=== PATIENT | female | born 1960 | race Caucasian/White ===

== ENCOUNTER → 2021-06-08 08:05 | Outpatient (BNVA) | payer MEDICARE, SELFPAY | PROVIDERS: PCP Physician Assistant; Visit Provider Physician Assistant | DX: E66.01 Morbid (severe) obesity due to excess calories (principal); E11.21 Type 2 diabetes mellitus with diabetic nephropathy; E11.65 Type 2 diabetes mellitus with hyperglycemia; E03.9 Hypothyroidism, unspecified; G47.33 Obstructive sleep apnea (adult) (pediatric); I50.9 Heart failure, unspecified; E78.5 Hyperlipidemia, unspecified; I10 Essential (primary) hypertension | CPT/HCPCS: 99202 ==

== ENCOUNTER → 2021-06-30 14:59 | Outpatient (BNVA) | payer MEDICARE, SELFPAY | PROVIDERS: PCP Physician Assistant; Visit Provider Physician Assistant ==

== ENCOUNTER → 2021-07-01 08:21 | Outpatient (BNVA) | payer MEDICARE, SELFPAY | PROVIDERS: PCP Physician Assistant; Visit Provider Physician Assistant | CPT/HCPCS: Q3014 ==

== ENCOUNTER → 2021-07-20 08:05 | Outpatient (BNVA) | payer MEDICARE, SELFPAY | PROVIDERS: PCP Physician Assistant; Visit Provider Physician Assistant | DX: E66.01 Morbid (severe) obesity due to excess calories (principal); Z68.43 Body mass index [BMI] 50.0-59.9, adult | CPT/HCPCS: Q3014 ==

== ENCOUNTER → 2021-07-22 13:46 | Outpatient (BNVA) | payer MEDICARE, SELFPAY | PROVIDERS: PCP Physician Assistant; Visit Provider Dietitian, Registered | DX: E66.01 Morbid (severe) obesity due to excess calories (principal); E11.65 Type 2 diabetes mellitus with hyperglycemia | CPT/HCPCS: 97802 ==

== ENCOUNTER → 2021-08-12 08:05 | Outpatient (BNVA) | payer MEDICARE, SELFPAY | PROVIDERS: PCP Physician Assistant; Visit Provider Physician Assistant | DX: E66.01 Morbid (severe) obesity due to excess calories (principal); Z68.43 Body mass index [BMI] 50.0-59.9, adult | CPT/HCPCS: Q3014 ==

== ENCOUNTER → 2021-09-17 08:06 | Outpatient (BNVA) | payer MEDICARE, SELFPAY | PROVIDERS: PCP Physician Assistant; Visit Provider Dietitian, Registered | DX: E66.01 Morbid (severe) obesity due to excess calories (principal); Z68.43 Body mass index [BMI] 50.0-59.9, adult | CPT/HCPCS: 97803 ==

== ENCOUNTER → 2021-10-06 08:06 | Outpatient (BNVA) | payer MEDICARE, SELFPAY | PROVIDERS: PCP Physician Assistant; Visit Provider Physician Assistant | CPT/HCPCS: Q3014 ==

== ENCOUNTER → 2021-11-02 08:14 | Outpatient (BNVA) | payer MEDICARE, SELFPAY | PROVIDERS: PCP Physician Assistant; Visit Provider Physician Assistant | DX: E66.01 Morbid (severe) obesity due to excess calories (principal) | CPT/HCPCS: Q3014 ==

== ENCOUNTER → 2021-12-08 08:09 | Outpatient (BNVA) | payer MEDICARE, SELFPAY | PROVIDERS: PCP Physician Assistant; Visit Provider Physician Assistant | DX: E66.01 Morbid (severe) obesity due to excess calories (principal); I11.0 Hypertensive heart disease with heart failure; I50.9 Heart failure, unspecified; E11.65 Type 2 diabetes mellitus with hyperglycemia; G47.33 Obstructive sleep apnea (adult) (pediatric); E03.9 Hypothyroidism, unspecified; M19.90 Unspecified osteoarthritis, unspecified site; Z68.43 Body mass index [BMI] 50.0-59.9, adult | CPT/HCPCS: Q3014 ==

== ENCOUNTER → 2022-01-06 08:09 | Outpatient (BNVA) | payer MEDICARE, SELFPAY | PROVIDERS: PCP Physician Assistant; Visit Provider Physician Assistant | DX: E66.01 Morbid (severe) obesity due to excess calories (principal) | CPT/HCPCS: Q3014 ==

== ENCOUNTER 2022-03-09 06:52 | Outpatient (REF) | payer MEDICARE, SELFPAY ==
--- NOTE | ~2022-03-09 | US_ITS ---
EXAMINATION: US COMPLETE ABDOMEN WITH LIVER ELASTOGRAPHY CLINICAL INFORMATION: Obesity COMPARISON: None. TECHNIQUE: Real-time imaging of the abdominal viscera. Noninvasive ultrasound liver fibrosis assessment is performed using Pippa ElastPQ point quantification shear wave elastography (2D-SWE) with a C5-2 MHz transducer. Multiple elastography samples are obtained. FINDINGS: PANCREAS: Normal. ABDOMINAL AORTA: The proximal, middle, and distal aortic segments are normal in caliber. INFERIOR VENA CAVA: Visualized portions are normal. LIVER: The liver is slightly enlarged. The liver demonstrates normal contour and echogenicity. No focal lesion or intrahepatic biliary duct dilatation. The right lobe measures 19 cm in length. The left lobe measures 15 cm in length. Portal flow is normal/hepatopedal Shear wave liver elastography median stiffness is 1.7 m/s (reference: normal median stiffness is 1.3 m/s or less). IQR/median stiffness to assess sampling precision is 0.11 (reference: good quality data set is IQR/median stiffness of 0.15 or less). GALLBLADDER: Normal. The gallbladder is physiologically distended without evidence of stones, sludge, polyps, wall thickening or pericholecystic fluid. COMMON BILE DUCT: Normal in caliber measuring 0.8 cm in diameter. RIGHT KIDNEY: Normal. No hydronephrosis. No renal calculi or focal parenchymal lesions. The kidney measures 13 cm in maximum dimension. LEFT KIDNEY: Normal. No hydronephrosis. No renal calculi or focal parenchymal lesions. The kidney measures 12.5 cm in maximum dimension. SPLEEN: Normal. The spleen measures 10.2 cm in maximum dimension. FREE FLUID: None. US/US abdomen comp w elastography IMPRESSION: 1. Impression: Slightly enlarged liver. 2. Liver elastography: Adequate liver sampling. Slightly elevated liver stiffness. REFERENCE: Society of Radiologists in Ultrasound Liver Stiffness Thresholds (2020): LIVER STIFFNESS THRESHOLDS: *Liver Stiffness equal or less than 1.3 m/s: High probability of being normal. *Liver Stiffness less than 1.7 m/s: In the absence of other known clinical signs, rules out compensated advanced chronic liver disease. *Liver Stiffness 1.7-2.1 m/s: Liver Stiffness over 2.1 m/s: Rules in compensated advanced chronic liver disease. *Liver Stiffness over 2.4 m/s: Suggestive of clinically significant portal hypertension. QUALITY OF DATA SET: *IQR/Median value equal or less than 0.15 implies a quality data set. *IQR/Median value over 0.15 implies a poor quality data set. SIGNIFICANT CHANGE FROM PRIOR EXAM: Significant change if liver stiffness measurement is 10% or greater from prior exam. OTHER CONSIDERATIONS: The stage of liver fibrosis may be overestimated in the setting of acute hepatitis, liver inflammation, elevated liver function tests, hepatic vascular congestion, obstructive cholestasis, non-fasting state, and infiltrative diseases such as amyloidosis and lymphoma. In some patients with NAFLD, the liver stiffness thresholds for compensated advanced chronic liver disease may be lower. In causes other than viral hepatitis and NAFLD, liver stiffness thresholds are not well established.
--- NOTE | ~2022-03-09 | XR_ITS ---
EXAMINATION: XR CHEST CLINICAL INFORMATION: Bariatric service evaluation. COMPARISON: Upper GI series and ultrasound abdomen 03/09/2022. No prior chest radiographs. TECHNIQUE: 2 views of the chest were obtained. FINDINGS: There is nonspecific tubing overlying the right hemithorax, possibly outside of patient. Clinically correlate. There is no pneumothorax, airspace consolidation, or effusion. The costophrenic sulci are clear. The vascularity is normal. Hilar contours normal. The cardiopericardial silhouette is borderline enlarged. There is nonspecific smooth soft tissue density in the mid and lower substernal space on lateral view. This may represent mediastinal lipomatosis. There are no prior chest radiographs for comparison. There are degenerative changes lower thoracic spine with disc narrowing and vertebral spurring. No visible acute bony abnormality. PSA to call report. XR/XR chest 2V IMPRESSION: -Borderline cardiomegaly. Vascularity normal. No infiltrate or effusion. -Nonspecific smooth soft tissue density substernal space on lateral view. No prior chest radiograph. Finding may be related to mediastinal lipomatosis and could be further characterized with noncontrast CT chest. -Nonspecific tubing overlying right chest. Clinically correlate.
--- NOTE | ~2022-03-09 | FL_ITS ---
EXAMINATION: XR GI SERIES CLINICAL INFORMATION: Obesity COMPARISON: None TECHNIQUE: Upper GI was performed using thin and thick barium and effervescent granules. FINDINGS: Esophageal motility is normal. No hernia is seen. There is very mild gastroesophageal reflux. There is diffuse fold thickening of the stomach. There is marked edema of the pylorus. Follow-up endoscopy should be considered. There is no evidence of obstruction with contrast passing into normal-appearing duodenum. FLUOROSCOPY TIME: 1.1 minutes DOSE AREA PRODUCT: 17 cedillo per centimeter squared. 17 saved fluoroscopic images. FL/FL upper GI series IMPRESSION: Marked fold thickening of the stomach. Edema of the pyloric channel. Possible hyperacidity and gastritis and pyloric channel ulcer should be considered. Follow-up endoscopy should be considered. Very mild gastroesophageal reflux.
--- NOTE | 2022-03-09 07:02 | ECG_ITS ---
Test Reason : E11. TYPE II DIABETES Blood Pressure : / mmHG Vent. Rate : 074 BPM Atrial Rate : 074 BPM P-R Int : 216 ms QRS Dur : 076 ms QT Int : 360 ms P-R-T Axes : 038 091 018 degrees QTc Int : 399 ms Sinus rhythm with 1st degree A-V block Rightward axis Low voltage QRS Septal infarct , age undetermined Abnormal ECG No previous ECGs available Referred By: Jen Vasques Electronically Signed By:David Kc
== END 2022-03-09 06:53 | disposition home or self-care (01) ==
LOC: HO.US 06:52
PROVIDERS: PCP Family Medicine; Visit Provider Physician Assistant
DX: I11.0 Hypertensive heart disease with heart failure (principal); I50.9 Heart failure, unspecified; E11.21 Type 2 diabetes mellitus with diabetic nephropathy; E66.01 Morbid (severe) obesity due to excess calories; E03.9 Hypothyroidism, unspecified; E11.65 Type 2 diabetes mellitus with hyperglycemia; E78.5 Hyperlipidemia, unspecified; G47.33 Obstructive sleep apnea (adult) (pediatric)
CPT/HCPCS: 71046; 74240; 76705; 76981; 93005

== ENCOUNTER → 2022-03-11 15:21 | Outpatient (BNVA) | payer MEDICARE, SELFPAY | PROVIDERS: PCP Family Medicine; Visit Provider Physician Assistant | DX: E66.01 Morbid (severe) obesity due to excess calories (principal); Z68.43 Body mass index [BMI] 50.0-59.9, adult; I44.0 Atrioventricular block, first degree; R94.31 Abnormal electrocardiogram [ECG] [EKG]; I11.0 Hypertensive heart disease with heart failure; I50.9 Heart failure, unspecified; G47.33 Obstructive sleep apnea (adult) (pediatric); E11.65 Type 2 diabetes mellitus with hyperglycemia; E03.9 Hypothyroidism, unspecified; Z11.0 Encounter for screening for intestinal infectious diseases | CPT/HCPCS: 99211; 99212 ==

== ENCOUNTER 2022-03-11 17:51 | Outpatient (REF) | payer MEDICARE, SELFPAY ==
[2022-03-12 15:28] LABS: H Pylori Breath Test Negative (Negative)
== END 2022-03-11 17:52 | disposition home or self-care (01) ==
LOC: HO.LNP 17:51
PROVIDERS: Visit Provider Physician Assistant
DX: I11.0 Hypertensive heart disease with heart failure (principal); I50.9 Heart failure, unspecified; E78.5 Hyperlipidemia, unspecified; G47.33 Obstructive sleep apnea (adult) (pediatric); E11.65 Type 2 diabetes mellitus with hyperglycemia; E03.9 Hypothyroidism, unspecified; E11.21 Type 2 diabetes mellitus with diabetic nephropathy; Z11.0 Encounter for screening for intestinal infectious diseases
CPT/HCPCS: 83013

== ENCOUNTER → 2022-03-19 08:09 | Outpatient (BNVA) | payer MEDICARE, SELFPAY | PROVIDERS: PCP Family Medicine; Visit Provider Surgery | DX: E66.01 Morbid (severe) obesity due to excess calories (principal); Z68.43 Body mass index [BMI] 50.0-59.9, adult; I11.0 Hypertensive heart disease with heart failure; I50.9 Heart failure, unspecified; G47.33 Obstructive sleep apnea (adult) (pediatric); E11.65 Type 2 diabetes mellitus with hyperglycemia; E03.9 Hypothyroidism, unspecified; E78.5 Hyperlipidemia, unspecified; E11.21 Type 2 diabetes mellitus with diabetic nephropathy; F31.81 Bipolar II disorder; M19.90 Unspecified osteoarthritis, unspecified site; F06.30 Mood disorder due to known physiological condition, unspecified; K21.9 Gastro-esophageal reflux disease without esophagitis; G93.2 Benign intracranial hypertension; J45.909 Unspecified asthma, uncomplicated | CPT/HCPCS: Q3014 ==

== ENCOUNTER 2022-03-24 08:39 | Outpatient (REF) | payer MEDICARE, SELFPAY ==
--- NOTE | ~2022-03-24 | CT_ITS ---
EXAMINATION: CT CHEST, ABDOMEN, PELVIS WITH CONTRAST CLINICAL INFORMATION: Mediastinal mass. COMPARISON: Chest x-ray 03/09/2022. TECHNIQUE: 5 mm thin axial and reformatted 5 mm thin axial and coronal images of chest, abdomen and pelvis were obtained following IV 85 mL Omnipaque 350. DLP: 1347 mGy-cm. FINDINGS: CHEST: Lungs: The lungs are well-expanded and clear of acute pneumonic process. There is a 4 mm ground-glass nodule subpleural left lower lobe, axial image 391/7. A 2.8 x 1.9 cm nodule is seen on top of the right diaphragm, axial image 362/7 and sagittal image 88/6. It measures 46 Hounsfield units. No additional pulmonary nodules, mass or consolidation seen. Mediastinum: The thyroid lobes are symmetrical and normal. The central trachea and the bronchi are widely patent. Heart size and the great vessels are normal caliber. There is a small pericardial effusion extending throughout the heart and superior pericardial sac. No soft tissue mass or abnormal lymphadenopathy seen. There are trace coronary artery calcifications present. Pleura: There is no pleural thickening, effusion or calcification. Axilla: There are small shotty lymph nodes in the axilla. The chest wall is unremarkable. Osseous Structures: There is mild ventral spondylosis mid and lower dorsal spine. No aggressive lytic or sclerotic process seen. ABDOMEN AND PELVIS: Liver, Ducts and Gallbladder: The liver is homogeneous in density, normal size and contour. No focal lesion or intrahepatic ductal dilatation seen. The gallbladder has been surgically removed. Spleen: Unremarkable. Adrenal Glands: Unremarkable. Pancreas: Unremarkable. Kidneys and Ureters: Both kidneys are normal size, shape and position. There is a 4 mm nonobstructive radiopaque calculi lower pole right kidney. There is no caliectasis. No additional radiopaque calculi seen. There is no hydronephrosis. Lymphovascular Structures: The abdominal aorta is normal caliber. No abnormal size retroperitoneal or mesenteric lymph nodes seen. Abdominal Wall: Unremarkable. GI Tract: There is scattered stool, diverticula and gas seen throughout the colon without distention. The small-bowel loops are normal caliber. Appendix is not visualized with certainty; however, there is no inflammatory process in the right abdomen. No free air or free fluid seen. There is a jugular catheter seen in the right upper quadrant extending to the right anterior chest wall. Similarly, there is a right anterior lateral chest wall thin catheter seen. Whether this represents a broken SALES [employer] shunt is questioned. Correlate with clinical exam. Pelvis: There is no free air or free fluid. No abnormal pelvic or inguinal lymph nodes seen. There is a surgical staple in the pelvis of unknown etiology on axial image 74/3. There is a soft tissue mass seen on the last image of the pelvis on axial image 88/3. Question scar versus lymph node. Osseous Structures: There is no aggressive lytic or sclerotic process seen. There is vacuum disc phenomena and loss of disc height with spondylosis L5-S1 disc level. CT/CT chest w con IMPRESSION: Right lower lobe mass on the top of the diaphragm measuring 2.8 cm. Mild pericardial effusion extending to the anterior pericardial recess adjacent to the aorta and the pulmonary artery origins Colonic diverticulosis without diverticulitis. Suspect broken [employer] shunt. Correlate with clinical exam. This is visualized along the right anterolateral chest and abdominal wall. Soft tissue mass below the right inguinal region visualized on last image. Question scar versus lymph node. Cholecystectomy. Nonobstructive radiopaque calculi lower pole right kidney.
--- NOTE | ~2022-03-24 | CT_ITS ---
EXAMINATION: CT CHEST, ABDOMEN, PELVIS WITH CONTRAST CLINICAL INFORMATION: Mediastinal mass. COMPARISON: Chest x-ray 03/09/2022. TECHNIQUE: 5 mm thin axial and reformatted 5 mm thin axial and coronal images of chest, abdomen and pelvis were obtained following IV 85 mL Omnipaque 350. DLP: 1347 mGy-cm. FINDINGS: CHEST: Lungs: The lungs are well-expanded and clear of acute pneumonic process. There is a 4 mm ground-glass nodule subpleural left lower lobe, axial image 391/7. A 2.8 x 1.9 cm nodule is seen on top of the right diaphragm, axial image 362/7 and sagittal image 88/6. It measures 46 Hounsfield units. No additional pulmonary nodules, mass or consolidation seen. Mediastinum: The thyroid lobes are symmetrical and normal. The central trachea and the bronchi are widely patent. Heart size and the great vessels are normal caliber. There is a small pericardial effusion extending throughout the heart and superior pericardial sac. No soft tissue mass or abnormal lymphadenopathy seen. There are trace coronary artery calcifications present. Pleura: There is no pleural thickening, effusion or calcification. Axilla: There are small shotty lymph nodes in the axilla. The chest wall is unremarkable. Osseous Structures: There is mild ventral spondylosis mid and lower dorsal spine. No aggressive lytic or sclerotic process seen. ABDOMEN AND PELVIS: Liver, Ducts and Gallbladder: The liver is homogeneous in density, normal size and contour. No focal lesion or intrahepatic ductal dilatation seen. The gallbladder has been surgically removed. Spleen: Unremarkable. Adrenal Glands: Unremarkable. Pancreas: Unremarkable. Kidneys and Ureters: Both kidneys are normal size, shape and position. There is a 4 mm nonobstructive radiopaque calculi lower pole right kidney. There is no caliectasis. No additional radiopaque calculi seen. There is no hydronephrosis. Lymphovascular Structures: The abdominal aorta is normal caliber. No abnormal size retroperitoneal or mesenteric lymph nodes seen. Abdominal Wall: Unremarkable. GI Tract: There is scattered stool, diverticula and gas seen throughout the colon without distention. The small-bowel loops are normal caliber. Appendix is not visualized with certainty; however, there is no inflammatory process in the right abdomen. No free air or free fluid seen. There is a jugular catheter seen in the right upper quadrant extending to the right anterior chest wall. Similarly, there is a right anterior lateral chest wall thin catheter seen. Whether this represents a broken CONTINUOUS IMPROVEMENT MANAGER shunt is questioned. Correlate with clinical exam. Pelvis: There is no free air or free fluid. No abnormal pelvic or inguinal lymph nodes seen. There is a surgical staple in the pelvis of unknown etiology on axial image 74/3. There is a soft tissue mass seen on the last image of the pelvis on axial image 88/3. Question scar versus lymph node. Osseous Structures: There is no aggressive lytic or sclerotic process seen. There is vacuum disc phenomena and loss of disc height with spondylosis L5-S1 disc level. CT/CT abdomen pelvis w con IMPRESSION: Right lower lobe mass on the top of the diaphragm measuring 2.8 cm. Mild pericardial effusion extending to the anterior pericardial recess adjacent to the aorta and the pulmonary artery origins Colonic diverticulosis without diverticulitis. Suspect broken CONTINUOUS IMPROVEMENT MANAGER shunt. Correlate with clinical exam. This is visualized along the right anterolateral chest and abdominal wall. Soft tissue mass below the right inguinal region visualized on last image. Question scar versus lymph node. Cholecystectomy. Nonobstructive radiopaque calculi lower pole right kidney.
[2022-03-24 10:18] LABS: Blood Urea Nitrogen 38 mg/dL (9-16); Estimated Glomerular Filt Rate 43
[2022-03-24] MEDS: iohexoL 350 MG/ML 100 ML INFUS..BTL 85 ML IV (11:07)
== END 2022-03-24 08:40 | disposition home or self-care (01) ==
LOC: HO.CT 08:39
PROVIDERS: Radiology Diagnostic Radiology; PCP Family Medicine; Visit Provider Physician Assistant
DX: J98.59 Other diseases of mediastinum, not elsewhere classified (principal)
CPT/HCPCS: 36415; 71260; 74177; 82565; 84520; Q9967

== ENCOUNTER → 2022-04-08 09:05 | Outpatient (BNVA) | payer MEDICARE, SELFPAY | PROVIDERS: PCP Family Medicine; Visit Provider Physician Assistant | DX: E66.01 Morbid (severe) obesity due to excess calories (principal); I11.0 Hypertensive heart disease with heart failure; I50.9 Heart failure, unspecified; E11.65 Type 2 diabetes mellitus with hyperglycemia; R91.8 Other nonspecific abnormal finding of lung field | CPT/HCPCS: Q3014 ==

== ENCOUNTER → 2022-04-09 10:22 | Outpatient (BNVA) | payer MEDICARE, SELFPAY | PROVIDERS: PCP Physician Assistant; Visit Provider Surgery | DX: R91.8 Other nonspecific abnormal finding of lung field (principal) | CPT/HCPCS: 99202 ==

== ENCOUNTER 2022-04-15 08:50 | Outpatient (REF) | payer MEDICARE, SELFPAY ==
--- NOTE | 2022-04-15 11:54 | PFT_ITS ---
INDICATION: Preop. SPIROMETRY: FEV1 to FVC 74% with an FEV1 of 1.63 L, which is 66% predicted, an FVC of 2.19 L, which is 68% predicted. No significant response to bronchodilators noted. Maximum voluntary ventilation 51% predicted. LUNG VOLUMES: Total lung capacity 80% predicted with an expiratory reserve volume of 28% predicted. DIFFUSION CAPACITY: DLCO of 56% predicted, it corrects to 76% when correcting for the alveolar volume. COMPARISONS: None. INTERPRETATION: No obstructive nor restrictive ventilatory defects identified. No significant response to bronchodilators noted. The patient does have a moderate decrease in maximum voluntary ventilation secondary to likely deconditioning. The lung volumes are low normal with a decrease in the expiratory reserve volume secondary to an elevated BMI. There is a moderate diffusion impairment, although it does correct partially when correcting for the alveolar volume. Clinical correlation warranted. Jadiel Caruso MD MR/MODL / [id number]
== END 2022-04-15 08:51 | disposition home or self-care (01) ==
LOC: HO.RESP 08:50
PROVIDERS: PCP Family Medicine; Visit Provider Surgery
DX: R91.8 Other nonspecific abnormal finding of lung field (principal)
CPT/HCPCS: 94060; 94727; 94729

== ENCOUNTER 2022-04-27 11:26 | Outpatient (REF) | payer MEDICARE, SELFPAY ==
--- NOTE | ~2022-04-27 | PE_ITS ---
EXAMINATION: Fluorine-18 FDG PET/CT Scan CLINICAL INDICATION: Initial treatment management. Pulmonary nodule. PROCEDURE: 60 minutes following the intravenous administration of 18.3 mCi of fluorine 18 FDG, images from the base of the skull to the mid thighs were obtained using a combined PET/CT scanner with CT scan based attenuation correction. No oral contrast was administered. No intravenous contrast was administered. Transverse, coronal, sagittal, and volume reconstruction projections were obtained. The patient's blood glucose as determined by a finger stick, was 189 mg/dl immediately prior to injection. Total CT exam dose-length product 1431.34 mGy-cm * These CT images were obtained using dose optimization techniques as appropriate, variously including the following: Automated exposure control * Adjustment of mA and/or kV according to patient size (this includes techniques or standardized protocols for targeted exams where dose is matched to indication/reason for exam; i.e. extremities or head) * Use of iterative reconstruction technique COMPARISON: No previous PET/CT scan is available for comparison. The diagnostic CT scan of the chest, abdomen, and pelvis, dated 03/24/2022, is available for comparison. FINDINGS: (Slice numbers described in this report are numbered superiorly to inferiorly with slice #1 in the head) NECK AND VISUALIZED HEAD: No foci of abnormally increased FDG activity are noted. There is a focus of decreased FDG activity associated with encephalomalacia in the parasagittal posterior right occipital region. The distribution of FDG activity is otherwise physiological. There is an osseous defect likely due to prior craniotomy in the posterior base of the right occipital bone. There is no cervical lymphadenopathy. THORAX: There is an FDG avid right lower lobe pulmonary nodule that abuts the diaphragm, showing SUVmax 8.9, slice 93/267. On the CT images this measures 2.6 x 1.8 cm in largest transverse dimensions and approximately 2.9 cm cephalocaudad. It is not significantly changed in appearance from the 03/24/2022 CT scan. A 0.4 cm subpleural nodule in the left lower lobe visualized on the 03/24/2022 CT scan is not visible on these nondiagnostic CT images. This nodule would be too small to be resolved on the FDG PET images. No additional pulmonary nodules are visualized. There is an additional focus of mildly increased FDG activity in the proximal peribronchial region of the right middle lobe with no definite CT correlate on either these nondiagnostic CT images or the diagnostic 03/24/[address] scan. This shows SUVmax 6.3, slice 86/267. No additional foci of abnormal FDG activity are present in the chest. There is a subcutaneous catheter segment that runs from the posterior aspect of the mid right breast along the right axilla to the posterolateral right chest wall, previously noted on the 03/24/2022 CT scan and the chest radiograph dated 03/09/2022. No pleural fluid or pneumothorax is present. A small pericardial effusion is noted with no associated abnormal FDG activity and similar in appearance to 03/24/2022. ABDOMEN AND PELVIS: There are no foci of abnormal FDG activity in the abdomen or pelvis. There is mild FDG activity throughout the gastrointestinal tract without a suspicious focal component. There is diverticulosis without evidence of diverticulitis. The hollow viscera are otherwise unremarkable. The liver and spleen are unremarkable. The gallbladder has been resected and metallic surgical clips are present in the gallbladder bed. There is a 0.4 cm nonobstructing right lower pole calcified renal calculus. The kidneys are otherwise unremarkable. The adrenal glands and pancreas are unremarkable. The pelvic organs are unremarkable. There is no retroperitoneal, mesenteric, pelvic or inguinal lymphadenopathy. There is an intraperitoneal right-sided catheter segment extends to and penetrates the anterior abdominal abdominal wall in the midline and then extends several centimeters to the right. There is a large hypodense soft tissue mass in the right groin, with mean density -11 Hounsfield units. This measures this measures 13.2 x 7.8 cm in largest transverse dimensions and approximately 9.2 cm cephalocaudad. This shows mild diffuse FDG activity, SUVmax 3.3, slice 230/267. MUSCULOSKELETAL: No foci of abnormal FDG activity are present in the osseous structures. There are mild degenerative changes in the spine but no suspicious sclerotic or lytic lesions are present. Right occipital post craniotomy changes as previously noted. VASCULAR: Scattered vascular calcifications including coronary. PET/PET CT fusion skull to thigh IMPRESSION: 1. The previously visualized right lung base pulmonary nodule is FDG avid and most likely malignant. 2. There is a single proximal right middle lobe peribronchial FDG avid focus without corresponding CT correlate that likely represents a metastatic peribronchial lymph node. 3. There is a large soft tissue low density mass in the right inguinal region with mild FDG activity as described above. This is probably a large lymphocele, but the finding is nonspecific. Further characterization of this with MRI is recommended. 4. No additional abnormalities suspicious for other metastatic or malignant lesions are noted. 5. A small pericardial effusion is present with no associated abnormal FDG activity. 6. Nephrolithiasis. 7. Vascular calcifications including coronary. 8. Two separate segments of a retained catheter present, possibly representing retained portions of ventriculoperitoneal shunt. However no shunt fragments are visualized in the head and neck in these findings are nonspecific. The fragments extend from the right side of the perineum to the anterior abdominal wall in the midline and then several centimeters to the right, and the other segment extends in the subcutaneous tissues from the midline anterior chest wall laterally through the axilla to the posterolateral right chest wall. Clinical correlation is recommended.
== END 2022-04-27 11:27 | disposition home or self-care (01) ==
LOC: HO.PET 11:26
PROVIDERS: Visit Provider Surgery
DX: Z13.89 Encounter for screening for other disorder (principal)

== ENCOUNTER → 2022-05-05 12:31 | Outpatient (BNVA) | payer MEDICARE, SELFPAY | PROVIDERS: PCP Family Medicine; Visit Provider Physician Assistant | DX: E66.01 Morbid (severe) obesity due to excess calories (principal); Z68.43 Body mass index [BMI] 50.0-59.9, adult; R91.8 Other nonspecific abnormal finding of lung field | CPT/HCPCS: Q3014 ==

== ENCOUNTER → 2022-06-24 09:56 | Outpatient (BNVA) | payer MEDICARE, SELFPAY | PROVIDERS: PCP Family Medicine; Visit Provider Physician Assistant | DX: E66.01 Morbid (severe) obesity due to excess calories (principal); R91.8 Other nonspecific abnormal finding of lung field | CPT/HCPCS: Q3014 ==

== ENCOUNTER → 2022-08-16 10:23 | Outpatient (BNVA) | payer MEDICARE, SELFPAY | PROVIDERS: PCP Family Medicine; Visit Provider Physician Assistant | DX: E66.01 Morbid (severe) obesity due to excess calories (principal); R91.8 Other nonspecific abnormal finding of lung field; Z68.43 Body mass index [BMI] 50.0-59.9, adult | CPT/HCPCS: Q3014 ==

== ENCOUNTER → 2022-10-04 08:30 | Outpatient (BNVA) | payer MEDICARE, SELFPAY | PROVIDERS: PCP Family Medicine; Visit Provider Physician Assistant | DX: E66.01 Morbid (severe) obesity due to excess calories (principal); R91.8 Other nonspecific abnormal finding of lung field; Z68.43 Body mass index [BMI] 50.0-59.9, adult | CPT/HCPCS: Q3014 ==

== ENCOUNTER → 2022-12-15 08:30 | Outpatient (BNVA) | payer MEDICARE, SELFPAY | PROVIDERS: PCP Family Medicine; Visit Provider Physician Assistant | DX: E66.01 Morbid (severe) obesity due to excess calories (principal); C34.90 Malignant neoplasm of unspecified part of unspecified bronchus or lung | CPT/HCPCS: Q3014 ==

== ENCOUNTER → 2023-01-27 13:00 | Outpatient (BNVA) | payer MEDICARE, SELFPAY | PROVIDERS: Visit Provider Physician Assistant | DX: E66.01 Morbid (severe) obesity due to excess calories (principal); Z68.42 Body mass index [BMI] 45.0-49.9, adult; C34.90 Malignant neoplasm of unspecified part of unspecified bronchus or lung | CPT/HCPCS: Q3014 ==

== ENCOUNTER 2023-05-05 08:53 | Outpatient (AMB) | payer MEDICARE, SELFPAY ==
[2023-05-05 08:48] VITALS: BMI 46.7
--- NOTE | 2023-05-05 08:48 | MHC.OFFVISWM ---
Intake VS Expanded 05/05/23 08:48 Height 5 ft 1.5 in Weight 251 lb BMI 46.7 Intake Visit Reasons: VIDEO F/U [facility] Allergies cat dander Allergy (Severe, Verified 04/09/22 10:24) Anaphylaxis Seasonal Allergies Allergy (Severe, Verified 04/09/22 10:24) Anaphylaxis dulaglutide [From Trulicity] Adverse Reaction (Verified 04/09/22 10:24) vomiting HPI HPI Comments History of Present Illness Details [facility] follow up, patient has lost 60.4 lbs or 20.3% in our pgorgram and has realized that her very severe medical problmes preclude her form continuing in our [facility] or [facility] program. She was told she has about 1 year left to live before she succumbs to her chronic medical problems. [facility] Surgical History History of back surgery Hx of appendectomy Hx of cholecystectomy Hx of tonsillectomy Family History Mother No problems noted. Father No problems noted. Brother No problems noted. Sister No problems noted. Social History Alcohol intake: current Alcohol intake frequency: holidays/special occasions only Patient Tobacco Use Status: Current everyday Tobacco user Tobacco use type: Cigarette Cigarette Packs Per Day: 1 Assessment & Plan Assessment & Plan (1) Morbid obesity: Code(s): E66.01 - Morbid (severe) obesity due to excess calories Plan: Pt had very successful weight loss in our program but unfortunately was also diagnosed with metastatic lung cancer and can no longer participate in a weight loss program. Patient is still morbidly obese and is not considered stable at this time. I spent 15 minutes in total speaking with the patient via video conference counseling , reviewing records and charting in patients chart. . (2) Metastatic lung cancer (metastasis from lung to other site): Code(s): C34.90 - Malignant neoplasm of unspecified part of unspecified bronchus or lung (3) CHF (congestive heart failure): Code(s): I50.9 - Heart failure, unspecified Telehealth Telehealth Location of provider rendering services: practice address Location of patient: address on file Patient Identification confirmed using: Name, : Yes Telehealth method: video Patient verbally consented to treatment: Yes Patient verbally consented to billing insurance company: Yes Patient informed of any privacy concerns related to visit: Yes Coding Level of Care Code Tele Est Pt Level 3 (27953) Diagnoses Morbid obesity E66.01 Metastatic lung cancer (metastasis from lung to other site) C34.90 CHF (congestive heart failure) I50.9
--- OUTSIDE RECORDS SUMMARY | 2023-05-05 08:55 | XMS_ITS | Continuity of Care Document ---
Author Name Unknown Organization [facility] Address [address] [place] [address]- Care Team Providers Care Conference Planning Manager Name Role Phone Rell DE LA TORRE, Karolyn Primary Care Physician [phone] Encounter [facility] Date(s): 03/23/23 - 04/22/[address] [address]- Allergies, Adverse Reactions, Alerts Substance Reaction Severity Status ibuprofen Active Trulicity Active Immunizations Given and Recorded Vaccine Date Status Refusal Reason influenza virus vaccine, inactivated 07/10/22 Give n influenza virus vaccine, inactivated 11/17/16 Give n SARS-CoV-2 (COVID-19) mRNA-1273 vaccine 01/28/22 R ecorded SARS-CoV-2 (COVID-19) mRNA-1273 vaccine 07/20/21 R ecorded SARS-CoV-2 (COVID-19) mRNA-1273 vaccine 12/19/20 R ecorded SARS-CoV-2 (COVID-19) mRNA-1273 vaccine 11/22/20 R ecorded pneumococcal 23-valent vaccine 02/24/17 Given Medications acetaminophen/butalbital/caffeine 325 mg-50 mg-40 mg oral tablet 1 tablet, By Mouth, Every 6 hours, PRN as needed, Maintenance, 07/09/22 19:13:00 EDT, Tablet Start Date: 07/09/22 Status: Ordered albuterol 90 mcg/inh inhalation powder 1 puffs, Inhalation, Every 4 hours, PRN as needed, # 1 each, 0 Refills, Maintenance, 11/19/16 13:15:52, Powder Start Date: 11/19/16 Status: Ordered alectinib 150 mg oral capsule 2 capsule = 300 mg, By Mouth, 2 times a day, with food, # 120 capsule, 11 Refills, Maintenance, 04/14/23 10:50:00 EDT, Capsule, Partial fill upon patient request if the prescription is for a scheduleII opioid drug. Start Date: 04/14/23 Status: Ordered Breo Ellipta 100 mcg-25 mcg/inh inhalation powder 1 puffs, Inhalation, Daily, # 30 each, 0 Refills, Maintenance, 05/12/19 11:36:55 EDT, Powder Start Date: 05/12/19 Status: Ordered Carafate 1 gm oral tablet 1 Gm, By Mouth, 3 times a day before meals and bedtime, # 30 tablet, Refills 0, Tot. Refills 0, Maintenance, 03/21/23 12:57:00 EDT, Route to Pharmacy Electronically, [facility]/pharmacy #[id number], Partial fill upon patient request if the prescription is for a sc... Start Date: 03/21/23 Status: Ordered Crestor 40 mg oral tablet 1 tablet = 40 mg, By Mouth, Daily, # 30 tablet, 0 Refills, Maintenance, 11/16/16 16:25:00, Tablet Start Date: 11/16/16 Status: Ordered desvenlafaxine 25 mg oral tablet, extended release 1 tablet = 25 mg, By Mouth, Daily, do not crush or chew, Maintenance, 07/09/22 19:14:00 EDT, ER Tablet Start Date: 07/09/22 Status: Ordered diazepam 10 mg oral tablet 20 mg, 2, tablet, By Mouth, Daily at bedtime Start Date: 07/09/22 Status: Ordered DilTIAZem (Eqv-Cardizem CD) 120 mg/24 hours oral capsule, extended release 1 capsule = 120 mg, By Mouth, 2 times a day, 0 Refills, Maintenance, 08/14/21 20:12:00 EST, Partialfill upon patient request if the prescription is for a schedule II opioid drug. Start Date: 08/14/21 Status: Ordered enoxaparin 120 mg/0.8 mL injectable solution 0.8 mL = 120 mg, Subcutaneous Injection, Every 12 hours, for 30 days, # 48 mL, 1 Refills, Acute 06/05/23 14:47:00 EDT, 04/06/23 14:47:00 EDT, Injection, [facility], Partial fill upon patient request if the prescription is for a schedule... Start Date: 04/06/23 Stop Date: 06/05/23 Status: Ordered fenofibrate 145 mg oral tablet 1 tablet = 145 mg, By Mouth, Daily, # 90 tablet, 0 Refills, Maintenance, 08/14/21 17:28:00 EST, Tablet, Partial fill upon patient request if the prescription is for a schedule II opioid drug. Start Date: 08/14/21 Status: Ordered Flonase 50 mcg/inh nasal spray 1 sprays, Daily, Pt uses prn, 0 Refills, Maintenance, 04/11/17 11:45:51 Start Date: 04/11/17 Status: Ordered Humalog 100 u/ml subcutaneous injection See Instructions, Subcutaneous Infusion through insulin pump, max 250 units/d, 90 days, E 11.65, # 230 mL, 4 Refills, Maintenance, 06/25/22 13:55:00 EDT, [facility]/pharmacy #[id number], 157, cm, 05/25/22 13:17:00 EDT, Height, 138.3, kg, 08/15/21 6:07:00 EST, Dry... Start Date: 06/25/22 Status: Ordered iVAPS iVAPS, See Instructions, # 1 each, Refills 0, Tot. Refills 0, Maintenance, with TVa at 8.6 L/minutewith EPAP of 9 and min PS of 6 and max PS of 19 with target patient rate at 20., 02/07/23 11:19:00 EDT, Supply Start Date: 02/07/23 Status: Ordered lamotrigine 100 mg oral tablet 100 mg, 1, tablet, By Mouth, 2 times a day, # 60 tablet, Refills 5, Maintenance, 07/09/22 8:01:00 EDT, Partial fill upon patient request if the prescription is for a schedule II opioid drug. Start Date: 07/09/22 Status: Ordered Lasix 40 mg oral tablet 60 mg, By Mouth, Daily, # 45 tablet, Refills 0, Tot. Refills 0, Maintenance, 04/06/23 14:46:00 EDT,Route to Pharmacy Electronically, [facility], Partial fill upon patient request if the prescription is for a schedule II opioid drug., 15... Start Date: 04/06/23 Stop Date: 05/06/23 Status: Ordered levothyroxine 0.1 mg oral tablet = 100 mcg, By Mouth, Daily, 0 Refills, Maintenance, 05/12/19 11:34:46 EDT, Tablet Start Date: 05/12/19 Status: Ordered omnipod dash pods omnipod dash pods, See Instructions, # 15 each, Refills 11, Tot. Refills 11, Maintenance, e11.9, use as directed with short acting insulin, change out every 2 days. 30 day supply, 06/25/22 14:44:00 EDT, Supply, 157, cm, 05/25/22 13:17:00 EDT, Height,... Start Date: 06/25/22 Status: Ordered ondansetron 8 mg oral tablet 1 tablet = 8 mg, By Mouth, Every 8 hours, PRN as needed for nausea/vomiting, 0 Refills, Maintenance, 03/15/23 13:43:00 EDT, Tablet, Partial fill upon patient request if the prescription is for a schedule II opioid drug. Start Date: 03/15/23 Status: Ordered pantoprazole 40 mg oral delayed release tablet = 40 mg, By Mouth, 2 times a day, # 30 tablet, 0 Refills, Maintenance, 03/21/23 12:59:00 EDT, EC Tablet, 159, cm, 03/21/23 3:14:00 EDT, Height, 123, kg, 03/16/23 1:01:00 EDT, Dry Weight Start Date: 03/21/23 Status: Ordered potassium chloride 20 mEq oral tablet, extended release 1 tablet = 20 mEq, By Mouth, 2 times a day, # 6 tablet, 0 Refills, Maintenance, 09/16/19 8:51:00 EST, ER Tablet, [facility], 158, cm, 09/16/19 7:39:00 EST, Height, 122.5, kg, 09/13/19 18:49:00 EST, Dry Weight Start Date: 09/16/19 Stop Date: 09/19/19 Status: Ordered predniSONE 10 mg oral tablet See Instructions, please take with food. starting 04/06 take 4 tablets by mouth dailiy for 14 days, on 04/20 decrease to 3 tablets by mouth daily for 1 week, on 04/27 decrease to 2 tablets by mouth dailyfor 1 week, on 05/04 decrease to 1 tablet by mouth da... Start Date: 04/06/23 Status: Ordered traZODone 50 mg oral tablet 50 mg, 1, tablet, By Mouth, Daily at bedtime, # 15 tablet, Refills 0, Maintenance, 03/15/23 13:42:00 EDT, Partial fill upon patient request if the prescription is for a schedule II opioid drug. Start Date: 03/15/23 Status: Ordered Vitamin D3 1000 intl units oral tablet 1 tablet = 25 mcg, By Mouth, Daily, # 30 tablet, 0 Refills, Maintenance, 08/14/21 17:30:00 EST, Tablet, Partial fill upon patient request if the prescription is for a schedule II opioid drug. Start Date: 08/14/21 Status: Ordered Xyzal 5 mg oral tablet 1 tablet = 5 mg, By Mouth, Daily in PM, # 15 tablet, 0 Refills, Maintenance, 08/14/21 17:30:00 EST,Tablet Start Date: 08/14/21 Status: Ordered Problem List Condition Confirmation Course Effective Dates Status H ealth Status Informant Central sleep apnea Confirmed Active Depression Confirmed Active Diabetic nephropathy Confirmed Active GERD - Gastro-esophageal reflux disease Confirmed Active Hyperlipidemia Confirmed Active Hypertension Confirmed Active Hypothyroidism Confirmed Active Hypoventilation Confirmed Active Sleep-related hypoxia Confirmed Active Obesity, Unspecified Confirmed Active Obstructive sleep apnea Confirmed Active Severe obesity Confirmed Active Type 2 diabetes mellitus Confirmed Active Social History Social History Type Response Smoking Status Former smoker, quit more than 30 days ago; Other: smoked briefly from March-Apr 2022, had been years of nonsmoking prior; entered on: 07/28/22 Sex Patient Care team information Care Team Personnel Name: Naomi Vasquez RN Position: [facility] RN Member Role: Primary Care Nurse Name: Karolyn Zacarias MD Position: [facility] Physician - Primary Care Member Role: PCP Address: Address: [address] [place] [address] [address] [place], [place] [address] Name: Katina Tsang RN Position: [facility] RN Member Role: Primary Care Nurse Name: Tricia Titus RN Position: [facility] RN Supv Member Role: Primary Care Nurse Name: Claudette Govea Position: [facility] Outreach Member Role: Lifetime Consulting Physician Name: Dena Cano RN Position: [facility] RN Member Role: Primary Care Nurse Name: Bailey Inman RN Position: [facility] RN Member Role: Primary Care Nurse Name: Emma Jaramilol RN Position: [facility] AMB Nurse Member Role: Primary Care Nurse Name: Olga Wu RN Position: [facility] RN Supv Member Role: Primary Care Nurse Name: Naomi Rahman RN Position: [facility] RN Member Role: Primary Care Nurse Name: Maria De Jesus Moreau RN Position: [facility] RN Member Role: Primary Care Nurse Name: Suzanna Langley RN Position: [facility] OB RN Member Role: Primary Care Nurse Name: Rosio Soriano RN Position: [facility] RN Member Role: Primary Care Nurse Name: Arabella Smart RN Position: [facility] SN RN Member Role: Primary Care Nurse Name: Vesta Carmona LPN Position: [facility] RN Member Role: Primary Care Nurse Name: Alec Kong DO Position: [facility] Renal MD Member Role: Lifetime Consulting Physician Address: Address: [address] [place], [place] [address] [place], [place] [address] Name: Dedra Reese RN Position: [facility] RN Member Role: Primary Care Nurse Name: Makayla Valencia Position: [facility] RN Member Role: Primary Care Nurse Name: Dedra Byrd RN Position: [facility] RN Member Role: Primary Care Nurse Name: Nayely Sykes Position: [facility] RN Member Role: Primary Care Nurse Name: Ernie Bee RN Position: [facility] RN Member Role: Primary Care Nurse Name: Stephanie Way RN Position: [facility] RN Member Role: Primary Care Nurse Name: Ralph Coates RN Position: [facility] SN RN Member Role: Primary Care Nurse Name: Valeri Abebe RN Position: [facility] RN Member Role: Primary Care Nurse Name: Veronica Garcia RN Position: [facility] RN Member Role: Primary Care Nurse Name: Jeannine Chicas RN Position: [facility] Hospital Lens Molding Equipment Operator Member Role: Primary Care Nurse Name: Israel Etienne Position: [facility] Outreach Member Role: Lifetime Consulting Physician Name: Juju Rahman RN Position: [facility] SN RN Member Role: Primary Care Nurse Name: Tiffanie Watson RN Position: [facility] ED RN W/OE and Tasks Member Role: Primary Care Nurse Name: Tahira Hammond MA Position: [facility] A[place] Member Role: Primary Care Nurse Name: Lana Montiel RN Position: [facility] RN Member Role: Primary Care Nurse Name: Jayla Murguia RN Position: [facility] RN Member Role: Primary Care Nurse Name: Gurpreet Irby RN Position: [facility] RN Member Role: Primary Care Nurse Name: Rajani Delcid RN Position: [facility] Hospital Lens Molding Equipment Operator Member Role: Primary Care Nurse Care Team Related Persons Name: MAKAYLA GOTTLIEB Address: home [address] [place] [address] Name: KAROLYN MCGOWAN Address: home [address] [place] [address] Name: BHARGAV MUHAMMAD Address: home [address] [place] [address] Name: BHARGAV MUHAMMAD Address: [address] [place] [address]
--- OUTSIDE RECORDS SUMMARY | 2023-05-05 08:55 | XMS_ITS | Continuity of Care Document ---
Author Name Unknown Organization [facility] Address [address] [place] [address]- Care Team Providers Care Baker Bread Name Role Phone Rell DE LA TORRE, Karolyn Primary Care Physician [phone] Encounter [facility] Date(s): 02/11/23 - 03/13/23 [facility][1] Care [address] [place] [address]- Allergies, Adverse Reactions, Alerts Substance Reaction Severity [...] 13:15:52, Powder Start Date: 11/19/16 Status: Ordered aspirin 81 mg oral tablet 1 tablet = 81 mg, By Mouth, Daily, # 30 tablet, 0 Refills, Maintenance, 11/16/16 16:30:22, Tablet Start Date: 11/16/16 Status: Ordered Breo Ellipta 100 mcg-25 mcg/inh inhalation powder 1 puffs, Inhalation, Daily, # 30 each, 0 Refills, Maintenance, 05/12/19 11:36:55 EDT, Powder Start Date: 05/12/19 Status: Ordered Crestor 40 mg oral tablet [...] at bedtime Start Date: 07/09/22 Status: Ordered diazepam 5 mg oral tablet 5 mg, 1, tablet, By Mouth, Every 8 hours Start Date: 07/09/22 Status: Ordered DilTIAZem (Eqv-Cardizem CD) 120 mg/24 hours oral capsule, extended release 1 capsule = 120 mg, By Mouth, 2 times a day, 0 Refills, Maintenance, 08/14/21 20:12:00 EST, Partialfill upon patient request if the prescription is for a schedule II opioid drug. Start Date: 08/14/21 Status: Ordered fenofibrate 145 mg oral tablet [...] mL, 4 Refills, Maintenance, 06/25/22 13:55:00 EDT, [facility]/pharmacy #[id number], 157, cm, 05/25/22 13:17:00 EDT, Height, [...] Lasix 40 mg oral tablet 60 mg, 1.5, tablet, By Mouth, Every other day, # 90 tablet, Refills 0, Maintenance, 08/14/21 17:27:00 EST, Partial fill upon patient request if the prescription is for a schedule II opioid drug. Start Date: 08/14/21 Status: Ordered Lasix 40 mg oral tablet 40 mg, 1, tablet, By Mouth, Every other day, # 90 tablet, Refills 0, Maintenance, 08/14/21 17:27:00EST, Partial fill upon patient request if the prescription is for a schedule II opioid drug. Start Date: 08/14/21 Status: Ordered levothyroxine 0.1 mg oral tablet = 100 mcg, By Mouth, Daily, 0 Refills, Maintenance, 05/12/19 11:34:46 EDT, Tablet Start Date: 05/12/19 Status: Ordered Lyrica 75 mg oral capsule 1 capsule = 75 mg, By Mouth, 2 times a day, # 60 capsule, 0 Refills, Maintenance, 09/06/22 15:02:00EST, Capsule, [facility]/pharmacy #[id number], Partial fill upon patient request if the prescription is for a schedule II opioid drug., 157.5, cm, 09/01/22 9:19:00... Start Date: 09/06/22 Stop Date: 10/06/22 Status: Ordered [place]-3 Fish Oil 1000 mg oral capsule 1 capsule = 1,000 mg, By Mouth, Daily, 0 Refills, Maintenance, 08/14/21 17:31:00 EST, Partial fill upon patient request if the prescription is for a schedule II opioid drug. Start Date: 08/14/21 Status: Ordered omeprazole 20 mg oral delayed release tablet 1 tablet = 20 mg, By Mouth, Daily, # 30 tablet, 0 Refills, Maintenance, 08/14/21 17:29:00 EST, CR Tablet, Partial fill upon patient request if the prescription is for a schedule II opioid drug. Start Date: 08/14/21 Status: Ordered omnipod dash pods omnipod dash pods, See Instructions, # 15 each, Refills 11, Tot. Refills 11, Maintenance, e11.9, use as directed with short acting insulin, change out every 2 days. 30 day supply, 06/25/22 14:44:00 EDT, Supply, 157, cm, 05/25/22 13:17:00 EDT, Height,... Start Date: 06/25/22 Status: Ordered oxyCODONE 5 mg oral capsule 1 capsule = 5 mg, By Mouth, Every 6 hours, PRN as needed for pain, 0 Refills, Maintenance, :13:00 EST, Capsule, Partial fill upon patient request if the prescription is for a schedule II opioid drug. Start Date: 09/01/22 Status: Ordered potassium chloride 20 mEq oral tablet, extended release 1 tablet = 20 mEq, By Mouth, 2 times a day, # 6 tablet, 0 Refills, Maintenance, 09/16/19 8:51:00 EST, ER Tablet, [facility], 158, cm, 09/16/19 7:39:00 EST, Height, 122.5, kg, 09/13/19 18:49:00 EST, Dry Weight Start Date: 09/16/19 Stop Date: 09/19/19 Status: Ordered Vitamin D3 1000 intl units [...] Team Personnel Name: Naomi Vasquez RN Position: [facility] RN Member Role: Primary Care Nurse Name: Karolyn Zacarias MD Position: [facility] Physician - Primary Care Member Role: PCP Address: Address: [address] [place] [address] [place] [address]- Name: Tricia Titus RN Position: [facility] RN Supv Member Role: Primary Care Nurse Name: Claudette Govea Position: [facility] Outreach Member Role: Lifetime Consulting Physician Name: Emma Jaramillo RN Position: [facility] AMB Nurse Member Role: Primary Care Nurse Name: Maria De Jesus Moreau RN Position: [facility] RN Member Role: Primary Care Nurse Name: Suzanna Langley RN Position: [facility] OB RN Member Role: Primary Care Nurse Name: Arabella Smart RN Position: [facility] SN RN Member Role: Primary Care Nurse Name: Alec Kong DO Position: [facility] Renal MD Member Role: Lifetime Consulting Physician Address: Address: [address] [place] [address] [address] [facility] [place] [address]- Name: Dedra Reese RN Position: [facility] RN Member Role: Primary Care Nurse Name: Dedra Byrd RN Position: [facility] RN Member Role: Primary Care Nurse Name: Ernie Bee RN Position: [facility] RN Member Role: Primary Care Nurse Name: Ralph Coates RN Position: [facility] SN RN Member Role: Primary Care Nurse Name: Veronica Garcia RN Position: [facility] RN Member Role: Primary Care Nurse Name: Jeannine Chicas RN Position: [facility] Motorcycle Assembler Member Role: Primary Care Nurse Name: Israel Etienne Position: [facility] Outreach Member Role: Lifetime Consulting Physician Name: Juju Rahman RN Position: [facility] SN RN Member Role: Primary Care Nurse Name: Tiffanie Watson RN Position: [facility] ED RN W/OE and Tasks Member Role: Primary Care Nurse Name: Tahira Hammond Position: [facility] Onco RN Member Role: Primary Care Nurse Name: Lana Montiel RN Position: [facility] RN Member Role: Primary Care Nurse Name: Gurpreet Irby RN Position: [facility] RN Member Role: Primary Care Nurse Name: Rajani Delcid RN Position: [facility] Motorcycle Assembler Member Role: Primary Care Nurse Care Team Related Persons Name: ANNIE GOTTLIEB Address: [address] [place] [address] Name: KAROLYN MCGOWAN Address: [address] [place] [address] Name: BHARGAV MUHAMAMD Address: [address] [place] [address] Name: BHARGAV MUHAMMAD Address: [address] [place] [address]
--- OUTSIDE RECORDS SUMMARY | 2023-05-05 08:55 | XMS_ITS | Continuity of Care Document ---
Author Name Unknown Organization [facility] Address [address] [place] [address]- Care Team Providers Care Cable Technician Name Role Phone Karolyn Zacarias MD Primary Care Physician Encounter [facility] [place] Date(s): 02/24/23 - 03/26/23 [facility] [address] [place] [id number] Allergies, Adverse Reactions, Alerts Substance Reaction Severity [...] 03/21/23 12:57:00 EDT, Route to Pharmacy Electronically, [facility]/pharmacy #[id number], Partial fill upon patient request if the [...] mL, 4 Refills, Maintenance, 06/25/22 13:55:00 EDT, [facility]/pharmacy #[id number], 157, cm, 05/25/22 13:17:00 EDT, Height, [...] Refills, Maintenance, 09/16/19 8:51:00 EST, ER Tablet, [facility] 3, 158, cm, 09/16/19 7:39:00 EST, Height, 122.5, kg, 09/13/19 18:49:00 EST, Dry Weight Start Date: 09/16/19 Stop Date: 09/19/19 Status: Ordered traZODone 50 mg oral tablet [...] Team Personnel Name: Naomi Vasquez RN Position: [facility] RN Member Role: Primary Care Nurse Name: Rocio Sandoval Position: [facility] RN Member Role: Primary Care Nurse Name: Karolyn Zacarias MD Position: [facility] Physician - Primary Care Member Role: PCP Address: Address: [address] [place] [address] Dr [address] Name: Katina Tsang RN Position: [facility] RN Member Role: Primary Care Nurse Name: Tricia Titus RN Position: [facility] RN Radha Member Role: Primary Care Nurse Name: Claudette Govea Position: [facility] Outreach Member Role: Lifetime Consulting Physician Name: Dena Cano RN Position: [facility] RN Member Role: Primary Care Nurse Name: Emma Jaramillo RN Position: [facility] AMB Nurse Member Role: Primary Care Nurse Name: Naomi Rahman RN Position: [facility] RN Member Role: Primary Care Nurse Name: Maria De Jesus Moreau RN Position: [facility] RN Member Role: Primary Care Nurse Name: Suzanna Langley RN Position: [facility] OB RN Member Role: Primary Care Nurse Name: Rosio Soriano RN Position: [facility] RN Member Role: Primary Care Nurse Name: Arabella Smart RN Position: [facility] SN RN Member Role: Primary Care Nurse Name: Alec Kong DO Position: [facility] Renal MD Member Role: Lifetime Consulting Physician Address: Address: [address] [facility] [place], [place] [address] Name: Dedra Reese RN Position: [facility] RN Member Role: Primary Care Nurse Name: Dedra Byrd RN Position: [facility] RN Member Role: Primary Care Nurse Name: Ernie Bee RN Position: [facility] RN Member Role: Primary Care Nurse Name: Ralph Coates RN Position: [facility] SN RN Member Role: Primary Care Nurse Name: Veronica Garcia RN Position: [facility] RN Member Role: Primary Care Nurse Name: Jeannine Chicas RN Position: [facility] Public Welfare Director Member Role: Primary Care Nurse Name: Israel Etienne Position: [facility] Outreach Member Role: Lifetime Consulting Physician Name: Juju Rahman RN Position: [facility] SN RN Member Role: Primary Care Nurse Name: Tiffanie Watson RN Position: [facility] ED RN W/OE and Tasks Member Role: Primary Care Nurse Name: Tahira Hammond Position: [facility] Onco RN Member Role: Primary Care Nurse Name: Lana Montiel RN Position: [facility] RN Member Role: Primary Care Nurse Name: Jayla Murguia RN Position: [facility] RN Member Role: Primary Care Nurse Name: Gurpreet Irby RN Position: [facility] RN Member Role: Primary Care Nurse Name: Rajani Delcid RN Position: [facility] Public Welfare Director Member Role: Primary Care Nurse Care Team Related Persons Name: ANNIE GOTTLIEB Address: [address] [place] [address] Name: KAROLYN MCGOWAN Address: [address] [place] [address] Name: BHARGAV MUHAMMAD Address: [address] [place] [address] Name: BHARGAV MUHAMMAD Address: [address] [place] [address]
--- OUTSIDE RECORDS SUMMARY | 2023-05-05 08:55 | XMS_ITS | Continuity of Care Document ---
Author Name Unknown Organization [facility] [place] [address] [place] [address]- Care Team Providers Care Braker Passenger Train Name Role Phone Rell DE LA TORRE, Karolyn Primary Care Physician Encounter [facility] Date(s): 03/03/23 - 04/02/23 [facility] [address] [place] [id number]- Allergies, Adverse Reactions, Alerts Substance Reaction Severity [...] 03/21/23 12:57:00 EDT, Route to Pharmacy Electronically, [facility]/pharmacy #[id number], Partial fill upon patient request if the [...] mL, 4 Refills, Maintenance, 06/25/22 13:55:00 EDT, [facility]/pharmacy #[id number], 157, cm, 05/25/22 13:17:00 EDT, [...] Refills, Maintenance, 09/16/19 8:51:00 EST, ER Tablet, [facility], 158, cm, 09/16/19 7:39:00 EST, [...] Team Personnel Name: Naomi Vasquez RN Position: [facility] RN Member Role: Primary Care Nurse Name: Rocio Sandoval Position: [facility] RN Member Role: Primary Care Nurse Name: Karolyn Zacarias MD Position: [facility] Physician - Primary Care Member Role: PCP Address: Address: [address] [place], [place] [address] Name: Katina Tsang RN Position: [facility] RN Member Role: Primary Care Nurse Name: Tricia Titus RN Position: [facility] RN Supv Member Role: Primary Care Nurse Name: Claudette Govea Position: [facility] Outreach Member Role: Lifetime Consulting Physician Name: Dena Cano RN Position: [facility] RN Member Role: Primary Care Nurse Name: Emma Jaramillo RN Position: [facility] AMB Nurse Member Role: Primary Care Nurse Name: Olga Wu RN Position: [facility] RN Supv Member Role: Primary Care Nurse Name: Naomi Rahman RN Position: [facility] RN Member Role: Primary Care Nurse Name: Maria De Jesus Moreau RN Position: [facility] RN Member Role: Primary Care Nurse Name: Suzanna Langley RN Position: [facility] OB RN Member Role: Primary Care Nurse Name: Rosio Soriano RN Position: [facility] RN Member Role: Primary Care Nurse Name: Arabella Smart RN Position: [facility] SN RN Member Role: Primary Care Nurse Name: Alec Kong DO Position: [facility] Renal MD Member Role: Lifetime Consulting Physician Address: Address: [address] [place] [address] [address] [facility] [place], [place] [address] Name: Dedra Reese RN Position: [facility] RN Member Role: Primary Care Nurse Name: Makayla Valencia Position: [facility] RN Member Role: Primary Care Nurse Name: Dedra Byrd RN Position: [facility] RN Member Role: Primary Care Nurse Name: Ernie Bee RN Position: [facility] RN Member Role: Primary Care Nurse Name: Stephanie Way RN Position: [facility] RN Member Role: Primary Care Nurse Name: Ralph Coates RN Position: [facility] SN RN Member Role: Primary Care Nurse Name: Veronica Garcia RN Position: [facility] RN Member Role: Primary Care Nurse Name: Jeannine Chicas RN Position: [facility] Cloth Boil Off Machine Operator Member Role: Primary Care Nurse Name: Israel Etienne Position: [facility] Outreach Member Role: Lifetime Consulting Physician Name: Juju Rahman RN Position: [facility] SN RN Member Role: Primary Care Nurse Name: Tiffanie Watson RN Position: [facility] ED RN W/OE and Tasks Member Role: Primary Care Nurse Name: Tahira Hammond MA Position: [facility] AUGUSTINA MA Member Role: Primary Care Nurse Name: Lana Montiel RN Position: [facility] RN Member Role: Primary Care Nurse Name: Jayla Murguia RN Position: [facility] RN Member Role: Primary Care Nurse Name: Gurpreet Irby RN Position: [facility] RN Member Role: Primary Care Nurse Name: Rajani Delcid RN Position: [facility] Cloth Boil Off Machine Operator Member Role: Primary Care Nurse Care Team Related Persons Name: MAKAYLA GOTTLIEB Address: [address] [place] [address] Name: KAROLYN MCGOWAN Address: [address] [place] [address] Name: BHARGAV MUHAMMAD Address: home [address] [place] [address] Name: BHARGAV MUHAMMAD Address: home [address] [place] [address]
--- OUTSIDE RECORDS SUMMARY | 2023-05-05 08:56 | XMS_ITS | Continuity of Care Document ---
Author Name Unknown Organization [facility] Address [address] [place] [address]- Care Team Providers Care Blogs Manager Name Role Phone Rell DE LA TORRE, Karolyn Primary Care Physician [phone] Encounter [facility] Date(s): 03/03/23 - 04/02/23 [facility] [address] [place] [id number]- Allergies, Adverse Reactions, Alerts Substance Reaction Severity [...] 03/21/23 12:57:00 EDT, Route to Pharmacy Electronically, [facility]/pharmacy #[id number], Partial fill upon patient request if the [...] mL, 4 Refills, Maintenance, 06/25/22 13:55:00 EDT, [facility]/pharmacy #[id number], 157, cm, 05/25/22 13:17:00 EDT, [...] Refills, Maintenance, 09/16/19 8:51:00 EST, ER Tablet, [facility], 158, cm, 09/16/19 7:39:00 [...] RN Position: [facility] RN Member Role: Primary Care Nurse Name: Rocio Sandoval Position: [facility] RN Member Role: Primary Care Nurse Name: Karolyn Zacarias MD Position: [facility] Physician - Primary Care Member Role: PCP Address: Address: [address] [place] [place], [place] [address] Name: Katina Tsang RN Position: [facility] RN Member Role: Primary Care Nurse Name: Tricia Titus RN Position: [facility] RN Supv Member Role: Primary Care Nurse Name: Claudette Govea Position: [facility] Outreach Member Role: Lifetime Consulting Physician Name: Dena Cano RN Position: [facility] RN Member Role: Primary Care Nurse Name: Emma Jaramillo RN Position: [facility] AMB Nurse Member Role: Primary Care Nurse Name: Olga Wu RN Position: [facility] RN Supv Member Role: Primary Care Nurse Name: Naomi Rahman RN Position: [facility] RN Member Role: Primary Care Nurse Name: Maria De Jesus Moreau RN Position: [facility] RN Member Role: Primary Care Nurse Name: Suzanna Langley RN Position: [facility] OB RN Member Role: Primary Care Nurse Name: Rosio Soriano RN Position: [facility] RN Member Role: Primary Care Nurse Name: Arabella Smart RN Position: [facility] SN RN Member Role: Primary Care Nurse Name: Alec Kong DO Position: [facility] Renal MD Member Role: Lifetime Consulting Physician Address: Address: [address] [place] [address] [address] [facility] [place], [place] [address] Name: Dedra Reese RN Position: [facility] RN Member Role: Primary Care Nurse Name: Makayla Valencia Position: [facility] RN Member Role: Primary Care Nurse Name: Dedra Byrd RN Position: [facility] RN Member Role: Primary Care Nurse Name: Ernie Bee RN Position: [facility] RN Member Role: Primary Care Nurse Name: Stephanie Way RN Position: [facility] RN Member Role: Primary Care Nurse Name: Ralph Coates RN Position: [facility] SN RN Member Role: Primary Care Nurse Name: Veronica Garcia RN Position: [facility] RN Member Role: Primary Care Nurse Name: Jeannine Chicas RN Position: [facility] Hose Mender Member Role: Primary Care Nurse Name: Israel Etienne Position: [facility] Outreach Member Role: Lifetime Consulting Physician Name: Juju Rahman RN Position: [facility] SN RN Member Role: Primary Care Nurse Name: Tiffanie Watson RN Position: [facility] ED RN W/OE and Tasks Member Role: Primary Care Nurse Name: Tahira Hammond MA Position: [facility] AUGUSTINA MA Member Role: Primary Care Nurse Name: Lana Montiel RN Position: [facility] RN Member Role: Primary Care Nurse Name: Jayla Murguia RN Position: [facility] RN Member Role: Primary Care Nurse Name: Gurpreet Irby RN Position: [facility] RN Member Role: Primary Care Nurse Name: Rajani Delcid RN Position: [facility] Hose Mender Member Role: Primary Care Nurse Care Team Related Persons Name: MAKAYLA GOTTLIEB Address: [address] [place] [address] Name: KAROLYN MCGOWAN Address: [address] [place] [address] Name: BHARGAV MUHAMMAD Address: [address] [place] [address] Name: BHARGAV MUHAMMAD Address: [address] [place] [address]
--- OUTSIDE RECORDS SUMMARY | 2023-05-05 08:56 | XMS_ITS | Continuity of Care Document ---
Author Name Unknown Organization [facility] ter Address [address] [place] [id number] Care Team Providers Care Device Test Engineer Name Role Phone Rell DE LA TORRE, Karolyn Primary Care Physician Encounter [facility] [place] Date(s): 04/26/23 - 05/01/[address] [id number] Discharge Disposition: A-D/C Home Attending Physician: Salvador Darden MD Admitting Physician: Gayle Garcia MD Referring Physician: Not on Staff, Referring MD Allergies, Adverse Reactions, Alerts Substance Reaction Severity [...] opioid drug. Start Date: 04/14/23 Status: Ordered aspirin 81 mg oral capsule 1 capsule = 81 mg, By Mouth, Every 24 hours, # 30 capsule, 2 Refills, Maintenance, 05/01/23 13:01:00 EDT, [facility]/pharmacy #[id number], Partial fill upon patient request if the prescription is for a schedule II opioid drug., 160, cm, 05/01/23 8:16:00 EDT, Heigh... Start Date: 05/01/23 Status: Ordered Breo Ellipta 100 mcg-25 mcg/inh inhalation powder 1 puffs, Inhalation, Daily, # 30 each, 0 Refills, Maintenance, 05/12/19 11:36:55 EDT, Powder Start Date: 05/12/19 Status: Ordered Carafate 1 gm oral tablet 1 Gm, By Mouth, 3 times a day before meals and bedtime, # 30 tablet, Refills 0, Tot. Refills 0, Maintenance, 03/21/23 12:57:00 EDT, Route to Pharmacy Electronically, [facility]/pharmacy #[id number], Partial fill upon patient request if [...] at bedtime Start Date: 07/09/22 Status: Ordered fenofibrate 145 mg oral tablet [...] Refills, Maintenance, 06/25/22 13:55:00 EDT, [facility]/pharmacy #[id number], 157, cm, 05/25/22 13:17:00 EDT, [...] Maintenance, 04/06/23 14:46:00 EDT,Route to Pharmacy Electronically, [facility], Partial fill upon patient request [...] Refills, Maintenance, 09/16/19 8:51:00 EST, ER Tablet, [facility], 158, cm, 09/16/19 7:39:00 EST, Height, [...] Effective Dates Status H ealth Status Informant Adenocarcinoma of lung Confirmed Active Pseudotumor cerebri Confirmed Active Central sleep apnea Confirmed Active Chronic congestive heart failure Confirmed Active Chronic respiratory failure with hypoxia and hypercapnia Confirmed Active Depression Confirmed Active Diabetic nephropathy Confirmed Active GERD - Gastro-esophageal reflux disease Confirmed Active Hyperlipidemia Confirmed Active Hypertension Confirmed Active Hypothyroidism Confirmed Active Hypoventilation Confirmed Active Sleep-related hypoxia Confirmed Active Iron deficiency anemia Confirmed Active Obstructive sleep apnea Confirmed Active Radiation pneumonitis Confirmed Active Severe obesity Confirmed Active Type 2 diabetes mellitus Confirmed Active GAVE (gastric antral vascular ectasia) Confirmed Active Results Radiology Reports * Exam Date Time Procedure Performing Provider Status 04/26/23 7:[address] Head/Brain W/O Contrast Rosalia Lewis; Auth (Verified) Notes: (CT Head/Brain W/O Contrast) Reason For Exam: Dizziness, 3 falls;Other: RESULT: CT Head/Brain W/O Contrast Examination: Noncontrast head CT performed on 04/26/2023. History: Increased dizziness and falls. History of lung cancer.. Technique and findings: Contiguous 5 mm axial images were obtained from the skull base to the vertex without intravenous contrast. A dose modulated weight-based protocol was used. Comparison is made to a prior MR dated 04/02/2023. The visualized sinuses are free from disease. The ventricular system and subarachnoid spaces are within normal limits. An area of encephalomalacia within the right cerebellar hemisphere is unchanged from the prior study. The previously seen subacute left cerebellar infarction is not discretely identified. Encephalomalacia adjacent to the rightlateral ventricle is unchanged. There is no intracranial hemorrhage, mass effect, or midline shift.No intra or extra-axial fluid collections are identified. 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 There are changes of a right suboccipital craniotomy. IMPRESSION: Stable chronic changes. There is no acute intracranial abnormality. WSN: [id number] Ordering Physician: Rodrigo Oliva Dictated By: Yomaira Gross MD Dictated Date/Time: 04/26/23 7:37 am Reviewed By: Yomaira Gross MD Signed By: Yomaira Gross MD Signed Date/Time: 04/26/23 7:37 am Transcribed By: VIOLET Transcribed Date/Time: 04/26/23 7:35 am * Exam Date Time Procedure Performing Provider Status 04/26/23 7:08 AM Chest Portable Shaniqua Harding; Viri [facility] (Verified) Notes: (Chest Portable) Reason For Exam: Shortness of Breath RESULT: Chest Portable Examination: Portable chest performed on 04/26/2023. History: Shortness of breath. Dizziness. Findings: A frontal view of the chest is compared to a prior study dated 04/04/2023. There is stable enlargement of the cardiac silhouette. A right paratracheal mass is redemonstrated,consistent with the known adenopathy. Low lung volumes are present. There are bilateral lower lobe airspace opacities, right greater than left, new from the prior study. The osseous structures are intact. IMPRESSION: Bilateral lower lobe opacities which may represent atelectasis or developing infiltrates. Clinical correlation is suggested. WSN: [id number] Ordering Physician: Rodrigo Oliva Dictated By: Yomaira Gross MD Dictated Date/Time: 04/26/23 7:15 am Reviewed By: Yomaira Gross MD Signed By: Yomaira Gross MD Signed Date/Time: 04/26/23 7:15 am Transcribed By: VIOLET Transcribed Date/Time: 04/26/23 7:13 am Vital Signs Most recent to oldest [Reference Range]: 1 2 3 Height 160 cm (05/01/23 8:16 AM) 160 cm (05/01/23 6:32 AM) 160 cm (04/30/23 8:41 PM) Weight 114.9 kg (05/01/23 6:43 AM) 114.9 kg (04/30/23 1:01 PM) 116.6 kg (04/30/23 4:00 AM) Oxygen Saturation [94-100 %] 96 % (05/01/23 8:16 AM) 94 % (05/01/23 6:32 AM) 97 % (05/01/23 1:45 AM) Pulse Rate [55-90 bpm] 83 bpm (05/01/23 8:16 AM) 88 bpm (05/01/23 6:32 AM) 83 bpm (04/30/23 8:41 PM) Body Mass Index [18.5-24.99 kg/m2] 45.16 kg/m2 *>HHI* (04/26/23 2:30 PM) Blood Pressure [90-138/55-84 mm Hg] 114/71mm Hg (05/01/23 8:16 AM) 123/64mm Hg (05/01/23 6:32 AM) 120/65mm Hg (04/30/23 8:41 PM) Respiratory Rate [16-30 br/min] 18 br/min (05/01/23 8:16 AM) 20 br/min (05/01/23 6:32 AM) 20 br/min (04/30/23 8:41 PM) Temperature [96.8-100.4 DegF] 98.4 DegF (05/01/23 8:16 AM) 98.2 DegF (05/01/23 6:32 AM) 97.8 DegF (04/30/23 8:41 PM) Liters per Minute 3 L/min (05/01/23 8:16 AM) 3.5 L/min (05/01/23 6:32 AM) 3 L/min (04/30/23 8:41 PM) Mode of Delivery (Oxygen) Nasal cannula (05/01/23 8:16 AM) Nasal cannula (05/01/23 6:32 AM) Nasal cannula (04/30/23 8:41 PM) Blood pressure sites Arm, left (05/01/23 8:16 AM) Arm, left (05/01/23 6:32 AM) Arm, left (04/30/23 8:41 PM) Temperature Route Temporal (05/01/23 8:16 AM) Oral (05/01/23 6:32 AM) Temporal (04/30/23 8:41 PM) Dry Weight 119 kg (04/26/23 2:30 PM) Weight Obtained Via Bed scale (04/30/23 1:01 PM) Bed scale (04/30/23 4:00 AM) Bed scale (04/29/23 4:35 AM) Dry Weight Obtained Via Bed scale (04/26/23 2:30 PM) Social History Social History Type Response Smoking Status Former smoker, quit more than 30 days ago; Other: smoked briefly from March-Apr 2022, had been years of nonsmoking prior; entered on: 07/28/22 Sex History and physical note * Silva DE LA TORRE, Luis Bautista: PERFORM Event Display: History and Physical Hospital Authored Date: [id number] Patient: ??MAHSA MUHAMMAD ? Age:??62 Years?Sex:??Female?:??1960?? Chief Complaint/Reason for Consultation Patient has been having expreencing increase dizzy. Patient has had 3 falls today. No headstrike noLOC. Patient lives with family. Patient unable to ambulate. Patient has had 5/10 intermit stabbing for 2 weeks. History of Present Illness 62-year-old female with??history of??hypertension, hyperlipidemia, insulin- dependent diabetes mellitus with insulin pump,??morbid obesity,??VANDANA/OHS??with chronic hypoxic/hypercapnic respiratory failure, on??2 L oxygen at baseline and nocturnal iVAPS,??right lower lobe adenocarcinoma of the lung??with metastases to mediastinal lymph nodes and adrenal gland??(August 2022)??awaiting palliative??treatment with alectinib,??radiation pneumonitis currently on??prednisone taper,??CHFpEF, cerebellar CVA on prophylactic??enoxaparin,??hypothyroidism, pseudotumor cerebri, GERD, depression, anxiety,??chronic anemia with iron deficiency,??and previous??GAVE status post extensive thermal therapy (52 ablations) in February 2023,??now presenting back to the emergency room??early this morning??with dizziness, falls, and hypotension.?? The patient reports increasing??fatigue and dizziness over the last 3 days.?? She last fell this morning while attempting to transfer from her electric wheelchair to the toilet, and reports 3 other falls in the last 3 days.?? She has not lost consciousness.?? She denies chest pain or worsening shortness of breath. ??No fever at home. ??No new cough.?? No abdominal pain,hematemesis,??diarrhea, or urinary symptoms. ??She denies any??bloody stools or melena.?? Of note, the patient had hemoglobin of 6.3 on 04/13/2023, and was transfused 1 unit packed red blood cells on 04/14/2023 as outpatient.?? Hemoglobin has been chronically around 7.0 over the past 6 weeks. ?? In the emergency room,??the patient has been afebrile.?? She has had soft blood pressure, with lowest blood pressure documented at??78/41. ??She has been mildly tachycardic in the 90s.?? She is saturating 99 to 100% on 3 L nasal cannula oxygen.?? Hemoglobin is found to be 2.8 without obvious active hemorrhage.?? There was no blood on rectal exam per the ER clinician.?? She has received 1 unit of packed red blood cells prior to my evaluation,??and currently appears comfortable.?? Latest bloodpressure 116/77. Review of Systems Other than those positives as noted in the HPI above, the remaining comprehensive 14-point review of systems is negative. Objective ? Vital Signs?? Temperature: 98.1 DegF (04/26/23 09:37:00) Temperature Route: Oral (04/26/23 09:37:00) Pulse Rate:??98 bpm??High (04/26/23 11:28:00) Respiratory Rate: 21 br/min (04/26/23 11:28:00) Systolic Blood Pressure: 95 mm Hg (04/26/23 11:28:00) Diastolic Blood Pressure: 56 mm Hg (04/26/23 11:28:00) Pulse Pressure: 39 mm Hg (04/26/23 11::00) Oxygen Saturation: 100 % (04/26/23 11::00) Liters per Minute: 3 L/min (04/26/23 11::) Mode of Delivery (Oxygen): Nasal cannula (04/26/23 11::00) Early Warning Score: 3 (04/26/23 14:05:59) ? Pain Scores 1 - 10 Pain Scale Score: 6 (05:02) ? Physical Exam General Appearance: Alert, appears chronically ill, answers questions appropriately HEENT: Normocephalic, atraumatic, PERRL, EOMI, no scleral icterus, no facial droop,??dry mucous membranes, no oropharynx lesions?? Neck: Supple, no JVD Cardiac: RRR, S1 & S2 present, II/ systolic murmur LSB Chest: Diminished at the bases, but otherwise clear to auscultation bilaterally, no wheezing / ronchi / rales, no tenderness to percussion Abdomen: Soft, nontender, obese, no rebound or guarding, no masses Extremities: No clubbing or cyanosis,??chronic??1+??edema. ??2+ distal pulses.?No calf tenderness or cords Skin: Warm, dry, no new rash Neuro: ??A & O x 3, no new focal motor or sensory deficits Psych: ??Stable mood, appropriate affect Assessment/Plan Assessment:??62-year-old female with history of hypertension, hyperlipidemia, insulin-dependent diabetes mellitus with insulin pump, morbid obesity, VANDANA/OHS with chronic hypoxic/hypercapnic respiratory failure, on 2 L oxygen at baseline and nocturnal iVAPS, right lower lobe adenocarcinoma of the lung with metastases to mediastinal lymph nodes and adrenal gland (August 2022) awaiting palliative treatment with alectinib, radiation pneumonitis currently on prednisone taper, CHFpEF, cerebellar CVA on prophylactic enoxaparin, hypothyroidism, pseudotumor cerebri, GERD, depression, anxiety, chronic anemia with iron deficiency, and previous GAVE status post extensive thermal therapy (52 ablations) in February 2023, now presenting back to the emergency room early this morning with dizziness, falls, and hypotension.??Hemoglobin has been chronically around 7.0 over the past 6 weeks, but today is found to be 2.8 without obvious active hemorrhage.??Admission is requested for blood transfusions and further work-up. ?? Symptomatic anemia (D64.9) Acute on chronic anemia (D64.9):??Patient is noted to have a precipitous drop of almost 4 points inhemoglobin in the past 12 days, despite transfusion on 04/14/2023. Laboratories confirm iron deficiency, and blood loss anemia is suspected, especially given her history of GAVE and recent initiation of enoxaparin after findings of cerebellar CVA on MRI during last hospital admission.??Abdominal exam is benign.??Rectal exam per ER clinician did not show gross blood.??She does not currently have evidence for hemolysis.??B12, TSH, and folate levels have been normal. -Admit to??[facility],??close monitoring??of hemodynamics -Hold enoxaparin -Transfuse second unit pRBC now;??follow-up CBC this evening??to decide on additional transfusions,goal??hemoglobin greater than 7 -Follow-up haptoglobin, fibrinogen, reticulocyte count,??and??peripheral smear, but currently no evidence for hemolysis or consumptive process -Clear liquid diet only for now -Consult gastroenterology for possible repeat endoscopy ?? Chronic respiratory failure with hypoxia and hypercapnia (J96.11) Radiation pneumonitis (J70.0):??Current pulse oximetry stable at 99 to 100% on 3 L nasal cannula oxygen. The patient remains on a prednisone taper, and is due to start 20 mg daily??tomorrow for another week. Continue Breo Ellipta as prescribed. Monitor volume status. Albuterol MDI as needed for bronchospasm, currently??she does not have wheezing on exam. ?? Hypertension (I10) Hyperlipidemia (E78.5) Chronic congestive heart failure (I50.9):??Currently blood pressure stable after 1 unit packed red blood cells,??but has been soft with probable hypovolemia in the setting of severe anemia. We will hold off on??diltiazem and??daily furosemide for now??until blood pressure is stable,??which??I anticipate??will improve after??transfusions. Blood transfusions have been??infused slowly??per TACO protocol,??and given history we will??give her furosemide 40 mg IV x1 between??units. Continue rosuvastatin??and fenofibrate??as prescribed. ?? Type 2 diabetes mellitus (E11.9):??The patient has insulin pump??and will be allowed to??use bolus insulin??based on POC's. Monitor POC's. ?? Hypothyroidism (E03.9):??Continue levothyroxine as prescribed. ?? GERD - Gastro-esophageal reflux disease (K21.9):??Continue PPI twice daily, especially in the setting of??possible recurrent GI bleed. Continue sucralfate as prescribed. ?? Depression (F32.A):??The patient's mood is stable.??She does not appear anxious. Continue lamotrigine as prescribed. Desvenlafaxine is nonformulary here??and can be brought in from home. Continue cautious use of??diazepam at bedtime, which the patient has been chronically prescribed. ?? VTE Prophylaxis:??SCDs for now, hold anticoagulants??with blood loss anemia. ?VTE Prophylaxis Assessment:??VTE Prophylaxis Ordered ?? Code Status:??FULL. ?Order Code Status:??Code Status Ordered ?? Discharge Planning:??Disposition pending;??anticipate 2 to 3 days hospitalization. ?? I spent a total of??95 minutes today reviewing the chart / medical records, evaluating the patient,evaluating and interpreting laboratory and imaging data, formulating and discussing the treatment plan, and documenting the encounter. ? Histories Allergies Allergies ?(Active and Proposed Allergies Only) Trulicity? (Severity: Unknown severity, Onset: Unknown) ibuprofen? (Severity: Unknown severity, Onset: Unknown) ? Past Medical History/Problem List Active Problems??(19) Adenocarcinoma of lung Central sleep apnea Chronic congestive heart failure Chronic respiratory failure with hypoxia and hypercapnia Depression Diabetic nephropathy GAVE (gastric antral vascular ectasia) GERD - Gastro-esophageal reflux disease Hyperlipidemia Hypertension Hypothyroidism Hypoventilation Iron deficiency anemia Obstructive sleep apnea Pseudotumor cerebri Radiation pneumonitis Severe obesity Sleep-related hypoxia Type 2 diabetes mellitus ? Past Surgical History Cholecystectomy Appendectomy Pseudotumor cerebri surgery Tonsillectomy ? Social History Alcohol Details:??Use: Current. ??Frequency: 1-2 times per month. Employment/School Details:??Status: Retired. Home/Environment Details:??Living situation: Home/Independent. ??Lives with: Spouse. Nutrition/Health Details:??Diet: Diabetic. Substance Abuse Details:??Use: Never. Tobacco Details:??Use: Former smoker, quit more than 30 days ago. ??Other: smoked briefly from March-Apr 2022, had been years of nonsmoking prior. ? Family History Mother: Diabetes mellitus; Heart attack; Hypertension Father: Diabetes mellitus; Heart attack; Hypertension ? Medications Home Medications Acetaminophen/Butalbital/Caffeine (acetaminophen/butalbital/caffeine 325 mg-50 mg-40 mg oral tablet)?1?tab(s)?By Mouth?Every 6 hours?as needed?as needed Albuterol (albuterol 90 mcg/inh inhalation powder)?1?puff(s)?Inhalation?Every 4 hours?as needed?as needed alectinib (alectinib 150 mg oral capsule)?2?capsule?300?Milligram?By Mouth?2 times a day?with food Cholecalciferol (Vitamin D3 1000 intl units oral tablet)?1?tab(s)?25?Microgram?By Mouth?Daily Desvenlafaxine (desvenlafaxine 25 mg oral tablet, extended release)?1?tab(s)?25?Milligram?By Mouth?Daily?do not crush or chew Diazepam (diazepam 10 mg oral tablet)?20?Milligram?2?tablet?By Mouth?Daily at bedtime Diltiazem (DilTIAZem (Eqv-Cardizem CD) 120 mg/24 hours oral capsule, extended release)?1?capsule?120?Milligram?By Mouth?2 times a day Durable Medical Equipment (omnipod dash pods)?See Instructions?e11.9, use as directed with short acting insulin, change out every 2 days. 30 day supply Durable Medical Equipment (iVAPS)?See Instructions?with TVa at 8.6 L/minute with EPAP of 9 and min PS of 6 and max PS of 19 with target patient rate at 20. Enoxaparin (enoxaparin 120 mg/0.8 mL injectable solution)?0.8?Milliliter?120?Milligram?Subcutaneous Injection?Every 12 hours?for 30?Days Fenofibrate (fenofibrate 145 mg oral tablet)?1?tab(s)?145?Milligram?By Mouth?Daily Fluticasone Nasal (Flonase 50 mcg/inh nasal spray)?1?spray(s)?Daily?Pt uses prn fluticasone-vilanterol (Breo Ellipta 100 mcg-25 mcg/inh inhalation powder)?1?puff(s)?Inhalation?Daily Furosemide (Lasix 40 mg oral tablet)?60?Milligram?By Mouth?Daily?for 30?Days Insulin Lispro (Humalog 100 u/ml subcutaneous injection)?See Instructions?Subcutaneous Infusion through insulin pump, max 250 units/d, 90 days, E 11.65 Lamotrigine (lamotrigine 100 mg oral tablet)?100?Milligram?1?tablet?By Mouth?2 times a day levocetirizine (Xyzal 5 mg oral tablet)?1?tab(s)?5?Milligram?By Mouth?Daily in PM Levothyroxine (levothyroxine 0.1 mg oral tablet)?100?Microgram?By Mouth?Daily Ondansetron (ondansetron 8 mg oral tablet)?1?tab(s)?8?Milligram?By Mouth?Every 8 hours?as needed?as needed for nausea/vomiting Pantoprazole (pantoprazole 40 mg oral delayed release tablet)?40?Milligram?By Mouth?2 times a day Potassium Chloride (potassium chloride 20 mEq oral tablet, extended release)?1?tab(s)?20?Milliequivalent?By Mouth?2 times a day?for 3?Days PredniSONE (predniSONE 10 mg oral tablet)?See Instructions?please take with food. starting 04/06 take 4 tablets by mouth dailiy for 14 days, on 04/20 decrease to 3 tablets by mouth daily for 1 week, on 04/27 decrease to 2 tablets by mouth daily for 1 week, on 05/04 decrease to 1 tablet by mouth daiy for 1 week, then... Rosuvastatin (Crestor 40 mg oral tablet)?1?tab(s)?40?Milligram?By Mouth?Daily Sucralfate (Carafate 1 gm oral tablet)?1?gram?By Mouth?3 times a day before meals and bedtime Trazodone (traZODone 50 mg oral tablet)?50?Milligram?1?tablet?By Mouth?Daily at bedtime ? Results Recent Labs BLOOD BANK Blood Type O Positive ()?? 04/26/2023 06:08 Antibody Screen Negative ()?? 04/26/2023 06:08 RBC Unit ID [id number] ()?? 04/26/2023 12:45 RBC Available XM ()?? 04/26/2023 12:45 ?? BLOOD COUNT & DIFF WBC 13.6 k/mm3 (High)?? 04/26/2023 06:11 RBC 1.17 m/mm3 (Low)?? 04/26/2023 06:11 Hgb 2.8 Gm/dL (Critical)?? 04/26/2023 06:11 Hct 11.0 % (Critical)?? 04/26/2023 06:11 MCV 94.0 femtoliters ()?? 04/26/2023 06:11 MCH 23.9 pg (Low)?? 04/26/2023 06:11 MCHC 25.5 g/dL (Low)?? 04/26/2023 06:11 Platelet Count 384 k/mm3 ()?? 04/26/2023 06:11 RDW-SD 78.2 femtoliters (High)?? 04/26/2023 06:11 MPV 9.9 femtoliters ()?? 04/26/2023 06:11 Nucleated RBC (Automated) 1.4 #/100 WBC'S ()?? 04/26/2023 06:11 Abs. NRBC 0.2 k/mm3 ()?? 04/26/2023 06:11 Abs. Neut 11.4 k/mm3 (High)?? 04/26/2023 06:11 Abs. Lymph 1.0 k/mm3 ()?? 04/26/2023 06:11 Abs. Lawrence 1.0 k/mm3 (High)?? 04/26/2023 06:11 Abs. Eo 0.0 k/mm3 ()?? 04/26/2023 06:11 Abs. Baso 0.0 k/mm3 ()?? 04/26/2023 06:11 Neut % 83.5 % (High)?? 04/26/2023 06:11 Lymph % 7.6 % (Low)?? 04/26/2023 06:11 Lawrence % 7.3 % ()?? 04/26/2023 06:11 Eos % 0.3 % ()?? 04/26/2023 06:11 Baso % 0.1 % ()?? 04/26/2023 06:11 Imm Gran 1.2 % ()?? 04/26/2023 06:11 Abs. Imm Gran 0.2 k/mm3 ()?? 04/26/2023 06:11 ?? CARDIAC Nt-Probnp 1849 pg/mL (High)?? 04/26/2023 06:25 High Sensitivity Troponin (HSTnT) 13 ng/L ()?? 04/26/2023 09:21 ?? CHEM GENERAL Sodium 139 mmol/L ()?? 04/26/2023 06:25 Potassium 3.8 mmol/L ()?? 04/26/2023 06:25 Chloride 96 mmol/L (Low)?? 04/26/2023 06:25 Bicarbonate Level 30 mmol/L (High)?? 04/26/2023 06:25 Anion Gap 13 ()?? 04/26/2023 06:25 Glucose Level 116 mg/dL (High)?? 04/26/2023 06:25 BUN 24 mg/dL (High)?? 04/26/2023 06:25 Creatinine-Blood 1.0 mg/dL ()?? 04/26/2023 06:25 Estimated GFR Creatinine 69 ML/MIN/1.73 M2 ()?? 04/26/2023 06:25 Calcium 7.9 mg/dL (Low)?? 04/26/2023 06:25 Calcium, Ionized pH Corrected 1.10 mmol/L (Low)?? 04/26/2023 06:25 Phosphorus 3.2 mg/dL ()?? 04/26/2023 06:25 Magnesium 2.2 mg/dL ()?? 04/26/2023 06:25 Protein, Total 5.3 Gm/dL (Low)?? 04/26/2023 06:25 Albumin 3.5 Gm/dL ()?? 04/26/2023 06:25 AG Ratio 1.9 ()?? 04/26/2023 06:25 Alkaline Phosphatase 66 units/L ()?? 04/26/2023 06:25 AST (SGOT) 18 units/L ()?? 04/26/2023 06:25 ALT (SGPT) 10 units/L ()?? 04/26/2023 06:25 Bilirubin, Total 0.3 mg/dL ()?? 04/26/2023 06:25 Vitamin B12 Level 826 pg/mL ()?? 04/26/2023 06:25 Folic Acid Level 13.3 ng/mL ()?? 04/26/2023 06:25 Uric Acid 7.8 mg/dL (High)?? 04/26/2023 06:25 Iron Level 16 mcg/dL (Low)?? 04/26/2023 06:25 Iron Binding Capacity, Unsaturated 420 mcg/dL (High)?? 04/26/2023 06:25 Iron Binding Capacity, Estimated Total 436 mcg/dL ()?? 04/26/2023 06:25 % Iron Saturation 4 % (Low)?? 04/26/2023 06:25 Ferritin Level 28 ng/mL ()?? 04/26/2023 06:25 ?? COAG INR 1.1 ()?? 04/26/2023 06:11 Protime (PT) 11.7 seconds (High)?? 04/26/2023 06:11 APTT 25.1 seconds ()?? 04/26/2023 06:11 ?? ENDOCRINE/TUMOR MARKER TSH 2.79 uIU/mL ()?? 04/26/2023 06:25 ?? HEME OTHER Hold Blue Top SPECIMEN DISCARDED AFTER 4 HOURS. ()?? 04/26/2023 06:25 ?? MISC. CHEMISTRY Hold Green Top SPECIMEN DISCARDED AFTER 1 WEEK ()?? 04/26/2023 06:25 ?? VIROLOGY COVID-19 by RT-PCR NEGATIVE ()?? 04/26/2023 06:30 ? Imaging(s) ?CT Head/Brain W/O Contrast ?? 04/26/2023 07:29??by Yomaira Gross MD ?IMPRESSION: Stable chronic changes. There is no acute intracranial abnormality. ?Chest Portable ?? 04/26/2023 07:08??by Yomaira Gross MD ?IMPRESSION: Bilateral lower lobe opacities which may represent atelectasis or developing infiltrates. Clinical correlation is suggested. ? EKG study * Event Display: EKG Authored Date: Cardiology * Event Display: Cardiac Rhythm Strips Authored Date: Hospital Progress note * Clair Hurst RN: PERFORM, SIGN, VERIFY Event Display: Progress Note Hospital Authored Date: Patient: MAHSA MUHAMMAD Age: 62 years Sex: Female : 1960 Associated Diagnoses: None Author: Clair Hurst RN Findings Problem Related to Alteration in Fluid Electrolyte : Alteration in Fluid Electrolyte Func/new 05/01/2023 4:00 EDT Alteration Fluid Electrolytes Related to Anemia . Alteration in Respiratory Function (new) : Alteration in Respiratory Function/new 05/01/2023 4:00 EDT Alteration in Resp Status Related to COVID - 19, Other: pui . Nursing Data Vital Signs : VITAL SIGNS SECTION 04/30/2023 20:41 EDT Temperature 97.8 DegF Temperature Route Temporal Pulse Rate 83 bpm Respiratory Rate 20 br/min Systolic Blood Pressure 120 mm Hg Diastolic Blood Pressure 65 mm Hg Blood pressure sites Arm, left Mean Arterial Pressure 83 mm Hg Pulse Pressure 55 mm Hg Oxygen Saturation 96 % Liters per Minute 3 L/min Mode of Delivery (Oxygen) Nasal cannula . Evaluation pt alert and oriented and denied any complaints. ls diminished throughout and tolerating ivap well.pt monitoring rsr hr in the 80's. pt remains on enhanced respiratory precautions as pt is a pui. plan for possible discharge in the am. last h+h was 8.6 and 28.2 with labs tiffanie the am. see biophysicaland tele strips in cis for complete assessment.. * Lázaro Haley RN: PERFORM, SIGN, VERIFY Event Display: Progress Note Hospital Authored Date: Patient: MAHSA MUHAMMAD Age: 62 years Sex: Female : 1960 Associated Diagnoses: None Author: Lázaro Haley RN Findings Evaluation pt received in tx from [facility] earlier in the day pt on ERP under PUI pt is a/ox 3 vss lungs dim through out tele sr/st abd snt pp some trace edema bilaterally, pt given own insulin sheet paperwork to monitor carbs and insulin boluses that she is giving her self with meals pt denies any painsob n/v ivap at bedside for tonight, partner at bedside during transfer and resting comfortably seecis for assessment . * Salvador Darden MD: PERFORM, MODIFY Event Display: Progress Note Hospital Authored Date: Patient: ??MAHSA MUHAMMAD ? Age:??62 Years?Sex:??Female?:??1960?? Subjective No any acute events overnight. ??This a.m.??patient had a bowel movement, however no any??black tarry stool or??fresh blood.?? Patient was requesting her allergy medication to be reinstated.?? She feels??better than yesterday after getting blood transfusion.?? Her breathing is fine.?? Patient's partner was at the bedside.?? Patient mentioned to me that she walked to the bathroom without any issues.?? No fever, chills, lightheadedness, nausea, vomiting Review of Systems Negative??except above Objective Vital Signs?? Temperature: 98 DegF (04/30/23 13:01:00) Temperature Route: Temporal (04/30/23 13:01:00) Pulse Rate:??99 bpm??High (04/30/23 13:01:00) Heart Rate Monitored:??99 bpm??High (04/30/23 12:02:00) Respiratory Rate: 18 br/min (04/30/23 13:01:00) Vented: No (04/30/23 12:02:00) Systolic Blood Pressure: 136 mm Hg (04/30/23 13:01:00) Diastolic Blood Pressure: 80 mm Hg (04/30/23 13:01:00) Blood pressure sites: Arm, left (04/30/23 13:01:00) Mean Arterial Pressure: 99 mm Hg (04/30/23 13:01:00) Pulse Pressure: 56 mm Hg (04/30/23 13:01:00) Oxygen Saturation: 96 % (04/30/23 13:01:00) Liters per Minute: 2.5 L/min (04/30/23 13:01:00) Mode of Delivery (Oxygen): Nasal cannula (04/30/23 13:01:00) Early Warning Score: 0 (04/30/23 16:57:49) ? Intake/Output? 04/26 11:31 04/30 07:00 04/29 07:00 04/28 07:00 04/27 07:00 ?? 04/30 17:45 04/30 17:45 04/30 06:59 04/29 06:59 04/28 06:59 Intake ? 4106.2 ?540 ?557 ?710 ? 1858 Output ? 7400 ?800 ? 1600 ?650 ? 3050 Net Total ?-3293.8 ? -260 ?-1043 ? 60 ?-1192 ? Urine Count ?8 ?1 ?3 ?3 ?1 ? Physical Exam General: alert oriented, morbidly obese HEENT: Pallor present Respi: NVBS, no added sounds on 3LPM, baseline Cardio: S1 S2 normal, no added sounds Abdomen: Soft , non tender, BS present Extremities: No peripheral edema Neuro: ALert, oriented, No slurring, facial droop. Moving all extremities spontaneously _ Inpatient Medications Medications (26) Active SCHEDULED: (13) Breo Ellipta 100 mcg / 25 mcg Inhaler (Breo Ellipta 100 mcg-25 mcg Inhaler) ??1 puffs, Inhalation, Daily Fenofibrate 130 mg Capsule (fenofibrate 130 mg oral capsule) ??130 mg, By Mouth, Daily Insulin Pump ??Per Pump, Subcutaneous Injection, Daily LamoTRIGINE 100 mg Tablet (lamotrigine 100 mg oral tablet) ??100 mg, By Mouth, 2 times a day Levothyroxine 100 mcg Tablet (levothyroxine 0.1 mg oral tablet) ??100 mcg, By Mouth, Daily Loratadine 10 mg Tablet (Claritin 10 mg oral tablet) ??10 mg, By Mouth, Daily NaCl 0.9% Flush 3ml (NaCL 0.9% Flush) ??3 mL, IV Push, Every 8 hours Pantoprazole 40 mg Inj (Protonix Inj) ??40 mg, IV Push Slowly, Every 12 hours PredniSONE 20 mg Tablet (predniSONE 20 mg oral tablet) ??20 mg, By Mouth, Daily Rosuvastatin 20 mg Tablet (Crestor 20 mg oral tablet) ??40 mg, By Mouth, Daily Sucralfate 1 Gm Tablet (Carafate 1 gm oral tablet) ??1 Gm, By Mouth, 3 times a day before meals andbedtime Trazodone 50 mg Tablet (traZODone 50 mg oral tablet) ??50 mg, By Mouth, Daily at bedtime Vitamin D 1000 IU Tablet (Vitamin D3 1000 intl units oral tablet) ??25 mcg, By Mouth, Daily CONTINUOUS: (0) PRN: (13) Acetaminophen 325 mg Tablet (Acetaminophen Tablet) ??650 mg, By Mouth, Every 4 hours Acetaminophen/Butalbital/Caffeine Tablet ??1 tablet, By Mouth, Every 4 hours Albuterol 90mcg/Inhalation Inhaler HFA (Ventolin 90 mcg Inhaler) ??180 mcg 2 puffs, Inhalation, Every 4 hours Diazepam 5 mg Tablet (diazepam 5 mg oral tablet) ??10 mg, By Mouth, Every 12 hours Fluticasone Propionate 50mcg/inh Nasal [place] (fluticasone 50 mcg/inh nasal spray) ??50 mcg 1 sprays, Nares, Both, 2 times a day Furosemide Inj (Furosemide ??Inj) ??20 mg 2 mL, IV Push Slowly, Every 6 hours Furosemide Inj (Lasix ??Inj) ??20 mg 2 mL, IV Push Slowly, 2 times a day Insulin Lispro 100 units/mL Inj (3mL) (Humalog Inj) ??300 units 3 mL, Subcutaneous Injection, Daily Melatonin 3 mg Tablet (Melatonin Tablet) ??3 mg, By Mouth, Daily at bedtime NaCl 0.9% Flush 3ml (NaCL 0.9% Flush) ??3 mL, IV Push, Every 8 hours Ondansetron 4 mg ODT (ondansetron 4 mg oral tablet, disintegrating) ??4 mg, By Mouth, Every 6 hours Polyethylene Glycol 17 Gm Powder (MiraLax Powder) ??17 Gm 1 pack/packet, By Mouth, Daily Senna 8.6 mg / Docusate 50 mg tablet (Docusate/Senna Tablet) ??1 tablet, By Mouth, 2 times a day ? Results Recent Labs BLOOD BANK RBC Unit ID [id number] ()?? 04/29/2023 14:52 RBC Available PT ()?? 04/29/2023 14:52 ?? BLOOD COUNT & DIFF WBC 7.6 k/mm3 ()?? 04/30/2023 05:52 RBC 3.03 m/mm3 (Low)?? 04/30/2023 05:52 Hgb 8.6 Gm/dL (Low)?? 04/30/2023 05:52 Hct 28.2 % (Low)?? 04/30/2023 05:52 MCV 93.1 femtoliters ()?? 04/30/2023 05:52 MCH 28.4 pg ()?? 04/30/2023 05:52 MCHC 30.5 g/dL (Low)?? 04/30/2023 05:52 Platelet Count 274 k/mm3 ()?? 04/30/2023 05:52 RDW-SD 59.9 femtoliters (High)?? 04/30/2023 05:52 MPV 9.6 femtoliters ()?? 04/30/2023 05:52 Nucleated RBC (Automated) 0.0 #/100 WBC'S ()?? 04/30/2023 05:52 Abs. NRBC 0.0 k/mm3 ()?? 04/30/2023 05:52 ?? CHEM GENERAL Sodium 140 mmol/L ()?? 04/30/2023 02:12 Potassium 3.9 mmol/L ()?? 04/30/2023 02:12 Chloride 99 mmol/L ()?? 04/30/2023 02:12 Bicarbonate Level 27 mmol/L ()?? 04/30/2023 02:12 Anion Gap 14 ()?? 04/30/2023 02:12 Glucose Level 60 mg/dL (Low)?? 04/30/2023 02:12 Glucose, POC 147 mg/dL (High)?? 04/30/2023 16:47 BUN 11 mg/dL ()?? 04/30/2023 02:12 Creatinine-Blood 0.7 mg/dL ()?? 04/30/2023 02:12 Estimated GFR Creatinine 101 ML/MIN/1.73 M2 ()?? 04/30/2023 02:12 Calcium 8.3 mg/dL (Low)?? 04/30/2023 02:12 Magnesium 2.1 mg/dL ()?? 04/29/2023 00:48 ?? COAG D-Dimer 1.18 mg/L FEU (High)?? 04/30/2023 05:52 ?? URINE OTHER Est Creatinine Clearance 70.67 mL/min ()?? 04/29/2023 03:09 ? Assessment/Plan Diagnoses 1. ??Symptomatic anemia ??(D64.9) 2. ??Acute on chronic anemia ??(D64.9) 3. ??Chronic respiratory failure with hypoxia and hypercapnia ??(J96.11) 4. ??Radiation pneumonitis ??(J70.0) 5. ??Hypertension ??(I10) 6. ??Hyperlipidemia ??(E78.5) 7. ??Chronic congestive heart failure ??(I50.9) 8. ??Type 2 diabetes mellitus ??(E11.9) 9. ??Hypothyroidism ??(E03.9) 10. ??GERD - Gastro-esophageal reflux disease ??(K21.9) 11. ??Depression ??(F32.A) ?Assessment:??Ms. 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 Hemoglobin has been chronically around 7.0 over the past 6 weeks,presented with severe anemia with Hb of 2.8. After multiple blood transfusion her Hb has improved to 7. her home lovenox has been held. ?? Symptomatic anemia (D64.9) Acute on chronic anemia (D64.9): Iron deficiency anemia - Hgb 15 in 11/3022.Preented with Hb 2.8, chronically around 7 for last 6 weeks - History of GAVE - Low retic index, normal tbili, normal haptoglobin, no evidence of bleed, other cell lines normal,iron low, ferritin normal, tsat low. Indicating an iron deficiency anemia. - GI consulted, didnt recommend endoscopy given history of resp failure in the past during procedure Plan: -Received 1 more unit of blood??yesterday.?? Hemoglobin stable at 8.?? No further melena after yesterday -Protonix BID -Monitor hemoglobin tomorrow morning. ??If no evidence of bleeding and hemoglobin stable then we will plan to discharge -D-dimer same as previous level. ??We will check with??neurology regarding??continuation of Lovenoxversus switching to aspirin??at the time of discharge ? Chronic respiratory failure with hypoxia and hypercapnia (J96.11) Radiation pneumonitis (J70.0): - no hypoxemia, on home O2. Comfortable respiratory status Plan: - Continue prednisone taper,??20 mg daily tomorrow for another week. -??Continue Breo Ellipta -??Albuterol MDI as needed for bronchospasm, currently she does not have wheezing on exam. ? Hypertension (I10) Hyperlipidemia (E78.5) Chronic congestive heart failure (I50.9): -??BP borderline low but stable Plan: - Hold home diltiazem -??Blood transfusions have been infused slowly per [facility] protocol, and given history we will give her furosemide 40 mg IV x1 between units. -??Continue rosuvastatin and fenofibrate as prescribed. ? Type 2 diabetes mellitus (E11.9): - Was using insulin pump; 1.8 U/hr of Humalog, insulin pump got emptied -Will do sliding scale lispro for now; monitor glucose and adjust as needed -??Glucose POC qTIDACHS - Hypoglycemia protocols ? Hypothyroidism (E03.9): - TSH normal Plan: - Continue levothyroxine as prescribed. ? GERD - Gastro-esophageal reflux disease (K21.9):??Continue PPI twice daily, especially in the setting of possible recurrent GI bleed. ??Continue sucralfate as prescribed. ? Depression (F32.A): -??Continue lamotrigine as prescribed. -??Desvenlafaxine is nonformulary here; will verify meds before resuming -??Continue diazepam BID; monitor anxiety ?? COVID exposure -Resp precautions -Needs precautions for 7 days as per protocol ?? Allergy: Patient on??levo??cetirizine at home.?? Not available informally. ??We will do Claritin ? VTE ppx:??SCDs Diet:??Advance as toleated Code Status:??Full Code Dispo: Monitor for any evidence of GI bleed??today.?? Possible discharge tomorrow to home if??hemoglobin stable and no evidence of active bleeding ? Consult note * Alexis AVENDANO, Brenda Padilla: MODIFY, MODIFY, PERFORM, MODIFY Event Display: Consultation Note Authored Date: [id number] Patient: ??MAHSA MUHAMMAD ? Age:??62 Years?Sex:??Female?:??1960?? Chief Complaint/Reason for Consultation Dizziness, falls History of Present Illness Ms. Bedoya is a 62-year-old female with PMH significant for HTN, HLD, Type 2 diabetes, asthma, VANDANA/OHS,??chronic hypoxic/hypercapnic respiratory failure on??oxygen??at baseline, right lower lobe adenocarcinoma??(diagnosed in August 2022) with metastasis to the mediastinal lymph nodes??s/p radiation, HFpEF, hypothyroidism, pseudotumor cerebri s/p shunting, GERD, anxiety/depression, and??recent??Left cerebellar infarct??thought to be secondary to hypercoagulable state (March 2023; previously on chronic ASA, discharged on prophylactic enoxaparin)??who presented 04/26 with dizziness, and falls.Found to be hypotensive to 70s and??significantly anemic with Hgb 2.8/Hct 11.0. CT Head nonacute. Ne urology was consulted for recommendations regarding AC in the setting of acute on chronic anemia. ?? Review of Systems Constitutional: Denies fever/chills. HEENT: Denies current dizziness. Denies headache. Denies recent loss or change in vision. Cardiovascular: Denies chest pain and/or palpitations. Denies shortness of breath.?? Respiratory: Denies SOB/dyspnea. ?? GI: Denies N/V/D. Denies abdominal discomfort. : Denies dysuria, or nocturia. Denies any other urinary symptoms. Neuro: Denies current dizziness. Denies headache. Denies recent loss or change in vision. Denies paresthesia. Denies weakness. Musculoskeletal: Denies musculoskeletal pain. ?? Objective Vital Signs?? Temperature: 97.6 DegF (04/29/23 08:00:00) Temperature Route: Oral (04/29/23 08:00:00) Pulse Rate:??122 bpm??High (04/29/23 08:00:00) Heart Rate Monitored:??110 bpm??High (04/29/23 10:00:00) Respiratory Rate: 22 br/min (04/29/23 10:00:00) Vented: No (04/29/23 10:00:00) Systolic Blood Pressure: 110 mm Hg (04/29/23 08:00:00) Diastolic Blood Pressure:??94 mm Hg??High (04/29/23 08:00:00) Blood pressure sites: Arm, right (04/29/23 10:00:00) Pulse Pressure: 16 mm Hg (04/29/23 08:00:00) Oxygen Saturation: 95 % (04/29/23 10:00:00) Liters per Minute: 5 L/min (04/28/23 20:00:00) Mode of Delivery (Oxygen): Room air (04/29/23 10:00:00) Early Warning Score: 8 (04/29/23 12:40:42) ? [place] Coma Scale [place] Coma Score: 15 (04/29/23 08:00:00) Motor Response-Adult: Obeys commands (04/29/23 08:00:00) Response Eye Opening: Spontaneously (04/29/23 08:00:00) Verbal Response-Adult: Oriented and converses (04/29/23 08:00:00) ? Physical Exam General:?62-year-old female, who appears stated age. Calm and cooperative. Responds appropriately to questioning. Speech clear Integ: Skin is warm, dry and intact. No diaphoresis.?? HEENT: Eyes symmetrical. Pupils 2mm, equally round, regular, and responsive to light. Extraocular eye movements intact. No nystagmus. Hearing grossly intact.?? Respiratory: Respirations even and unlabored. GI: Abd soft and nondistended. Extremities: warm and perfused. Neurological: Mental status: A&O x3. Answers questions appropriately and follows commands. Cranial Nerves: II: Pupils 2mm equally round, regular and reactive to light III, IV, : EOM intact, no gaze preference or deviation. No nystagmus. VFF V: Facial sensation intact to light touch in V1, V2, and V3 segments. VII: Mild left NFF VIII: Normal hearing to speech IX, X:??Normal palatal elevation, no uvular deviation.?? XI: Shoulder shrug??intact bilaterally XII: Midline tongue protrusion Motor: Musculoskeletal development appropriate for age and gender. Moves extremities independently?? Strength Wheel Inspector: L: 5/5 ? R: 5/5 Deltoids: L: 5/5 ? R:5/5 Biceps: ?? L: 5/5 ? R:5/5 Triceps: ?? L: 5/5 ? R:5/5 Knee extension: L: 5/5 ? R: 5/5 Sensory: Sensation intact to light touch in all limbs. No hemineglect, no extinction to double sided stimulation Coordination: Finger to nose without dysmetria Gait: Deferred. Assessment/Plan 62-year-old female with PMH significant for HTN, HLD, Type 2 diabetes s/p insulin pump, asthma, VANDANA/OHS,??chronic hypoxic/hypercapnic respiratory failure on??oxygen??at baseline, right lower lobe adenocarcinoma??(diagnosed in August 2022) with metastasis to the mediastinal lymph nodes??s/p radiation, HFpEF, hypothyroidism, pseudotumor cerebri s/p shunting, GERD, anxiety/depression, chronic anemia with Fe+ deficiency, and??recent??Left cerebellar infarct??thought to be secondary to hypercoagulable state (March 2023; previously on chronic ASA, discharged on prophylactic enoxaparin)??who presented 04/26 with dizziness, and falls. Found to be hypotensive to 70s and??significantly anemic with Hgb2.8/Hct 11.0. CT Head nonacute. Neurology was consulted for recommendations regarding AC in the setting of acute on chronic anemia. Note: D- dimer in Mar 2023: 1.09. ? DDx: Acute on Chronic Anemia ? Recommendations: - Please repeat D-Dimer - Further recommendations regarding ASA vs Enoxaparin following review of D-Dimer? - If D-dimer normal, could potentially stop Lovenox and return to ASA?? - Continue neuro checks, VS, and telemetry per unit protocol - Remainder of??care per primary team ? Thank you. Neurology will follow. Please call with any questions/concerns ? d/w Dr. Trina Kamara sent to Dr. Salvador Darden Histories Past Medical History/Problem List Active Problems??(19) Adenocarcinoma of lung Central sleep apnea Chronic congestive heart failure Chronic respiratory failure with hypoxia and hypercapnia Depression Diabetic nephropathy GAVE (gastric antral vascular ectasia) GERD - Gastro-esophageal reflux disease Hyperlipidemia Hypertension Hypothyroidism Hypoventilation Iron deficiency anemia Obstructive sleep apnea Pseudotumor cerebri Radiation pneumonitis Severe obesity Sleep-related hypoxia Type 2 diabetes mellitus ? Past Surgical History Cholecystectomy Appendectomy Tonsillectomy Pseudotumor cerebri surgery ? Social History Alcohol Details:??Use: Current. ??Frequency: 1-2 times per month. Employment/School Details:??Status: Retired. Home/Environment Details:??Living situation: Home/Independent. ??Lives with: Spouse. Nutrition/Health Details:??Diet: Diabetic. Substance Abuse Details:??Use: Never. Tobacco Details:??Use: Former smoker, quit more than 30 days ago. ??Other: smoked briefly from March-Apr 2022, had been years of nonsmoking prior. ? Stroke Treatment Details Service Categories #1: Physical Therapy, [facility] ?? Medications Home Medications Acetaminophen/Butalbital/Caffeine (acetaminophen/butalbital/caffeine 325 mg-50 mg-40 mg oral tablet)?1?tab(s)?By Mouth?Every 6 hours?as needed?as needed Albuterol (albuterol 90 mcg/inh inhalation powder)?1?puff(s)?Inhalation?Every 4 hours?as needed?as needed alectinib (alectinib 150 mg oral capsule)?2?capsule?300?Milligram?By Mouth?2 times a day?with food Cholecalciferol (Vitamin D3 1000 intl units oral tablet)?1?tab(s)?25?Microgram?By Mouth?Daily Desvenlafaxine (desvenlafaxine 25 mg oral tablet, extended release)?1?tab(s)?25?Milligram?By Mouth?Daily?do not crush or chew Diazepam (diazepam 10 mg oral tablet)?20?Milligram?2?tablet?By Mouth?Daily at bedtime Diltiazem (DilTIAZem (Eqv-Cardizem CD) 120 mg/24 hours oral capsule, extended release)?1?capsule?120?Milligram?By Mouth?2 times a day Durable Medical Equipment (omnipod dash pods)?See Instructions?e11.9, use as directed with short acting insulin, change out every 2 days. 30 day supply Durable Medical Equipment (iVAPS)?See Instructions?with TVa at 8.6 L/minute with EPAP of 9 and min PS of 6 and max PS of 19 with target patient rate at 20. Enoxaparin (enoxaparin 120 mg/0.8 mL injectable solution)?0.8?Milliliter?120?Milligram?Subcutaneous Injection?Every 12 hours?for 30?Days Fenofibrate (fenofibrate 145 mg oral tablet)?1?tab(s)?145?Milligram?By Mouth?Daily Fluticasone Nasal (Flonase 50 mcg/inh nasal spray)?1?spray(s)?Daily?Pt uses prn fluticasone-vilanterol (Breo Ellipta 100 mcg-25 mcg/inh inhalation powder)?1?puff(s)?Inhalation?Daily Furosemide (Lasix 40 mg oral tablet)?60?Milligram?By Mouth?Daily?for 30?Days Insulin Lispro (Humalog 100 u/ml subcutaneous injection)?See Instructions?Subcutaneous Infusion through insulin pump, max 250 units/d, 90 days, E 11.65 Lamotrigine (lamotrigine 100 mg oral tablet)?100?Milligram?1?tablet?By Mouth?2 times a day levocetirizine (Xyzal 5 mg oral tablet)?1?tab(s)?5?Milligram?By Mouth?Daily in PM Levothyroxine (levothyroxine 0.1 mg oral tablet)?100?Microgram?By Mouth?Daily Ondansetron (ondansetron 8 mg oral tablet)?1?tab(s)?8?Milligram?By Mouth?Every 8 hours?as needed?as needed for nausea/vomiting Pantoprazole (pantoprazole 40 mg oral delayed release tablet)?40?Milligram?By Mouth?2 times a day Potassium Chloride (potassium chloride 20 mEq oral tablet, extended release)?1?tab(s)?20?Milliequivalent?By Mouth?2 times a day?for 3?Days PredniSONE (predniSONE 10 mg oral tablet)?See Instructions?please take with food. starting 04/06 take 4 tablets by mouth dailiy for 14 days, on 04/20 decrease to 3 tablets by mouth daily for 1 week, on 04/27 decrease to 2 tablets by mouth daily for 1 week, on 05/04 decrease to 1 tablet by mouth daiy for 1 week, then... Rosuvastatin (Crestor 40 mg oral tablet)?1?tab(s)?40?Milligram?By Mouth?Daily Sucralfate (Carafate 1 gm oral tablet)?1?gram?By Mouth?3 times a day before meals and bedtime Trazodone (traZODone 50 mg oral tablet)?50?Milligram?1?tablet?By Mouth?Daily at bedtime ? Inpatient Medications Medications (26) Active SCHEDULED: (13) Breo Ellipta 100 mcg / 25 mcg Inhaler (Breo Ellipta 100 mcg-25 mcg Inhaler) ??1 puffs, Inhalation, Daily Fenofibrate 130 mg Capsule (fenofibrate 130 mg oral capsule) ??130 mg, By Mouth, Daily Insulin Lispro 100 units/mL Inj (3mL) (Insulin LISPRO Scale) ??3-15 units, Subcutaneous Injection, 3 times a day before meals Insulin Pump ??Per Pump, Subcutaneous Injection, Daily LamoTRIGINE 100 mg Tablet (lamotrigine 100 mg oral tablet) ??100 mg, By Mouth, 2 times a day Levothyroxine 100 mcg Tablet (levothyroxine 0.1 mg oral tablet) ??100 mcg, By Mouth, Daily NaCl 0.9% Flush 3ml (NaCL 0.9% Flush) ??3 mL, IV Push, Every 8 hours Pantoprazole 40 mg Inj (Protonix Inj) ??40 mg, IV Push Slowly, Every 12 hours PredniSONE 20 mg Tablet (predniSONE 20 mg oral tablet) ??20 mg, By Mouth, Daily Rosuvastatin 20 mg Tablet (Crestor 20 mg oral tablet) ??40 mg, By Mouth, Daily Sucralfate 1 Gm Tablet (Carafate 1 gm oral tablet) ??1 Gm, By Mouth, 3 times a day before meals andbedtime Trazodone 50 mg Tablet (traZODone 50 mg oral tablet) ??50 mg, By Mouth, Daily at bedtime Vitamin D 1000 IU Tablet (Vitamin D3 1000 intl units oral tablet) ??25 mcg, By Mouth, Daily CONTINUOUS: (0) PRN: (13) Acetaminophen 325 mg Tablet (Acetaminophen Tablet) ??650 mg, By Mouth, Every 4 hours Acetaminophen/Butalbital/Caffeine Tablet ??1 tablet, By Mouth, Every 4 hours Albuterol 90mcg/Inhalation Inhaler HFA (Ventolin 90 mcg Inhaler) ??180 mcg 2 puffs, Inhalation, Every 4 hours Diazepam 5 mg Tablet (diazepam 5 mg oral tablet) ??10 mg, By Mouth, Daily at bedtime Fluticasone Propionate 50mcg/inh Nasal [place] (fluticasone 50 mcg/inh nasal spray) ??50 mcg 1 sprays, Nares, Both, 2 times a day Furosemide Inj (Furosemide ??Inj) ??20 mg 2 mL, IV Push Slowly, Every 6 hours Furosemide Inj (Lasix ??Inj) ??20 mg 2 mL, IV Push Slowly, 2 times a day Insulin Lispro 100 units/mL Inj (3mL) (Humalog Inj) ??300 units 3 mL, Subcutaneous Injection, Daily Melatonin 3 mg Tablet (Melatonin Tablet) ??3 mg, By Mouth, Daily at bedtime NaCl 0.9% Flush 3ml (NaCL 0.9% Flush) ??3 mL, IV Push, Every 8 hours Ondansetron 4 mg ODT (ondansetron 4 mg oral tablet, disintegrating) ??4 mg, By Mouth, Every 6 hours Polyethylene Glycol 17 Gm Powder (MiraLax Powder) ??17 Gm 1 pack/packet, By Mouth, Daily Senna 8.6 mg / Docusate 50 mg tablet (Docusate/Senna Tablet) ??1 tablet, By Mouth, 2 times a day ? Results Recent Labs BLOOD COUNT & DIFF WBC 6.6 k/mm3 ()?? 04/29/2023 00:48 RBC 2.55 m/mm3 (Low)?? 04/29/2023 00:48 Hgb 7.1 Gm/dL (Low)?? 04/29/2023 00:48 Hct 23.4 % (Low)?? 04/29/2023 00:48 MCV 91.8 femtoliters ()?? 04/29/2023 00:48 MCH 27.8 pg ()?? 04/29/2023 00:48 MCHC 30.3 g/dL (Low)?? 04/29/2023 00:48 Platelet Count 264 k/mm3 ()?? 04/29/2023 00:48 RDW-SD 60.5 femtoliters (High)?? 04/29/2023 00:48 MPV 9.7 femtoliters ()?? 04/29/2023 00:48 Nucleated RBC (Automated) 0.5 #/100 WBC'S ()?? 04/29/2023 00:48 Abs. NRBC 0.0 k/mm3 ()?? 04/29/2023 00:48 ?? CHEM GENERAL Sodium 136 mmol/L ()?? 04/29/2023 00:48 Potassium 3.6 mmol/L ()?? 04/29/2023 00:48 Chloride 96 mmol/L (Low)?? 04/29/2023 00:48 Bicarbonate Level 26 mmol/L ()?? 04/29/2023 00:48 Anion Gap 14 ()?? 04/29/2023 00:48 Glucose Level 116 mg/dL (High)?? 04/29/2023 00:48 Glucose, POC 199 mg/dL (High)?? 04/29/2023 12:25 BUN 13 mg/dL ()?? 04/29/2023 00:48 Creatinine-Blood 0.7 mg/dL ()?? 04/29/2023 00:48 Estimated GFR Creatinine 100 ML/MIN/1.73 M2 ()?? 04/29/2023 00:48 Calcium 8.4 mg/dL (Low)?? 04/29/2023 00:48 Phosphorus 3.1 mg/dL ()?? 04/28/2023 03:11 Magnesium 2.1 mg/dL ()?? 04/29/2023 00:48 ?? URINE OTHER Est Creatinine Clearance 70.67 mL/min ()?? 04/29/2023 03:09 ?? VIROLOGY COVID-19 Antigen POC Result NEGATIVE (N)?? 04/28/2023 09:19 ? Abnormal Labs ?? BLOOD COUNT & DIFF ??Abs. NRBC ??0.0 k/mm3 () ??04/29/2023 00:48 ??Hct ??23.4 % (Low) ??04/29/2023 00:48 ??Hgb ??7.1 Gm/dL (Low) ??04/29/2023 00:48 ??MCHC ??30.3 g/dL (Low) ??04/29/2023 00:48 ??Nucleated RBC (Automated) ??0.5 #/100 WBC'S () ??04/29/2023 00:48 ??RBC ??2.55 m/mm3 (Low) ??04/29/2023 00:48 ??RDW-SD ??60.5 femtoliters (High) ??04/29/2023 00:48 ? CHEM GENERAL ??Calcium ??8.4 mg/dL (Low) ??04/29/2023 00:48 ??Chloride ??96 mmol/L (Low) ??04/29/2023 00:48 ??Estimated GFR Creatinine ??100 ML/MIN/1.73 M2 () ??04/29/2023 00:48 ??Glucose Level ??116 mg/dL (High) ??04/29/2023 00:48 ??Glucose, POC ??199 mg/dL (High) ??04/29/2023 12:25 ? Note: Critical results are displayed in red. ? * Trina DE LA TORRE, Giuliana: PERFORM Event Display: Consultation Note Authored Date: Patient discussed with RAMP MANAGER Brenda Espinoza. I reviewed her note and agree with her assessment and plan. In addition, I reviewed the patient's history, lab values, and imaging studies. We recommend to repeat the D-Dimer, since last one was marginally abnormal. If same or better as last time, we would notneed any anticoagulation going forward. The previous stroke in the left cerebellum might be a watershed stroke between the mesial and lateral PICA and less likely embolic. ?? Giuliana Mena MD, PhD * Graeme BOUCHER, Cornelius Hameed: PERFORM Event Display: Consultation Note Authored Date: D-Dimer 1.18, Neurology will sign off * Mark DE LA TORRE, Tae: SIGN, MODIFY Kiko Johnson MD: MODIFY, SIGN Kiko Johnson MD: SIGN, VERIFY Kiko Johnson MD: VERIFY, PERFORM Kiko Johnson MD: PERFORM Event Display: Consultation Note Authored Date: Patient: MAHSA MUHAMMAD Age: 62 years Sex: Female : 1960 Associated Diagnoses: None Author: Kiko Johnson MD Visit Information REASON FOR CONSULT Anemia, without overt bleeding REFERRING PHYSICIAN Silva DE LA TORRE, Luis Bautista History of Present Illness 62-year-old female with history of HTN, HLD, DM, VANDANA, Hypothyroid, RLL Adenocarcinoma of the lung w/ mets to lymphnodes + adrenal glands, radiation pneumonitis (on 2 L O2 and nocturnal iVAPS), right lower lobe adenocarcinoma of the lung with metastases to mediastinal lymph nodes and adrenal gland, CHFpEF, cerebellar CVA (recently started on enoxaparin), and 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 GI was consulted for significant anemia without overt bleeding, in the setting of new anticoagulation. In the ED, patient was hemodynamically stable [slightly hypotensive] although placed on 3 L nasal cannula WBC 13.6, Hgb 2.8, INR 1.1, NA 139, K3.8, BUN 24, creatinine 1.0, LDH 66, ALT 18, AST 10, T. bili 0.3. Patient denies any episodes of overt bleeding. No hematochezia, melena, coffee-ground emesis, hematemesis. Importantly the patient was admitted to the hospital recently. for anemia. During that time the patient undergone EGD and colonoscopy. Which demonstrated multiple AVMs consistent withGAVE APC was applied. Colonoscopy performed demonstrated diverticulosis with poor visualization dueto solid stool. No old or new blood. 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 Past Medical History Problem list All Problems Adenocarcinoma of lung / SNOMED CT 287268593 / Confirmed Central sleep apnea / SNOMED CT 67854940 / Confirmed Chronic congestive heart failure / SNOMED CT 462856255 / Confirmed Chronic respiratory failure with hypoxia and hypercapnia / SNOMED CT 88986888 / Confirmed Depression / SNOMED CT 470975682 / Confirmed Diabetic nephropathy / SNOMED CT 594000559 / Confirmed GAVE (gastric antral vascular ectasia) / SNOMED CT 0918718608 / Confirmed GERD - Gastro-esophageal reflux disease / SNOMED CT 8443143378 / Confirmed Hyperlipidemia / SNOMED CT 07678778 / Confirmed Hypertension / SNOMED CT 92335403 / Confirmed Hypothyroidism / SNOMED CT 31176425 / Confirmed Hypoventilation / SNOMED CT 70776029 / Confirmed Iron deficiency anemia / SNOMED CT 456296386 / Confirmed Obstructive sleep apnea / SNOMED CT 162508924 / Confirmed Pseudotumor cerebri / SNOMED CT 104270058 / Confirmed Radiation pneumonitis / SNOMED CT 202929478 / Confirmed Reported hx of spinal stenosis / Confirmed Severe obesity / SNOMED CT 4887613332 / Confirmed Sleep-related hypoxia / SNOMED CT 5030615766 / Confirmed Type 2 diabetes mellitus / SNOMED CT 824378779 / Confirmed Current medications (Selected) Inpatient Medications Ordered Acetaminophen Tablet: 650 mg, Tablet, By Mouth, Every 4 hours, PRN for Pain , Mild, Temperature Greater than 100.5, Routine, 04/26/23 12:01:00 EDT Acetaminophen/Butalbital/Caffeine Tablet: 1 tablet, Tablet, By Mouth, Every 4 hours, PRN for Headache, Routine, 04/26/23 13:04:00 EDT Breo Ellipta 100 mcg-25 mcg Inhaler: 1 puffs, Inhaler, Inhalation, Daily, Routine, 04/26/23 13:01:00 EDT Carafate 1 gm oral tablet: 1 Gm, Tablet, By Mouth, 3 times a day before meals and bedtime, Routine,04/26/23 16:00:00 EDT Crestor 20 mg oral tablet: 40 mg, Tablet, By Mouth, Daily, Routine, 04/27/23 9:00:00 EDT Docusate/Senna Tablet: 1 tablet, Tablet, By Mouth, 2 times a day, PRN for Constipation, Routine, 04/26/23 12:01:00 EDT Insulin LISPRO Sliding Scale: 2-10 units, Injection, Subcutaneous Injection, 3 times a day before meals, Routine, 04/26/23 16:00:00 EDT Melatonin Tablet: 3 mg, Tablet, By Mouth, Daily at bedtime, PRN for Insomnia, Routine, 04/26/23 12:01:00 EDT MiraLax Powder: 17 Gm, Powder, By Mouth, Daily for 14 days, Dissolve in 8 ounces of water., PRN forConstipation, Routine, 04/26/23 12:01:00 EDT, Stop date 05/10/23 12:00:00 EDT NaCL 0.9% Flush: 3 mL, Injection, IV Push, Every 8 hours, PRN for Line/Tube Patency, Routine, 04/26/23 12:01:00 EDT NaCL 0.9% Flush: 3 mL, Injection, IV Push, Every 8 hours, Routine, 04/26/23 13:00:00 EDT Ventolin 90 mcg Inhaler: 180 mcg, 2 puffs, Inhaler, Inhalation, Every 4 hours, PRN for Wheezing/Shortness of Breath, Routine, 04/26/23 13:04:00 EDT Vitamin D3 1000 intl units oral tablet: 25 mcg, Tablet, By Mouth, Daily, Routine, 04/27/23 9:00:00 EDT diazepam 10 mg oral tablet: 10 mg, Tablet, By Mouth, Daily at bedtime, PRN for Anxiety, Routine, 04/26/23 13:05:00 EDT fenofibrate 130 mg oral capsule: 130 mg, Capsule, By Mouth, Daily, Routine, 04/27/23 9:00:00 EDT fluticasone 50 mcg/inh nasal spray: 1 sprays, Nasal [place], Nares, Both, 2 times a day, PRN for Congestion, Routine, 04/26/23 13:06:00 EDT lamotrigine 100 mg oral tablet: 100 mg, Tablet, By Mouth, 2 times a day, Routine, 04/26/23 21:00:00EDT levothyroxine 0.1 mg oral tablet: 100 mcg, Tablet, By Mouth, Daily, Routine, 04/27/23 7:00:00 EDT ondansetron 4 mg oral tablet, disintegratin mg, Tablet, By Mouth, Every 6 hours, PRN for Nausea& Vomiting, Routine, 04/26/23 13:07:00 EDT pantoprazole 40 mg oral delayed release tablet: 40 mg, EC Tablet, By Mouth, 2 times a day, Indicated for: Continuation from Home, Routine, 04/26/23 21:00:00 EDT predniSONE 20 mg oral tablet: 20 mg, Tablet, By Mouth, Daily for 7 days, Routine, 04/27/23 9:00:00 EDT, Stop date 05/04/23 8:59:00 EDT traZODone 50 mg oral tablet: 50 mg, Tablet, By Mouth, Daily at bedtime, Routine, 04/26/23 21:00:00 EDT Prescriptions Prescribed Carafate 1 gm oral tablet: 1 Gm, By Mouth, 3 times a day before meals and bedtime, # 30 tablet, Refills 0, Tot. Refills 0, Maintenance, 03/21/23 12:57:00 EDT, Route to Pharmacy Electronically, [facility]/pharmacy #[id number], Partial fill upon patient request if the prescription is for a sc... Humalog 100 u/ml subcutaneous injection: See Instructions, Subcutaneous Infusion through insulin pump, max 250 units/d, 90 days, E 11.65, # 230 mL, 4 Refills, Maintenance, 06/25/22 13:55:00 EDT, [facility]/pharmacy #[id number], 157, cm, 05/25/22 13:17:00 EDT, Height, 138.3, kg, 08/15/21 6:07:00 EST, Dry... Lasix 40 mg oral tablet: 60 mg, By Mouth, Daily, # 45 tablet, Refills 0, Tot. Refills 0, Maintenance, 04/06/23 14:46:00 EDT, Route to Pharmacy Electronically, [facility], Partial fill upon patient request if the prescription is for a schedule II opioid drug., 15... alectinib 150 mg oral capsule: 2 capsule = 300 mg, By Mouth, 2 times a day, with food, # 120 capsule, 11 Refills, Maintenance, 04/14/23 10:50:00 EDT, Capsule, Partial fill upon patient request if theprescription is for a schedule II opioid drug. enoxaparin 120 mg/0.8 mL injectable solution: 0.8 mL = 120 mg, Subcutaneous Injection, Every 12 hours, for 30 days, # 48 mL, 1 Refills, Acute 06/05/23 14:47:00 EDT, 04/06/23 14:47:00 EDT, Injection, [facility], Partial fill upon patient request if the prescription is for a schedule... iVAPS: iVAPS, See Instructions, # 1 each, Refills 0, Tot. Refills 0, Maintenance, with TVa at 8.6 L/minute with EPAP of 9 and min PS of 6 and max PS of 19 with target patient rate at 20., 02/07/23 11:19:00 EDT, Supply omnipod dash pods: omnipod dash pods, See Instructions, # 15 each, Refills 11, Tot. Refills 11, Maintenance, e11.9, use as directed with short acting insulin, change out every 2 days. 30 day supply, 06/25/22 14:44:00 EDT, Supply, 157, cm, 05/25/22 13:17:00 EDT, Height,... pantoprazole 40 mg oral delayed release tablet: = 40 mg, By Mouth, 2 times a day, # 30 tablet, 0 Refills, Maintenance, 03/21/23 12:59:00 EDT, EC Tablet, 159, cm, 03/21/23 3:14:00 EDT, Height, 123, kg, 03/16/23 1:01:00 EDT, Dry Weight potassium chloride 20 mEq oral tablet, extended release: 1 tablet = 20 mEq, By Mouth, 2 times a day, # 6 tablet, 0 Refills, Maintenance, 09/16/19 8:51:00 EST, ER Tablet, [facility], 158, cm, 09/16/19 7:39:00 EST, Height, 122.5, kg, 09/13/19 18:49:00 EST, Dry Weight predniSONE 10 mg oral tablet: See Instructions, please take with food. starting 04/06 take 4 tabletsby mouth dailiy for 14 days, on 04/20 decrease to 3 tablets by mouth daily for 1 week, on 04/27 decrease to 2 tablets by mouth daily for 1 week, on 05/04 decrease to 1 tablet by mouth da... Documented Medications Documented Breo Ellipta 100 mcg-25 mcg/inh inhalation powder: 1 puffs, Inhalation, Daily, # 30 each, 0 Refills, Maintenance, 05/12/19 11:36:55 EDT, Powder Crestor 40 mg oral tablet: 1 tablet = 40 mg, By Mouth, Daily, # 30 tablet, 0 Refills, Maintenance, 11/16/16 16:25:00, Tablet DilTIAZem (Eqv-Cardizem CD) 120 mg/24 hours oral capsule, extended release: 1 capsule = 120 mg, By Mouth, 2 times a day, 0 Refills, Maintenance, 08/14/21 20:12:00 EST, Partial fill upon patient request if the prescription is for a schedule II opioid drug. Flonase 50 mcg/inh nasal spray: 1 sprays, Daily, Pt uses prn, 0 Refills, Maintenance, 04/11/17 11:45:51 Vitamin D3 1000 intl units oral tablet: 1 tablet = 25 mcg, By Mouth, Daily, # 30 tablet, 0 Refills,Maintenance, 08/14/21 17:30:00 EST, Tablet, Partial fill upon patient request if the prescription is for a schedule II opioid drug. Xyzal 5 mg oral tablet: 1 tablet = 5 mg, By Mouth, Daily in PM, # 15 tablet, 0 Refills, Maintenance, 08/14/21 17:30:00 EST, Tablet acetaminophen/butalbital/caffeine 325 mg-50 mg-40 mg oral tablet: 1 tablet, By Mouth, Every 6 hours, PRN as needed, Maintenance, 07/09/22 19:13:00 EDT, Tablet albuterol 90 mcg/inh inhalation powder: 1 puffs, Inhalation, Every 4 hours, PRN as needed, # 1 each, 0 Refills, Maintenance, 11/19/16 13:15:52, Powder desvenlafaxine 25 mg oral tablet, extended release: 1 tablet = 25 mg, By Mouth, Daily, do not crushor chew, Maintenance, 07/09/22 19:14:00 EDT, ER Tablet diazepam 10 mg oral tablet: 20 mg, 2, tablet, By Mouth, Daily at bedtime fenofibrate 145 mg oral tablet: 1 tablet = 145 mg, By Mouth, Daily, # 90 tablet, 0 Refills, Maintenance, 08/14/21 17:28:00 EST, Tablet, Partial fill upon patient request if the prescription is for a schedule II opioid drug. lamotrigine 100 mg oral tablet: 100 mg, 1, tablet, By Mouth, 2 times a day, # 60 tablet, Refills 5,Maintenance, 07/09/22 8:01:00 EDT, Partial fill upon patient request if the prescription is for a schedule II opioid drug. levothyroxine 0.1 mg oral tablet: = 100 mcg, By Mouth, Daily, 0 Refills, Maintenance, 05/12/19 11:34:46 EDT, Tablet ondansetron 8 mg oral tablet: 1 tablet = 8 mg, By Mouth, Every 8 hours, PRN as needed for nausea/vomiting, 0 Refills, Maintenance, 03/15/23 13:43:00 EDT, Tablet, Partial fill upon patient request if the prescription is for a schedule II opioid drug. traZODone 50 mg oral tablet: 50 mg, 1, tablet, By Mouth, Daily at bedtime, # 15 tablet, Refills 0, Maintenance, 03/15/23 13:42:00 EDT, Partial fill upon patient request if the prescription is for a schedule II opioid drug. Allergies Allergic Reactions (Selected) Severity Not Documented Ibuprofen- No reactions were documented. Trulicity- No reactions were documented. Surgical History Procedure/Surgical Profile Cholecystectomy (00203948). Appendectomy (974246320). Pseudotumor cerebri surgery (296737523). Tonsillectomy (727820313). Social History Social History Alcohol Details: Use: Current. Frequency: 1-2 times per month. Employment/School Details: Status: Retired. Home/Environment Details: Living situation: Home/Independent. Lives with: Spouse. Nutrition/Health Details: Diet: Diabetic. Substance Abuse Details: Use: Never. Tobacco Details: Use: Former smoker, quit more than 30 days ago. Other: smoked briefly from March-Apr 2022, had been years of nonsmoking prior. . Family History No family hx of GI diseases including IBD, CRC or other GI cancers. Review of Systems 14 point ROS negative except as above. Physical Examination Physical Exam Vital Signs: Vitals : VITAL SIGNS SECTION 04/26/2023 16:00 EDT Temperature 98.9 DegF Temperature Route Oral Pulse Rate 102 bpm H Respiratory Rate 26 br/min Systolic Blood Pressure 111 mm Hg Diastolic Blood Pressure 74 mm Hg Blood pressure sites Arm, right Pulse Pressure 37 mm Hg Liters per Minute 3 L/min Mode of Delivery (Oxygen) Nasal cannula , Weight : Weight lb/oz 04/13/2023 10:45 EDT Weight lb/oz 263 lb 4 oz , BMI : Body Mass Index 04/13/2023 10:45 EDT Body Mass Index 47.83 kg/m2 >HHI . General: No acute distress HEENT: Moist mucus membranes, EOMI, with nasal IPAP Respiratory: no increased work of breathing, no wheezes Cardiovascular: Normal rate, regular rhythm, Abdomen: soft, non-tender, non-distended Musculoskeletal: No LE edema Neurologic: Alert & Oriented Results Review Radiology Results : RADIOLOGY 04/03/2023 18:[address] Angio Neck RESULT: CT Angio Neck Laboratory Results : LABORATORY 04/26/2023 6:25 EDT Sodium 139 mmol/L Potassium 3.8 mmol/L Chloride 96 mmol/L L Bicarbonate Level 30 mmol/L H Anion Gap 13 Glucose Level 116 mg/dL H BUN 24 mg/dL H Creatinine-Blood 1.0 mg/dL Estimated GFR Creatinine 69 ML/MIN/1.73 M2 Calcium 7.9 mg/dL L Calcium, Ionized pH Corrected 1.10 mmol/L L Phosphorus 3.2 mg/dL Magnesium 2.2 mg/dL Protein, Total 5.3 Gm/dL L Albumin 3.5 Gm/dL AG Ratio 1.9 Alkaline Phosphatase 66 units/L AST (SGOT) 18 units/L ALT (SGPT) 10 units/L Bilirubin, Total 0.3 mg/dL Vitamin B12 Level 826 pg/mL 04/26/2023 6:11 EDT WBC 13.6 k/mm3 H RBC 1.17 m/mm3 L Hgb 2.8 Gm/dL C Hct 11.0 % C MCV 94.0 femtoliters MCH 23.9 pg L MCHC 25.5 g/dL L Platelet Count 384 k/mm3 RDW-SD 78.2 femtoliters H MPV 9.9 femtoliters Nucleated RBC (Automated) 1.4 #/100 WBC'S Abs. NRBC 0.2 k/mm3 Abs. Neut 11.4 k/mm3 H Abs. Lymph 1.0 k/mm3 Abs. [place] 1.0 k/mm3 H Abs. Eo 0.0 k/mm3 Abs. Baso 0.0 k/mm3 Neut % 83.5 % H Lymph % 7.6 % L [place] % 7.3 % Eos % 0.3 % Baso % 0.1 % Imm Gran 1.2 % Abs. 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 Gi was consulted for significant anemia without overt bleeding, in the setting of new anticoagulation. With the patients multimorbid medical condition, significant periprocedural risk (prior DIFFUSER OPERATOR with attempt at extubating post procedurally), without any overt bleeding, the risk-benefit profile of a purely diagnostic endoscopy is unfavorable. Therefore: PLAN: -We would recommend to minimize antithrombotic use to the extent acceptable for thrombotic risk -Pantoprazole 40mg IV BID -Maintain 2 large-bore IVs -Monitor H&H, transfuse for hemoglobin less than 7 -Monitor for any significant overt GI bleeding Plan discussed with primary team. Patient seen and discussed with??attending physician??Dr.Alexander Kiko White MD Gastroenterology Fellow - PGY 7 * Tae Flores MD: PERFORM Event Display: Consultation Note Authored Date: [id number] Attending Attestation: I have seen and evaluated this patient. I have discussed the case and the management with the fellow, and agree with the findings and plan as documented in the fellow???s note.The patient with history of adenocarcinoma of right lower lung lobe (with lymph node & adrenal metastasis), radiation pneumonitis (with chronic respiratory failure), central sleep apnea, obstructive sleep apnea/obesity hypoventilation syndrome, diastolic heart failure, diabetes type 2 (with nephropathy), hypertension, dyslipidemia, hypothyroidism, morbid obesity, pseudotumor cerebri, anxiety and depression who underwent upper GI endoscopy (with argon plasma coagulation of gastric antral vascular ectasia) and colonoscopy (notable only for diverticulosis in the context of poor prep) is readmitted with significant drop in hemoglobin (down to 2.8 g/dL) in the absence of any overt bleed. Though endoscopic evaluation could have been appropriate in an otherwise stable patient, this would have a highly unfavorable risk-benefit profile in this patient with extremely tenuous respiratory status (especially considering the post-procedure respiratory decompensation that she suffered after the prior endoscopy ??? Code Blue/DIFFUSER OPERATOR Note: March 17, 2023 15:56 EDT); therefore, supportive management would be the most appropriate step in this clinical situation. Note * Baldo Michael RN: PERFORM Event Display: Discharge/Transfer Note Hospital Authored Date: [id number] Nursing Discharge Note Entered On: 05/01/2023 15:14 EDT Performed On: 05/01/2023 14:00 EDT by Baldo Michael RN Nursing Discharge Note 2 Discharge Time : 05/01/2023 14:00 EDT Discharge Level of Care at Discharge : Home/[facility]oster Care Patient Left Unit Via : Wheelchair Patient Accompanied Off Unit with : Responsible adult DC Instructions Provided & Signed by Pt : Yes Patient Understands D/C Instructions : Yes Patient Instructions Discharge Signed : Yes Did Pt have Specialty Bed or Wound Vac : No Baldo Michael RN - 05/01/2023 15:12 EDT * Salvador Darden MD: PERFORM, MODIFY Event Display: Discharge/Transfer Note Hospital Authored Date: [id number] Patient: ??MAHSA MUHAMMAD ? Age:??62 Years?Sex:??Female?:??1960?? Patient Information Discharge Location: Primary Care Physician: Karolyn Zacarias MD Admit Date/Time: 04/26/23 11:31 Discharge Disposition Discharge Disposition: Home with Home Health Discharge Diagnosis Symptomatic anemia (D64.9) Acute on chronic anemia (D64.9) Chronic respiratory failure with hypoxia and hypercapnia (J96.11) Radiation pneumonitis (J70.0) Hypertension (I10) Hyperlipidemia (E78.5) Chronic congestive heart failure (I50.9) Type 2 diabetes mellitus (E11.9) Hypothyroidism (E03.9) GERD - Gastro-esophageal reflux disease (K21.9) Depression (F32.A) ?? _ Discharge Medications Acetaminophen/Butalbital/Caffeine (acetaminophen/butalbital/caffeine 325 mg-50 mg-40 mg oral tablet)?1?tab(s)?By Mouth?Every 6 hours?as needed?as needed Albuterol (albuterol 90 mcg/inh inhalation powder)?1?puff(s)?Inhalation?Every 4 hours?as needed?as needed alectinib (alectinib 150 mg oral capsule)?2?capsule?300?Milligram?By Mouth?2 times a day?with food Aspirin (aspirin 81 mg oral capsule)?1?capsule?81?Milligram?By Mouth?Every 24 hours Cholecalciferol (Vitamin D3 1000 intl units oral tablet)?1?tab(s)?25?Microgram?By Mouth?Daily Desvenlafaxine (desvenlafaxine 25 mg oral tablet, extended release)?1?tab(s)?25?Milligram?By Mouth?Daily?do not crush or chew Diazepam (diazepam 10 mg oral tablet)?20?Milligram?2?tablet?By Mouth?Daily at bedtime Diltiazem (DilTIAZem (Eqv-Cardizem CD) 120 mg/24 hours oral capsule, extended release)?1?capsule?120?Milligram?By Mouth?2 times a day Durable Medical Equipment (omnipod dash pods)?See Instructions?e11.9, use as directed with short acting insulin, change out every 2 days. 30 day supply Durable Medical Equipment (iVAPS)?See Instructions?with TVa at 8.6 L/minute with EPAP of 9 and min PS of 6 and max PS of 19 with target patient rate at 20. Fenofibrate (fenofibrate 145 mg oral tablet)?1?tab(s)?145?Milligram?By Mouth?Daily Fluticasone Nasal (Flonase 50 mcg/inh nasal spray)?1?spray(s)?Daily?Pt uses prn fluticasone-vilanterol (Breo Ellipta 100 mcg-25 mcg/inh inhalation powder)?1?puff(s)?Inhalation?Daily Furosemide (Lasix 40 mg oral tablet)?60?Milligram?By Mouth?Daily?for 30?Days Insulin Lispro (Humalog 100 u/ml subcutaneous injection)?See Instructions?Subcutaneous Infusion through insulin pump, max 250 units/d, 90 days, E 11.65 Lamotrigine (lamotrigine 100 mg oral tablet)?100?Milligram?1?tablet?By Mouth?2 times a day levocetirizine (Xyzal 5 mg oral tablet)?1?tab(s)?5?Milligram?By Mouth?Daily in PM Levothyroxine (levothyroxine 0.1 mg oral tablet)?100?Microgram?By Mouth?Daily Ondansetron (ondansetron 8 mg oral tablet)?1?tab(s)?8?Milligram?By Mouth?Every 8 hours?as needed?as needed for nausea/vomiting Pantoprazole (pantoprazole 40 mg oral delayed release tablet)?40?Milligram?By Mouth?2 times a day Potassium Chloride (potassium chloride 20 mEq oral tablet, extended release)?1?tab(s)?20?Milliequivalent?By Mouth?2 times a day?for 3?Days PredniSONE (predniSONE 10 mg oral tablet)?See Instructions?please take with food. starting 04/06 take 4 tablets by mouth dailiy for 14 days, on 04/20 decrease to 3 tablets by mouth daily for 1 week, on 04/27 decrease to 2 tablets by mouth daily for 1 week, on 05/04 decrease to 1 tablet by mouth daiy for 1 week, then... Rosuvastatin (Crestor 40 mg oral tablet)?1?tab(s)?40?Milligram?By Mouth?Daily Sucralfate (Carafate 1 gm oral tablet)?1?gram?By Mouth?3 times a day before meals and bedtime Trazodone (traZODone 50 mg oral tablet)?50?Milligram?1?tablet?By Mouth?Daily at bedtime ? Medications Started Aspirin 81 mg Medications Discontinued Lovenox Doses Changed None PCP Follow-Up/Heads-Up Follow-up with 1 week with??repeat CBC if concern for active bleeding Follow-up with gastroenterology ?? Future Appointments Tuesday 12:30 PM EDT ?? With: Belkys DE LA TORRE, [facility] Where: [facility] [address] [facility] [address] Floor, [address] [place] [id number]- Status: Pending Tuesday 2:20 PM EDT ?? With: Hussein DE LA TORRE, Juani Winston Where: [facility] [address] [place] [address]- Status: Pending Hospital Course ?? Ms. Mahsa Bedoya is a 62 yo??female with hypertension, hyperlipidemia, insulin-dependent diabetes mellitus with insulin pump, morbid obesity, VANDANA/OHS with chronic hypoxic/hypercapnic respiratory failure, on 2 L oxygen at baseline and nocturnal iVAPS, right lower lobe adenocarcinoma of the lung with metastases to mediastinal lymph nodes and adrenal gland (August 2022) awaiting palliative treatment with alectinib, radiation pneumonitis currently on prednisone taper, HFpEF, cerebellar CVA on prophylactic enoxaparin, hypothyroidism, pseudotumor cerebri, GERD, depression, anxiety, chronic anemia with iron deficiency, and previous GAVE status post extensive thermal therapy (52 ablations) in February 2023,??presented back to the emergency room with dizziness, falls, and hypotension. Hemoglobin has been chronically around 7.0 over the past 6 weeks,presented with severe anemia with Hb of 2.8. After multiple blood transfusion her Hb has improved to 8.6. her home lovenox has been held.?? [facility] roenterology was consulted, who recommended??no rescope??as he had a history of respiratory failureduring the procedure.?? Gastroenterology recommended conservative management with blood transfusionand monitoring of hemoglobin??and PPI. ?? Neurology was consulted to decide??whether to continue with anticoagulation or switch to aspirin, recommended getting??D-dimer, which came out??mildly elevated not much change from previous value.?? Neurology recommended to??switch to aspirin if??not increased??from prior.?? However??while discussing with the patient, patient??requested??not to continue her??Lovenox??and preferred to switch to aspirin, as??she is worried about??getting??severe anemia again??with the use of??Lovenox.?Patient was made aware that??Lovenox was??in her medication list because of her history of a stroke,??however??informed decision has been made??given her severe anemia and presentation not to??continue??with a nticoagulation and switch to aspirin. ?? Patient was also exposed to COVID.?? However??she tested negative for COVID and did not have any COVID-related symptoms.?? As per protocol, she has been advised to remain in isolation for 7 days.?? She completed 6 days in hospital, will need 1 more day of isolation at home. ?? Patient was examined on day of discharge. ??She was hemodynamically stable??and saturating well on room air??and back to her baseline. ??Patient has been discharged home with??home services, under the care of her??partner. Objective Assessment and Plan ?? Symptomatic anemia (D64.9) Acute on chronic anemia (D64.9): Iron deficiency anemia - Hgb 15 in 11/3022.Preented with Hb 2.8, chronically around 7 for last 6 weeks - History of GAVE - Low retic index, normal tbili, normal haptoglobin, no evidence of bleed, other cell lines normal,iron low, ferritin normal, tsat low. Indicating an iron deficiency anemia. - GI consulted, didnt recommend endoscopy given history of resp failure in the past during procedure -Received multiple blood transfusion in the hospital, hemoglobin??stable at 8.6 -Anticoagulation discontinued.?? Switched to aspirin??after consultation with??neurology and informed decision??with patient -Continue with PPI -PCP follow-up in 1 week,??with repeat hemoglobin if concern for??bleeding again ? Chronic respiratory failure with hypoxia and hypercapnia (J96.11) Radiation pneumonitis (J70.0): - no hypoxemia, on home O2. Comfortable respiratory status -Continue home meds ? Hypertension (I10) Hyperlipidemia (E78.5) Chronic congestive heart failure (I50.9): -Continue home meds -Diltizeamm discontinued as BP normal without it -PCP to monitor BP outpatient and restart if needed ? Type 2 diabetes mellitus (E11.9): -On insulin pump at home,??continue on discharge - Hypoglycemia protocols??followed by inpatient ? Hypothyroidism (E03.9): - TSH normal Plan: - Continue levothyroxine as prescribed. ? GERD - Gastro-esophageal reflux disease (K21.9):??Continue PPI twice daily, especially in the setting of possible recurrent GI bleed. ??Continue sucralfate as prescribed. ? Depression (F32.A): -??Continue lamotrigine as prescribed. -??Desvenlafaxine is nonformulary here; will verify meds before resuming -??Continue diazepam BID; monitor anxiety ?? COVID exposure -Resp precautions -Needs precautions for 7 days as per protocol; 1 more day??postdischarge ?? Vital Signs?? Temperature: 98.4 DegF (05/01/23 08:16:00) Temperature Route: Temporal (05/01/23 08:16:00) Pulse Rate: 83 bpm (05/01/23 08:16:00) Heart Rate Monitored: 86 bpm (05/01/23 01:45:00) Respiratory Rate: 18 br/min (05/01/23 08:16:00) Systolic Blood Pressure: 114 mm Hg (05/01/23 08:16:00) Diastolic Blood Pressure: 71 mm Hg (05/01/23 08:16:00) Blood pressure sites: Arm, left (05/01/23 08:16:00) Mean Arterial Pressure: 85 mm Hg (05/01/23 08:16:00) Pulse Pressure: 43 mm Hg (05/01/23 08:16:00) Oxygen Saturation: 96 % (05/01/23 08:16:00) Liters per Minute: 3 L/min (05/01/23 08:16:00) Mode of Delivery (Oxygen): Nasal cannula (05/01/23 08:16:00) Early Warning Score: 0 (05/01/23 08:28:57) ? . Physical Exam ?? Physical Exam General: alert oriented, morbidly obese HEENT: Pallor present Respi: NVBS, no added sounds on 3LPM, baseline Cardio: S1 S2 normal, no added sounds Abdomen: Soft , non tender, BS present Extremities: No peripheral edema Neuro: ALert, oriented, No slurring, facial droop. Moving all extremities spontaneously [facility] Pending Results Add On Lab Order ordered on 04/26/2023 CBC ordered on 04/28/2023 D Dimer ordered on 04/29/2023 Transfuse RBCs ordered on 04/26/2023 Transfuse RBCs ordered on 04/26/2023 Transfuse RBCs ordered on 04/26/2023 Transfuse RBCs ordered on 04/27/2023 Transfuse RBCs ordered on 04/27/2023 Transfuse RBCs ordered on 04/27/2023 Transfuse RBCs ordered on 04/29/2023 Follow-Up Appointments Added Follow Up ?Time Frame ?Comments [facility] [phone]?1 week: call to discuss follow up visit Patient Instructions You were seen in the hospital for severe symptomatic anemia. You received blood transfusion which improved your hemoglobin ?? -Stop taking blood thinner lovenox as we discussed. You can switch take aspirin -Follow up with your primary doctor in 1 week. -Follow up with gastroenterology as outpatient -Keep up your other appointments as usual -If you get any symptoms like blood in stool, black tarry stool or if you get worsening shortness of breath, dizziness then please call your primary doctor or come to ER -Take your other medications as usual -Please isolate yourself for 1 more day. Post Discharge Care Diet: Diabetic Diet Activity: Ambulate as tolerated Condition: Stable Prognosis: Fair Home Health Face to Face *Denotes mandatory bledsoe ?? *I certify that this patient is under my care and that I or an allowed non- physician working with me had a face to face encounter with the patient on this date:??05/01/2023 13:07 ?? *The encounter with the patient was in whole, or in part, for the following medical condition, which is the primary diagnosis(es) for home health care:??Symptomatic anemia (D64.9) Acute on chronic anemia (D64.9) Chronic respiratory failure with hypoxia and hypercapnia (J96.11) Radiation pneumonitis (J70.0) Hypertension (I10) Hyperlipidemia (E78.5) Chronic congestive heart failure (I50.9) Type 2 diabetes mellitus (E11.9) Hypothyroidism (E03.9) GERD - Gastro-esophageal reflux disease (K21.9) Depression (F32.A) ? *Select the indications for the discipline/s that are being arranged for this patient. Nursing (select all that apply): [_] None [x_] Medication management (reconciliation, teaching)?? [_x] Chronic disease management?? [_] Wound care and treatment?? [_] Home safety evaluation [_] Administer SQ/IM/IV medications?? [_] Cath care?? [_] Drain care?? [_] Trach or GT care?? Other _ Occupation Therapy (select all that apply): [_] None [_] ADL Management [_] Fall prevention training [_] Energy conservation [_] Cognitive training Other _ Physical Therapy (select all that apply): [_] None [_x] Functional mobility training [x_] Home exercise program to strengthen [_] Increase ROM?? [_] Falls prevention training [_] Home maintenance program for chronic disease Other _ Speech Therapy (select all that apply): [_] None [_] Swallow evaluation and training [_] Speech and language training [_] Cognitive training to process, organize, and/or recall information Other _ ? *Homebound due to (select all that apply): [x_] Inability to leave home without assistance/supervision [_] Inability to ambulate without assistance [_] Pain [_x] Decreased strength and endurance [_] Unsteady gait [_] Severe SOB and fatigue [_] Impaired transfers [_] Inability to negotiate stairs [_] Limited weight bearing [_] Mental status change? *Physician Signature: _SALVADOR??MD ADELSO ?? *By signing this, I certify that I have personally evaluated the patient and agree with the findings and recommendations as documented above. ? _35 minutes spent on discharge * Fernanda KING, Baldo: MODIFY, PERFORM Event Display: Patient Education/Instruction Authored Date: [id number] Inpatient Adult Discharge Instructions [address] [address] Name: MAHSA MUHAMMAD : 1960 Visit: 04/26/2023 11:31:00 Current Date: 05/01/2023 13:24 Account: [id number] Inpatient Adult Discharge Instructions We would like to thank you for allowing us to assist you with your healthcare needs. The following includes patient education materials and information regarding your injury/illness. Our entire staffstrives to provide an excellent experience for our patients and their families. PLEASE ENSURE YOU FOLLOW-UP PER THE INSTRUCTIONS BELOW! ?? YOUR OPINION IS IMPORTANT TO US! Please complete the survey you may receive by mail or email. Your feedback will be used to make improvements to the healthcare experiences of our patients and their families. Surveys are administered by [employer] ?? If further treatment with your primary care physician or another doctor is recommended, it is important for you to keep the appointment. Call your primary care physician or return to the Emergency Department immediately if your condition worsens, fails to improve, or new symptoms develop. If you need to find a doctor, you can call [facility] [employer] for a referral at [phone] or toll free at [phone]) or log in to [email or web address].. ?? You can view and manage your care through the patient portal or by using a health care yuliana of your choosing. [employer] is a website that allows you to securely view your medical information including your hospital discharge summary, office visit summaries, medications and follow-up visits. You can also request appointments, renew medications, and request access to your medical information using a health care yuliana of your choosing, or just ask a question. You can enroll at [email or web address] or register during your next office visit. You have been discharged from [facility], Patient Care Unit: M7. If you have any questions regarding these instructions after you leave, please call us and we will be happy to assist you. [facility] Your Care Team Attending Physician Adelso DE LA TORRE, Salvador Consulting Providers Mark DE LA TORRE, Trish Mena MD, Giuliana Discharging Providers Adelso DE LA TORRE, Salvador Reason for Admission Patient has been having expreencing increase dizzy. Patient has had 3 falls today. No headstrike noLOC. Patient lives with family. Patient unable to ambulate. Patient has had 5/10 intermit stabbing for 2 weeks. Your Diagnosis Symptomatic anemia Acute on chronic anemia Type 2 diabetes mellitus Depression Hypertension Hyperlipidemia Chronic respiratory failure with hypoxia and hypercapnia Hypothyroidism Chronic congestive heart failure GERD - Gastro-esophageal reflux disease Radiation pneumonitis Tests Performed Below is a partial list of the tests performed during your hospitalization. You may have had other tests and procedures not included in this list. Please discuss all test results with your provider. Basic Metabolic Panel Calcium Ionized Calcium Level CBC CBC w/ Differential Comprehensive Metabolic Panel COVID-19 (Novel Coronavirus), Rapid PCR COVID-19 Antigen POC D Dimer FERRITIN Fibrinogen FOLIC ACID GLUCOSE POC H + H Haptoglobin High??Sensitivity??Troponin T HOLD BLUE TUBE HOLD GEL TUBE HOLD GREEN TUBE INR Ionized Calcium IRON & TIBC Lytes Magnesium Level Mg Level Peripheral Blood Smear Review Phosphorus Level ProBNP PTT Reticulocyte Ct Troponin T, High Sensitivity TSH with T4 Reflex (Adults Only) Type and Screen Uric Acid VITAMIN B12 CT Head/Brain W/O Contrast XR Chest Portable Primary Care Provider Karolyn Zacarias MD Advance Directive Health Care Proxy on File Yes - Health Care Proxy Discharge Vitals Temperature: 98.4 DegF Height: 160 cm Pulse Rate: 83 bpm Weight: 114.9 kg Respiratory Rate: 18 br/min Body Mass Index:??45.16 kg/m2??Critical Systolic Blood Pressure: 114 mm Hg Body surface area: 2.27 Diastolic Blood Pressure: 71 mm Hg ?? Oxygen Saturation: 96 % ?? Studies Pending All tests and labs ordered during this hospital stay have been completed unless listed below. Please discuss all pending results with your provider listed above in these instructions. ?? Add On Lab Order (Lab Add On Order) CBC D Dimer Transfuse RBCs What to do next Instructions From Your Doctor You were seen in the hospital for severe symptomatic anemia. You received blood transfusion which improved your hemoglobin ?? -Stop taking blood thinner lovenox as we discussed. You can switch take aspirin -Stop taking diltizeam. -Follow up with your primary doctor in 1 week. -Follow up with gastroenterology as outpatient -Keep up your other appointments as usual -If you get any symptoms like blood in stool, black tarry stool or if you get worsening shortness of breath, dizziness then please call your primary doctor or come to ER -Take your other medications as usual -Please isolate yourself for 1 more day. Discharge Orders Diet:??Diabetic Diet Activity:??Ambulate as tolerated Condition:??Stable Prognosis:??Fair Scheduled Follow-Up Appointments Tuesday 12:30 PM EDT ?? With: Belkys DE LA TORRE, Suellen Where: [facility] Neurology [address] [place] [address] 3rd Floor, [address] [place] [id number]- Status: Pending Tuesday 2:20 PM EDT ?? With: Hussein DE LA TORRE, Juani Winston Where: [facility] Pulmonary [address] [place] [address]- Status: Pending You Need to Schedule the Following Appointments Follow Up with??[facility] [phone] When:??Within 1 week: call to discuss follow up visit Discharge Medications MAHSA MUHAMMAD :1960 Visit Date:04/26/2023 Medications: Please continue your medications until treatment is completed or stopped by your provider. Medications not listed below should be discontinued. Discuss any questions related to medications with your provider. What How Much When Instructions Next Dose New Aspirin (aspirin 81 mg oral capsule) 1 capsule Oral Every 24 hours Refills: 2 Pickup at [facility]/pharmacy #[id number] 05/02/23 at 9 AM Unchanged Acetaminophen/ Butalbital/ Caffeine (acetaminophen/ butalbital/ caffeine 325 mg-50 mg-40 mg oral tablet) 1 tab(s) Oral Every 6 hours as needed for as needed as needed Unchanged Albuterol (albuterol 90 mcg/ inh inhalation powder) 1 puff(s) Inhalation Every 4 hours as needed for as needed as needed Unchanged alectinib (alectinib 150 mg oral capsule) 2 capsule Oral Twice a day with food ?? 05/01/23 at 5 PM Unchanged Cholecalciferol (Vitamin D3 1000 intl units oral tablet) 1 tab(s) Oral Daily 05/02/23 at 9 AM Unchanged Desvenlafaxine (desvenlafaxine 25 mg oral tablet, extended release) 1 tab(s) Oral Daily do not crush or chew ?? 05/02/23 at 9 AM Unchanged Diazepam (diazepam 10 mg oral tablet) 2 tab(s) Oral Daily at Bedtime 05/01/23 at 9 PM Unchanged Durable Medical Equipment (iVAPS) See instructions with TVa at 8.6 L/ minute with EPAP of 9 and min PS of 6 and max PS of 19 with target patient rate at 20. ?? Unchanged Durable Medical Equipment (omnipod dash pods) See instructions e11.9, use as directed with short acting insulin, change out every 2 days. 30 day supply ?? Unchanged Fenofibrate (fenofibrate 145 mg oral tablet) 1 tab(s) Oral Daily 05/02/23 at 9 AM Unchanged Fluticasone Nasal (Flonase 50 mcg/ inh nasal spray) 1 spray(s) Daily Pt uses prn ?? as needed Unchanged fluticasone-vilanterol (Breo Ellipta 100 mcg-25 mcg/ inh inhalation powder) 1 puff(s) Inhalation Daily 05/02/23 at 9 AM Unchanged Furosemide (Lasix 40 mg oral tablet) 60 Milligram Oral Daily Duration: 30 Days 05/02/23 at 9 AM Unchanged Insulin Lispro (Humalog 100 u/ ml subcutaneous injection) See instructions Subcutaneous Infusion through insulin pump, max 250 units/ d, 90 days, E 11.65 ?? as prescribed Unchanged Lamotrigine (lamotrigine 100 mg oral tablet) 1 tab(s) Oral Twice a day 05/01/23 at 9 PM Unchanged levocetirizine (Xyzal 5 mg oral tablet) 1 tab(s) Oral Daily in PM 05/01/23 at 9 PM Unchanged Levothyroxine (levothyroxine 0.1 mg oral tablet) 100 Microgram Oral Daily 05/02/23 in AM Unchanged Ondansetron (ondansetron 8 mg oral tablet) 1 tab(s) Oral Every 8 hours as needed for as needed for nausea/vomiting as needed Unchanged Pantoprazole (pantoprazole 40 mg oral delayed release tablet) 40 Milligram Oral Twice a day 05/01/23 at 9 PM Unchanged Potassium Chloride (potassium chloride 20 mEq oral tablet, extended release) 1 tab(s) Oral Twice a day Duration: 3 Days 05/01/23 at 9 PM Unchanged PredniSONE (predniSONE 10 mg oral tablet) See instructions please take with food. starting take 4 tablets by mouth dailiy for 14 days, on decreaseto 3 tablets by mouth daily for 1 week, on 04/27 decrease to 2 tablets by mouth daily for 1 week, on05/04 decrease to 1 tablet by mouth daiy for 1 week, then on decrease to 1 tablet by mouth every other day for 1 week, then stop ?? taper as prescribed Unchanged Rosuvastatin (Crestor 40 mg oral tablet) 1 tab(s) Oral Daily 05/01/23 at 9 PM Unchanged Sucralfate (Carafate 1 gm oral tablet) 1 gram Oral 3 times a day before meals and bedtime 05/01/23 at 5 PM (before??meals and bedtime) Unchanged Trazodone (traZODone 50 mg oral tablet) 1 tab(s) Oral Daily at Bedtime 05/01/23 at 9 PM Pharmacy Information [facility]/pharmacy #[id number]: [address] [place] [phone] ?? What How Much When Comments Stop Taking Diltiazem (DilTIAZem (Eqv-Cardizem CD) 120 mg/ 24 hours oral capsule, extended release) 1 capsule Oral Twice a day Stop Taking Enoxaparin (enoxaparin 120 mg/ 0.8 mL injectable solution) 0.8 Milliliter Subcutaneous Injection Every 12 hours Duration: 30 Days Test Results Below is a partial list of the most recent Laboratory test results done prior to this discharge. You may have had other tests and procedures not included in this list. Please discuss all test resultswith your provider. Est Creatinine Clearance - 70.67 mL/min (04/29/2023) RBC Available - PT (04/29/2023) RBC Unit ID - [id number] (04/29/2023) Basic Metabolic Panel (04/30/2023) ???Sodium - 140 mmol/L???Potassium - 3.9 mmol/L???Chloride - 99 mmol/L???Bicarbonate Level - 27 mmol/L???Anion Gap - 14???Glucose Level - 60 mg/dL???BUN - 11 mg/dL???Creatinine-Blood - 0.7 mg/dL???Estimated GFR Creatinine - 101 ML/MIN/1.73 M2???Calcium - 8.3 mg/dL Calcium Ionized (04/26/2023) ???Calcium, Ionized pH Corrected - 1.10 mmol/L Calcium Level (04/27/2023) ???Calcium - 7.6 mg/dL CBC (05/01/2023) ???WBC - 7.0 k/mm3???RBC - 2.94 m/mm3???Hgb - 8.2 Gm/dL???Hct - 27.6 %???MCV - 93.9 femtoliters???MCH - 27.9 pg???MCHC - 29.7 g/dL???Platelet Count - 290 k/mm3???RDW-SD - 61.6 femtoliters???MPV - 9.6femtoliters???Nucleated RBC (Automated) - 0.0 #/100 WBC'S???Abs. NRBC - 0.0 k/mm3 CBC w/ Differential (04/27/2023) ???WBC - 8.5 k/mm3???RBC - 1.54 m/mm3???Hgb - 4.0 Gm/dL???Hct - 14.1 %???MCV - 91.6 femtoliters???MCH - 26.0 pg???MCHC - 28.4 g/dL???Platelet Count - 301 k/mm3???RDW-SD - 66.1 femtoliters???MPV - 9.5femtoliters???Nucleated RBC (Automated) - 0.9 #/100 WBC'S???Abs. NRBC - 0.1 k/mm3???Abs. Neut - 7.1 k/mm3???Abs. Lymph - 0.7 k/mm3???Abs. Lawrence - 0.6 k/mm3???Abs. Eo - 0.0 k/mm3???Abs. Baso - 0.0 k/mm3???Neut % - 83.4 %???Lymph % - 8.6 %???Lawrence % - 7.2 %???Eos % - 0.1 %???Baso % - 0.0 %???Imm Gran -0.7 %???Abs. Imm Gran - 0.1 k/mm3 Comprehensive Metabolic Panel (04/27/2023) ???Sodium - 139 mmol/L???Potassium - 3.6 mmol/L???Chloride - 96 mmol/L???Bicarbonate Level - 33 mmol/L???Anion Gap - 10???Glucose Level - 106 mg/dL???BUN - 23 mg/dL???Creatinine-Blood - 0.9 mg/dL???Estimated GFR Creatinine - 74 ML/MIN/1.73 M2???Calcium - 7.8 mg/dL???Protein, Total - 5.2 Gm/dL???Albu min - 3.4 Gm/dL???AG Ratio - 1.9???Alkaline Phosphatase - 69 units/L???AST (SGOT) - 13 units/L???ALT (SGPT) - 9 units/L???Bilirubin, Total - 0.7 mg/dL COVID-19 (Novel Coronavirus), Rapid PCR (04/26/2023) ???COVID-19 by RT-PCR - NEGATIVE COVID-19 Antigen POC (04/28/2023) ???COVID-19 Antigen POC Result - NEGATIVE D Dimer (04/30/2023) ???D-Dimer - 1.18 mg/L FEU FERRITIN (04/26/2023) ???Ferritin Level - 28 ng/mL Fibrinogen (04/27/2023) ???Fibrinogen - 303 mg/dL FOLIC ACID (04/26/2023) ???Folic Acid Level - 13.3 ng/mL GLUCOSE POC (05/01/2023) ???Glucose, POC - 90 mg/dL H + H (04/27/2023) ???Hgb - 6.1 Gm/dL???Hct - 19.4 % Haptoglobin (04/27/2023) ???Haptoglobin - 278 mg/dL High??Sensitivity??Troponin T (04/26/2023) ???High Sensitivity Troponin (HSTnT) - 14 ng/L HOLD BLUE TUBE (04/26/2023) ???Hold Blue Top - SPECIMEN DISCARDED AFTER 4 HOURS. HOLD GEL TUBE (05/01/2023) ???Hold Gel Top - SPECIMEN DISCARDED AFTER 1 WEEK HOLD GREEN TUBE (04/26/2023) ???Hold Green Top - SPECIMEN DISCARDED AFTER 1 WEEK INR (04/26/2023) ???INR - 1.1???Protime (PT) - 11.7 seconds Ionized Calcium (04/27/2023) ???Calcium, Ionized pH Corrected - 1.10 mmol/L IRON & TIBC (04/26/2023) ???Iron Level - 16 mcg/dL???Iron Binding Capacity, Unsaturated - 420 mcg/dL???Iron Binding Capacity, Estimated Total - 436 mcg/dL???% Iron Saturation - 4 % Lytes (04/27/2023) ???Sodium - 135 mmol/L???Potassium - 3.3 mmol/L???Chloride - 95 mmol/L???Bicarbonate Level - 34 mmol/L???Anion Gap - 6 Magnesium Level (04/29/2023) ???Magnesium - 2.1 mg/dL Mg Level (04/28/2023) ???Magnesium - 2.1 mg/dL Peripheral Blood Smear Review (04/27/2023) ???Peripheral Blood Smear Review Interp. - Reviewed by pathologist. Phosphorus Level (04/28/2023) ???Phosphorus - 3.1 mg/dL ProBNP (04/26/2023) ???Nt-Probnp - 1849 pg/mL PTT (04/26/2023) ???APTT - 25.[address] (04/27/2023) ???Retic Count - 13.0 %???Retic Count Corrected - 4.1 %???Retic Production Index - 1.6 % Troponin T, High Sensitivity (04/26/2023) ???High Sensitivity Troponin (HSTnT) - 13 ng/L TSH with T4 Reflex (Adults Only) (04/26/2023) ???TSH - 2.79 uIU/mL Type and Screen (04/26/2023) ???Blood Type - O Positive???Antibody Screen - Negative Uric Acid (04/26/2023) ???Uric Acid - 7.8 mg/dL VITAMIN B12 (04/26/2023) ???Vitamin B12 Level - 826 pg/mL Allergies (NKA means No Known Allergies) Trulicity ibuprofen Problems Active Problems??(21) Adenocarcinoma of lung?? Central sleep apnea?? Chronic congestive heart failure?? Chronic respiratory failure with hypoxia and hypercapnia?? Depression?? Diabetic nephropathy?? GAVE (gastric antral vascular ectasia)?? GERD - Gastro-esophageal reflux disease?? Hyperlipidemia?? Hypertension?? Hypothyroidism?? Hypoventilation?? Iron deficiency anemia?? Obstructive sleep apnea?? Presence of implanted infusion pump?? Pseudotumor cerebri?? Radiation pneumonitis?? Reported hx of spinal stenosis?? Severe obesity?? Sleep-related hypoxia?? Type 2 diabetes mellitus?? Education Materials Below is the list of Educational Leaflet Providered with your Discharge Instructions. Valuables and Belongings I fully understand and agree that [facility] accepts no responsibility for all my personal property including clothing, toilet articles, radios, jewelry, dentures, hearing aids, rings, money, or any other property that is in my possession or is brought to me after admission. I understand certain valuables may be placed in a hospital safe for a short period of time. I understand that the hospital is not liable for loss or damage due to accident, fire, or other natural occurrence while said property is in the safe. I accept full responsibility for any personal property that I keep with me, and will not hold the hospital responsible in case of loss or disappearance. I acknowledge that i have been encouraged to send valuables and belongings home. ?? Date for Pt to Sign Valuables/Belongings: 04/26/23 15:18:00 ?? Other Discharge Information ? Pulmonary Rehab Status?? Pulmonary Rehab Discharge Status?? CPAP/BiPAP Mask Type: Nasal CPAP/BiPAP Mask Size: Other: pts home nasal Respiratory Rate: 18 br/min ? Common Emergency Awareness Tips IS IT A STROKE? Act FAST and Check for these signs: FACE Does the face look uneven? ARM Does one arm drift down? SPEECH Does their speech sound strange? TIME Call at any sign of stroke ?? Heart Attack Signs Chest discomfort: Most heart attacks involve discomfort in the center of the chest and lasts more than a few minutes, or goes away and comes back. It can feel like uncomfortable pressure, squeezing, fullness or pain. Discomfort in upper body: Symptoms can include pain or discomfort in one or both arms, back, neck, jaw or stomach. Shortness of breath: With or without discomfort. Other signs: Breaking out in a cold sweat, nausea, or lightheaded. Remember, MINUTES DO MATTER. If you experience any of these heart attack warning signs, call to get immediate medical attention! ?? Smoking can increase your chances of developing chronic health problems and can cause harmful effects to other family members in your house. If you smoke, you are strongly encouraged to quit. Please call [facility] Link at [phone] or [phone]) or log in to [email or web address] for referrals to smoking cessation programs. ?? 214 Suicide & Crisis Lifeline is available 18/04 if you or someone you know needs to find a reason to keep living. By calling 414 you'll be connected to a skilled, trained counselor at a crisis center in your area. INPATIENT DISCHARGE INSTRUCTIONS SIGNATURE PAGE MAHSA MUHAMMAD Location:[facility] Registration Date and Time:04/26/2023 11:31 EDT Primary Care Physician: Karolyn Zacarias MD, Attending Physician: Salvador Darden MD, I MAHSA MUHAMMAD, have received the above patient education materials/instructions and have verbalized understanding. If ambulance or transport services are being used I further acknowledge beinggiven a choice of service. ?? If you need to contact me, please call me at this number: . Patient/Traffic Incident Management Manager Name: Patient/Traffic Incident Management Manager Signature: Relationship to Patient: Witness Name/Signature: Date: * Blado Michael RN: PERFORM Event Display: Patient Education Leaflets Authored Date: [id number] Heart Failure ?? [id number] Heart Failure What is heart failure? The heart is a muscle that pumps oxygen-rich blood to all parts of the body. When you have heart failure, the heart can???t pump as well as it should. Or the heart muscle can???t relax and fill the pumping chamber with blood. Blood and fluid may back up into the lungs. This causes heart failure. And it causes pulmonary edema. Some parts of the body also don???t get enough oxygen-rich blood. This means they can't work well. These problems lead to the symptoms of heart failure. ?? What causes heart failure? Heart failure may result from: ??? Heart valve disease ??? High blood pressure ??? Active infections of the heart valves or heart muscle, such as endocarditis ??? A past heart attack ??? Coronary artery disease ??? Disease of the heart muscle (cardiomyopathy) ??? Heart problems that are present at (congenital heart defects) ??? Heart rhythm problems (arrhythmias) ??? Long-term (chronic) lung disease and pulmonary embolism ??? A reaction to medicines, such as those used for chemotherapy ??? Anemia and too much blood loss ??? Thyroid disorders ??? Diabetes ??? Alcohol and drug abuse ??? Certain viral infections ?? What are the symptoms of heart failure? The most common symptoms of heart failure are: ??? Shortness of breath while resting, exercising, or lying flat ??? Weight gain from water retention ??? Visible swelling of the legs, ankles, and feet from fluid buildup. Sometimes the belly (abdomen) may swell. ??? Severe tiredness (fatigue) and weakness ??? Loss of appetite, nausea, and belly pain ??? Cough that doesn???t go away. It can cause blood-tinged or frothy sputum. The severity of the condition and symptoms depends on how much of the heart's pumping ability has been affected. The first step in managing heart failure symptoms is knowing your baselines or what???s normal for you. How much do you weigh? Are you gaining weight but eating the same amount? How muchcan you do before you feel short of breath? Do your socks and shoes fit comfortably? Knowing what???s normal for you will help you see when symptoms are getting worse. Once you know your baselines, watch for changes daily. The symptoms of heart failure may look like other health problems. Always see your healthcare provider for a diagnosis. ?? How is heart failure diagnosed? Your healthcare provider will ask about your health history. They will give you a physical exam. You may need tests, such as: ??? Chest X-ray. This test makes images of internal tissues, bones, and organs on film. This test shows the size and shape of your heart. Fluid in the lungs will also show up on X-ray. ??? Echocardiogram. This test is also called an echo. It uses sound waves to assess the motion of the heart???s chambers and valves. The sound waves make an image on the screen as an ultrasound transducer is passed over the heart. This shows how well the heart pumps and relaxes. It also shows the thickness of the heart lemons, and if the heart is enlarged. It can assess heart valve function and blood flow as well. It is one of the most useful tests because it shows a lot of information about the heart???s function. And it can help guide treatment choices. ??? Electrocardiogram. Thistest records the electrical activity of the heart. It shows abnormal rhythms. It can sometimes findheart muscle damage. ??? BNP testing. B-type natriuretic peptide (BNP) is a hormone released from the ventricles that occurs with heart failure. BNP levels are useful in the quick assessment of heartfailure. The higher the BNP levels, the worse the heart failure. BNP is measured from a blood sample. ??? Cardiac MRI. This test uses a magnetic field to make images of the heart and its nearby tissues. It can assess how the heart muscle and valves are working. ?? How is heart failure treated??? The cause of heart failure will guide the treatment plan. If heart failure is caused by a valve problem or coronary heart disease, then you may need a procedure. This may be a percutaneous coronary intervention. Or it may be surgery. If heart failure is caused by a problem, such as anemia or an infe ction, you may need medicine to treat this problem. Some causes of heart failure are reversible or short-term, such as an acute infection. For many causes of heart failure there is no cure. But many forms of treatment can help with symptoms. They are listed below. Lifestyle changes These healthy habits may help with heart failure: ??? Controlling blood pressure ??? Controlling blood sugar if you have diabetes ??? Quitting smoking ??? Maintaining a healthy weight. Losing weight, if needed ??? Regular exercise ??? Limiting salt and fat in your diet ??? Not drinking alcohol or using illicit drugs ??? Getting enough rest ??? Reducing stress ??? Other important lifestyle habits include getting vaccines, such as for the flu and pneumococcal pneumonia. If you have sleep problems, getting a sleep study can help find out what???s causing them. You may need to wear a C-PAP mask while you sleep. This will make sure you get enough oxygen. Too little oxygen can put stress on your heart. ?? Medicines Many types of medicines are available for heart failure. They include: ??? Angiotensin converting enzyme (CHRISTOPHER) inhibitors. These lower the pressure inside the blood vessels. This reduces the pressurethat the heart has to pump against. They can also help the heart have better pumping ability over time. ??? Angiotensin receptor blockers (ARB). Some people get a cough and need to stop taking CHRISTOPHER inhibitors. If that happens, an ARB may work for you. These help relax blood vessels and reduce stresson the heart. ??? Angiotensin receptor- neprilysin inhibitors (ARNIs). This medicine combines an ARBand a neprilysin inhibitor. This can help the heart as noted above. And it can promote salt and water loss. This medicine is preferred over CHRISTOPHER inhibitors and ARBs alone. ??? Diuretics. These reduce the amount of fluid in the body. They are among the most important medicines in helping control fluid buildup in the body. ??? Beta- blockers. These reduce the heart???s tendency to beat faster. They can also help the heart pump better over time. ??? Aldosterone blockers. These block the effects of the hormone aldosterone. This hormone causes sodium and water retention. ??? Vasodilators. These include hydralazine and nitroglycerin. These widen (dilate) the blood vessels. They reduce the workload on the heart. ??? Statins or PCSK9 inhibitors. These lower the amount of bad cholesterol in your blood. They are not used to treat heart failure. But you may take one if you have high cholesterol. Or you may take one if you have had a past heart attack and are at risk for heart failure. People who have inherited forms of high cholesterol (familial hypercholesterolemia) may get help from PCSK9 inhibitors. These medicines lower cholesterol. ??? Sodium-glucose cotransporter-2 (SGLT2) inhibitors. They block your kidneys from reabsorbing sugar from the blood. This helps your body get rid of extra salt and water and so lowers your blood pressure. Lowering your blood pressure eases the strain on your heart. ??? Digitalis. This medicine helps the heart beat stronger. It may help with controlling heart rate if there is an abnormal heart rhythm. ??? Antiarrhythmics. These help keep normal heart rhythm. ??? Sinus node I-f channel anna. This may be used to lower your heart rate. It may result in less stress on your heart. This medicine is reserved for people who still have high resting heart rates despite use of beta blockers. ?? Heart procedures These include opening blocked arteries in the heart. This brings back blood flow to the heart muscle. It helps the ventricles squeeze as they should. The procedure can be done in the cardiac catheterization lab. It uses balloons to push plaque and blood clots out of the artery. It also uses stents to keep the artery open. This can also be done by bypassing blockages during surgery (coronary artery bypass surgery). ?? Heart valve repair or replacement In some cases, medicines can???t help heart failure caused by heart valves that are narrowed (stenosed) or leak (regurgitant). The heart valve can be repaired or replaced. This can be done as an open-heart procedure. Or it can be done by going through a small tube (catheter) that is put into an artery or vein. ?? Pacemaker If your heart failure has also damaged your heart???s electrical wiring system, a pacemaker can be implanted. This is done to restore normal heart rate and regularity. A cardiac resynchronizing pacemaker is used when one of the natural heart wires is damaged. This is often the wire located in the left ventricle. These pacemakers use implanted left and right sided wires to restore normal timing ofthe heart contraction in order to improve heart function. ?? ICD (implantable cardioverter defibrillator) When the heart muscle is damaged, dangerous heart circuits can form in the heart muscle. This leadsto heart rhythms that can cause . An ICD is implanted in the body to sense and treat these cardiac arrest rhythms. It does this by overdrive pacing the heart rhythm. Or it sends an energy shock to the heart. ?? VAD (ventricular assist device) This device is put in the chest during a surgery. It connects to an outside motor. The motor helps pump blood from the heart to the rest of the body. VADs can allow people with advanced heart failureto improve their overall symptoms and to walk more. This can be used as a long-term treatment. Or it can be used while someone waits for a donor heart for a transplant. ?? Heart transplant In some cases, the diseased heart must be replaced with a healthy one from a donor. Talk with your healthcare providers about the risks, benefits, and possible side effects of all treatments. ? What are possible complications of heart failure? Complications of heart failure include: ??? Fluid buildup in the lungs (pulmonary edema) ??? Kidney and liver failure ??? Stroke ??? Abnormal heart rhythms ??? How daily issues affect your health Many things in your daily life impact your health. This can include transportation, money problems,housing, access to food, and childcare attendant. If you can???t get to medical appointments, you may not receive the care you need. When money is tight, it may be difficult to pay for medicines. And living far from a grocery store can make it hard to buy healthy food. If you have concerns in any of these or other areas, talk with your healthcare team. They may know of local resources to assist you. Or they may have a staff person who can help. ? Mejia points about heart failure ??? When you have heart failure, the heart can???t pump as well as it should. ??? Heart failure may result from health problems that affect the heart, such as high blood pressure, coronary artery disease, and heart attack. ??? Some common symptoms are shortness of breath, weight gain, and visible swelling of the legs and ankles. ??? A chest X-ray can help diagnose lung congestion. ??? Treatment varies based on the cause of heart failure. Most people are advised tomake certain lifestyle changes and to take certain medicines, often for life. Procedures, such as coronary intervention and surgery, may be needed. ?? Next steps Tips to help you get the most from a visit to your healthcare provider: ??? Know the reason for your visit and what you want to happen. ??? Before your visit, write down questions you want answered. ??? Bring someone with you to help you ask questions and remember what your provider tells you. ??? At the visit, write down the name of a new diagnosis, and any new medicines, treatments, or tests. Also write down any new instructions your provider gives you. ??? Know why a new medicine or treatment is prescribed, and how it will help you. Also know what the side effects are. ??? Ask if your condition can be treated in other ways. ??? Know why a test or procedure is recommended and what the results could mean. ??? Know what to expect if you do not take the medicine or have the test or procedure. ??? If you have a follow-up appointment, write down the date, time, and purpose for that visit. ??? Know how you can contact your healthcare provider if you have questions, especially after office hours or on weekends. ?? Last Reviewed Date: 2023 ?? [employer]. All rights reserved. This information is not intended as a substitute for professional medical care. Always follow your healthcare professional's instructions. ?? * Baldo Michael RN: PERFORM Event Display: Patient Education Leaflets Authored Date: [id number] Iron-Deficiency Anemia (Adult) ?? [id number] Iron-Deficiency Anemia (Adult) Red blood cells carry oxygen to the tissues of your body. Anemia is a condition in which you have too few red blood cells. You need iron to make red cells. Anemia makes you feel tired and run down. When anemia becomes severe, your skin becomes pale. You may feel short of breath or have chest pain after physical activity. Other symptoms include: ??? Headaches, especially with physical activity ??? Rapid heart rate ??? Pounding or whooshing in the ears ??? General weakness, drowsiness, or dizziness ??? Brittle nails or hair loss ??? Leg cramps with physical activity ??? Restless legs ??? Urge to eat ice or nonfood items such as paper Your anemia is caused by not having enough iron in your body. This may be because of: ??? Loss of blood caused by heavy menstrual periods or bleeding from the stomach or intestines. ???Major surgery or physical trauma ??? Not eating enough foods that contain iron ??? Not being able to absorb iron from the foods you eat ??? If your blood count is low enough,??your healthcare provider??may prescribe an iron supplement. It usually takes about 2 to 3 months of treatment with iron supplements to correct anemia. Severe casesof anemia need a blood transfusion to quickly ease symptoms and deliver more oxygen to the cells. Home care Follow these guidelines when caring for yourself at home: ??? Eat foods high in iron. This will boost the amount of iron stored in your body. It's a natural way to build up the number of blood cells.Good sources of iron include beef, liver, poultry, fish, spinach, and other dark green leafy vegetables, whole grains, beans, and nuts. ??? Don't overexert yourself. ??? Talk with your provider before traveling by air or traveling to high altitudes. ?? Follow-up care Follow up with your provider in 2 months or as directed by your provider .It's important to have another red blood cell count test to be sure your anemia is getting better. ?? Call 911 Call 911 if any of these occur: ??? Shortness of breath or chest pain ??? Dizziness or fainting ???Vomiting blood or passing red or black-colored stool? Last Reviewed Date: 2021 ?? [employer]. All rights reserved. This information is not intended as a substitute for professional medical care. Always follow your healthcare professional's instructions. ?? * Baldo Michael RN: PERFORM Event Display: Patient Education Leaflets Authored Date: [id number] Aspirin Oral Tablet 81 mg ?? 4327-3 Aspirin Oral Tablet 81 mg Uses This medicine is used for the following purposes: ??? fever ??? heart attack ??? heart disease ??? inflammatory disease ??? pain ??? prevent blood clots ??? prevent stroke ??? stroke ??? prevent heart attack ?? Instructions Sit or stand upright for 10 minutes after taking the medicine. Do not lie down. Swallow with a full glass (8 oz) of water unless your doctor gives you different instructions. You may take with food to prevent stomach upset. Keep the medicine at room temperature. Avoid heat and direct light. If you are using this medicine regularly, it is important to take each dose of medicine on time. Keep taking the medicine even if you feel well. If you forget to take a dose on time, take it as soon as you remember. If it is almost time for thenext dose, do not take the missed dose. Return to your normal schedule. Do not take 2 doses at one time. Drug interactions can change how medicines work or increase risk for side effects. Tell your healthcare providers about all medicines taken. Include prescription and caae-xva-ertqjvs medicines, vitamins, and herbal medicines. Speak with your doctor or pharmacist before starting or stopping any medicine. Tell your doctor if symptoms do not get better or if they get worse. Talk to your doctor before taking other medicines, including aspirins and ibuprofen containing products. Speak to your doctor about which medicines are safe to use while you are on this medicine. ?? Cautions IMPORTANT: Children and teenagers should not use medications containing aspirin for cold and flu symptoms or chickenpox. Tell your doctor and pharmacist if you ever had an allergic reaction to a medicine. There is an increased risk of bleeding while on this medicine, please tell your doctor or nurse if you notice any excessive bleeding or bruising. Do not use the medication any more than instructed. If you drink more than a few alcoholic beverages each day, ask your doctor whether you should be onthis medicine. Avoid smoking while on this medicine. Smoking may increase your risk for stomach bleeding. Contact your doctor if you notice a change in the amount or darkening of your urine. Tell the doctor or pharmacist if you are , planning to be , or . ?? Side Effects The following is a list of some common side effects from this medicine. Please speak with your doctor about what you should do if you experience these or other side effects. ??? stomach upset or abdominal pain If you have any of the following side effects, you may be getting too much medicine. Please contactyour doctor to let them know about these side effects. ??? ringing in the ears Call your doctor or get medical help right away if you notice any of these more serious side effects: ??? severe or persistent abdominal pain ??? bleeding that is severe or takes longer to stop ??? coughing up blood or vomit that looks like coffee grounds ??? fever ??? swelling in the neck or throat ??? shortness of breath ??? dark, tarry stool ??? urinating less often A few people may have an allergic reaction to this medicine. Symptoms can include difficulty breathing, skin rash, itching, swelling, or severe dizziness. If you notice any of these symptoms, seek medical help quickly. ?? Extra Please speak with your doctor, nurse, or pharmacist if you have any questions about this medicine. ?? [email or web address] IMPORTANT NOTE: This document tells you briefly how to take your medicine, but it does not tell youall there is to know about it. Your doctor or pharmacist may give you other documents about your medicine. Please talk to them if you have any questions. Always follow their advice. There is a more complete description of this medicine available in Guyanese. Scan this code on your smartphone or tablet or use the web address below. You can also ask your pharmacist for a printout. If you have any questions, please ask your pharmacist. The display and use of this drug information is subject to Terms of Use. Copyright(c) 2022 [employer]. ?? [employer]. All rights reserved. This information is not intended as a substitute for professional medical care. Always follow your healthcare professional's instructions. ?? Patient Care team information Care Team Personnel Name: Naomi Vasquez RN Position: [facility] RN Member Role: Primary Care Nurse Name: Karolyn Zacarias MD Position: [facility] Physician - Primary Care Member Role: PCP Address: Address: [address] [place] [address] Dr Zacarias [address] Name: Katina Tsang RN Position: [facility] RN Member Role: Primary Care Nurse Name: Tricia Titus RN Position: [facility] RN Supv Member Role: Primary Care Nurse Name: Claudette Govea Position: [facility] Outreach Member Role: [employer] Consulting Physician Name: Jeannine Dhaliwal RN Position: [facility] RN Member Role: Primary Care Nurse Name: Dena Cano RN Position: [facility] RN Member Role: Primary Care Nurse Name: Bailey Inman RN Position: [facility] RN Member Role: Primary Care Nurse Name: Emma Jaramillo RN Position: [facility] AMB Nurse Member Role: Primary Care Nurse Name: Olga Wu RN Position: [facility] RN Supv Member Role: Primary Care Nurse Name: Beverly Tomas RN Position: S RN Member Role: Primary Care Nurse Name: Domenica Galicia RN Position: [facility] RN Member Role: Primary Care Nurse Name: Naomi Rahman RN Position: S RN Member Role: Primary Care Nurse Name: Maria De Jesus Moreau RN Position: S RN Member Role: Primary Care Nurse Name: Suzanna Langley RN Position: [facility] OB RN Member Role: Primary Care Nurse Name: Rosio Soriano RN Position: [facility] RN Member Role: Primary Care Nurse Name: Arabella Smart RN Position: [facility] SN RN Member Role: Primary Care Nurse Name: Vesta Carmona LPN Position: [facility] RN Member Role: Primary Care Nurse Name: Alec Kong DO Position: [facility] Renal MD Member Role: Lifetime Consulting Physician Address: Address: [address] [place], [place] [address] [place], [place] [address] Name: Sara Gupta RN Position: [facility] Onco RN Member Role: Primary Care Nurse Name: Dedra Reese RN Position: [facility] RN Member Role: Primary Care Nurse Name: Makayla Valencia Position: [facility] RN Member Role: Primary Care Nurse Name: Dedra Byrd RN Position: [facility] RN Member Role: Primary Care Nurse Name: Nayely Sykes Position: [facility] RN Member Role: Primary Care Nurse Name: Ernie Bee RN Position: [facility] RN Member Role: Primary Care Nurse Name: Stephanie Way RN Position: [facility] RN Member Role: Primary Care Nurse Name: Ralph Coates RN Position: [facility] SN RN Member Role: Primary Care Nurse Name: Valeri Abebe RN Position: [facility] RN Member Role: Primary Care Nurse Name: Veronica Garcia RN Position: [facility] RN Member Role: Primary Care Nurse Name: Jeannine Chicas RN Position: [facility] Health Assistant Member Role: Primary Care Nurse Name: Israel Etienne Position: [facility] Outreach Member Role: Lifetime Consulting Physician Name: Juju Rahman RN Position: [facility] SN RN Member Role: Primary Care Nurse Name: Tiffanie Watson RN Position: [facility] ED RN W/OE and Tasks Member Role: Primary Care Nurse Name: sIa Cummings RN Position: [facility] RN Supv Member Role: Primary Care Nurse Name: Tahira Hammond MA Position: [facility] AUGUSTINA MA Member Role: Primary Care Nurse Name: Lana Montiel RN Position: [facility] RN Member Role: Primary Care Nurse Name: Jayla Murguia RN Position: [facility] RN Member Role: Primary Care Nurse Name: Gurpreet Irby RN Position: [facility] RN Member Role: Primary Care Nurse Name: Rajani Delcid RN Position: [facility] Assistant Member Role: Primary Care Nurse Name: Loretta Cary RN Position: [facility] ED RN W/OE and Tasks Member Role: Patient Care Provider Name: Sara Magallon DO Position: [facility] Resident Address: Address: [address] [place] [id number] Name: Anuja Diane DO Position: [facility] Resident Member Role: ED Resident Address: Address: [address] [place] [address]- Name: Irene Krishna LPN Position: [facility] ED RN W/OE and Tasks Member Role: Patient Care Provider Name: Rodrigo Oliva MD Position: [facility] Resident Member Role: ED Resident Address: Address: [address] [place] [id number] Name: Destinee Sainz Position: [facility] ED TA [facility] Member Role: Leather Goods Maker Name: Chester Valentine Position: [facility] ED OA Charge Member Role: ED Associate Care Team Related Persons Name: MAKAYLA GOTTLIEB Address: home [address] [place] [address] Name: KAROLYN MCGOWAN Address: home [address] [place] [address] Name: BHARGAV MUHAMMAD Address: home [address] [place], [place] Name: BHARGAV MUHAMMAD Address: home [address] [place], [place]
--- OUTSIDE RECORDS SUMMARY | 2023-05-05 08:56 | XMS_ITS | Continuity of Care Document ---
Author Name Unknown Organization [facility] Address [address] [place] [address]- Care Team Providers Care Contracting Engineer Name Role Phone Karolyn Zacarias MD Primary Care Physician Encounter [facility] Date(s): 12/11/22 - 04/10/[address] [address]- Attending Physician: Aye Huynh MD Admitting Physician: Aye Huynh MD Referring Physician: Karolyn Zacarias MD Allergies, Adverse Reactions, Alerts Substance Reaction [...] 13:15:52, Powder Start Date: 11/19/16 Status: Ordered Breo Ellipta 100 mcg-25 mcg/inh inhalation powder 1 puffs, Inhalation, Daily, # 30 each, 0 Refills, Maintenance, 05/12/19 11:36:55 EDT, Powder Start Date: 05/12/19 Status: Ordered Carafate 1 gm oral tablet 1 Gm, By Mouth, 3 times a day before meals and bedtime, # 30 tablet, Refills 0, Tot. Refills 0, Maintenance, 03/21/23 12:57:00 EDT, Route to Pharmacy Electronically, [facility]/pharmacy #[id number], Partial fill upon patient request if the [...] 06/05/23 14:47:00 EDT, 04/06/23 14:47:00 EDT, Injection, [facility], Partial fill upon patient [...] mL, 4 Refills, Maintenance, 06/25/22 13:55:00 EDT, [facility]/pharmacy #[id number], 157, cm, 05/25/22 13:17:00 EDT, Height, [...] Maintenance, 04/06/23 14:46:00 EDT,Route to Pharmacy Electronically, [facility], Partial fill upon patient request if [...] Refills, Maintenance, 09/16/19 8:51:00 EST, ER Tablet, [facility] 3, 158, cm, 09/16/19 7:39:00 EST, [...] Team Personnel Name: Naomi Vasquez RN Position: [facility] RN Member Role: Primary Care Nurse Name: Rocio Sandoval Position: [facility] RN Member Role: Primary Care Nurse Name: Karolyn Zacarias MD Position: [facility] Physician - Primary Care Member Role: PCP Address: Address: [address] [place], [place] [address] Name: Katina Tsang RN Position: [facility] RN Member Role: Primary Care Nurse Name: Tricia Titus RN Position: [facility] RN Supv Member Role: Primary Care Nurse Name: Claudette Govea Position: S Outreach Member Role: Lifetime Consulting Physician Name: Dena Cano RN Position: [facility] RN Member Role: Primary Care Nurse Name: Bailey Inman RN Position: [facility] RN Member Role: Primary Care Nurse Name: Emma Jaramillo RN Position: [facility] AMB Nurse Member Role: Primary Care Nurse Name: Olga Wu RN Position: [facility] RN Supv Member Role: Primary Care Nurse Name: Naomi Rahman RN Position: [facility] RN Member Role: Primary Care Nurse Name: Maria De Jesus Moreau RN Position: [facility] RN Member Role: Primary Care Nurse Name: Suzanna Langley RN Position: [facility] OB RN Member Role: Primary Care Nurse Name: Rosio Soriano RN Position: [facility] RN Member Role: Primary Care Nurse Name: Arabella Smart RN Position: [facility] SN RN Member Role: Primary Care Nurse Name: Vesta Carmona LPN Position: [facility] RN Member Role: Primary Care Nurse Name: Alec Kong DO Position: [facility] Renal MD Member Role: Lifetime Consulting Physician Address: Address: [address] [place], [place] [address] [place], [place] [address] Name: Dedra Reese RN Position: [facility] RN Member Role: Primary Care Nurse Name: Makayla Valencia Position: [facility] RN Member Role: Primary Care Nurse Name: Dedra Byrd RN Position: [facility] RN Member Role: Primary Care Nurse Name: Nayely Sykes Position: [facility] RN Member Role: Primary Care Nurse Name: Ernie Bee RN Position: [facility] RN Member Role: Primary Care Nurse Name: Stephanie Way RN Position: [facility] RN Member Role: Primary Care Nurse Name: Ralph Coates RN Position: [facility] SN RN Member Role: Primary Care Nurse Name: Valeri Abebe RN Position: [facility] RN Member Role: Primary Care Nurse Name: Veronica Garcia RN Position: [facility] RN Member Role: Primary Care Nurse Name: Jeannine Chicas RN Position: [facility] Hospital Global Cto Member Role: Primary Care Nurse Name: Israel Etienne Position: [facility] Outreach Member Role: Lifetime Consulting Physician Name: Juju Rahman RN Position: [facility] SN RN Member Role: Primary Care Nurse Name: Tiffanie Watson RN Position: [facility] ED RN W/OE and Tasks Member Role: Primary Care Nurse Name: Tahira Hammond [place] Position: [facility] AMB [place] Member Role: Primary Care Nurse Name: Lana Montiel RN Position: [facility] RN Member Role: Primary Care Nurse Name: Jayla Murguia RN Position: [facility] RN Member Role: Primary Care Nurse Name: Gurpreet Irby RN Position: [facility] RN Member Role: Primary Care Nurse Name: Rajani Delcid RN Position: [facility] Hospital Global Cto Member Role: Primary Care Nurse Care Team Related Persons Name: MAKAYLA GOTTLIEB Address: [address] [place] [address] Name: KAROLYN MCGOWAN Address: [address] [place] [address] Name: BAHRGAV MUHAMMAD Address: [address] [place] [address] Name: BHARGAV MUHAMMAD Address: [address] [place] [address]
--- OUTSIDE RECORDS SUMMARY | 2023-05-05 08:56 | XMS_ITS | Continuity of Care Document ---
Author Name Unknown Organization [facility] Address [address] [place] [address]- Care Team Providers Care Bricklayer Name Role Phone Karolyn Zacarias MD Primary Care Physician Encounter [facility] Date(s): 03/23/23 - 04/22/23 [facility] [address] [place] [address]- Attending Physician: Rosalie Palmer Admitting Physician: AdmRosalie sinclair Referring Physician: AdmtrRosalie Allergies, Adverse Reactions, Alerts Substance Reaction Severity [...] 03/21/23 12:57:00 EDT, Route to Pharmacy Electronically, [facility]/pharmacy #[id number], Partial fill upon patient request if the [...] 06/05/23 14:47:00 EDT, 04/06/23 14:47:00 EDT, Injection, [facility], Partial fill upon patient [...] mL, 4 Refills, Maintenance, 06/25/22 13:55:00 EDT, [facility]/pharmacy #[id number], 157, cm, 05/25/22 13:17:00 EDT, [...] Maintenance, 04/06/23 14:46:00 EDT,Route to Pharmacy Electronically, [facility], Partial fill upon patient [...] Maintenance, 09/16/19 8:51:00 EST, ER Tablet, [facility], 158, cm, 09/16/19 7:39:00 [...] Team Personnel Name: Naomi Vasquez RN Position: [facility] RN Member Role: Primary Care Nurse Name: Karolyn Zacarias MD Position: [facility] Physician - Primary Care Member Role: PCP Address: Address: [address] [place] [address]- Name: Katina Tsang RN Position: S RN Member Role: Primary Care Nurse Name: Tricia Titus RN Position: [facility] RN Supv Member Role: Primary Care Nurse Name: Claudette Govea Position: [facility] Outreach Member Role: Lifetime Consulting Physician Name: Dena Cano RN Position: [facility] RN Member Role: Primary Care Nurse Name: Bailey Inman RN Position: [facility] RN Member Role: Primary Care Nurse Name: Emma Jaramillo RN Position: [facility] AMB Nurse Member Role: Primary Care Nurse Name: Olga Wu RN Position: [facility] RN Supv Member Role: Primary Care Nurse Name: Naomi Rahman RN Position: [facility] RN Member Role: Primary Care Nurse Name: Maria De Jesus Moreau RN Position: [facility] RN Member Role: Primary Care Nurse Name: Suzanna Langley RN Position: [facility] OB RN Member Role: Primary Care Nurse Name: Rosio Soriano RN Position: [facility] RN Member Role: Primary Care Nurse Name: Arabella Smart RN Position: [facility] SN RN Member Role: Primary Care Nurse Name: Vesta Carmona LPN Position: [facility] RN Member Role: Primary Care Nurse Name: Alec Kong DO Position: [facility] Renal MD Member Role: Lifetime Consulting Physician Address: Address: [address] [place], [place] [address] [address] Name: Dedra Reese RN Position: [facility] RN Member Role: Primary Care Nurse Name: Makayla Valencia Position: [facility] RN Member Role: Primary Care Nurse Name: Dedra Byrd RN Position: [facility] RN Member Role: Primary Care Nurse Name: Nayely Sykes Position: [facility] RN Member Role: Primary Care Nurse Name: Ernie Bee RN Position: [facility] RN Member Role: Primary Care Nurse Name: Stephanie Way RN Position: [facility] RN Member Role: Primary Care Nurse Name: Ralph Coates RN Position: [facility] SN RN Member Role: Primary Care Nurse Name: Valeri Abebe RN Position: [facility] RN Member Role: Primary Care Nurse Name: Veronica Garcia RN Position: [facility] RN Member Role: Primary Care Nurse Name: Jeannine Chicas RN Position: [facility] Hospital Chief Nurse Executive Member Role: Primary Care Nurse Name: Israel Etienne Position: [facility] Outreach Member Role: Lifetime Consulting Physician Name: Juju Rahman RN Position: [facility] SN RN Member Role: Primary Care Nurse Name: Tiffanie Watson RN Position: [facility] ED RN W/OE and Tasks Member Role: Primary Care Nurse Name: Tahira Hammond [place] Position: [facility] AUGUSTINA [place] Member Role: Primary Care Nurse Name: Lana Montiel RN Position: [facility] RN Member Role: Primary Care Nurse Name: Jayla Murguia RN Position: [facility] RN Member Role: Primary Care Nurse Name: Gurpreet Irby RN Position: [facility] RN Member Role: Primary Care Nurse Name: Rajani Delcid RN Position: [facility] Chief Nurse Executive Member Role: Primary Care Nurse Care Team Related Persons Name: ANN GOTTLIEBNDA Address: [address] [place] [address] Name: KAROLYN MCGOWAN Address: [address] [place] [address] Name: BHARGAV MUHAMMAD Address: [address] [place] [address] Name: BHARGAV MUHAMMAD Address: [address] [place] [address]
--- OUTSIDE RECORDS SUMMARY | 2023-05-05 08:56 | XMS_ITS | Continuity of Care Document ---
Author Name Unknown Organization [facility] Address [address] [place] [address]- Care Team Providers Care Seat Pack Inspector Name Role Phone Rell DE LA TORRE, Karolyn Primary Care Physician Encounter [facility] Date(s): 02/11/23 - 03/13/23 [facility] [address] [place] [address]- Attending Physician: Rosalie Palmer Admitting Physician: AdmRosalie [...] mL, 4 Refills, Maintenance, 06/25/22 13:55:00 EDT, [facility]/pharmacy #[id number], 157, cm, 05/25/22 13:17:00 EDT, Height, [...] capsule, 0 Refills, Maintenance, 09/06/22 15:02:00EST, Capsule, [facility]/pharmacy #[id number], Partial fill upon patient request if the prescription is for a schedule II opioid drug., 157.5, cm, 09/01/22 9:19:00... Start Date: 09/06/22 Stop Date: 10/06/22 Status: Ordered [place]-3 Fish Oil 1000 mg oral capsule 1 [...] Refills, Maintenance, 09/16/19 8:51:00 EST, ER Tablet, [facility], 158, cm, 09/16/19 [...] Team Personnel Name: Naomi Vasquez RN Position: [facility] RN Member Role: Primary Care Nurse Name: Karolyn Zacarias MD Position: [facility] Physician - Primary Care Member Role: PCP Address: Address: [address] [place] [address] [place] [address]- Name: Tricia Titus RN Position: [facility] RN Supv Member Role: Primary Care Nurse Name: Claudette Govea Position: [facility] Outreach Member Role: Lifetime Consulting Physician Name: Emma Jaramillo RN Position: [facility] AMB Nurse Member Role: Primary Care Nurse Name: Maria De Jesus Moreau RN Position: [facility] RN Member Role: Primary Care Nurse Name: Suzanna Langley RN Position: [facility] OB RN Member Role: Primary Care Nurse Name: Arabella Smart RN Position: [facility] SN RN Member Role: Primary Care Nurse Name: Alec Kogn DO Position: [facility] Renal MD Member Role: Lifetime Consulting Physician Address: Address: [address] [place] [address] [address] [facility] [place] [address]- Name: Dedra Reese RN Position: [facility] RN Member Role: Primary Care Nurse Name: Dedra Byrd RN Position: [facility] RN Member Role: Primary Care Nurse Name: Ernie Bee RN Position: [facility] RN Member Role: Primary Care Nurse Name: Ralph Coates RN Position: [facility] SN RN Member Role: Primary Care Nurse Name: Veronica Garcia RN Position: [facility] RN Member Role: Primary Care Nurse Name: Jeannine Chicas RN Position: [facility] Business Relations Manager Member Role: Primary Care Nurse Name: Israel Etienne Position: [facility] Outreach Member Role: Lifetime Consulting Physician Name: Juju Rahman RN Position: [facility] SN RN Member Role: Primary Care Nurse Name: Tiffanie Watson RN Position: [facility] ED RN W/OE and Tasks Member Role: Primary Care Nurse Name: Tahira Hammond Position: [facility] Onco RN Member Role: Primary Care Nurse Name: Lana Montiel RN Position: [facility] RN Member Role: Primary Care Nurse Name: Gurpreet Irby RN Position: [facility] RN Member Role: Primary Care Nurse Name: Rajani Delcid RN Position: [facility] Business Relations Manager Member Role: Primary Care Nurse Care Team Related Persons Name: ANNIE GOTTLIEB Address: [address] [place] [address] Name: KAROLYN MCGOWAN Address: [address] [place] [address] Name: BHARGAV MUHAMMAD Address: [address] [place] [address] Name: BHARGAV MUHAMMAD Address: [address] [place] [address]
--- OUTSIDE RECORDS SUMMARY | 2023-05-05 08:56 | XMS_ITS | Continuity of Care Document ---
Author Name Unknown Organization [facility] Address [address] [place] [address]- Care Team Providers Care Scales Inspector Name Role Phone Rell DE LA TORRE, Karolyn Primary Care Physician [phone] Encounter [facility] Date(s): 03/22/23 - 04/21/[address] [address]- Allergies, Adverse Reactions, Alerts Substance Reaction Severity [...] 03/21/23 12:57:00 EDT, Route to Pharmacy Electronically, [facility]/pharmacy #[id number], Partial fill upon patient request if the [...] 06/05/23 14:47:00 EDT, 04/06/23 14:47:00 EDT, Injection, [facility], Partial fill upon patient request [...] mL, 4 Refills, Maintenance, 06/25/22 13:55:00 EDT, [facility]/pharmacy #[id number], 157, cm, 05/25/22 13:17:00 EDT, [...] Maintenance, 04/06/23 14:46:00 EDT,Route to Pharmacy Electronically, [facility], Partial fill upon patient request [...] Refills, Maintenance, 09/16/19 8:51:00 EST, ER Tablet, [facility] 3, 158, cm, 09/16/19 7:39:00 EST, [...] Team Personnel Name: Naomi Vasquez RN Position: S RN Member Role: Primary Care Nurse Name: Rocio Sandoval Position: S RN Member Role: Primary Care Nurse Name: Karolyn Zacarias MD Position: S Physician - Primary Care Member Role: PCP Address: Address: [address] [place] [address]- Name: Katina Tsang RN Position: S RN Member Role: Primary Care Nurse Name: Tricia Titus RN Position: [facility] RN Supv Member Role: Primary Care Nurse Name: Claudette Govea Position: [facility] Outreach Member Role: Lifetime Consulting Physician Name: Dena Cano RN Position: [facility] RN Member Role: Primary Care Nurse Name: Bailey Inman RN Position: [facility] RN Member Role: Primary Care Nurse Name: Emma Jaramillo RN Position: [facility] AMB Nurse Member Role: Primary Care Nurse Name: Olga Wu RN Position: [facility] RN Supv Member Role: Primary Care Nurse Name: Naomi Rahman RN Position: [facility] RN Member Role: Primary Care Nurse Name: Maria De Jesus Moreau RN Position: [facility] RN Member Role: Primary Care Nurse Name: Suzanna Langley RN Position: [facility] OB RN Member Role: Primary Care Nurse Name: Rosio Soriano RN Position: [facility] RN Member Role: Primary Care Nurse Name: Arabella Smart RN Position: [facility] SN RN Member Role: Primary Care Nurse Name: Vesta Carmona LPN Position: [facility] RN Member Role: Primary Care Nurse Name: Alec Kong DO Position: [facility] Renal MD Member Role: Lifetime Consulting Physician Address: Address: [address] [place], [place] [address] [address] Name: Dedra Reese RN Position: [facility] RN Member Role: Primary Care Nurse Name: Makayla Valencia Position: [facility] RN Member Role: Primary Care Nurse Name: Dedra Byrd RN Position: [facility] RN Member Role: Primary Care Nurse Name: Nayely Sykes Position: [facility] RN Member Role: Primary Care Nurse Name: Ernie Bee RN Position: [facility] RN Member Role: Primary Care Nurse Name: Stephanie Way RN Position: [facility] RN Member Role: Primary Care Nurse Name: Ralph Coates RN Position: [facility] SN RN Member Role: Primary Care Nurse Name: Valeri Abebe RN Position: [facility] RN Member Role: Primary Care Nurse Name: Veronica Garcia RN Position: [facility] RN Member Role: Primary Care Nurse Name: Jeannine Chicas RN Position: [facility] Hospital Monotype Caster Member Role: Primary Care Nurse Name: Israel Etienne Position: [facility] Outreach Member Role: Lifetime Consulting Physician Name: Juju Rahman RN Position: [facility] SN RN Member Role: Primary Care Nurse Name: Tiffanie Watson RN Position: [facility] ED RN W/OE and Tasks Member Role: Primary Care Nurse Name: Tahira Hammond MA Position: [facility] AUGUSTINA [place] Member Role: Primary Care Nurse Name: Lana Montiel RN Position: [facility] RN Member Role: Primary Care Nurse Name: Jayla Murguia RN Position: [facility] RN Member Role: Primary Care Nurse Name: Gurpreet Irby RN Position: [facility] RN Member Role: Primary Care Nurse Name: Rajani Delcid RN Position: [facility] Hospital Monotype Caster Member Role: Primary Care Nurse Care Team Related Persons Name: MAKAYLA GOTTLIEB Address: [address] [place] [address] Name: KAROLYN MCGOWAN Address: [address] [place] [address] Name: BHARGAV MUHAMMAD Address: [address] [place] [address] Name: BHARGAV MUHAMMAD Address: [address] [place] [address]
--- OUTSIDE RECORDS SUMMARY | 2023-05-05 08:56 | XMS_ITS | Continuity of Care Document ---
Author Name Unknown Organization [facility] ter Address [address] [place] [id number]- Care Team Providers Care Ultrasonic Hand Solderer Name Role Phone Karolyn Zacarias MD Primary Care Physician Encounter [facility] Date(s): 02/11/23 - 03/30/[address] [address]- Attending Physician: Kehinde Garcia MD Admitting Physician: Kehinde Garcia MD Referring Physician: Kehinde Garcia MD Allergies, Adverse Reactions, Alerts Substance Reaction [...] 03/21/23 12:57:00 EDT, Route to Pharmacy Electronically, [facility]pharmacy #[id number], Partial fill upon patient request if the [...] mL, 4 Refills, Maintenance, 06/25/22 13:55:00 EDT, [id number], 157, cm, 05/25/22 13:17:00 EDT, Height, [...] Refills, Maintenance, 09/16/19 8:51:00 EST, ER Tablet, [facility], 158, cm, 09/16/19 7:39:00 EST, Height, [...] Primary Care Nurse Name: Rocio Sandoval Position: [facility] RN Member Role: Primary Care Nurse Name: Karolyn Zacarias MD Position: [facility] Physician - Primary Care Member Role: PCP Address: Address: [address] [place] [address] Dr Zacarias [address] Name: Katina Tsang RN Position: [facility] [...] Care Nurse Name: Emma Jaramillo RN Position: [facility] AMB [...] Member Role: Lifetime Consulting Physician Address: Address: [facility] [address] [facility] [place] [address]- Name: Dedra Reese RN Position: [facility] [...] Care Nurse Name: Jeannine Chicas RN Position: [facility] Power Reactor Supervisor Member Role: Primary Care Nurse Name: Israel Etienne Position: [facility] Outreach Member Role: Lifetime Consulting Physician Name: Juju Rahman RN Position: [facility] SN RN Member Role: Primary Care Nurse Name: Tiffanie Watson RN Position: [facility] ED RN W/OE and Tasks Member Role: Primary Care Nurse Name: Tahira Hammond MA Position: [facility] AMB MA Member Role: Primary Care Nurse Name: Lana Montiel RN Position: [facility] RN Member Role: Primary Care Nurse Name: Jayla Murguia RN Position: [facility] RN Member Role: Primary Care Nurse Name: Gurpreet Irby RN Position: [facility] RN Member Role: Primary Care Nurse Name: Rajani Delcid RN Position: [facility] Power Reactor Supervisor Member Role: Primary Care Nurse Care Team Related Persons Name: ANNIE GOTTLIEB Address: home [address] [place] [address] Name: KAROLYN MCGOWAN Address: home [address] [place] [address] Name: BHARGAV MUHAMMAD Address: home [address] [place] [address] Name: BHARGAV MUHAMMAD Address: home [address] [place] [address]
--- OUTSIDE RECORDS SUMMARY | 2023-05-05 08:57 | XMS_ITS | Continuity of Care Document ---
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 Name Role Phone Rell DE LA TORRE, Karolyn Primary Care Physician Encounter [facility] Date(s[place] 03/15/23 - 03/21/[address] [address]- Encounter Diagnosis Pleural effusion, right(Final) - 03/15/23 Pericardial effusion(Final) - 03/15/23 Adenocarcinoma of lung(Final) - 03/15/23 Obstructive sleep apnea(Final) - 03/15/23 Hypertension(Final) - 03/15/23 Acute blood loss anemia(Final) - 03/15/23 Morbid obesity / BMI = 47(Final) - 03/15/23 Discharge Disposition: A-D/C Home Attending Physician: Baldo Mistry MD Admitting Physician: Denny Hedrick MD Referring Physician: Not on Staff, Referring [...] 03/21/23 12:57:00 EDT, Route to Pharmacy Electronically, [facility]/pharmacy #[id number], Partial fill upon patient request if the [...] opioid drug. Start Date: 08/14/21 Status: Ordered DilTIAZem (Eqv-Cardizem CD) 120 mg/24 hours oral capsule, extended release 120 mg, CD Capsule, By Mouth, Hold for: sbp<110, HR<55, 03/21/23 9:00:00 EDT Start Date: 03/21/23 Stop Date: 03/21/23 Status: Completed fenofibrate 145 mg oral tablet 1 tablet [...] mL, 4 Refills, Maintenance, 06/25/22 13:55:00 EDT, [facility]/pharmacy #[id number], 157, cm, 05/25/22 13:17:00 [...] capsule, 0 Refills, Maintenance, 09/06/22 15:02:00EST, Capsule, [facility]/pharmacy #[id number], Partial fill upon patient request if the prescription is for a schedule II opioid drug., 157.5, cm, 09/01/22 9:19:00... Start Date: 09/06/22 Stop Date: 10/06/22 Status: Ordered Phoenix-3 Fish Oil 1000 mg oral capsule 1 [...] opioid drug. Start Date: 03/15/23 Status: Ordered oxyCODONE 5 mg oral capsule 1 capsule = 5 mg, By Mouth, Every 6 hours, PRN as needed for pain, 0 Refills, Maintenance, :13:00 EST, Capsule, Partial fill upon patient request if the prescription is for a schedule II opioid drug. Start Date: 09/01/22 Status: Ordered pantoprazole 40 mg oral delayed [...] Refills, Maintenance, 09/16/19 8:51:00 EST, ER Tablet, [facility] 3, 158, cm, 09/16/19 7:39:00 EST, Height, 122.5, kg, 09/13/19 18:49:00 EST, Dry Weight Start Date: 09/16/19 Stop Date: 09/19/19 Status: Ordered traZODone 50 mg oral tablet 25 mg, 0.5, tablet, By Mouth, Daily at bedtime, # [...] Active Type 2 diabetes mellitus Confirmed Active Results Radiology Reports * Exam Date Time Procedure Performing Provider Status 03/18/23 4:00 PM IR End of Case Report Aut h (Verified) IR End of Case Report * Exam Date Time Procedure Performing Provider Status 03/18/23 4:[address] Guidance Needle Biopsy Auth (Verified) Notes: (CT Guidance Needle Biopsy) Reason For Exam: hx metastatic adenocarcinoma CT Guidance Needle Biopsy Patient: MAHSA MUHAMMAD Study Date: 03/18/2023 Performing: Elmer Monge MD Referring: : 1960 Age: 62 Gender: FEMALE PROCEDURE: CT Guided Biopsy of left adrenal gland INDICATION: Lung cancer ? adrenal metastasis. HEALTH INFORMATION PROVIDER(S): Shane Sanon MD supervised by Elmer Monge MD ANESTHESIA: Lidocaine was administered for local anesthesia. Fentanyl 25 mcg IV adminstered by Elmer Martinez rn, MD, Maria RN TECHNIQUE: Informed consent was obtained. A limited CT scan of the left flank was performed using automatic tube current modulation to optimize exposure parameters. A suitable access site was identified, marked, prepped, and draped in standard fashion. Using intermittent CT fluoroscopy guidance, a 17 Ga introducer needle was advanced to the periphery of the target lesion and 2 core biopsies of the adrenal gland performed. A post biopsy scan was performed. COMPLICATIONS: The patient tolerated the procedure well and in stable condition. There were no immediate complications. PLAN: Routine post procedure monitoring. IMPRESSION: CT guided biopsy of left adrenal mass. Signed By Elmer Monge MD On 03/18/2023 17:12:33 Elmer Monge MD SUPPLIES : [employer] [facility] 18 X 20 Dictated By: Elmer Monge MD Dictated Date/Time: 03/18/23 4:00 pm Reviewed By: Elmer Monge MD Signed By: Elmer Monge MD Signed Date/Time: 03/18/23 4:00 pm Transcribed By: LICO Transcribed Date/Time: 03/18/23 4:00 pm * Exam Date Time Procedure Performing Provider Status 03/18/23 11:06 AM US Doppler Ext Lower Venous Bilat Mojgan Lorenzo; Auth (Verified) Notes: (US Doppler Ext Lower Venous Bilat) Reason For Exam: Pain/Tenderness Extremities RESULT: US Doppler Ext Lower Venous Bilat US Doppler Ext Lower Venous Bilat INDICATION: Pain and tenderness in the bilateral lower extremities. Concern for thrombosis. COMPARISON: 08/30/2022. IMAGING TECHNIQUE: Streamlined portable ultrasound of the lower extremity deep venous system was performed using grayscale, color, and spectral Doppler ultrasound from the common femoral through the popliteal vein assessing for complete compressibility and good response to compression and augmentation. The calf veins are not assessed. FINDINGS: RIGHT LOWER EXTREMITY: Common femoral vein: Patent. No thrombosis. Femoral vein: Patent. No thrombosis. Popliteal vein: Patent. No thrombosis. LEFT LOWER EXTREMITY: Common femoral vein: Patent. No thrombosis. Femoral vein: Patent. No thrombosis. Popliteal vein: Patent. No thrombosis. OTHER FINDINGS: 2.4 x 1 x 1.9 cm right popliteal fossa cyst. IMPRESSION: No evidence of deep venous thrombosis from the groin through the popliteal vein. Calf veins not assessed with portable technique. Right 2.4 cm Bedolla's cyst. I have personally reviewed the images and I agree with this report. WSN: [id number] Ordering Physician: Mojgan Arguello Dictated By: Emory Gross MD Dictated Date/Time: 03/18/23 12:11 p Reviewed By: Alec Martinez MD Signed By: Alec Martinez MD Signed Date/Time: 03/18/23 12:16 pm Transcribed By: VIOLET Transcribed Date/Time: 03/18/23 11:34 am * Exam Date Time Procedure Performing Provider Status 03/17/23 3:56 PM Chest Portable Kenrick Torres; Auth (Ve rified) Notes: (Chest Portable) Reason For Exam: Shortness of Breath RESULT: Chest Portable Chest Portable CLINICAL INDICATION: Pleural effusion. COMPARISON: Chest x-ray, 03/15/2023. Chest CT, 03/10/2023. FINDINGS: Catheter projected over the right hemithorax again noted. Small right pleural effusion is unchanged from prior, with silhouetting of the diaphragm. There arelow lung volumes with mild left basilar atelectasis. The cardiac silhouette is stable in size. There is widening of the mediastinum related to adenopathy seen on CT. No pneumothorax or CHF. No acute osseous abnormality is noted. IMPRESSION: No significant change in small right pleural effusion and left basilar atelectasis. Stable widening of the mediastinum due to known underlying adenopathy. WSN: [id number] Ordering Physician: Mojgan Arguello Dictated By: Natasha Cortez MD Dictated Date/Time: 03/17/23 4:07 pm Reviewed By: Natasha Cortez MD Signed By: Natasha Cortez MD Signed Date/Time: 03/17/23 4:07 pm Transcribed By: VIOLET Transcribed Date/Time: 03/17/23 4:05 pm * Exam Date Time Procedure Performing Provider Status 03/15/23 7:10 PM Chest 2 Views Frontal and Lat Lana Mccord; Nirali (Verified) Notes: (Chest 2 Views Frontal and Lat) Reason For Exam: Shortness of Breath RESULT: Chest 2 Views Frontal and Lat Chest 2 Views Frontal and Lat Reason: Shortness of Breath; Clinical Question(s): Pneumonia; Special Instructions: COMPARISON: Multiple prior chest radiographs, most recently 03/15/2023. FINDINGS: LINES AND TUBES: Unchanged position of the the catheter projecting over the right pneumothorax. LUNGS AND PLEURA: Small right pleural effusion is unchanged. Associated atelectasis of the right lower lung. Mild left basilar atelectasis. No significant pulmonary vascular congestion. No pneumothorax. HEART, MEDIASTINUM AND NOAH: Moderate prominence of the cardiac silhouette, unchanged. Unchanged mediastinal and hilar contour. BONES AND SOFT TISSUES: No acute abnormality. Mild degenerative changes of the thoracic spine. IMPRESSION: No significant interval change from chest radiograph taken earlier same date. Similar small right pleural effusion with adjacent right basilar airspace atelectasis/consolidation. Mild left basilar atelectasis. WSN: [id number] Ordering Physician: Alec Dos Santos Dictated By: Alec Garcia MD Dictated Date/Time: 03/15/23 7:16 pm Reviewed By: Alec Garcia MD Signed By: Alec Garcia MD Signed Date/Time: 03/15/23 7:16 pm Transcribed By: VIOLET Transcribed Date/Time: 03/15/23 7:13 pm Vital Signs Most recent to oldest [Reference Range]: 1 2 3 Height 159 cm (03/21/23 2:54 AM) 159 cm (03/20/23 7:38 PM) 159 cm (03/20/23 2:17 PM) Weight 121.1 kg (03/21/23 6:02 AM) 120.2 kg (03/20/23 5:36 AM) 119.0 kg (03/19/23 6:28 AM) Oxygen Saturation [94-100 %] 90 % *L* (03/21/23 7:00 AM) 94 % (03/21/23 2:54 AM) 97 % (03/20/23 7:38 PM) Pulse Rate [55-90 bpm] 95 bpm *H* (03/21/23 8:39 AM) 95 bpm *H* (03/21/23 7:00 AM) 88 bpm (03/21/23 2:54 AM) Body Mass Index [18.5-24.99 kg/m2] 49.17 kg/m2 *>HHI* (03/17/23 10:44 AM) 48.65 kg/m2 *>HHI* (03/16/23 12:52 AM) 48.65 kg/m2 *>HHI* (03/16/23 12:39 AM) Blood Pressure [90-138/55-84 mm Hg] 125/70mm Hg (03/21/23 8:39 AM) 125/70mm Hg (03/21/23 7:00 AM) 116/54mm Hg (03/21/23 2:54 AM) Respiratory Rate [16-30 br/min] 22 br/min (03/21/23 7:00 AM) 20 br/min (03/21/23 2:54 AM) 20 br/min (03/20/23 7:38 PM) Temperature [96.8-100.4 DegF] 97.7 DegF (03/21/23 7:00 AM) 98.4 DegF (03/21/23 2:54 AM) 98.0 DegF (03/20/23 7:38 PM) Liters per Minute 2 L/min (03/21/23 7:00 AM) 2 L/min (03/20/23 7:38 PM) 2 L/min (03/20/23 2:17 PM) Mode of Delivery (Oxygen) Nasal cannula (03/21/23 7:00 AM) CPAP (03/21/23 2:54 AM) Nasal cannula (03/20/23 7:38 PM) Blood pressure sites Arm, left (03/21/23 2:54 AM) Arm, left (03/20/23 7:38 PM) Arm, left (03/20/23 2:17 PM) Temperature Route Oral (03/21/23 7:00 AM) Temporal (03/21/23 2:54 AM) Temporal (03/20/23 7:38 PM) Dry Weight 123 kg (03/16/23 12:52 AM) 123 kg (03/16/23 12:39 AM) Weight Obtained Via Bed scale (03/21/23 6:02 AM) Bed scale (03/20/23 5:36 AM) Bed scale (03/19/23 6:28 AM) Dry Weight Obtained Via Bed scale (03/16/23 12:52 AM) Bed scale (03/16/23 12:39 AM) Social History Social History Type Response Smoking Status Former smoker, quit more than 30 days ago; Other: smoked briefly from March-Apr 2022, had been years of nonsmoking prior; entered on: 07/28/22 Sex Consult note * Kelly Hinds: PERFORM Event Display: Consult Authored Date: [id number] Patient: ??MAHSA MUHAMMAD ? Age:??62 Years?Sex:??Female?:??1960?? Reason for Consultation Pleural Effusion History of Present Illness 62-year-old female with PMH of metastatic adenocarcinoma of the lung, type 2 diabetes mellitus, CHF, chronic hypercapnic and hypoxic respiratory failure on 2 L of nasal cannula at home, VANDANA/OHS uses iVAPS at night, spinal stenosis, pseudotumor cerebri directed to the ED from her oncology office dueto low hemoglobin of 5.7 and newly appearing right-sided moderate pleural and pericardial effusions. ?? The patient reports that she begun feeling more short of breath in the last week and increased her O2 at home to 3L. Due to worsening symptoms, her oncologist sent her to the ED for further imaging. Imaging showed new right-sided moderate pleural effusion and a moderate-sized pericardial effusion. The patient was found to be anemic to 5.7 and was transfused 2 units of blood overnight. Pulmonary diseases was consulted for further management of pleural effusion seen on CT scan. ? Review of Systems Constitutional:??No weight loss, fever, chills, weakness or fatigue. Allergy/Immune: Denies any??Eczema or hives Eyes:??No visual loss, blurred vision, double vision or yellow sclera ENT:??No hearing loss, sneezing, congestion, runny nose or sore throat. Respiratory:??+shortness of breath,??no cough or??sputum production. No hemoptysis Cardiovascular:??No chest pain, chest pressure or chest discomfort. No palpitations or pedal edema. Gastrointestinal:??No anorexia, nausea, vomiting or diarrhea. +intermittent tarry black stools Neurologic:??No headache, dizziness, syncope, unilateral weakness, ataxia, numbness or tingling in the extremities. No change in bowel or bladder control. Musculoskeletal:??No muscle pain, back pain, joint pain or stiffness. Hematologic/Lymphatics:??No bleeding or bruising. No painful lymph nodes. Skin:??No rash or itching. Endocrine:??No reports of sweating. No cold or heat intolerance. No polyuria or polydipsia. Psychiatric:??No depression or anxiety. Physical Exam Vitals & Measurements T:??98.0?F?? TMIN:??97.8?F?? TMAX:??98.6?F?? HR:??75??(Peripheral)?? RR:??20?? BP:??111/64?? SpO2:??94%?? WT:??123??kg?? Constitutional: Alert, in no distress. Speaks in full sentences, on 3L NC Mental Status: Oriented to person, place and time. Head: Normocephalic. Eyes: Pupils are equal, round and reactive to light. Extraocular muscles intact. Ear, Nose and Throat: Oropharynx clear, mucous membranes moist. Ears and nose without masses, lesions or deformities. Trachea midline. Neck: Supple, Full range of motion. Respiratory: Clear to auscultation. No wheezing, rales or rhonchi. Cardiovascular: S1 S2 regular. No murmurs, rubs or gallops. Gastrointestinal: Abdomen soft, non-tender, non-distended. Normal bowel sounds. No pulsatile mass. No hepatosplenomegaly. Neurologic: Cranial nerves II-XII grossly intact. No focal neurological deficits. Flexor plantar response. Moves all extremities spontaneously. Sensation intact bilaterally. Musculoskeletal: No cyanosis or clubbing. No gross deformities. Normal range of motion. Psychiatric: Normal mood and affect Assessment/Plan #Metastatic??adenocarcinoma of lung ??(C34.90) #Moderate right-sided pleural effusion - The patient is a 62 year old female with a personal medical history of metastatic??adenocarcinomaof the right lower lobe, [id number] (not a candidate for surgery or??chemotherapy??due to her significant medical history and completed radiation alone on 11/04/2022), now presenting with anemia (s/p 2 units of blood), dyspnea, and radiologic evidence of right-sided pleural effusion - Now back on her baseline O2 with her dyspnea improved after transfusion. - POCUS reveals pleural effusion on the right, though not enough for safe bedside??drainage. The??etiology of patient's??dyspnea is less likely from the pleural effusion, but more likely originated from acute anemia. - The patient is currently being evaluated for immunotherapy with immune checkpoint inhibitors.??There is an ongoing discussion of biopsying her adrenal mass as part of this evaluation which would have the best diagnostic yield.??IR guided thoracentesis could be considered if??no other site??for biopsy is deemed feasible. The patient??verbalizes agreement with the plan.?? - She will follow-up with outpatiently next week. ?? Pulmonary diseases will sign off??but will be available to??assist with??further questions if needed. ?? Case Discussed with MD Haider ?? Kelly Hinds MS-4 Problem List/Past Medical History Ongoing Central sleep apnea Depression Diabetic nephropathy GERD - Gastro-esophageal reflux disease Hyperlipidemia Hypertension Hypothyroidism Hypoventilation Obesity, Unspecified Obstructive sleep apnea Severe obesity Sleep-related hypoxia Type 2 diabetes mellitus Procedure/Surgical History ???Appendectomy???Cholecystectomy???Pseudotumor cerebri surgery???Tonsillectomy Medications Inpatient Acetaminophen Tablet, 650 mg, By Mouth, Every 4 hours, PRN albuterol CFC free 90 mcg/inh inhalation aerosol, 90 mcg= 1 puffs, Inhalation, Every 4 hours, PRN Breo Ellipta 200 mcg-25 mcg Inhaler, 1 puffs, Inhalation, Daily Crestor 20 mg oral tablet, 40 mg, By Mouth, Daily diazepam 10 mg oral tablet, 20 mg, By Mouth, Daily at bedtime DilTIAZem (Eqv-Cardizem CD) 120 mg/24 hours oral capsule, extended release, 120 mg, By Mouth, 2 times a day Docusate/Senna Tablet, 1 tablet, By Mouth, 2 times a day, PRN fenofibrate 130 mg oral capsule, 130 mg, By Mouth, Daily Flonase 50 mcg/inh nasal spray, 50 mcg= 1 sprays, Nares, Both, Daily Insulin LISPRO Sliding Scale, 2-10 units, Subcutaneous Injection, 3 times a day before meals lamotrigine 100 mg oral tablet, 100 mg, By Mouth, 2 times a day Lasix 40 mg oral tablet, 40 mg, By Mouth, Every other day Lasix 40 mg oral tablet, 60 mg, By Mouth, Every other day levothyroxine 0.1 mg oral tablet, 100 mcg, By Mouth, Daily Melatonin Tablet, 3 mg, By Mouth, Daily at bedtime, PRN NaCL 0.9% Flush, 3 mL, IV Push, Every 8 hours NaCL 0.9% Flush, 3 mL, IV Push, Every 8 hours, PRN oxyCODONE 5 mg oral tablet, 5 mg, By Mouth, Every 6 hours, PRN pantoprazole 20 mg oral delayed release tablet, 20 mg, By Mouth, Daily traZODone 50 mg oral tablet, 25 mg, By Mouth, Daily at bedtime Vitamin D3 1000 intl units oral tablet, 1000 International_Units, By Mouth, Daily Zofran Inj, 4 mg, IV Push, Every 6 hours, PRN Home acetaminophen/butalbital/caffeine 325 mg-50 mg-40 mg oral tablet, 1 tablet, By Mouth, Every 6 hours, PRN albuterol 90 mcg/inh inhalation powder, 1 puffs, Inhalation, Every 4 hours, PRN aspirin 81 mg oral tablet, 81 mg= 1 tablet, By Mouth, Daily Breo Ellipta 100 mcg-25 mcg/inh inhalation powder, 1 puffs, Inhalation, Daily Crestor 40 mg oral tablet, 40 mg= 1 tablet, By Mouth, Daily desvenlafaxine 25 mg oral tablet, extended release, 25 mg= 1 tablet, By Mouth, Daily diazepam 10 mg oral tablet, 20 mg= 2 tablet, By Mouth, Daily at bedtime DilTIAZem (Eqv-Cardizem CD) 120 mg/24 hours oral capsule, extended release, 120 mg= 1 capsule, By Mouth, 2 times a day fenofibrate 145 mg oral tablet, 145 mg= 1 tablet, By Mouth, Daily Flonase 50 mcg/inh nasal spray, 1 sprays, Daily Humalog 100 u/ml subcutaneous injection, See Instructions, 4 refills iVAPS, See Instructions lamotrigine 100 mg oral tablet, 100 mg= 1 tablet, By Mouth, 2 times a day Lasix 40 mg oral tablet, 60 mg= 1.5 tablet, By Mouth, Every other day Lasix 40 mg oral tablet, 40 mg= 1 tablet, By Mouth, Every other day levothyroxine 0.1 mg oral tablet, 100 mcg, By Mouth, Daily Lyrica 75 mg oral capsule, 75 mg= 1 capsule, By Mouth, 2 times a day Phoenix-3 Fish Oil 1000 mg oral capsule, 1000 mg= 1 capsule, By Mouth, Daily omeprazole 20 mg oral delayed release tablet, 20 mg= 1 tablet, By Mouth, Daily omnipod dash pods, See Instructions, 11 refills ondansetron 8 mg oral tablet, 8 mg= 1 tablet, By Mouth, Every 8 hours, PRN oxyCODONE 5 mg oral capsule, 5 mg= 1 capsule, By Mouth, Every 6 hours, PRN potassium chloride 20 mEq oral tablet, extended release, 20 mEq= 1 tablet, By Mouth, 2 times a day traZODone 50 mg oral tablet, 25 mg= 0.5 tablet, By Mouth, Daily at bedtime Vitamin D3 1000 intl units oral tablet, 25 mcg= 1 tablet, By Mouth, Daily Xyzal 5 mg oral tablet, 5 mg= 1 tablet, By Mouth, Daily in PM Allergies Trulicity ibuprofen Social History Alcohol Use: Current. Frequency: 1-2 times per month. Employment/School Status: Retired. Home/Environment Living situation: Home/Independent. Lives with: Spouse. Nutrition/Health Diet: Diabetic. Substance Abuse Use: Never. Tobacco Use: Former smoker, quit more than 30 days ago. Other: smoked briefly from March- Apr 2022, had been years of nonsmoking prior. Family History Diabetes mellitus: Mother and Father. Heart attack: Mother and Father. Hypertension: Mother and Father. Immunizations Vaccine Date Status influenza virus vaccine, inactivated 07/10/2022 Given SARS-CoV-2 (COVID-19) mRNA-1273 vaccine 01/28/2022 Recorded SARS-CoV-2 (COVID-19) mRNA-1273 vaccine 07/20/2021 Recorded SARS-CoV-2 (COVID-19) mRNA-1273 vaccine 12/19/2020 Recorded SARS-CoV-2 (COVID-19) mRNA-1273 vaccine 11/22/2020 Recorded pneumococcal 23-valent vaccine 02/24/2017 Given influenza virus vaccine, inactivated 11/17/2016 Given * Mars DE LA TORRE, Radha Victor: PERFORM Event Display: Consult Authored Date: [id number] I have personally seen and evaluated??MAHSA MUHAMMAD. I have discussed the case with the??fellowand??medical student??and agree with the findings and plan as documented below with the following clarifications and addenda: ?? 62 y/o F with PMH of lung adenocarcinoma receiving XRT, chronic hypoxemic respiratory failure, DMII, HFpEF, VANDANA/OHS on nocturnal iVAPS, initially sent to [facility] [place] further management of acute anemia and dyspnea. Pulmonary medicine was consulted for possible thoracentesis. ?? Of note, recent workup has noted interval progression of left-sided hilar lymphadenopathy, as well as a new adrenal mass concerning for progression of disease. The patient reports improvement in dyspnea after receiving pRBCs. ?? Bedside evaluation notes a small pleural effusion - not amenable to bedside drainage. ?? We discussed the role of thoracentesis at this point. There does not appear to be a therapeutic benefit as the effusion is small and the patient reports improvement in symptoms since receiving pRBC transfusions - she is unlikely to note any further clinical improvement with drainage of the small effusion. With regards to diagnostic benefit - the diagnostic yield in terms of cytology and ability for molecular testing would be lower than a sample obtained from a mass, such as the adrenal lesion recently noted (patient states she may undergo a biopsy for this). If no other biopsy site is accessible and further diagnostic testing would place change roof bolter of the patient's likely metastatic disease, then CT-guided thoracentesis with IR could be performed. This was discussed with the patient who verbalized understanding and is in agreement with the plan. ?? Pulmonary medicine will sign off - please do not hesitate to contact our team for further assistance. The patient is scheduled to see me in clinic next week. We can arrange an outpatient thoracentesis with IR if patient is discharged before the procedure can be performed. ?? Radha Crews MD Pulmonary and Critical Care Medicine [facility] Setter Outdistribution lineman [facility] Available on [facility]\ [id number] \ [phone] Admission evaluation note * Gerardo DE LA TORRE, Michelle Sampson: MODIFY, MODIFY, PERFORM Event Display: Admission Note Authored Date: Patient: ??MAHSA MUHAMMAD ? Age:??62 Years?Sex:??Female?:??1960?? Chief Complaint/Reason for Consultation Presented from oncology office due to anemia of 5.7 History of Present Illness 62-year-old female with PMH of metastatic adenocarcinoma of the lung, type 2 diabetes mellitus, CHF, chronic hypercapnic and hypoxic respiratory failure on 2 L of nasal cannula at home, VANDANA/OHS uses iVAPS at night, spinal stenosis, pseudotumor cerebri directed to the ED from her oncology office dueto low hemoglobin of 5.7 and newly appearing right-sided moderate pleural and pericardial effusions. ?? Patient's medical chart reviewed, seen and examined at bedside.?? Patient states that over the pastfew weeks she has been noticing progressively worsening shortness of breath with minimum exertion and worsening lethargy and fatigue.?? Patient states she was at baseline 2 L of nasal cannula at restand with exertion but week ago she bumped up her oxygen requirement to 3 L.?? Due to the worsening symptoms patient went to her oncologist who ordered further imaging to evaluate for possible metastasis.?? Imaging showed new right-sided moderate pleural effusion and a moderate-sized pericardial effusion and labs showed significant drop in her hemoglobin from 14.9?? seen 3 months ago to 5.7 yesterday and so was patient was directed to the ED for further evaluation.?? Patient also endorses havingintermittent black tarry stools with bright red blood admixed, last time seen a week ago.?? No further episodes happened after that.?? Previously received colonoscopy 10 years ago.?? She denies any dizziness, headache, recent falls, nausea, vomiting, chest pain, palpitations, abdominal pain, constipation, diarrhea, dysuria, hematuria, hematemesis. ?? Initially in the ED patient remains afebrile, HR 82, RR 20, BP 128/60, saturation 95% on 3 L of nasal cannula.?? No leukocytosis WBC of 5, Hgb 5.7, PLT 460, electrolytes normal, BUN/creatinine 14/1.1, blood glucose 129, INR 1.1, lactate of 1, LFTs normal, troponins 18?22, C-19 negative.?? CT chest with decreased size of the right lower lobe lung nodule however there is no mediastinal adenopathy and new left adrenal mass highly concerning for metastatic lung cancer.?? Moderate right-sided pleural effusion and moderate pericardial effusion.?? Patient was consented for blood transfusion and about to receive 2 units of PRBC overnight.?? Patient will be admitted to inpatient medical service for further management. Review of Systems As in HPI Objective Measurements?? Height: 156 cm (03/15/23) Weight: 119.5 kg (03/15/23) Body Mass Index:??49.1 kg/m2??Critical (03/15/23) ? Vital Signs?? Temperature: 97.9 DegF (03/15/23 23:31:00) Temperature Route: Oral (03/15/23 23:31:00) Pulse Rate: 81 bpm (03/15/23 23:31:00) Respiratory Rate: 16 br/min (03/15/23 23:31:00) Vented: No (03/15/23 18:20:00) Systolic Blood Pressure: 126 mm Hg (03/15/23 23:31:00) Diastolic Blood Pressure: 62 mm Hg (03/15/23 23:31:00) Blood pressure sites: Arm, right (03/15/23 23:31:00) Mean Arterial Pressure: 83 mm Hg (03/15/23 23:31:00) Pulse Pressure: 64 mm Hg (03/15/23 23:31:00) Oxygen Saturation: 96 % (03/15/23 23:31:00) Liters per Minute: 3 L/min (03/15/23 23:31:00) Mode of Delivery (Oxygen): Nasal cannula (03/15/23 23:31:00) Vital Signs Comment: pt refuse weight (03/15/23 11:15:00) Early Warning Score: 2 (03/15/23 23:32:40) ? Pain Scores?? No qualifying data available. ? Intake/Output? 03/15 18:20 03/16 07:00 03/15 07:00 03/14 07:00 03/13 07:00 ?? 03/16 00:02 03/16 00:02 03/16 06:59 03/15 06:59 03/14 06:59 Intake ?303 ?0 ?303 ?0 ?0 Output ?0 ?0 ?0 ?0 ?0 Net Total ?303 ?0 ?303 ?0 ?0 ? Precautions No Precautions documented.? Physical Exam ?? Gen-able to speak in full sentences, currently on 3 L of nasal cannula HEENT- Normocephalic, Atraumatic, mild pallor, no??icterus Neck-supple, no JVD Heart-S1S2(+),??regular, no murmurs head lungs-poor bilateral air entry, decreased at bases Abdomen-soft, nontender,nondistended,??bowel sounds present, no guarding, no rigidity. Extremities-swollen bilateral lower extremities, trace edema. Neurological- AAO??3. No??gross focal neurological deficits noted. Psychiatric-patient???s mood is stable. ? (03/10/2023 13:[address] Chest W/ Contrast) MPRESSION: ?? Decreased size of the right lower lobe lung nodule, however there is new mediastinal adenopathy barbara new left adrenal mass, highly concerning for sites of metastatic lung cancer. ?? Moderate right pleural effusion. ?? Moderate pericardial effusion. ? (03/10/2023 13:[address] Ext Lower W/ Contrast Right) IMPRESSION: ?? No interval change in appearance of the lobulated complex lipomatous mass within the right adductormusculature. ? (03/15/2023 19:10 EDT Chest 2 Views Frontal and Lat) IMPRESSION: ?? No significant interval change from chest radiograph taken earlier same date. Similar small right pleural effusion with adjacent right basilar airspace atelectasis/consolidation. Mild left basilar atelectasis. ? Assessment/Plan 62-year-old female with PMH of metastatic adenocarcinoma of the lung, type 2 diabetes mellitus, CHF, chronic hypercapnic and hypoxic respiratory failure on 2 L of nasal cannula at home, VANDANA/OHS uses iVAPS at night, spinal stenosis, pseudotumor cerebri directed to the ED from her oncology office dueto low hemoglobin of 5.7 and newly appearing right-sided moderate pleural and pericardial effusions. Initially in the ED patient remains afebrile, HR 82, RR 20, BP 128/60, saturation 95% on 3 L of nasal cannula.?? No leukocytosis WBC of 5, Hgb 5.7, PLT 460, electrolytes normal, BUN/creatinine 14/1.1, blood glucose 129, INR 1.1, lactate of 1, LFTs normal, troponins 18?22, C-19 negative.?? CT chest with decreased size of the right lower lobe lung nodule however there is no mediastinal adenopathy and new left adrenal mass highly concerning for metastatic lung cancer.?? Moderate right-sided pleural effusion and moderate pericardial effusion.?? Patient was consented for blood transfusion and about to receive 2 units of PRBC overnight.?? Patient will be admitted to inpatient medical service for further management. ?? Metastatic??adenocarcinoma of lung ??(C34.90) Moderate right-sided pleural effusion -given significant drop in hemoglobin??could be hemorrhagic Moderate pericardial effusion Symptomatic normocytic anemia (D64.9) ??? GI bleed Patient??hemodynamically stable??overnight.?? Short of breath slightly improved after unit of PRBC.?? No muffled heart sounds??or hypotension.?? No signs of cardiac tamponade??seen.?As per the oncologist??note patient??needs thoracocentesis and IR paracentesis??and??fluid studies??to evaluate for metastatic progression. vitals as per unit standards Telemetry monitoring Keep active type and screen, maintain hemoglobin more than 7 S/p plan to transfuse 2 units of PRBC overnight Follow-up with repeat H&H in the a.m. Pulmonary consult in the a.m. for??moderate right-sided pleural effusion Echo ordered please Cardiology consult order placed??to evaluate about??moderate pericardial effusion We will hold off on his home aspirin 81 mg daily Given patient??stating about??intermittent GI bleed will also consult gastroenterology for further evaluation, will continue with pantoprazole 20 mg daily for now ? COPD Moderately right-sided pleural effusion Obstructive sleep apnea/obesity hypoventilation syndrome Acute on chronic hypercapnic and hypoxic respiratory failure Supplemental oxygen as needed, currently on 3 L??at baseline on 2 L Breo Ellipta Fluticasone??nasal spray Albuterol as needed iVAPS at night ?? Coronary artery disease Congestive heart failure Moderate??pericardial effusion Hypertension Hyperlipidemia On telemetry monitoring Aspirin on hold for now due to??concern for GI bleed We will continue with rosuvastatin 40 mg daily, fenofibrate Continue with diltiazem 120 mg daily with holding parameters We will continue with Lasix??60 mg??and 40 mg alternating days Echocardiogram Cardiology consult order placed ?? Mood???lamotrigine 100 mg twice daily Insomnia???diazepam 20 mg??and trazodone??25 mg daily at bedtime for insomnia Hypothyroidism???levothyroxine??100 mcg daily Diabetes mellitus???lispro sliding scale, diabetic diet ? Code???patient states that she had a DNR order??signed before??but??if in case of an acute event where she can be reversed??she??wants to??be full code for now during this hospitalization. ??Full code??order placed Diet???diabetic diet DVT prophylaxis???pneumatic compression boots, VTE prophylaxis done ?? Patient seen and examined on??03/15/2023 ?? Histories Allergies Allergies ?(Active and Proposed Allergies Only) Trulicity? (Severity: Unknown severity, Onset: Unknown) ibuprofen? (Severity: Unknown severity, Onset: Unknown) ? Past Medical History/Problem List Active Problems??(13) Central sleep apnea Depression Diabetic nephropathy GERD - Gastro-esophageal reflux disease Hyperlipidemia Hypertension Hypothyroidism Hypoventilation Obesity, Unspecified Obstructive sleep apnea Severe obesity Sleep-related hypoxia Type 2 diabetes [...] mcg/inh inhalation powder)?1?puff(s)?Inhalation?Every 4 hours?as needed?as needed Aspirin (aspirin 81 mg oral tablet)?1?tab(s)?81?Milligram?By Mouth?Daily Cholecalciferol (Vitamin D3 1000 intl units oral [...] inhalation powder)?1?puff(s)?Inhalation?Daily Furosemide (Lasix 40 mg oral tablet)?60?Milligram?1.5?tablet?By Mouth?Every otherday Furosemide (Lasix 40 mg oral tablet)?40?Milligram?1?tablet?By Mouth?Every other day Insulin Lispro (Humalog 100 u/ml subcutaneous injection)?See Instructions?Subcutaneous Infusion through insulin pump, max 250 units/d, 90 days, E 11.65 Lamotrigine (lamotrigine 100 mg oral tablet)?100?Milligram?1?tablet?By Mouth?2 times a day levocetirizine (Xyzal 5 mg oral tablet)?1?tab(s)?5?Milligram?By Mouth?Daily in PM Levothyroxine (levothyroxine 0.1 mg oral tablet)?100?Microgram?By Mouth?Daily [place]-3 Polyunsaturated Fatty Acids ([place]-3 Fish Oil 1000 mg oral capsule)?1?capsule?1,000?Milligram?By Mouth?Daily Omeprazole (omeprazole 20 mg oral delayed release tablet)?1?tab(s)?20?Milligram?By Mouth?Daily Ondansetron (ondansetron 8 mg oral tablet)?1?tab(s)?8?Milligram?By Mouth?Every 8 hours?as needed?as needed for nausea/vomiting Oxycodone (oxyCODONE 5 mg oral capsule)?1?capsule?5?Milligram?By Mouth?Every 6 hours?as needed?as needed for pain Potassium Chloride (potassium chloride 20 mEq oral tablet, extended release)?1?tab(s)?20?Milliequivalent?By Mouth?2 times a day?for 3?Days Pregabalin (Lyrica 75 mg oral capsule)?1?capsule?75?Milligram?By Mouth?2 times a day?for 30?Days Rosuvastatin (Crestor 40 mg oral tablet)?1?tab(s)?40?Milligram?By Mouth?Daily Trazodone (traZODone 50 mg oral tablet)?25?Milligram?0.5?tablet?By Mouth?Daily atbedtime ? Inpatient Medications Medications (23) Active SCHEDULED: (16) Breo Ellipta 200 mcg / 25 mcg Inhaler (Breo Ellipta 200 mcg-25 mcg Inhaler) ??1 puffs, Inhalation, Daily Cholecalciferol (Vitamin D3 1000 intl units oral tablet) ??25 mcg 1 tablet, By Mouth, Daily Diazepam 10 mg Tablet (diazepam 10 mg oral tablet) ??20 mg, By Mouth, Daily at bedtime Diltiazem 120 mg/24 hour CD Capsule (DilTIAZem (Eqv-Cardizem CD) 120 mg/24 hours oral capsule, extended release) ??120 mg, By Mouth, 2 times a day Fenofibrate 130 mg Capsule (fenofibrate 130 mg oral capsule) ??130 mg, By Mouth, Daily Fluticasone Propionate 50mcg/inh Nasal [place] (Flonase 50 mcg/inh nasal spray) ??50 mcg 1 sprays, Nares, Both, Daily Furosemide 20 mg Tablet (Lasix 40 mg oral tablet) ??60 mg, By Mouth, Every other day Furosemide 40 mg Tablet (Lasix 40 mg oral tablet) ??40 mg, By Mouth, Every other day Insulin Lispro 100 units/mL Inj (3mL) (Insulin LISPRO Sliding Scale) ??2-10 units, Subcutaneous Injection, 3 times a day before meals LamoTRIGINE 100 mg Tablet (lamotrigine 100 mg oral tablet) ??100 mg, By Mouth, 2 times a day Levothyroxine 100 mcg Tablet (levothyroxine 0.1 mg oral tablet) ??100 mcg, By Mouth, Daily NaCl 0.9% Flush 3ml (NaCL 0.9% Flush) ??3 mL, IV Push, Every 8 hours Pantoprazole 20 mg EC Tablet (pantoprazole 20 mg oral delayed release tablet) ??20 mg, By Mouth, Daily Rosuvastatin 20 mg Tablet (Crestor 20 mg oral tablet) ??40 mg, By Mouth, Daily Trazodone 50 mg Tablet (traZODone 50 mg oral tablet) ??25 mg, By Mouth, Daily at bedtime CONTINUOUS: (0) PRN: (7) Acetaminophen 325 mg Tablet (Acetaminophen Tablet) ??650 mg, By Mouth, Every 4 hours Albuterol 90mcg/Inhalation Inhaler HFA (albuterol CFC free 90 mcg/inh inhalation aerosol) ??90 mcg 1 puffs, Inhalation, Every 4 hours Melatonin 3 mg Tablet (Melatonin Tablet) ??3 mg, By Mouth, Daily at bedtime NaCl 0.9% Flush 3ml (NaCL 0.9% Flush) ??3 mL, IV Push, Every 8 hours Ondansetron 2mg/mL Inj (2mL Vial) (Zofran Inj) ??4 mg, IV Push, Every 6 hours OxyCODONE 5 mg IR Tablet (oxyCODONE 5 mg oral tablet) ??5 mg, By Mouth, Every 6 hours Senna 8.6 mg / Docusate 50 mg tablet (Docusate/Senna Tablet) ??1 tablet, By Mouth, 2 times a day ? Results Recent Labs BLOOD BANK Blood Type O Positive ()?? 03/15/2023 15:49 Antibody Screen Negative ()?? 03/15/2023 15:49 RBC Unit ID [id number] ()?? 03/15/2023 18:32 RBC Available IS ()?? 03/15/2023 18:32 ?? BLOOD COUNT & DIFF WBC 5.0 k/mm3 ()?? 03/15/2023 12:12 RBC 2.40 m/mm3 (Low)?? 03/15/2023 12:12 Hgb 5.7 Gm/dL (Critical)?? 03/15/2023 12:12 Hct 20.7 % (Low)?? 03/15/2023 12:12 MCV 86.3 femtoliters ()?? 03/15/2023 12:12 MCH 23.8 pg (Low)?? 03/15/2023 12:12 MCHC 27.5 g/dL (Low)?? 03/15/2023 12:12 Platelet Count 460 k/mm3 ()?? 03/15/2023 12:12 RDW-SD 53.7 femtoliters (High)?? 03/15/2023 12:12 MPV 9.5 femtoliters ()?? 03/15/2023 12:12 Nucleated RBC (Automated) 0.6 #/100 WBC'S ()?? 03/15/2023 12:12 Abs. NRBC 0.0 k/mm3 ()?? 03/15/2023 12:12 Abs. Neut 3.6 k/mm3 ()?? 03/15/2023 12:12 Abs. Lymph 0.9 k/mm3 ()?? 03/15/2023 12:12 Abs. Humphreys 0.4 k/mm3 ()?? 03/15/2023 12:12 Abs. Eo 0.2 k/mm3 ()?? 03/15/2023 12:12 Abs. Baso 0.0 k/mm3 ()?? 03/15/2023 12:12 Neut % 70.7 % ()?? 03/15/2023 12:12 Lymph % 17.5 % ()?? 03/15/2023 12:12 Humphreys % 8.0 % ()?? 03/15/2023 12:12 Eos % 3.0 % ()?? 03/15/2023 12:12 Baso % 0.2 % ()?? 03/15/2023 12:12 Imm Gran 0.6 % ()?? 03/15/2023 12:12 Abs. Imm Gran 0.0 k/mm3 ()?? 03/15/2023 12:12 ?? CARDIAC High Sensitivity Troponin (HSTnT) 22 ng/L (High)?? 03/15/2023 18:30 ?? CHEM GENERAL Sodium 139 mmol/L ()?? 03/15/2023 15:52 Potassium 4.3 mmol/L ()?? 03/15/2023 15:52 Chloride 99 mmol/L ()?? 03/15/2023 15:52 Bicarbonate Level 30 mmol/L (High)?? 03/15/2023 15:52 Anion Gap 10 ()?? 03/15/2023 15:52 Glucose Level 129 mg/dL (High)?? 03/15/2023 15:52 BUN 14 mg/dL ()?? 03/15/2023 15:52 Creatinine-Blood 1.1 mg/dL (High)?? 03/15/2023 15:52 Estimated GFR Creatinine 61 ML/MIN/1.73 M2 ()?? 03/15/2023 15:52 Calcium 8.8 mg/dL ()?? 03/15/2023 15:52 Protein, Total 6.5 Gm/dL ()?? 03/15/2023 15:52 Albumin 3.8 Gm/dL ()?? 03/15/2023 15:52 AG Ratio 1.4 ()?? 03/15/2023 15:52 LDH 233 units/L ()?? 03/15/2023 12:12 Alkaline Phosphatase 78 units/L ()?? 03/15/2023 15:52 AST (SGOT) 15 units/L ()?? 03/15/2023 15:52 ALT (SGPT) 6 units/L ()?? 03/15/2023 15:52 Bilirubin, Total 0.3 mg/dL ()?? 03/15/2023 15:52 Lactate 1.0 mmol/L ()?? 03/15/2023 15:52 ?? COAG INR 1.1 ()?? 03/15/2023 15:52 Protime (PT) 11.4 seconds ()?? 03/15/2023 15:52 ?? HEME OTHER Hold Lavender Top SPECIMEN DISCARDED AFTER 24 HOURS. ()?? 03/15/2023 15:52 ?? VIROLOGY COVID-19 by RT-PCR NEGATIVE ()?? 03/15/2023 18:25 ? Urinalysis?? No qualifying data available. ?? Microbiology ?? COVID-19 (Novel Coronavirus), Rapid PCR?? Completed?? Source: Nasal Body Site: Nose Collected Dt/Tm: 03/15/2023 17:54 Last Updated Dt/Tm: 03/15/2023 19:28 ? Cardiology Labs High Sensitivity Troponin (HSTnT):??22 ng/L??High (03/15/23 18:30:00) High Sensitivity Troponin (HSTnT):??18 ng/L??High (03/15/23 15:52:00) ? US Heart * Event Display: Echocardiogram - Complete Authored Date: [id number] Transthoracic Echocardiography Report (TTE) Patient Demographics Patient Name MAHSA MUHAMMAD Date of Study 03/16/2023 Corporate Gender Female Facility Race Ethnicity Date of 1960 Height: 63 inches Age 62 year(s) Weight: 271.19 pounds Accession Number [id number] BSA: 2.2 m2 Room Number S243 BMI: 48.04 kg/m2 Referring Physician Not on Staff Interpreting Lynda Whitley MD Referring MD Physician Gerardo Sampson MD [employer] Amie Vargas RCS Indications Pericardial effusion. Clinical History Morbid obesity Adenocarcinoma of lung Respiratory failure on O2 VANDANA Hypertension. Hyperlipidemia. Diabetes Mellitus. CHF Study Data Type of Study TTE procedure:Echo Complete-(Doppler, Colorflow) with Contrast. Procedure Information:Definity was administered by Expand Beyond Study Date03/16/2023 Start Time: 07:10 AM Study Location: [facility] [place] Study Status: Echo lab Patient Status: LEO Technical Quality: Technically difficult due to body habitus. Blood Pressure:127/66 mmHg EKG: Normal sinus rhythm HR: 81 bpm Contrast Medium: Definity. Amount - 2 ml 2D Measurements LV Diastolic Dimension: 5.2 cm LV Systolic Dimension: 2.7 cm LV Septum Diastolic: 1.1 cm LV PW Diastolic: 1.2 cm AO Root Dimension: 3.5 cm LA Dimension: 5.1 cm LA ESV (BP):40.8 ml LVOT Stroke Volume: 91.57 ml LA ESV Index: 19 ml/m2 Stroke Volume Index41.62 ml/m2 LVOT: 2.2 cm Cardiac Index:3.37 l/min/m2 Ascending Aorta:3.9 cm Doppler Measurements AV Peak Velocity: 175 cm/s MV Peak E-Wave: 88.6 cm/s AV Peak Gradient: 12.25 mmHg MV Peak A-Wave: 102 cm/s AV Mean Gradient: 6 mmHg MV E/A Ratio: 0.87 AV VTI:30.2 cm MV P1/2t: 47 msec LVOT Peak Velocity: 136 cm/s LVOT VTI24.1 cm MV Deceleration Time: 162 msec AV Area (Continuity):3.03 cm2 MV Area (PHT): 4.68 cm2 E' Septal Velocity: 8.49 cm/s E' Lateral Velocity: 8.38 cm/s E/Med E':10.39564 E/Lat E':10.19995 Cardiac Anatomy Left Ventricle/Interventricular Septum The left ventricular size is normal. The left ventricular wall thickness is upper normal. Normal LV systolic function. Ejection fraction is 55-65%. There are no definite regional wall motion abnormalities. Grade I, mild diastolic dysfunction with impaired LV relaxation, which may be normal for the patient's age. Left Atrium/Interatrial Septum The left atrium is normal in size. Aortic Valve There is probably mild aortic regurgitation. There is no aortic stenosis. The aortic valve is probably trileaflet . Mitral Valve The mitral valve is poorly visualized. The mitral valve is grossly normal. There is no significant mitral regurgitation. There is no significant mitral stenosis. Aorta The aortic root is normal in size. There is mild dilation of the ascending aorta . Right Ventricle The right ventricular size and function appears grossly normal. Right Atrium The right atrial size is at the upper limit of normal. Pulmonic Valve The pulmonic valve appears grossly normal. There is mild to moderate pulmonic regurgitation. Tricuspid Valve The tricuspid valve is poorly visualized. There is no significant tricuspid valve regurgitation. Pumonary Artery An accurate pulmonary artery pressure could not be obtained. Venous Structures The inferior vena cava appears mildly dilated. Pericardium/Extracardiac There is a moderate circumferential pericardial effusion (majority of fluid seen posteriorly and in the region of the right atrium). There is significant respiratory variation which can also be seen in respiratory conditions. No chamber collapse. Correlate for clinical tamponade. Summary Technically difficult study. The left ventricular size is normal. The left ventricular wall thickness is upper normal. Normal LV systolic function. Ejection fraction is 55-65%. There are no definite regional wall motion abnormalities. Grade I, mild diastolic dysfunction with impaired LV relaxation, which may be normal for the patient's age. The right ventricular size and function appears grossly normal. There is a moderate circumferential pericardial effusion (majority of fluid seen posteriorly and in the region of the right atrium). There is significant respiratory variation which can also be seen in respiratory conditions and is non specific. No chamber collapse. Correlate for clinical tamponade. Comparison Comparison is made to the study of February 08, 2017. Increase in pericardial effusion size. Signature * Event Display: Echocardiogram - Complete Authored Date: EKG study * Event Display: EKG Authored Date: Cardiology * Event Display: Cardiac Rhythm Strips Authored Date: * Event Display: Cardiac Rhythm Strips Authored Date: Hospital Progress note * Vic DE LA TORRE, Gus Meredith: SIGN Nataly Beckford NP: VERIFY, SIGN Nataly Beckford NP: SIGN, PERFORM Nataly Beckford NP: PERFORM, SIGN Nataly Beckford NP: SIGN Event Display: Progress Note Hospital Authored Date: [id number] Patient: MAHSA MUHAMMAD Age: 62 years Sex: Female : 1960 Associated Diagnoses: None Author: Shakeel AVENDANO, Nataly Vera In review, this is a 62-year-old female with PMH of metastatic adenocarcinoma of the lung, type 2 diabetes mellitus, CHF, chronic hypercapnic and hypoxic respiratory failure on 2 L of nasal cannula at home, VANDANA/OHS uses iVAPS at night, spinal stenosis, pseudotumor cerebri who was directed to the EDfrom her oncology office due to low hemoglobin of 5.7 and newly appearing right-sided moderate pleural and pericardial effusions. BIDS following for assistance with glycemic management. Patient maintaining her blood sugars on insulin pump therapy. BG review: Over the past 24 hours patient's blood glucose has trended between 102-217. Fasting blood glucose this a.m. was 157. Home DM regimen HbA1c 6% this admission in the setting of anemia. Patient reports she was diagnosed with type 2 diabetes 12 years ago and is managed by [facility]. She was last seen by Dr. Salinas in June 2022. She has an OmniPod pump with angelique CGM. Setting are as follows: Basal 12 AM -4am: 0.95 units/h 4am-4pm: 2 u/hr 4pm-12am: 2 u/hr Total 43.8 units Insulin carb ratio 1:6 ISF 1: 18 BG target 120mg/dl No changes need to be made at this time. * Bernabe Cary RN: PERFORM, SIGN, VERIFY Event Display: Progress Note Hospital Authored Date: [id number] Patient: MAHSA MUHAMMAD Age: 62 years Sex: Female : 1960 Associated Diagnoses: None Author: Bernabe Cary RN Findings Problem Related to Alteration in Respiratory Function (new) : Alteration in Respiratory Function/new 03/20/2023 9:00 EDT Alteration in Resp Status Related to COPD, Other: hypoxic respiratory failure, VANDANA Goals & Outcomes, Respiratory Pt will maintain/resume baseline physical assessment, Pt will maintain adequate nutritional intake, Pt will maintain/resume normal fluid/electrolyte balance, Pt willnot develop complications r/t immobility, Pt will demonstrate proper technique w/self care procedures Interventions, Respiratory Assess for and report S&S of respiratory distress, Position for comfort & optimal oxygenation, Monitor sputum color & consistency. Report changes to MD, Other: updraft treatments/inhalers, supplemental O2, cpap Goals/Interventions, Respiratory Yes Respiratory, Problem Start 03/15/2023 18:20 Reviewed Plan with, Respiratory Patient Patient Progression, Respiratory Patient progressing according to plan . Alteration in Tissue Perfusion : Alteration in Tissue Perfusion 03/20/2023 9:00 EDT Alteration Tissue Perfusion related to Anemia, Other: GAVE Goals & Outcomes: Tissue perfusion Pt will maintain optimal perfusion to vital organs, Pt will resume/maintain adequate peripheral circulation, Pt will experience improved tissue perfusion, Pt will achieve progressive healing of injured area, Pt will be hemodynamically stable, Pt will achieve no rmal/improved/optimal neuro status, Pt will return to baseline respiratory function, Pt will maintain adequate GI function appropriate for pt, Pt will maintain adequate function appropriate for pt, Pt/ S.O. will state understanding of plan of care Interventions: Tissue Perfusion Assess/Monitor activity tolerance, Assess/Monitor cardiac dysrhythmias, Assess/Monitor mental status, Assess/Monitor peripheral pulses & capillary refill, Assess/Monitor presence & degree of edema, Assess/Monitor vital signs per unit standard & prn, Monitor blood loss, Monitor Intake & Output, Monitor labs & report variances to provider, Physical assessment per unit standards, Position for comfort, Report changes in hemodymamics to Goals/Interventions, Tissue Perfusion Yes Tissue Perfusion, Problem Start 03/15/2023 18:20 Reviewed Plan with, Tissue Perfusion Patient Patient Progression, Tissue Perfusion Pt progressing according to plan . Nursing Data Cardiac Data. : Cardiac Data. 03/20/2023 15:00 EDT Cardiovascular Assessment Status Unchanged from recorder's assessment 03/20/2023 9:00 EDT Cardiovascular Symptoms Edema present Nail Bed Color, Fingers Pale Nail Bed Color, Toes Pale Skin Temperature Upper Extremities Warm, Dry Skin Temperature Lower Extremities Warm, Dry Heart Sounds S1, S2 Heart Rhythm Regular Cardiac Rhythm Normal sinus rhythm Capillary Refill < 3 seconds Ankle, left 1+ trace Ankle, right 1+ trace Pedal, left 1+ trace Pedal, right 1+ trace conveyor man Yes Cardiovascular WNL except 03/20/2023 8:48 EDT Hgb 7.8 Gm/dL L Hct 27.5 % L . Gastrointestinal Data. : Gastrointestinal Data. 03/20/2023 15:00 EDT Gastrointestinal Assessment Status Unchanged from recorder's assessment 03/20/2023 11:00 EDT Gastrointestinal Comment patient said there was blood in stool(after flushed); discussed need for pt to call RN to see stool the next time 03/20/2023 10:00 EDT Last Bowel Movement 03/20/2023 03/20/2023 9:00 EDT Gastrointestinal Symptoms Other: has GAVE - takes sucralfate GI WNL except Normal Bowel Pattern Daily . Genitourinary Data. : Genitourinary Data. 03/20/2023 15:00 EDT Genitourinary Assessment Status Unchanged from recorder's assessment 03/20/2023 13:00 EDT Remove Catheter Date/Time 03/18/2023 18:30 03/20/2023 9:00 EDT WNL . Musculoskeletal Data. : Musculoskeletal Data. 03/20/2023 15:00 EDT Musculoskeletal Assessment Status Unchanged from recorder's assessment 03/20/2023 9:00 EDT Musculoskeletal WNL . Neurological Data. : Neurological Data. 03/20/2023 15:00 EDT Neurological Assessment Status Unchanged from recorder's assessment 03/20/2023 9:00 EDT Neurological Symptoms Other: anxious - wants valium (takes at home) Neuro WNL except . Respiratory/Pulmonary Data. : Respiratory/Pulmonary Data. 03/20/2023 18:00 EDT Respiratory Assessment Comment symptoms improving, respiratory panel testing was negative for all items 03/20/2023 16:00 EDT Respiratory Assessment Comment oxymetalozone nasal spray given 03/20/2023 15:00 EDT Respiratory Assessment Comment respiratory panel PCR swab done and sent, droplet precautions instituted 03/20/2023 14:17 EDT Mode of Delivery (Oxygen) Nasal cannula 03/20/2023 13:00 EDT Respiratory Assessment Comment loratidine given for itchy eyes/runny nose 03/20/2023 9:00 EDT Respiratory Symptoms Dyspnea with exertion, Other: wearing 2 litres supplementalO2 nc, has cpap at night Left Lower Lobe Breath Sounds Diminished Right Lower Lobe Breath Sounds Diminished Respiratory WNL except . Vital Signs : VITAL SIGNS SECTION 03/20/2023 14:17 EDT Temperature 98.9 DegF Temperature Route Temporal Pulse Rate 83 bpm Respiratory Rate 18 br/min Systolic Blood Pressure 109 mm Hg Diastolic Blood Pressure 75 mm Hg Blood pressure sites Arm, left Mean Arterial Pressure 86 mm Hg Pulse Pressure 34 mm Hg Oxygen Saturation 91 % L Liters per Minute 2 L/min Mode of Delivery (Oxygen) Nasal cannula . Clinical Measurements : CLINICAL MEASUREMENTS 03/20/2023 5:36 EDT Weight 120.2 kg 03/19/2023 6:28 EDT Weight 119.0 kg . Narrative/Incidental Weight up 1.2kg overnight on sodium/cardiac restricted diet and po lasix, some trace LE edema but exam is not volume overloaded, I&O is 550cc negative. Continues on constant oximetry and sO2 is 88-92% on 2 litres supplemental O 2 nc, however, pt has been without her usual antihistamine for daysand started with watery eyes/runny nose - updraft treatment given,loratidine given - no effect - repiratory panel PCR swab done and sent - all results negative - pt given oxymetalozone nasal spray with reduced symptoms. Also said she had stool in BR with blood - Hgb stable at 7.8 - discussed with pt need to have RN see stool the next time, but pt has not stooled again. Insulin pump on right arm wi thout redness/irritation and pump is infusing with pt bolusing herself according to protocols at meals - seen by BIDS and no changes made to the dosing; tolerated eating at meals, oob to chair and BR, not in pain. Will continue with current care plan, check response to Oxymetalozone nasal spray tonight and anticipate pulmonary RN eval tomorrow for supplemental O2 both for nasal cannula and for pt's home cpap with discharge afterward . * Kiana Lyons DO: PERFORM, MODIFY, MODIFY, MODIFY Event Display: Progress Note Hospital Authored Date: Patient: ??MAHSA MUHAMMAD ? Age:??62 Years?Sex:??Female?:??1960?? Subjective Pt continues to desat when off of supplemental O2. Needed to be on it at home, though did not have O2 access at home. Has been on continuous NC supplementation here. Requires BiPAP at night. Started to have signs of nasal congestion and rhinitis. Will get respiratory panel on her and get afrin, as pt is immunocompromised and may have contracted a viral infection. No CP, SOB, abdominal pain, urinary symptoms. Pulm rehab to [facility] tomorrow, with likely d/c. pending adrenal biopsy results. Review of Systems ROS is negative except for what has been written in the subjective. Objective Vital Signs?? Temperature: 98.9 DegF (03/20/23 14:17:00) Temperature Route: Temporal (03/20/23 14:17:00) Pulse Rate: 83 bpm (03/20/23 14:17:00) Respiratory Rate: 18 br/min (03/20/23 14:17:00) Systolic Blood Pressure: 109 mm Hg (03/20/23 14:17:00) Diastolic Blood Pressure: 75 mm Hg (03/20/23 14:17:00) Blood pressure sites: Arm, left (03/20/23 14:17:00) Mean Arterial Pressure: 86 mm Hg (03/20/23 14:17:00) Pulse Pressure: 34 mm Hg (03/20/23 14:17:00) Oxygen Saturation:??91 %??Low (03/20/23 14:17:00) Liters per Minute: 2 L/min (03/20/23 14:17:00) Mode of Delivery (Oxygen): Nasal cannula (03/20/23 14:17:00) Early Warning Score: 2 (03/20/23 14:18:20) ? Intake/Output? 03/15 18:20 03/20 07:00 03/19 07:00 03/18 07:00 03/17 07:00 ?? 03/20 15:02 03/20 15:02 03/20 06:59 03/19 06:59 03/18 06:59 Intake ? 2937 ?360 ?894 ?240 ?720 Output ? 4925 ?700 ? 1450 ? 1200 ? 1575 Net Total ?-1988 ? -340 ? -556 ? -960 ? -855 ? Urine Count ?7 ?0 ?0 ?2 ?3 ? Physical Exam Constitutional: Alert, in no distress. Mental Status: Oriented to person, place and time. Head: Normocephalic. Eyes: Pupils are equal, round and reactive to light. Extraocular muscles intact. Ear, Nose and Throat: Oropharynx clear, mucous membranes moist. Ears and nose without masses, lesions or deformities. Trachea midline. Neck: Supple, Full range of motion. Respiratory: Clear to auscultation. Slight crackles at the bases. Cardiovascular: S1 S2 normal??regular rate and rhythm. No murmurs, rubs or gallops. No peripheral edema. JVD unable to assess. Gastrointestinal: Abdomen soft, non-tender, non-distended. Normal bowel sounds. No pulsatile mass. No hepatosplenomegaly. Genitourinary: No costovertebral angle tenderness. Neurologic: Cranial nerves II-XII grossly intact. No focal neurological deficits. Moves all extremities spontaneously. Sensation intact bilaterally. Skin: No rashes or lesions. No petechiae or purpura.?? Musculoskeletal: No cyanosis or clubbing. No gross deformities. Normal range of motion. Psychiatric: Normal mood and affect _ Inpatient Medications Medications (29) Active SCHEDULED: (20) Breo Ellipta 200 mcg / 25 mcg Inhaler (Breo Ellipta 200 mcg-25 mcg Inhaler) ??1 puffs, Inhalation, Daily Diazepam 10 mg Tablet (diazepam 10 mg oral tablet) ??20 mg, By Mouth, Daily at bedtime Diltiazem 120 mg/24 hour CD Capsule (DilTIAZem (Eqv-Cardizem CD) 120 mg/24 hours oral capsule, extended release) ??120 mg, By Mouth, 2 times a day Fenofibrate 130 mg Capsule (fenofibrate 130 mg oral capsule) ??130 mg, By Mouth, Daily Fluticasone Propionate 50mcg/inh Nasal [place] (Flonase 50 mcg/inh nasal spray) ??50 mcg 1 sprays, Nares, Both, Daily Furosemide 20 mg Tablet (Lasix 40 mg oral tablet) ??60 mg, By Mouth, Every other day Furosemide 40 mg Tablet (Lasix 40 mg oral tablet) ??40 mg, By Mouth, Every other day Guaifenesin 200mg/10mL Syrup UD (GuaiFENEsin Liquid) ??200 mg 10 mL, By Mouth, Daily at bedtime Humalog U100 Insulin Pump ??per pump settings, Subcutaneous Infusion, 3 times a day before meals and bedtime LamoTRIGINE 100 mg Tablet (lamotrigine 100 mg oral tablet) ??100 mg, By Mouth, 2 times a day Levothyroxine 100 mcg Tablet (levothyroxine 0.1 mg oral tablet) ??100 mcg, By Mouth, Daily Loratadine 10 mg Tablet (Claritin 10 mg oral tablet) ??10 mg, By Mouth, Daily NaCl 0.9% Flush 3ml (NaCL 0.9% Flush) ??3 mL, IV Push, Every 8 hours Oxymetazoline 0.05% Nasal [place] (Afrin Nasal) ??1 sprays, Nares, Both, 2 times a day Pantoprazole 40 mg EC Tablet (pantoprazole 40 mg oral delayed release tablet) ??40 mg, By Mouth, 2 times a day Rosuvastatin 20 mg Tablet (Crestor 20 mg oral tablet) ??40 mg, By Mouth, Daily Simethicone 80 mg Chewable Tablet (simethicone 80 mg oral tablet, chewable) ??160 mg, Chew, 3 timesa day Sucralfate 1 Gm Tablet (Carafate 1 gm oral tablet) ??1 Gm, By Mouth, 3 times a day before meals andbedtime Trazodone 50 mg Tablet (traZODone 50 mg oral tablet) ??25 mg, By Mouth, Daily at bedtime Vitamin D 1000 IU Tablet (Vitamin D3 1000 intl units oral tablet) ??1,000 International_Units, By Mouth, Daily CONTINUOUS: (0) PRN: (9) Acetaminophen 325 mg Tablet (Acetaminophen Tablet) ??650 mg, By Mouth, Every 4 hours Albuterol 0.083% Inhalation Solution (Albuterol 0.083% inhalation hermann) ??2.5 mg 3 mL, BAND Nebulizer, Every 30 minutes Albuterol 90mcg/Inhalation Inhaler HFA (albuterol CFC free 90 mcg/inh inhalation aerosol) ??90 mcg 1 puffs, Inhalation, Every 4 hours Diazepam 5 mg Tablet (diazepam 5 mg oral tablet) ??5 mg, By Mouth, 2 times a day Melatonin 3 mg Tablet (Melatonin Tablet) ??3 mg, By Mouth, Daily at bedtime NaCl 0.9% Flush 3ml (NaCL 0.9% Flush) ??3 mL, IV Push, Every 8 hours Ondansetron 2mg/mL Inj (2mL Vial) (Zofran Inj) ??4 mg, IV Push, Every 6 hours OxyCODONE 5 mg IR Tablet (oxyCODONE 5 mg oral tablet) ??5 mg, By Mouth, Every 6 hours Senna 8.6 mg / Docusate 50 mg tablet (Docusate/Senna Tablet) ??1 tablet, By Mouth, 2 times a day ? Results Recent Labs BLOOD COUNT & DIFF WBC 8.1 k/mm3 ()?? 03/20/2023 08:48 RBC 3.25 m/mm3 (Low)?? 03/20/2023 08:48 Hgb 7.8 Gm/dL (Low)?? 03/20/2023 08:48 Hct 27.5 % (Low)?? 03/20/2023 08:48 MCV 84.6 femtoliters ()?? 03/20/2023 08:48 MCH 24.0 pg (Low)?? 03/20/2023 08:48 MCHC 28.4 g/dL (Low)?? 03/20/2023 08:48 Platelet Count 487 k/mm3 (High)?? 03/20/2023 08:48 RDW-SD 51.4 femtoliters (High)?? 03/20/2023 08:48 MPV 9.5 femtoliters ()?? 03/20/2023 08:48 Nucleated RBC (Automated) 0.0 #/100 WBC'S ()?? 03/20/2023 08:48 Abs. NRBC 0.0 k/mm3 ()?? 03/20/2023 08:48 ?? CARDIAC Nt-Probnp 280 pg/mL (High)?? 03/19/2023 06:20 ?? CHEM GENERAL Sodium 139 mmol/L ()?? 03/20/2023 08:48 Potassium 3.9 mmol/L ()?? 03/20/2023 08:48 Chloride 98 mmol/L ()?? 03/20/2023 08:48 Bicarbonate Level 27 mmol/L ()?? 03/20/2023 08:48 Anion Gap 14 ()?? 03/20/2023 08:48 Glucose Level 181 mg/dL (High)?? 03/20/2023 08:48 Glucose, POC 217 mg/dL (High)?? 03/20/2023 11:30 BUN 14 mg/dL ()?? 03/20/2023 08:48 Creatinine-Blood 0.9 mg/dL ()?? 03/20/2023 08:48 Estimated GFR Creatinine 73 ML/MIN/1.73 M2 ()?? 03/20/2023 08:48 Calcium 9.6 mg/dL ()?? 03/20/2023 08:48 Phosphorus 2.8 mg/dL ()?? 03/20/2023 08:48 Magnesium 1.9 mg/dL ()?? 03/20/2023 08:48 ? Assessment/Plan Mahsa is a 62 y/o F with a PMHx of morbid obesity (BMI = 47.1), DM- 2,??hypertension, hyperlipidemia, asthma, VANDANA, OHS, RLL lung adenocarcinoma s/p EBUS biopsy (08/2022, Dr. Knutson), with metastases to mediastinal lymph nodes,??left hemidiaphragm & left adrenal??gland, chronic hypoxic??&hypercapnic respiratory failure on 2 L/min chronic home O2 +??iVAPS qHS, HFpEF??(TTE 02/2023),??hypothyroidism, OA, DJD, spinal stenosis, pseudotumor cerebri, GERD, depression, anxiety. Admitted on the night of 03/15 into 03/16/2023??with acute blood loss anemia 2/2??melena,??R pleural effusion,??and pericardial effusion. s/p EGD (03/17/2023, Dr. Irvin), found to have??GAVE (gastric antral vascular e ctasias) s/p extensive thermal therapy (52 ablations). Following the procedure, course complicated by [id number] HRF and was transferred to [facility], now stable and downgraded. Pt is now pending adrenal biopsy results. ?? Acute blood loss anemia Melena GAVE (gastric antral vascular ectasia) - GI input much appreciated - H&H franny = 5.7??/ 20.7 - s/p EGD (03/17/2023, Dr. Irvin) cTammywTammy GAVE (gastric antral vascular ectasias) s/p extensive thermal therapy (52 ablations) -??Pt reports no bowel movement since having endoscopy - Hgb is now stable ?? Plan: - On PPI + sucralfate - Closely monitor CBC daily - Transfuse if Hb is <7? Acute on chronic respiratory failure with hypoxia and hypercapnia Adenocarcinoma of lung Metastatic mediastinal lymphadenopathy Metastasis to adrenal gland s/p biopsy on 03/18 Obstructive sleep apnea Obesity hypoventilation syndrome Asthma Morbid obesity / BMI = 47? - Her respiratory presentation is MULTIFACTORIAL: she has VANDANA / OHS / RLL lung adenocarcinoma, but also a cardiac component with flash pulmonary edema / pleural & pericardial effusions. - Pt is s/p CT guided biopsy of left adrenal mass - Biopsy was done to drive immunotherapy - Pt transferred out of [facility] following procedure ?? Plan - Pending biopsy results - Proactive O2 supplementation to keep O2 sats > 88% and wean as tolerated - Continuos O2 monitoring as pt is not receiving O2 with iVAPs at home. Need recording of hypoxia overnight so that patient can have O2 at home with iVAPS - Pulm Rehab for Tuesday - Resume pt's home diuresis - Strict use of iVAPS qHS and naps - On fluticasone-vilanterol + PRN albuterol - Close outpatient f/u with Oncology ?? Flash pulmonary edema Pleural effusion, right Pericardial effusion Diastolic CHF Hypertension Hyperlipidemia? - Following her EGD, she had to be [facility] due to [id number] hypoxic and hypercapnic respiratory failure / flash pulmonary edema / xiqdi-fp-kannloe diastolic CHF exacerbation - [facility] Cardiology input much appreciated ?? Plan: - Continue Diltiazem 120mg BID - Continue home dose of Lasix 40mg and 60mg alternating days - Continue home fenofibrate + rosuvastatin ?? Hypothyroidism - On levothyroxine 100 mcg daily ?? Depression with anxiety - On lamotrigine + diazepam + trazodone - At home she is also on desvenlafaxine, which is not on formulary in-house ?? Quality Measures: Diet: diabetic carb counting VTE Prophylaxis:??Heparinoids contraindicated due to GI bleed; pneumoboots Code Status: Full Code ?? Patient care was discussed with ??Fede Lyons, DO Internal Medicine, PGY1 Pager: [phone] * Baldo Mistry MD: PERFORM Event Display: Progress Note Hospital Authored Date: Attending Attestation:??I saw and examined the patient with the resident team and reviewed the chart on the day of service. ??I have discussed the case and its management??with the resident as documented in the resident note on the day of service.??I agree with the resident's note and plan as documented. Note * Jayla Murguia RN: PERFORM Event Display: Discharge/Transfer Note Hospital Authored Date: Nursing Discharge Note Entered On: 03/21/2023 15:57 EDT Performed On: 03/21/2023 15:53 EDT by Jayla Murguia RN Nursing Discharge Note 2 Discharge Time : 03/21/2023 15:20 EDT Discharge Level of Care at Discharge : Home/[facility] Patient Left Unit Via : Wheelchair Patient Accompanied Off Unit with : Responsible adult DC Instructions Provided & Signed by Pt : Yes Patient Understands D/C Instructions : Yes Patient Instructions Discharge Signed : Yes Did Pt have Specialty Bed or Wound Vac : No Jayla Murguia RN - 03/21/2023 15:53 EDT * Brenda Arenas MD: PERFORM, MODIFY Event Display: Discharge/Transfer Note Hospital Authored Date: Patient: ??MAHSA MUHAMMAD ? Age:??62 Years?Sex:??Female?:??1960?? Patient Information Discharge Location: Primary Care Physician: Karolyn Zacarias MD Admit Date/Time: 03/15/23 18:20 Discharge Disposition Discharge Disposition: Home: No Services Discharge Diagnosis Acute blood loss anemia (D64.9) Acute on chronic respiratory failure with hypoxia and hypercapnia (J96.21) Adenocarcinoma of lung (C34.90) Asthma (J45.909) Depression with anxiety (F41.8) Diastolic CHF (I50.30) Flash pulmonary edema (J81.0) GAVE (gastric antral vascular ectasia) (K31.819) Hyperlipidemia (E78.5) Hypertension (I10) Hypothyroidism (E03.9) Melena (K92.1) Metastasis to adrenal gland (C79.70) Metastatic mediastinal lymphadenopathy (R59.0) Morbid obesity / BMI = 47 (E66.01) Obesity hypoventilation syndrome (E66.2) Obstructive sleep apnea (G47.33) Pericardial effusion (I31.39) Pleural effusion, right (J90) Central sleep apnea Depression Diabetic nephropathy Hyperlipidemia Hypertension Hypothyroidism Obesity, Unspecified Obstructive sleep apnea Sleep-related hypoxia ?? _ Discharge Medications Acetaminophen/Butalbital/Caffeine (acetaminophen/butalbital/caffeine 325 mg-50 mg-40 mg oral tablet)?1?tab(s)?By Mouth?Every 6 hours?as needed?as needed Albuterol (albuterol 90 mcg/inh inhalation powder)?1?puff(s)?Inhalation?Every 4 hours?as needed?as needed Aspirin (aspirin 81 mg oral tablet)?1?tab(s)?81?Milligram?By Mouth?Daily Cholecalciferol (Vitamin D3 1000 intl units oral tablet)?1?tab(s)?25?Microgram?By Mouth?Daily Desvenlafaxine (desvenlafaxine 25 mg oral tablet, extended release)?1?tab(s)?25?Milligram?By Mouth?Daily?do not crush or chew Diazepam (diazepam 10 mg oral tablet)?20?Milligram?2?tablet?By Mouth?Daily at bedtime Diltiazem (DilTIAZem (Eqv-Cardizem CD) 120 mg/24 hours oral capsule, extended release)?1?capsule?120?Milligram?By Mouth?2 times a day Durable Medical Equipment ([employer] dash pods)?See Instructions?e11.9, use as directed with [...] inhalation powder)?1?puff(s)?Inhalation?Daily Furosemide (Lasix 40 mg oral tablet)?60?Milligram?1.5?tablet?By Mouth?Every otherday Furosemide (Lasix 40 mg oral tablet)?40?Milligram?1?tablet?By Mouth?Every other day Insulin Lispro (Humalog 100 u/ml subcutaneous injection)?See Instructions?Subcutaneous Infusion through insulin pump, max 250 units/d, 90 days, E 11.65 Lamotrigine (lamotrigine 100 mg oral tablet)?100?Milligram?1?tablet?By Mouth?2 times a day levocetirizine (Xyzal 5 mg oral tablet)?1?tab(s)?5?Milligram?By Mouth?Daily in PM Levothyroxine (levothyroxine 0.1 mg oral tablet)?100?Microgram?By Mouth?Daily [place]-3 Polyunsaturated Fatty Acids ([place]-3 Fish Oil 1000 mg oral capsule)?1?capsule?1,000?Milligram?By Mouth?Daily Ondansetron (ondansetron 8 mg oral tablet)?1?tab(s)?8?Milligram?By Mouth?Every 8 hours?as needed?as needed for nausea/vomiting Oxycodone (oxyCODONE 5 mg oral capsule)?1?capsule?5?Milligram?By Mouth?Every 6 hours?as needed?as needed for pain Pantoprazole (pantoprazole 40 mg oral delayed release tablet)?40?Milligram?By Mouth?2 times a day Potassium Chloride (potassium chloride 20 mEq oral tablet, extended release)?1?tab(s)?20?Milliequivalent?By Mouth?2 times a day?for 3?Days Pregabalin (Lyrica 75 mg oral capsule)?1?capsule?75?Milligram?By Mouth?2 times a day?for 30?Days Rosuvastatin (Crestor 40 mg oral tablet)?1?tab(s)?40?Milligram?By Mouth?Daily Sucralfate (Carafate 1 gm oral tablet)?1?gram?By Mouth?3 times a day before meals and bedtime Trazodone (traZODone 50 mg oral tablet)?25?Milligram?0.5?tablet?By Mouth?Daily atbedtime ? Durable Medical Equipment Discharge recommendations: Home (07/11/22) Discharge Medical Equipment Companies: [employer] (07/15/22) Patient Going Home on Oxygen: Yes (07/15/22) Portable unit required: Yes (07/15/22) Oxygen Device used at Home: Nasal cannula (07/15/22) CPAP/BiPAP Mask Type: Nasal (03/21/23) CPAP/BiPAP Mask Size: Other: HOME MASK (03/21/23) Ambulatory devices needed: None (03/21/23) ? Medications Started Pantoprazole (pantoprazole 40 mg oral delayed release tablet)?40?Milligram?By Mouth?2 times a day Sucralfate (Carafate 1 gm oral tablet)?1?gram?By Mouth?3 times a day before meals and bedtime Medications Discontinued Omeprazole PCP Follow-Up/Heads-Up Blood loss anemia Future Appointments Tuesday 1:20 PM EDT ?? With: Radha Crews MD Where: [facility] [address] [place] [id number] Status: Pending Hospital Course Mahsa is a 62 y/o F with a PMHx of morbid obesity, DM-2, hypertension, hyperlipidemia, asthma, VANDANA, OHS, RLL lung adenocarcinoma s/p EBUS biopsy (08/2022, Dr. Knutson), with metastases to mediastinal lymph nodes, left hemidiaphragm & left adrenal gland, chronic hypoxic & hypercapnic respiratory failure on 2 L/min chronic home O2 + iVAPS qHS, HFpEF (TTE 02/2023), hypothyroidism, OA, DJD,spinal stenosis, pseudotumor cerebri, GERD, depression, anxiety. Admitted on the night of 03/15 into03/16/2023 with acute blood loss anemia 2/2 melena, R pleural effusion, and pericardial effusion. s/p EGD (03/17/2023, Dr. Irvin), found to have GAVE (gastric antral vascular ectasias) s/p extensive thermal therapy (52 ablations). Following the procedure, course complicated by [id number] HRF and was transferred to [facility], now stable and downgraded. Pt is pending adrenal biopsy results. ?? Her hemoglobin has been stable with only one episode of small amount of dark red blood in stool. She adequately diuresed and is now on her home regimen of diuretics. She is stable for discharge home with the following recommendations outlined by problem below: ?? Acute blood loss anemia Melena GAVE (gastric antral vascular ectasia) ??- H&H franny = 5.7 / 20.7 ??- s/p EGD (03/17/2023, Dr. Irvin) c.w. GAVE (gastric antral vascular ectasias) s/p extensive thermal therapy (52 ablations) ??- Hgb??has been stable ~7 ?? Plan: ??- Continue Pantoprazole 40 mg BID - Continue??Sucralfate?? - Repeat H/H at PCP office in 2-4 days ?? Acute on chronic respiratory failure with hypoxia and hypercapnia Adenocarcinoma of lung Metastatic mediastinal lymphadenopathy Metastasis to adrenal gland s/p biopsy on 03/18 Obstructive sleep apnea Obesity hypoventilation syndrome Asthma Morbid obesity / BMI = 47 ?- Her respiratory presentation is MULTIFACTORIAL: she has VANDANA / OHS / RLL lung adenocarcinoma, but also a cardiac component with flash pulmonary edema / pleural & pericardial effusions. ??- Pt is s/p CT guided biopsy of left adrenal mass ??- Biopsy was done to drive immunotherapy ?? Plan ??- Pending biopsy results ??-??Supplemental oxygen: 2 L at rest, 3 L with activity?-??Continue home diuretics ??- Strict use of iVAPS qHS and naps ??- On fluticasone-vilanterol + PRN albuterol ??- Close outpatient f/u with Oncology ? Flash pulmonary edema Pleural effusion, right Pericardial effusion Diastolic CHF Hypertension Hyperlipidemia ?- Following her EGD, she had to be transferred to [address] due to qjfav-[id number]-[id number] hypoxic and hypercapnic respiratory failure / flash pulmonary edema / ypsae-ue-statbhv diastolic CHF exacerbation ??- [facility] Cardiology consulted??and??saw patient, assisted w management ?? Plan: ??- Continue Diltiazem 120mg BID ??- Continue home dose of Lasix 40mg and 60mg alternating days ??- Continue home fenofibrate + rosuvastatin ?? Objective Measurements?? Height: 159 cm (03/21/23) Weight: 121.1 kg (03/21/23) Dry Weight: 123 kg (03/16/23) Body Mass Index:??49.17 kg/m2??Critical (03/17/23) ? Vital Signs?? Temperature: 97.7 DegF (03/21/23 07:00:00) Temperature Route: Oral (03/21/23 07:00:00) Pulse Rate:??95 bpm??High (03/21/23 08:39:00) Respiratory Rate: 22 br/min (03/21/23 07:00:00) Systolic Blood Pressure: 125 mm Hg (03/21/23 08:39:00) Diastolic Blood Pressure: 70 mm Hg (03/21/23 08:39:00) Blood pressure sites: Arm, left (03/21/23 02:54:00) Mean Arterial Pressure: 75 mm Hg (03/21/23 02:54:00) Pulse Pressure: 62 mm Hg (03/21/23 02:54:00) Oxygen Saturation:??90 %??Low (03/21/23 07:00:00) Liters per Minute: 2 L/min (03/21/23 07:00:00) Mode of Delivery (Oxygen): Nasal cannula (03/21/23 07:00:00) Early Warning Score: 6 (03/21/23 11:18:01) ? . Physical Exam General:??morbidly obese. Sitting up in bed. No acute distress. Head:??Normocephalic. Atraumatic. Eyes:??PERRL. EOMI.?? ENT:??Moist mucous membranes. Oropharynx is clear, without posterior erythema.?? Respiratory:??Diminished but clear.?? No wheezes, rales, or rhonchi. Normal respiratory effort. Cardiovascular:??Regular rate and rhythm. S1, S2 normal. No murmurs, rubs, or gallops. Gastrointestinal:??Soft. Non-distended. Normoactive bowel sounds. Non-tender. No rebound or guarding.?? Musculoskeletal:??No clubbing, cyanosis. No edema. Skin:??Warm, dry. No rashes. Neurological:??Alert, awake, and oriented x 3 (person, place, time). Cranial nerves 2-12 grossly intact. Psychological:??Normal mood. Normal affect. Surgical Procedures Colonoscopy/Gastroscopy (EGD) 03/17/2023 11:55 [facility] G[facility]ology Cardiology Endocrinology Pending Results Add On Lab Order ordered on 03/16/2023 Add On Lab Order ordered on 03/16/2023 Add On Lab Order ordered on 03/17/2023 Pathology Tissue Request ordered on 03/18/2023 Transfuse RBCs ordered on 03/15/2023 Patient Education Titles Anemia?? Follow-Up Appointments Added Follow Up ?Time Frame ?Comments Rell DE LA TORRE, Karolyn Patient Instructions You were hospitalized for anemia??and shortness of breath.?The source of your bleed was found jc a gastric??antral vascular ectasias??and you had an intervention with??GI. This procedure is called??an ablation that stopped the??bleeding in your GI tract.?? Following your procedure??you??had co mplications with??a heart failure exacerbation??and difficulty breathing.?? You have now improved and you are able to be discharged home. ?? Diagnosis: Acute blood loss anemia Gastric antral vascular ectasia Acute on chronic hypoxic hypercapnic respiratory failure ?? Patient care instructions: ?Start taking pantoprazole 40 mg twice daily and??sucralfate, these medications have been sent to your pharmacy ?Follow-up with pulmonology on Tuesday, you have an appointment scheduled at that time ?Follow-up with your primary care doctor within??3 days to recheck your blood count, call to arrange follow-up ??? You were seen by pulmonary rehab. This is your oxygen requirements: ? 2 LPM at rest, 3 LPM with activity ?Continue taking all other medications as prescribed ? Please return to the emergency department if you have??large bloody stools, if you vomit blood,??dizziness,??weakness,??loss of consciousness, fall,??trouble breathing,??chest pain, palpitations, or any other concerning symptoms you may have. Results Discharge Labs BLOOD BANK Blood Type O Positive ()?? 03/15/2023 15:49 Antibody Screen Negative ()?? 03/15/2023 15:49 RBC Unit ID [id number] ()?? 03/15/2023 18:32 RBC Available PT ()?? 03/15/2023 18:32 ?? BLOOD COUNT & DIFF WBC 8.2 k/mm3 ()?? 03/21/2023 00:47 RBC 3.12 m/mm3 (Low)?? 03/21/2023 00:47 Hgb 7.5 Gm/dL (Low)?? 03/21/2023 00:47 Hct 26.6 % (Low)?? 03/21/2023 00:47 MCV 85.3 femtoliters ()?? 03/21/2023 00:47 MCH 24.0 pg (Low)?? 03/21/2023 00:47 MCHC 28.2 g/dL (Low)?? 03/21/2023 00:47 Platelet Count 462 k/mm3 (High)?? 03/21/2023 00:47 RDW-SD 51.7 femtoliters (High)?? 03/21/2023 00:47 MPV 9.7 femtoliters ()?? 03/21/2023 00:47 Nucleated RBC (Automated) 0.0 #/100 WBC'S ()?? 03/21/2023 00:47 Abs. NRBC 0.0 k/mm3 ()?? 03/21/2023 00:47 Abs. Neut 5.4 k/mm3 ()?? 03/16/2023 07:14 Abs. Lymph 0.7 k/mm3 (Low)?? 03/16/2023 07:14 Abs. Humphreys 0.6 k/mm3 ()?? 03/16/2023 07:14 Abs. Eo 0.2 k/mm3 ()?? 03/16/2023 07:14 Abs. Baso 0.0 k/mm3 ()?? 03/16/2023 07:14 Neut % 78.2 % (High)?? 03/16/2023 07:14 Lymph % 10.3 % (Low)?? 03/16/2023 07:14 Humphreys % 8.1 % ()?? 03/16/2023 07:14 Eos % 2.5 % ()?? 03/16/2023 07:14 Baso % 0.3 % ()?? 03/16/2023 07:14 Retic Count 4.5 % (High)?? 03/17/2023 00:17 Retic Count Corrected 2.6 % (High)?? 03/17/2023 00:17 Retic Production Index 1.7 % ()?? 03/17/2023 00:17 Imm Gran 0.6 % ()?? 03/16/2023 07:14 Abs. Imm Gran 0.0 k/mm3 ()?? 03/16/2023 07:14 ? CARDIAC Nt-Probnp 280 pg/mL (High)?? 03/19/2023 06:20 High Sensitivity Troponin (HSTnT) 16 ng/L (High)?? 03/16/2023 07:14 ?? CHEM GENERAL Sodium 140 mmol/L ()?? 03/21/2023 00:46 Potassium 3.9 mmol/L ()?? 03/21/2023 00:46 Chloride 98 mmol/L ()?? 03/21/2023 00:46 Bicarbonate Level 30 mmol/L (High)?? 03/21/2023 00:46 Anion Gap 12 ()?? 03/21/2023 00:46 Glucose Level 102 mg/dL (High)?? 03/21/2023 00:46 Glucose, POC 135 mg/dL (High)?? 03/21/2023 11:12 Hemoglobin A1C (Monitoring) 6.0 % (High)?? 03/16/2023 07:14 BUN 17 mg/dL ()?? 03/21/2023 00:46 Creatinine-Blood 1.0 mg/dL ()?? 03/21/2023 00:46 Estimated GFR Creatinine 63 ML/MIN/1.73 M2 ()?? 03/21/2023 00:46 Calcium 8.9 mg/dL ()?? 03/21/2023 00:46 Phosphorus 3.4 mg/dL ()?? 03/21/2023 00:46 Magnesium 1.9 mg/dL ()?? 03/21/2023 00:46 Protein, Total 6.5 Gm/dL ()?? 03/15/2023 15:52 Albumin 3.8 Gm/dL ()?? 03/15/2023 15:52 AG Ratio 1.4 ()?? 03/15/2023 15:52 LDH 276 units/L (High)?? 03/17/2023 00:17 Alkaline Phosphatase 78 units/L ()?? 03/15/2023 15:52 AST (SGOT) 15 units/L ()?? 03/15/2023 15:52 ALT (SGPT) 6 units/L ()?? 03/15/2023 15:52 Bilirubin, Total 0.3 mg/dL ()?? 03/15/2023 15:52 Vitamin B12 Level 898 pg/mL ()?? 03/17/2023 00:17 Folic Acid Level 9.5 ng/mL ()?? 03/17/2023 00:17 Lactate 1.0 mmol/L ()?? 03/15/2023 15:52 Iron Level 36 mcg/dL ()?? 03/17/2023 00:17 C-Reactive Protein 1.1 mg/dL (High)?? 03/16/2023 07:14 ? COAG INR 1.1 ()?? 03/15/2023 15:52 Protime (PT) 11.4 seconds ()?? 03/15/2023 15:52 ?? HEME OTHER Sed Rate 21 mm/hr (High)?? 03/16/2023 07:14 Hold Lavender Top SPECIMEN DISCARDED AFTER 24 HOURS. ()?? 03/15/2023 15:52 ?? URINE OTHER Est Creatinine Clearance 48.62 mL/min ()?? 03/21/2023 02:46 ? VIROLOGY Adenovirus by PCR NEGATIVE ()?? 03/20/2023 15:20 Coronavirus 229E by PCR (not COVID-19) NEGATIVE ()?? 03/20/2023 15:20 Coronavirus HKU1 by PCR (not COVID-19) NEGATIVE ()?? 03/20/2023 15:20 Coronavirus NL63 by PCR (not COVID-19) NEGATIVE ()?? 03/20/2023 15:20 Coronavirus OC43 by PCR (not COVID-19) NEGATIVE ()?? 03/20/2023 15:20 Human Metapneumovirus by PCR NEGATIVE ()?? 03/20/2023 15:20 Rhinovirus/Enterovirus by PCR NEGATIVE ()?? 03/20/2023 15:20 Influenza A by PCR NEGATIVE ()?? 03/20/2023 15:20 Influenza B by PCR NEGATIVE ()?? 03/20/2023 15:20 Parainfluenza 1 by PCR NEGATIVE ()?? 03/20/2023 15:20 Parainfluenza 2 by PCR NEGATIVE ()?? 03/20/2023 15:20 Parainfluenza 3 by PCR NEGATIVE ()?? 03/20/2023 15:20 Parainfluenza 4 by PCR NEGATIVE ()?? 03/20/2023 15:20 RSV by PCR NEGATIVE ()?? 03/20/2023 15:20 Bordetella Pertussis by PCR NEGATIVE ()?? 03/20/2023 15:20 Chlamydophila Pneumoniae by PCR NEGATIVE ()?? 03/20/2023 15:20 Mycoplasma Pneumoniae by PCR NEGATIVE ()?? 03/20/2023 15:20 COVID-19 by RT-PCR NEGATIVE ()?? 03/15/2023 18:25 COVID-19 (SARS-CoV-2) by PCR NEGATIVE ()?? 03/20/2023 15:20 Bordetella Parapertussis by PCR NEGATIVE ()?? 03/20/2023 15:20 ? Blood Glucose Trend Glucose Level:??102 mg/dL??High (03/21/23 00:46:00) Glucose, POC:??135 mg/dL??High (03/21/23 11:12:00) Glucose, POC:??157 mg/dL??High (03/21/23 07:28:00) Glucose, POC:??102 mg/dL??High (03/20/23 21:16:00) Glucose, POC:??175 mg/dL??High (03/20/23 16:03:00) ? Microbiology ?? COVID-19 (Novel Coronavirus), Rapid PCR?? Completed?? Source: Nasal Body Site: Nose Collected Dt/Tm: 03/15/2023 17:54 Last Updated Dt/Tm: 03/15/2023 19:28 Respiratory Pathogen PCR with COVID-19?? Completed?? Source: Nasopharyngeal Swab Body Site: Nose Collected Dt/Tm: 03/20/2023 15:24 Last Updated Dt/Tm: 03/20/2023 18:53 ? discussed with attending physician Dr. Mistry ?? Brenda Arenas MD PGY-3, Internal Medicine-Pediatrics Pager: [phone] 30??minutes spent on discharge * Luca KING, Sharyn Thompson: PERFORM, MODIFY Event Display: Patient Education/Instruction Authored Date: [id number] Inpatient Adult Discharge Instructions [address] [id number] Name: Tyrone MUHAMMAD : 1960 Visit: 03/15/2023 18:20:00 Current Date: 03/21/2023 14:04 Account: [id number] Inpatient Adult Discharge Instructions We would like [...] and their families. Surveys are administered by [employer] ?? If further treatment with your primary care physician or another doctor is recommended, it is important for you to keep the appointment. Call your primary care physician or return to the Emergency Department immediately if your condition worsens, fails to improve, or new symptoms develop. If you need to find a doctor, you can call [facility] [employer] for a referral at [phone] or toll free at [phone] ([phone]) or log in to [email or web address] ?? You can view and manage your care through the patient portal or by using a health care yuliana of your choosing. [employer] is a website that allows you to securely view your medical information including your hospital discharge summary, office visit summaries, medications and follow-up visits. You can also request appointments, renew medications, and request access to your medical information using a health care yuliana of your choosing, or just ask a question. You can enroll at [email or web address] or register during your next office visit. You have been discharged from [facility], Patient Care Unit: M7. If you have any questions regarding these instructions after you leave, please call us and we will be happy to assist you. [facility] Your Care Team Attending Physician Fede DE LA TORRE, Baldo Consulting Providers Pranav DE LA TORRE, Bernadine Irvin Jr, MD, Shahab Snell MD , Juan Diego Gudino Discharging Providers Dagoberto DE LA TORRE, Brenda Fregoso Reason for Admission General medical Your Diagnosis Pleural effusion, right Pericardial effusion Adenocarcinoma of lung Obstructive sleep apnea Hypertension Severe obesity Anemia Melena GAVE (gastric antral vascular ectasia) Acute on chronic respiratory failure with hypoxia and hypercapnia Obesity hypoventilation syndrome Mediastinal lymphadenopathy Metastasis to adrenal gland Flash pulmonary edema Diastolic CHF Hypertension Hyperlipidemia Hypothyroidism Depression with anxiety Asthma Tests Performed Below is a partial list of the tests performed during your hospitalization. You may have had other tests and procedures not included in this list. Please discuss all test results with your provider. Basic Metabolic Panel BUN C-REACTIVE PROTEIN CBC CBC w/ Differential Comprehensive Metabolic Panel COVID-19 (Novel Coronavirus), Rapid PCR Creatinine FOLIC ACID GLUCOSE POC HEMOGLOBIN A1C High??Sensitivity??Troponin T HOLD LAVENDER TUBE INR IRON Lactate Level LDH Lytes Magnesium Level Phosphorus Level ProBNP Respiratory Pathogen PCR with COVID-19 RETICULOCYTE COUNT SEDIMENTATION RATE,AUTOMATED Troponin T, High Sensitivity Type and Screen VITAMIN B12 CT Guidance Needle CXR Portable US Doppler Ext Lower Venous Bilat XR Chest 2 Views Frontal and Lat Primary Care Provider Karolyn Zacarias MD Advance Directive Health Care Proxy on File Yes - Health Care Proxy Discharge Vitals Temperature: 97.7 DegF Height: 159 cm Pulse Rate:??95 bpm??High Weight: 121.1 kg Respiratory Rate: 22 br/min Body Mass Index:??49.17 kg/m2??Critical Systolic Blood Pressure: 125 mm Hg Body surface area: 2.34 Diastolic Blood Pressure: 70 mm Hg ?? Oxygen Saturation:??90 %??Low ?? Studies Pending All tests and labs ordered during this hospital stay have been completed unless listed below. Please discuss all pending results with your provider listed above in these instructions. ?? Add On Lab Order Pathology Tissue Request () Transfuse RBCs What to do next Instructions From Your Doctor You were hospitalized for anemia??and shortness of breath.?The source of your bleed was found jc a gastric??antral vascular ectasias??and you had an intervention with??GI. This procedure is called??an ablation that stopped the??bleeding in your GI tract.?? Following your procedure??you??had co mplications with??a heart failure exacerbation??and difficulty breathing.?? You have now improved and you are able to be discharged home. ?? Diagnosis: Acute blood loss anemia Gastric antral vascular ectasia Acute on chronic hypoxic hypercapnic respiratory failure ?? Patient care instructions: ?Start taking pantoprazole 40 mg twice daily and??sucralfate, these medications have been sent to your pharmacy ?Follow-up with pulmonology on Tuesday, you have an appointment scheduled at that time ?Follow-up with your primary care doctor within??3 days to recheck your blood count, call to arrange follow-up ??? You were seen by pulmonary rehab. This is your oxygen requirements: ? 2 LPM at rest, 3 LPM with activity ?Continue taking all other medications as prescribed ? Please return to the emergency department if you have??large bloody stools, if you vomit blood,??dizziness,??weakness,??loss of consciousness, fall,??trouble breathing,??chest pain, palpitations, or any other concerning symptoms you may have. Discharge Orders Scheduled Follow-Up Appointments Tuesday 1:20 PM EDT ?? With: Mars DE LA TORRE, Radha Victor Where: [facility] [address] [place] [address]- Status: Pending You Need to Schedule the Following Appointments Follow Up with??Karolyn Zacarias MD Where: ?? Discharge Medications MAHSA MUHAMMAD :1960 Visit Date:03/15/2023 Medications: Please continue your medications until treatment is completed or stopped by your provider. Medications not listed below should be discontinued. Discuss any questions related to medications with your provider. What How Much When Instructions Next Dose New Pantoprazole (pantoprazole 40 mg oral delayed releasetablet) 40 Milligram Oral Twice a day Pickup at [facility]/pharmacy #[id number] today at 9pm New Sucralfate (Carafate 1 gm oral tablet) 1 gram Oral 3 times a day before meals and bedtime Pickup at [facility]/pharmacy #[id number] today before dinner Changed Diazepam (diazepam 10 mg oral tablet) 2 tab(s) Oral Daily at Bedtime today at bedtime Unchanged Acetaminophen/ Butalbital/ Caffeine (acetaminophen/ butalbital/ caffeine 325 mg-50 mg-40 mg oral tablet) 1 tab(s) Oral Every 6 hours as needed for as needed as you need Unchanged Albuterol (albuterol 90 mcg/ inh inhalation powder) 1 puff(s) Inhalation Every 4 hours as needed for as needed as you need Unchanged Aspirin (aspirin 81 mg oral tablet) 1 tab(s) Oral Daily tomorrow in am Unchanged Cholecalciferol (Vitamin D3 1000 intl units oral tablet) 1 tab(s) Oral Daily tomorrow in am Unchanged Desvenlafaxine (desvenlafaxine 25 mg oral tablet, extended release) 1 tab(s) Oral Daily do not crush or chew ?? take as your usual schedule. Not given today Unchanged Diltiazem (DilTIAZem (Eqv-Cardizem CD) 120 mg/ 24 hours oral capsule, extended release) 1 capsule Oral Twice a day today at 9pm Unchanged Durable Medical Equipment (iVAPS) See instructions with TVa at 8.6 L/ minute with EPAP of 9 and min PS of 6 and max PS of 19 with target patient rate at 20. ?? N/A Unchanged Durable Medical Equipment (omnipod dash pods) See instructions e11.9, use as directed with short acting insulin, change out every 2 days. 30 day supply ?? N/A Unchanged Fenofibrate (fenofibrate 145 mg oral tablet) 1 tab(s) Oral Daily tomorrow in am Unchanged Fluticasone Nasal (Flonase 50 mcg/ inh nasal spray) 1 spray(s) Daily Pt uses prn ?? tomorrow Unchanged fluticasone-vilanterol (Breo Ellipta 100 mcg-25 mcg/ inh inhalation powder) 1 puff(s) Inhalation Daily tomorrow in am Unchanged Furosemide (Lasix 40 mg oral tablet) 1.5 tab(s) Oral Every other day on Tuesday in am Unchanged Furosemide (Lasix 40 mg oral tablet) 1 tab(s) Oral Every other day tomorrow in am Unchanged Insulin Lispro (Humalog 100 u/ ml subcutaneous injection) See instructions Subcutaneous Infusion through insulin pump, max 250 units/ d, 90 days, E 11.65 ?? as prescribed to you Unchanged Lamotrigine (lamotrigine 100 mg oral tablet) 1 tab(s) Oral Twice a day today at 9pm Unchanged levocetirizine (Xyzal 5 mg oral tablet) 1 tab(s) Oral Daily in PM today in PM Unchanged Levothyroxine (levothyroxine 0.1 mg oral tablet) 100 Microgram Oral Daily tomorrow in am Unchanged Phoenix-3 Polyunsaturated Fatty Acids (Phoenix-3 Fish Oil 1000 mg oral capsule) 1 capsule Oral Daily tomorrow in am Unchanged Ondansetron (ondansetron 8 mg oral tablet) 1 tab(s) Oral Every 8 hours as needed for as needed for nausea/vomiting as you need Unchanged Oxycodone (oxyCODONE 5 mg oral capsule) 1 capsule Oral Every 6 hours as needed for as needed for pain as you need Unchanged Potassium Chloride (potassium chloride 20 mEq oral tablet, extended release) 1 tab(s) Oral Twice a day Duration: 3 Days today at 9pm Unchanged Pregabalin (Lyrica 75 mg oral capsule) 1 capsule Oral Twice a day Duration: 30 Days today at 9pm Unchanged Rosuvastatin (Crestor 40 mg oral tablet) 1 tab(s) Oral Daily today at bedtime Unchanged Trazodone (traZODone 50 mg oral tablet) 0.5 tab(s) Oral Daily at Bedtime today at bedtime Pharmacy Information [facility]/pharmacy #[id number]: [address] [place], [place] [id number] [phone] ?? What How Much When Comments Stop Taking Omeprazole (omeprazole 20 mg oral delayed release tablet) 1 tab(s) Oral Daily Test Results Below is a partial list of the most recent Laboratory test results done prior to this discharge. You may have had other tests and procedures not included in this list. Please discuss all test resultswith your provider. Est Creatinine Clearance - 48.62 mL/min (03/21/2023) RBC Available - PT (03/15/2023) RBC Unit ID - [id number] (03/15/2023) Basic Metabolic Panel (03/21/2023) ???Sodium - 140 mmol/L???Potassium - 3.9 mmol/L???Chloride - 98 mmol/L???Bicarbonate Level - 30 mmol/L???Anion Gap - 12???Glucose Level - 102 mg/dL???BUN - 17 mg/dL???Creatinine-Blood - 1.0 mg/dL???Estimated GFR Creatinine - 63 ML/MIN/1.73 M2???Calcium - 8.9 mg/dL BUN (03/19/2023) ???BUN - 12 mg/dL C-REACTIVE PROTEIN (03/16/2023) ???C-Reactive Protein - 1.1 mg/dL CBC (03/21/2023) ???WBC - 8.2 k/mm3???RBC - 3.12 m/mm3???Hgb - 7.5 Gm/dL???Hct - 26.6 %???MCV - 85.3 femtoliters???MCH - 24.0 pg???MCHC - 28.2 g/dL???Platelet Count - 462 k/mm3???RDW-SD - 51.7 femtoliters???MPV - 9.7femtoliters???Nucleated RBC (Automated) - 0.0 #/100 WBC'S???Abs. NRBC - 0.0 k/mm3 CBC w/ Differential (03/16/2023) ???WBC - 6.9 k/mm3???RBC - 3.11 m/mm3???Hgb - 7.5 Gm/dL???Hct - 27.0 %???MCV - 86.8 femtoliters???MCH - 24.1 pg???MCHC - 27.8 g/dL???Platelet Count - 427 k/mm3???RDW-SD - 51.8 femtoliters???MPV - 9.6femtoliters???Nucleated RBC (Automated) - 0.4 #/100 WBC'S???Abs. NRBC - 0.0 k/mm3???Abs. Neut - 5.4 k/mm3???Abs. Lymph - 0.7 k/mm3???Abs. Humphreys - 0.6 k/mm3???Abs. Eo - 0.2 k/mm3???Abs. Baso - 0.0 k/mm3???Neut % - 78.2 %???Lymph % - 10.3 %???Humphreys % - 8.1 %???Eos % - 2.5 %???Baso % - 0.3 %???Imm Gran - 0.6 %???Abs. Imm Gran - 0.0 k/mm3 Comprehensive Metabolic Panel (03/15/2023) ???Sodium - 139 mmol/L???Potassium - 4.3 mmol/L???Chloride - 99 mmol/L???Bicarbonate Level - 30 mmol/L???Anion Gap - 10???Glucose Level - 129 mg/dL???BUN - 14 mg/dL???Creatinine-Blood - 1.1 mg/dL???Estimated GFR Creatinine - 61 ML/MIN/1.73 M2???Calcium - 8.8 mg/dL???Protein, Total - 6.5 Gm/dL???Albumin - 3.8 Gm/dL???AG Ratio - 1.4???Alkaline Phosphatase - 78 units/L???AST (SGOT) - 15 units/L???ALT (SGPT) - 6 units/L???Bilirubin, Total - 0.3 mg/dL COVID-19 (Novel Coronavirus), Rapid PCR (03/15/2023) ???COVID-19 by RT-PCR - NEGATIVE Creatinine (03/19/2023) ???Creatinine-Blood - 0.9 mg/dL???Estimated GFR Creatinine - 73 ML/MIN/1.73 M2 FOLIC ACID (03/17/2023) ???Folic Acid Level - 9.5 ng/mL GLUCOSE POC (03/21/2023) ???Glucose, POC - 135 mg/dL HEMOGLOBIN A1C (03/16/2023) ???Hemoglobin A1C (Monitoring) - 6.0 % High??Sensitivity??Troponin T (03/15/2023) ???High Sensitivity Troponin (HSTnT) - 18 ng/L HOLD LAVENDER TUBE (03/15/2023) ???Hold Lavender Top - SPECIMEN DISCARDED AFTER 24 HOURS. INR (03/15/2023) ???INR - 1.1???Protime (PT) - 11.4 seconds IRON (03/17/2023) ???Iron Level - 36 mcg/dL Lactate Level (03/15/2023) ???Lactate - 1.0 mmol/L LDH (03/17/2023) ???LDH - 276 units/L Lytes (03/19/2023) ???Sodium - 141 mmol/L???Potassium - 3.9 mmol/L???Chloride - 98 mmol/L???Bicarbonate Level - 29 mmol/L???Anion Gap - 14 Magnesium Level (03/21/2023) ???Magnesium - 1.9 mg/dL Phosphorus Level (03/21/2023) ???Phosphorus - 3.4 mg/dL ProBNP (03/19/2023) ???Nt-Probnp - 280 pg/mL Respiratory Pathogen PCR with COVID-19 (03/20/2023) ???Adenovirus by PCR - NEGATIVE???Coronavirus 229E by PCR (not COVID-19) - NEGATIVE???Coronavirus HKU1 by PCR (not COVID-19) - NEGATIVE???Coronavirus NL63 by PCR (not COVID-19) - NEGATIVE???Coronavirus OC43 by PCR (not COVID-19) - NEGATIVE???Human Metapneumovirus by PCR - NEGATIVE???Rhinovirus/Enterovirus by PCR - NEGATIVE???Influenza A by PCR - NEGATIVE???Influenza B by PCR - NEGATIVE???Parainfluenza 1 by PCR - NEGATIVE???Parainfluenza 2 by PCR - NEGATIVE???Parainfluenza 3 by PCR - NEGATIVE???Parainfluenza 4 by PCR - NEGATIVE???RSV by PCR - NEGATIVE???Bordetella Pertussis by PCR - NEGATIVE??? Chlamydophila Pneumoniae by PCR - NEGATIVE???Mycoplasma Pneumoniae by PCR - NEGATIVE???COVID-19 (SARS-CoV-2) by PCR - NEGATIVE???Bordetella Parapertussis by PCR - NEGATIVE RETICULOCYTE COUNT (03/17/2023) ???Retic Count - 4.5 %???Retic Count Corrected - 2.6 %???Retic Production Index - 1.7 % SEDIMENTATION RATE,AUTOMATED (03/16/2023) ???Sed Rate - 21 mm/hr Troponin T, High Sensitivity (03/16/2023) ???High Sensitivity Troponin (HSTnT) - 16 ng/L Type and Screen (03/15/2023) ???Blood Type - O Positive???Antibody Screen - Negative VITAMIN B12 (03/17/2023) ???Vitamin B12 Level - 898 pg/mL Allergies (NKA means No Known Allergies) Trulicity ibuprofen Problems Active Problems??(15) Central sleep apnea?? Depression?? Diabetic nephropathy?? GERD - Gastro-esophageal reflux disease?? Hyperlipidemia?? Hypertension?? Hypothyroidism?? Hypoventilation?? Obesity, Unspecified?? Obstructive sleep apnea?? Presence of implanted infusion pump?? Reported hx of spinal stenosis?? Severe obesity?? Sleep-related hypoxia?? Type 2 diabetes mellitus?? Education Materials Below is the list of Educational Leaflet Providered with your Discharge Instructions. Using an Oxygen Tank at Home?? Traveling with Oxygen?? If Oxygen Is Prescribed?? Using Oxygen Safely?? Discharge Instructions for Heart Failure?? Heart Failure Discharge Instructions for Heart Failure?? Preventing Common Respiratory Infections?? Anemia?? Valuables and Belongings I fully understand and agree that [facility] accepts no responsibility for all my personal [...] to send valuables and belongings home. ?? Review of Valuable and Belonging List: With patient, With witness Date for Pt to Sign Valuables/Belongings: 03/17/23 17:59:00 ?? Other Discharge Information ? Pulmonary Rehab Status?? Pulmonary Rehab Discharge Status?? CPAP/BiPAP Mask Type: Nasal CPAP/BiPAP Mask Size: Other: HOME MASK Respiratory Rate: 22 br/min ? Common Emergency Awareness Tips IS [...] are strongly encouraged to quit. Please call [facility] Link at [phone] or [phone] or log in to [email or web address] for referrals to smoking cessation programs. ?? 061 Suicide & Crisis Lifeline is available 18/04 if you or someone you know needs to find a reason to keep living. By calling 916 you'll be connected to a skilled, trained counselor at a crisis center in your area. INPATIENT DISCHARGE INSTRUCTIONS SIGNATURE PAGE MAHSA MUHAMMAD Location:[facility] Registration Date and Time:03/15/2023 18:20 EDT Primary Care Physician: Karolyn Zacarias MD, Attending Physician: Fede DE LA TORRE, Baldo, I MAHSA MUHAMMAD, have received the above patient education materials/instructions and have verbalized understanding. If ambulance or transport services are being used I further acknowledge beinggiven a choice of service. ?? If you need to contact me, please call me at this number: . Patient/Music Writer Name: Patient/Music Writer Signature: Relationship to Patient: Witness Name/Signature: Date: * Luca KING, Sharyn Thompson: PERFORM Event Display: Patient Education Leaflets Authored Date: [id number] Diltiazem Extended Release Oral Capsule ?? [id number] Diltiazem Extended Release Oral Capsule Brands: Diltzac, Taztia, Tiadylt, Tiazac Uses This medicine is used for the following purposes: ??? angina ??? high blood pressure ??? irregular heart beat ?? Instructions Swallow the medicine without crushing or chewing it. You may sprinkle medicine from capsule onto some applesauce. Eat the entire mixture right away without chewing or crushing the medicine. Then swish water in your mouth and swallow to make sure that you take the entire dose. This medicine may be taken with or without food. This medicine will work best if you take it at about the same time every day. Keep the medicine at room temperature. Avoid heat and direct light. This medicine can make you sensitive to the sun. Use sunscreen or protective clothing when in sun. It may take several weeks for this medicine to fully work. It is important that you keep taking each dose of this medicine on time even if you are feeling well. If you forget to take a [...] about all medicines taken. Include prescription and dmdl-lyt-[id number] medicines, vitamins, and herbal medicines. Speak with your doctor or pharmacist before starting or stopping any medicine. Tell your doctor if symptoms do not get better or if they get worse. Keep all appointments for medical exams and tests while on this medicine. ?? Cautions Tell your doctor and pharmacist if you ever had an allergic reaction to a medicine. Some patients with weak hearts may have worsening of symptoms. If you notice difficulty breathing, weight gain, or swelling of your legs or ankles, let your doctor know right away. Do not use the medication any more than instructed. This medicine may cause dizziness or fainting, especially after exercising or in hot weather. Be very careful when standing or sitting up quickly. Your ability to stay alert or to react quickly may be impaired by this medicine. Do not drive or operate machinery until you know how this medicine will affect you. Please check with your doctor before drinking alcohol while on this medicine. Tell the doctor or pharmacist if you are , planning to be , or . Do not take Elroy's wort while on this medicine. Do not share this medicine with anyone who has not been prescribed this medicine. ?? Side Effects The following is a list of some common side effects from this medicine. Please speak with your doctor about what you should do if you experience these or other side effects. ??? constipation ??? dizziness ??? feeling of heat or flushing ??? headaches ??? nausea Call your doctor or get medical help right away if you notice any of these more serious side effects: ??? swelling of the legs, feet, and hands ??? fainting ??? lack of energy and tiredness ??? fast, irregular, or slow heartbeat ??? low blood pressure ??? mood changes ??? unusual or unexplained tiredness or weakness ??? sudden or unexplained weight gain A few people may have an allergic reaction to this medicine. Symptoms can include difficulty breathing, skin rash, itching, swelling, or severe dizziness. If you notice any of these symptoms, seek medical help quickly. ?? Extra Please speak with your doctor, nurse, or pharmacist if you have any questions about this medicine. ?? https://api.Apttus.Inktd/[email or web address]/fdbpem/1225 IMPORTANT NOTE: This document tells you briefly how to take your medicine, but it does not tell youall there is to know about it. Your doctor or pharmacist may give you other documents about your medicine. Please talk to them if you have any questions. Always follow their advice. There is a more complete description of this medicine available in Latvian. Scan this code on your smartphone or tablet or use the web address below. You can also ask your pharmacist for a printout. If you have any questions, please ask your pharmacist. The display and use of this drug information is subject to Terms of Use. Copyright(c) 2022 [employer]. ?? [employer]. All rights reserved. This information is not intended as a substitute for professional medical care. Always follow your healthcare professional's instructions. ?? * Luca KING, Sharyn Thompson: PERFORM Event Display: Patient Education Leaflets Authored Date: [id number] Diltiazem Extended Release Oral Capsule ?? [id number] Diltiazem Extended Release Oral Capsule Brands: Diltzac, Taztia, Tiadylt, Tiazac Uses This medicine is used for the following purposes: ??? angina ??? high blood pressure ??? irregular heart beat ?? Instructions Swallow the medicine without crushing or chewing it. You may sprinkle medicine from capsule onto some applesauce. Eat the entire mixture right away without chewing or crushing the medicine. Then swish water in your mouth and swallow to make sure that you take the entire dose. This medicine may be taken with or without food. This medicine will work best if you take it at about the same time every day. Keep the medicine at room temperature. Avoid heat and direct light. This medicine can make you sensitive to the sun. Use sunscreen or protective clothing when in sun. It may take several weeks for this medicine to fully work. It is important that you keep taking each dose of this medicine on time even if you are feeling well. If you forget to take a [...] about all medicines taken. Include prescription and nrei-snk-egdtalo medicines, vitamins, and herbal medicines. Speak with your doctor or pharmacist before starting or stopping any medicine. Tell your doctor if symptoms do not get better or if they get worse. Keep all appointments for medical exams and tests while on this medicine. ?? Cautions Tell your doctor and pharmacist if you ever had an allergic reaction to a medicine. Some patients with weak hearts may have worsening of symptoms. If you notice difficulty breathing, weight gain, or swelling of your legs or ankles, let your doctor know right away. Do not use the medication any more than instructed. This medicine may cause dizziness or fainting, especially after exercising or in hot weather. Be very careful when standing or sitting up quickly. Your ability to stay alert or to react quickly may be impaired by this medicine. Do not drive or operate machinery until you know how this medicine will affect you. Please check with your doctor before drinking alcohol while on this medicine. Tell the doctor or pharmacist if you are , planning to be , or . Do not take Kris's wort while on this medicine. Do not share this medicine with anyone who has not been prescribed this medicine. ?? Side Effects The following is a list of some common side effects from this medicine. Please speak with your doctor about what you should do if you experience these or other side effects. ??? constipation ??? dizziness ??? feeling of heat or flushing ??? headaches ??? nausea Call your doctor or get medical help right away if you notice any of these more serious side effects: ??? swelling of the legs, feet, and hands ??? fainting ??? lack of energy and tiredness ??? fast, irregular, or slow heartbeat ??? low blood pressure ??? mood changes ??? unusual or unexplained tiredness or weakness ??? sudden or unexplained weight gain A few people may have an allergic reaction to this medicine. Symptoms can include difficulty breathing, skin rash, itching, swelling, or severe dizziness. If you notice any of these symptoms, seek medical help quickly. ?? Extra Please speak with your doctor, nurse, or pharmacist if you have any questions about this medicine. ?? https://api.Apttus.Inktd/[email or web address]/fdbpem/1225 IMPORTANT NOTE: This document tells you briefly how to take your medicine, but it does not tell youall there is to know about it. Your doctor or pharmacist may give you other documents about your medicine. Please talk to them if you have any questions. Always follow their advice. There is a more complete description of this medicine available in Latvian. Scan this code on your smartphone or tablet or use the web address below. You can also ask your pharmacist for a printout. If you have any questions, please ask your pharmacist. The display and use of this drug information is subject to Terms of Use. Copyright(c) 2022 [employer]. ?? [employer]. All rights reserved. This information is not intended as a substitute for professional medical care. Always follow your healthcare professional's instructions. ?? * Luca KING, Sharyn Thompson: PERFORM Event Display: Patient Education Leaflets Authored Date: [id number] Using an Oxygen Tank at Home ?? 42[address] Using an Oxygen Tank at Home Your healthcare provider has prescribed oxygen. This can help make breathing easier. You were shownin the hospital how to use your oxygen unit. Here are some tips on safely using oxygen at home. Do all steps each time you use your oxygen unit. The steps will vary based on the type of oxygen unit you use. General tips ??? Wash your hands before and after using your oxygen. Don't touch the oxygen unit ifyour hands are wet from using an alcohol-based hand hydrologist.??Your hands must be totally dry before touching the oxygen unit. ??? Ask your healthcare provider and medical supply company any questions you have. They can help you find out what is best for you. ??? Keep the unit and tubing clean. This helps prevent breathing in germs. Ask the medical supply company about cleaning or taking care ofyour oxygen unit. ?? Step 1. Check your supply ??? Pressurize your oxygen tank. This is for compressed tanks only. Otherdevices can simply be turned on. Follow the directions from your healthcare provider or medical supply company. ??? Check the oxygen gauge on the tank to be sure you have enough. Your medical supply [employer] will tell you when to call for more oxygen. Or they will deliver your oxygen on a regular schedule. ??? Check the water level if you have a humidifier bottle. When the level is at or below half full, refill it with sterile or distilled water. Ask the company how often to change your humidifier bottle. This helps prevent germs. ?? Step 2. Attach the tubing ??? Attach the nose tube (cannula) to your oxygen unit as you were shown.??? Check that the tubing is not bent or blocked. ?? Step 3. Set your flow rate ??? Set the oxygen to flow at the rate your healthcare provider gave you. This is . ??? Never change this rate unless your provider tells you to. ?? Step 4. Put the cannula in your nose ??? Put the cannula in your nose. Breathe through your nose normally. ??? If you are not sure if the oxygen is flowing, do a simple test. Put the cannula in a glass of water. Oxygen is flowing if the water bubbles. ?? Use oxygen safely Follow all safety guidelines when using oxygen at home. Tips for safe use include: ??? Stay at least 10 feet from??open flames. And stay at least 5 feet from sources of a flame.??These include cigarettes, matches, candles, fireplaces, gas burners, and pipes. Or anything else that could start a fire. ??? Don't smoke. Don???t be around others who are smoking. Post no smoking signs outside your home. ??? Keep oxygen tanks at least 5 feet from any heat source. This includes gas stoves, space heaters, and electric and gas heaters. ??? Keep the door to the room open. This helps to move air around. It keeps the room from being stuffy. ??? Protect your oxygen tank from being knocked over. ??? Store the oxygen tank upright in a secure, approved storage device. ??? Turn the tank off right away ifit is knocked over and makes a hissing noise. If the regulator breaks or you can't safely turn the tank off, remove the tubing and leave the room. Then call the supply company or the fire department right away. ??? Be careful not to trip over the tubing. ??? Don't use lotions or creams that have petroleum jelly. This can start a fire when mixed with oxygen. Use water- based products. ??? Don't useaerosol sprays close to your oxygen unit. This includes hairspray and air fresheners. Aerosols are flammable. ??? Don't use electrical devices like electric razors, heating pads, or hair dryers while wearing oxygen. ??? Turn oxygen off when not using it. ??? Follow the instructions for safe use from your supply company. Not using oxygen safely is dangerous. It can put you and your neighbors at higher risk for fires and ding. ??? Know what to do in an emergency. Always have a fire extinguisher close by. Your emergency numbers should include 911, your healthcare provider, and your medical supply company. ?Taking care of your unit Talk with your medical supply company. They can tell you how often to change your tubing, cannula, and humidifier bottle, if you have one. ?? When to call the healthcare provider Based on your healthcare provider's instructions, call your??provider??or 911 right away if you have any of these: ??? Pale skin or a??blue color on your lips or fingernails ??? More shortness of breath, wheezing, or other changes from your normal breathing, even with oxygen ??? Confusion, restlessness, or more anxiety than normal ??? Chest pain ?? Last Reviewed Date: 2022 ?? 0746-3034 [employer]. All rights reserved. This information is not intended as a substitute for professional medical care. Always follow your healthcare professional's instructions. ?? Patient Care team information Care Team Personnel Name: Naomi Vasquez RN Position: [facility] RN Member Role: Primary Care Nurse Name: Rocio Sandoval Position: [facility] RN Member Role: Primary Care Nurse Name: Karolyn Zacarias MD Position: [facility] Physician - Primary Care Member Role: PCP Address: Address: [address] [place] [address] [address]acarias [address] Name: Tricia Titus RN Position: [facility] RN Supv Member Role: Primary Care Nurse Name: Claudette Govea Position: [facility] Outreach Member Role: Lifetime Consulting Physician Name: Dena Cano RN Position: [facility] RN Member Role: Primary Care Nurse Name: Emma Jaramillo RN Position: [facility] AMB Nurse Member Role: Primary Care Nurse Name: Maria De Jesus Moreau RN Position: [facility] RN Member Role: Primary Care Nurse Name: Suzanna Langley RN Position: [facility] OB RN Member Role: Primary Care Nurse Name: Rosio Soriano RN Position: [facility] RN Member Role: Primary Care Nurse Name: Arabella Smart RN Position: [facility] SN RN Member Role: Primary Care Nurse Name: Alec Kong DO Position: [facility] Renal MD Member Role: Lifetime Consulting Physician Address: Address: [address] [facility] [place] [place] [address]- [place] Name: Dedra Reese RN Position: [facility] RN Member Role: Primary Care Nurse Name: Dedra Byrd RN Position: [facility] RN Member Role: Primary Care Nurse Name: Ernie Bee RN Position: [facility] RN Member Role: Primary Care Nurse Name: Ralph Coates RN Position: [facility] SN RN Member Role: Primary Care Nurse Name: Veronica Garcia RN Position: [facility] RN Member Role: Primary Care Nurse Name: Jeannine Chicas RN Position: [facility] Oil Burner Mechanic Member Role: Primary Care Nurse Name: Israel Etienne Position: [facility] Outreach Member Role: Lifetime Consulting Physician Name: Juju Rahman RN Position: [facility] SN RN Member Role: Primary Care Nurse Name: Tiffanie Watson RN Position: [facility] ED RN W/OE and Tasks Member Role: Primary Care Nurse Name: Tahira Hammond Position: [facility] Onco RN Member Role: Primary Care Nurse Name: Lana Montiel RN Position: [facility] RN Member Role: Primary Care Nurse Name: Jayla Murguia RN Position: [facility] RN Member Role: Primary Care Nurse Name: Gurpreet Irby RN Position: [facility] RN Member Role: Primary Care Nurse Name: Rajani Delcid RN Position: [facility] Oil Burner Mechanic Member Role: Primary Care Nurse Name: Natasha STEWART Attending Position: [facility] ED Medicine MD Name: Dedra Harley MD Position: [facility] Resident Member Role: ED Resident Address: Address: [address] [place] [address] [place] [address]- [place] Name: Heidi Bowles Position: [facility] ED TA [facility] Member Role: Patient Care Provider Name: Opal Purdy RN Position: [facility] ED RN W/OE and Tasks Member Role: Patient Care Provider Name: Jasmine Shah Position: [facility] ED OA Charge Member Role: ED Associate Care Team Related Persons Name: ANNIE GOTTLIEB Address: home [address] [place] [address] Name: KAROLYN MCGOWAN Address: home [address] [place] [address] Name: BHARGAV MUHAMMAD Address: home [address] [place] [address] Name: BHARGAV MUHAMMAD Address: home [address] [place] [address]
--- OUTSIDE RECORDS SUMMARY | 2023-05-05 08:57 | XMS_ITS | Continuity of Care Document ---
Author Name Unknown Organization [facility] al[place] Address [address] [place] [address]- Care Team Providers Care Youth Care Professional Name Role Phone Karolyn Zacarias MD Primary Care Physician [phone] Encounter [facility] Date(s): 12/14/22 - 03/27/23 [facility] [address] [place] [address]- Attending Physician: Radha Crews MD Referring Physician: Karolyn Zacarias MD Allergies, [...] 03/21/23 12:57:00 EDT, Route to Pharmacy Electronically, [facility]/pharmacy #[id number], Partial fill upon patient request if the [...] mL, 4 Refills, Maintenance, 06/25/22 13:55:00 EDT, [facility]/pharmacy #[id number], 157, cm, 05/25/22 13:17:00 EDT, [...] Refills, Maintenance, 09/16/19 8:51:00 EST, ER Tablet, [facility], 158, cm, 09/16/19 7:39:00 EST, [...] Primary Care Member Role: PCP Address: Address: [address] [place] [address] [address] Zacarias [place], [place] [address] Name: Katina Tsang RN Position: [facility] RN Member Role: Primary Care Nurse Name: Tricia Titus RN Position: [facility] RN Supv Member Role: Primary Care Nurse Name: Claudette Govea Position: [facility] Outreach Member Role: Lifetime Consulting Physician Name: Dena Cano RN Position: [facility] RN Member Role: Primary Care Nurse Name: Emma Jaramillo RN Position: [facility] AMB Nurse Member Role: Primary Care Nurse Name: Olga Wu RN Position: [facility] RN Supv Member Role: Primary Care Nurse [...] Member Role: Lifetime Consulting Physician Address: Address: [facility] [address] [facility] [place], [place] [address] Name: Dedra Reese RN Position: [facility] [...] Care Nurse Name: Jeannine Chicas RN Position: [facility] [employer] Interpreter Member Role: Primary Care Nurse Name: Israel [...] Care Nurse Name: Rajani Delcid RN Position: [facility] [employer] Interpreter Member Role: Primary Care Nurse Care Team Related Persons Name: ANNIE GOTTLIEB Address: home [address] [place] [address] Name: KAROLYN MCGOWAN Address: home [address] [place] [address] Name: BHARGAV MUHAMMAD Address: home [address] [place] [address] Name: BHARGAV MUHAMMAD Address: home [address] [place] [address]
--- OUTSIDE RECORDS SUMMARY | 2023-05-05 08:57 | XMS_ITS | Continuity of Care Document ---
Author Name Unknown Organization [facility] Address [address] [place] [address]- Care Team Providers Care Chief Clinical Officer Name Role Phone Karolyn Zacarias MD Primary Care Physician [phone] [place] [facility] [place] 03/28/23 - 04/27/[address] [address] Allergies, Adverse Reactions, Alerts Substance Reaction Severity [...] 03/21/23 12:57:00 EDT, Route to Pharmacy Electronically, [facility]/pharmacy #[id number], Partial fill upon patient request if the [...] 06/05/23 14:47:00 EDT, 04/06/23 14:47:00 EDT, Injection, [facility], Partial fill upon patient request if [...] mL, 4 Refills, Maintenance, 06/25/22 13:55:00 EDT, [facility]/pharmacy #[id number], 157, cm, 05/25/22 13:17:00 EDT, [...] Maintenance, 04/06/23 14:46:00 EDT,Route to Pharmacy Electronically, [facility], Partial fill upon patient [...] Refills, Maintenance, 09/16/19 8:51:00 EST, ER Tablet, [facility], 158, cm, 09/16/19 7:39:00 [...] GAVE (gastric antral vascular ectasia) Confirmed Active Social History Social History Type [...] Primary Care Member Role: PCP Address: Address: [address] [place] [address] Dr Zacarias [place], [place] [address] Name: Katina Tsang RN Position: S RN Member Role: Primary Care Nurse Name: Tricia Titus RN Position: [facility] RN Supv Member Role: Primary Care Nurse Name: Claudette Govea Position: [facility] Outreach Member Role: Lifetime Consulting Physician Name: Dena Cano RN Position: [facility] RN Member Role: Primary Care Nurse Name: Bailey Inman RN Position: [facility] RN Member Role: Primary Care Nurse Name: Emma Jaramillo RN Position: [facility] AMB Nurse Member Role: Primary Care Nurse Name: Olga Wu RN Position: [facility] RN Supv Member Role: Primary Care Nurse Name: Beverly Tomas RN Position: [facility] RN Member Role: Primary Care Nurse Name: Naomi Rahman RN Position: [facility] RN Member Role: Primary Care Nurse Name: Maria De Jesus Moreau RN Position: [facility] RN Member Role: Primary Care Nurse Name: Suzanna Langley RN Position: [facility] OB RN Member Role: Primary Care Nurse Name: Rosio Soriano RN Position: [facility] RN Member Role: Primary Care Nurse Name: Arabella Smart RN Position: [facility] SN RN Member Role: Primary Care Nurse Name: Vesta Carmona LPN Position: [facility] RN Member Role: Primary Care Nurse Name: Alec Kong DO Position: [facility] Renal MD Member Role: Lifetime Consulting Physician Address: Address: [address] [place] [address] [facility] [place], [place] [address] Name: Sara Gupta RN Position: [facility] Onco RN Member Role: Primary Care Nurse Name: Dedra Reese RN Position: [facility] RN Member Role: Primary Care Nurse Name: Makayla Valencia Position: [facility] RN Member Role: Primary Care Nurse Name: Dedra Byrd RN Position: [facility] RN Member Role: Primary Care Nurse Name: Nayely Sykes Position: [facility] RN Member Role: Primary Care Nurse Name: Ernie Bee RN Position: [facility] RN Member Role: Primary Care Nurse Name: Stephanie Way RN Position: [facility] RN Member Role: Primary Care Nurse Name: Ralph Coates RN Position: [facility] SN RN Member Role: Primary Care Nurse Name: Valeri Abebe RN Position: [facility] RN Member Role: Primary Care Nurse Name: Veronica Garcia RN Position: [facility] RN Member Role: Primary Care Nurse Name: Jeannine Chicas RN Position: [facility] [employer] Of Chiropractic Member Role: Primary Care Nurse Name: Israel Etienne Position: [facility] Outreach Member Role: Lifetime Consulting Physician Name: Juju Rahman RN Position: [facility] SN RN Member Role: Primary Care Nurse Name: Tiffanie Watson RN Position: [facility] ED RN W/OE and Tasks Member Role: Primary Care Nurse Name: Isa Cummings RN Position: [facility] RN Supv Member Role: Primary Care Nurse Name: Tahira Hammond [place] Position: [facility] AMB MA Member Role: Primary Care Nurse Name: Lana Montiel RN Position: [facility] RN Member Role: Primary Care Nurse Name: Jayla Murguia RN Position: [facility] RN Member Role: Primary Care Nurse Name: Gurpreet Irby RN Position: [facility] RN Member Role: Primary Care Nurse Name: Rajani Delcid RN Position: [facility] [employer] Chiropractic Member Role: Primary Care Nurse Care Team Related Persons Name: MAKAYLA GOTTLIEB Address: [address] [place] [address] Name: KAROLYN MCGOWAN Address: [address] [place] [address] Name: BHARGAV MUHAMMAD Address: home [address] [place], [place] Name: BHARGAV MUHAMMAD Address: home [address] [place] [address]
--- OUTSIDE RECORDS SUMMARY | 2023-05-05 08:57 | XMS_ITS | Continuity of Care Document ---
Author Name Unknown Organization [facility] Care Address [address] [place] [address]- Care Team Providers Care Amalgamator Name Role Phone Rell DE LA TORRE, Karolyn Primary Care Physician [phone] Encounter [facility] Date(s): 03/15/23 - 04/14/23 [facility] [address] [place] [id number]- Allergies, Adverse Reactions, Alerts Substance Reaction Severity [...] 03/21/23 12:57:00 EDT, Route to Pharmacy Electronically, [id number], Partial fill upon patient request if the [...] 14:47:00 EDT, 04/06/23 14:47:00 EDT, Injection, [facility], Partial fill upon patient [...] mL, 4 Refills, Maintenance, 06/25/22 13:55:00 EDT, [facility] #[id number], 157, cm, 05/25/22 13:17:00 EDT, Height, [...] Maintenance, 04/06/23 14:46:00 EDT,Route to Pharmacy Electronically, [facility], Partial fill upon patient [...] Maintenance, 09/16/19 8:51:00 EST, ER Tablet, [facility], 158, cm, 09/16/19 7:39:00 [...] Team Personnel Name: Naomi Vasquez RN Position: [facility] RN Member Role: Primary Care Nurse Name: Rocio Sandoval Position: S RN Member Role: Primary Care Nurse Name: Karolyn Zacarias MD Position: S Physician - Primary Care Member Role: PCP Address: Address: [address] [place], [place] [address] Name: Katina Tsang RN Position: S RN Member Role: Primary Care Nurse Name: Tricia Titus RN Position: [facility] RN Supv Member Role: Primary Care Nurse Name: Claudette Govea Position: [facility] Outreach Member Role: Lifetime Consulting Physician Name: Dena Cano RN Position: [facility] RN Member Role: Primary Care Nurse Name: Bailey Inman RN Position: [facility] RN Member Role: Primary Care Nurse Name: Emma Jaramillo RN Position: [facility] AMB Nurse Member Role: Primary Care Nurse Name: Olga Wu RN Position: [facility] RN Supv Member Role: Primary Care Nurse Name: Naomi Rahman RN Position: [facility] RN Member Role: Primary Care Nurse Name: Maria De Jesus Moreau RN Position: [facility] RN Member Role: Primary Care Nurse Name: Suzanna Langley RN Position: [facility] OB RN Member Role: Primary Care Nurse Name: Rosio Soriano RN Position: [facility] RN Member Role: Primary Care Nurse Name: Araeblla Smart RN Position: [facility] SN RN Member Role: Primary Care Nurse Name: Vesta Carmona LPN Position: [facility] RN Member Role: Primary Care Nurse Name: Alec Kong DO Position: [facility] Renal MD Member Role: Lifetime Consulting Physician Address: Address: [address] [place], [place] [address] [address] Name: Dedra Reese RN Position: [facility] RN Member Role: Primary Care Nurse Name: Makayla Valencia Position: [facility] RN Member Role: Primary Care Nurse Name: Dedra Byrd RN Position: [facility] RN Member Role: Primary Care Nurse Name: Ernie Bee RN Position: [facility] RN Member Role: Primary Care Nurse Name: Stephanie Way RN Position: [facility] RN Member Role: Primary Care Nurse Name: Ralph Coates RN Position: [facility] SN RN Member Role: Primary Care Nurse Name: Valeri Abebe RN Position: [facility] RN Member Role: Primary Care Nurse Name: Veronica Garcia RN Position: [facility] RN Member Role: Primary Care Nurse Name: Jeannine Chicas RN Position: [facility] Hospital Administrative Court Justice Member Role: Primary Care Nurse Name: Israel Etienne Position: [facility] Outreach Member Role: Lifetime Consulting Physician Name: Juju Rahman RN Position: [facility] SN RN Member Role: Primary Care Nurse Name: Tiffanie Watson RN Position: [facility] ED RN W/OE and Tasks Member Role: Primary Care Nurse Name: Tahira Hammond [place] Position: [facility] AMB [place] Member Role: Primary Care Nurse Name: Lana Montiel RN Position: [facility] RN Member Role: Primary Care Nurse Name: Jayla Murguia RN Position: [facility] RN Member Role: Primary Care Nurse Name: Gurpreet rIby RN Position: [facility] RN Member Role: Primary Care Nurse Name: Rajani Delcid RN Position: [facility] Hospital Administrative Court Justice Member Role: Primary Care Nurse Care Team Related Persons Name: CHERY MAKAYLA Address: [address] [place] [address] Name: KAROLYN MCGOWAN Address: home [address] [place] [address] Name: BHARGAV MUHAMMAD Address: home [address] [place] [address] Name: BHARGAV MUHAMMAD Address: home [address] [place] [address]
--- OUTSIDE RECORDS SUMMARY | 2023-05-05 08:57 | XMS_ITS | Continuity of Care Document ---
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 Name Role Phone Karolyn Zacarias MD Primary Care Physician Encounter [facility] Date(s): 03/24/23 - 04/06/[address] [address]- Discharge Disposition: A-Transfer VNA/Home Health Attending Physician: Iram Bagley MD Admitting Physician: Willow Balderas MD Referring Physician: Not on Staff, Referring [...] needed, # 1 each, 0 Refills, Maintenance, 02/24/17 13:15:52, Powder Start Date: 11/19/16 Status: Ordered [...] 12:57:00 EDT, Route to Pharmacy Electronically, [facility]/pharmacy #[id number], Partial fill upon patient request if the [...] at bedtime Start Date: 07/09/22 Status: Ordered Diltiazem 120 mg, Tablet, By Mouth, 04/06/23 9:00:00 EDT Start Date: 04/06/23 Stop Date: 04/06/23 Status: Completed DilTIAZem (Eqv-Cardizem CD) 120 mg/24 hours oral [...] 06/05/23 14:47:00 EDT, 04/06/23 14:47:00 EDT, Injection, [facility], Partial fill upon patient request [...] 4 Refills, Maintenance, 06/25/22 13:55:00 EDT, [facility]/pharmacy #[id number], 157, cm, 05/25/22 13:17:00 EDT, [...] Maintenance, 04/06/23 14:46:00 EDT,Route to Pharmacy Electronically, [facility], Partial fill upon patient request [...] Refills, Maintenance, 09/16/19 8:51:00 EST, ER Tablet, [facility], 158, cm, 09/16/19 7:39:00 EST, [...] Type 2 diabetes mellitus Confirmed Active Results Orders for Microbiology Reports Name Date Sputum Culture w/ Gram Smear 04/02/23 Urine Culture 03/27/23 Blood Culture 03/26/23 Blood Culture #2 03/26/23 Anaerobic Culture 03/25/23 Fungal Culture, Respiratory 03/25/23 Sterile Body Fluid Culture W/ Gram Smear 03/25/23 Blood Culture 03/24/23 Blood Culture #2 03/24/23 Microbiology Reports TEST:Sputum Culture STATUS:Auth (Verified) BODY SITE: SOURCE:EXPECT COLLECTED DATE/TIME:04/02/23 5:48 AM Sputum Culture SPECIMEN DESCRIPTION : EXPECTORATED SPUTUM SPECIAL REQUESTS : NONE GRAM STAIN : 1+ WHITE BLOOD CELLS 1+ SQ.EPITHELIAL CELLS 2+ GRAM POSITIVE COCCI 2+ GRAM POSITIVE RODS CULTURE : 4+ NORMAL VALENTINE REPORT STATUS : FINAL 04/04/2023 TEST:Anaerobic Culture STATUS:Auth (Verified) BODY SITE: SOURCE:BODY F COLLECTED DATE/TIME:03/28/23 10:00 AM Anaerobic Culture SPECIMEN DESCRIPTION : BODY FLUID PLEURAL CAVITY SPECIAL REQUESTS : NONE CULTURE : NO ANAEROBES ISOLATED REPORT STATUS : FINAL 04/02/2023 TEST:Fungal Culture, Respiratory STATUS:Unauthenticated BODY SITE: SOURCE:Pleura COLLECTED DATE/TIME:03/28/23 10:00 AM Fungal Culture, Respiratory SPECIMEN DESCRIPTION : Pleural fluid, right PLEURAL CAVITY SPECIAL REQUESTS : NONE DIRECT EXAM : NO FUNGAL ELEMENTS OBSERVED CULTURE : NO FUNGI ISOLATED AFTER 7 DAYS REPORT STATUS : PRELIMINARY REPORT TEST:Sterile Fluid Culture STATUS:Auth (Verified) BODY SITE: SOURCE:PLEURA COLLECTED DATE/TIME:03/28/23 10:00 AM Sterile Fluid Culture SPECIMEN DESCRIPTION : PLEURAL FLUID SPECIAL REQUESTS : NONE GRAM STAIN : 1+ TISSUE CELLS NO ORGANISMS SEEN CULTURE : NO GROWTH 2 DAYS REPORT STATUS : FINAL 03/30/2023 TEST:Urine Culture STATUS:Auth (Verified) BODY SITE: SOURCE:URINE COLLECTED DATE/TIME:03/27/23 5:46 AM Urine Culture SPECIMEN DESCRIPTION : URINE STRAIGHT CATH. SPECIAL REQUESTS : NONE CULTURE : >100,000 COL/ML PROTEUS MIRABILIS This isolate was identified using Maldi-TOF system These AST results were performed on the Mashablecan ID and AST system REPORT STATUS : FINAL 03/29/2023 ORGANISM >100,000 COL/ML PROTEUS MIRABILIS This isolate was identified using Maldi-TOF system These AST results were performed on the Mashablecan ID and AST system METHOD MIN. INHIB. CONC. (MCG/ML) AMOXICILLIN/CLAVULAN SUSCEPTIBLE AMPICILLIN SUSCEPTIBLE AMPICILLIN/SULBACTAM SUSCEPTIBLE CEFAZOLIN SUSCEPTIBLE CEFEPIME SUSCEPTIBLE CEFTRIAXONE SUSCEPTIBLE CIPROFLOXACIN SUSCEPTIBLE ERTAPENEM SUSCEPTIBLE GENTAMICIN SUSCEPTIBLE LEVOFLOXACIN SUSCEPTIBLE MEROPENEM SUSCEPTIBLE NITROFURANTOIN RESISTANT PIPERACILLIN/TAZOBAC SUSCEPTIBLE TETRACYCLINE RESISTANT TRIMETH/SULFAMETHOX SUSCEPTIBLE TEST:Blood Culture, Second Order STATUS:Auth (Verified) BODY SITE: SOURCE:Blood COLLECTED DATE/TIME:03/26/23 11:00 PM Blood Culture, Second Order SPECIMEN DESCRIPTION : BLOOD L HND SPECIAL REQUESTS : NONE CULTURE : NO GROWTH 5 DAYS. REPORT STATUS : FINAL 03/31/2023 TEST:Blood Culture STATUS:Auth (Verified) BODY SITE: SOURCE:Blood COLLECTED DATE/TIME:03/26/23 10:59 PM Blood Culture SPECIMEN DESCRIPTION : BLOOD RT ARM SPECIAL REQUESTS : NONE CULTURE : NO GROWTH 5 DAYS. REPORT STATUS : FINAL 03/31/2023 TEST:Blood Culture, Second Order STATUS:Auth (Verified) BODY SITE: SOURCE:Blood COLLECTED DATE/TIME:03/24/23 3:18 PM Blood Culture, Second Order SPECIMEN DESCRIPTION : BLOOD R HAND SPECIAL REQUESTS : NONE CULTURE : NO GROWTH 5 DAYS. REPORT STATUS : FINAL 03/29/2023 TEST:Blood Culture STATUS:Auth (Verified) BODY SITE: SOURCE:Blood COLLECTED DATE/TIME:03/24/23 3:06 PM Blood Culture SPECIMEN DESCRIPTION : BLOOD NO SITE SPECIAL REQUESTS : NONE CULTURE : NO GROWTH 5 DAYS. REPORT STATUS : FINAL 03/29/2023 Radiology Reports (Most Recent Ten) * Exam Date Time Procedure Performing Provider Status 04/05/23 9:[address] Chest W/O Contrast Piedad Huynh; Auth (Verified) Notes: (CT Chest W/O Contrast) Reason For Exam: hypoxia on lying flat;Other: RESULT: CT Chest W/O Contrast CT Chest W/O Contrast INDICATION: Reason: Other:; hypoxia on lying flat; Clinical Question(s): Interstitial Alveolar Infiltration; Order Comment: TECHNIQUE: Helical CT scan of the chest without IV contrast, formatted in 3 planes. Weight-based protocol was performed using automatic exposure control. CTDIvol Body: 17.56 mGy, DLP Body: 611 mGy*cm. COMPARISON: Multiple CTs of the chest including 03/31/2023, 03/24/2023, 03/10/2023, 07/13/2022 FINDINGS: Direct Marketing Manager view findings, lines and tubes: Persistent catheter in the right upper quadrant. Catheter in the spinal canal. Trachea and airways: Patent without evidence of tracheal or endobronchial lesion. Lungs and pleura: Mild emphysema. Right lower lobe nodule corresponding to malignancy measuring 2.5 x 2.0 cm (601:59), unchanged. A 0.7 cm somewhat ill-defined nodular density in the medial aspects. Segment right lower lobe (601:37), abutting the fissure similar to prior with slightly decreased surrounding groundglass opacity. Previously described rounded opacity in space and in the right lower lobe (601:36 on 03/31/2023 exam)is mostly resolved, likely inflammatory. Persistent dependent groundglass density within the right middle lobe abutting the minor fissure and in the right upper lobe, abutting the major fissure (601:53, 44) and to lesser extent in the lingula (601:52). Improved bilateral lower lobe atelectasis. Trace right pleural effusion, slightly decreased. No left pleural effusion. No pneumothorax. Mediastinum and barbara: Unchanged bulky upper mediastinal lymphadenopathy including a left prevascular node measuring 3.9 x 3.6 cm (602:25) and a right upper paratracheal node with slightly indistinct borders measuring 4.7 x 3.7 cm (602:18 with mild leftward displacement of the intrathoracic trachea.A node in the anterior mediastinum measures 4.5 x 3.2 cm (3120). No esophageal abnormality. Heart: Mild cardiomegaly. Moderate pericardial effusion, unchanged. Moderate coronary artery calcification. Aorta: No aortic aneurysm. Pulmonary arteries: Dilated measuring 2.9 cm Chest wall soft tissues: Partially imaged catheter within the right chest wall. Diaphragm: Intact. Upper abdomen: 3.3 cm left adrenal mass (602:94 Bones: No acute abnormality. Spine degenerative changes. No aggressive lytic or sclerotic osseous lesion. IMPRESSION: Compared to 03/31/2023: A 2.5 cm nodule in the right lower lobe corresponding to lung malignancy is unchanged. No change in mild dependent groundglass opacities in the right lung, which may be inflammatory in sequela of prior radiation therapy or may be infectious or inflammatory. Improved atelectasis in the lung bases. Trace right pleural effusion is slightly decreased. Unchanged bulky metastatic upper mediastinal lymphadenopathy. Cardiomegaly with unchanged moderate pericardial effusion. Unchanged 3.3 cm left adrenal mass concerning for metastatic disease. WSN: [id number] Ordering Physician: Janelle Florez Dictated By: Baldo Ramsey MD Dictated Date/Time: 04/06/23 9:34 am Reviewed By: Baldo Ramsey MD Signed By: Baldo Ramsey MD Signed Date/Time: 04/06/23 9:34 am Transcribed By: VIOLET Transcribed Date/Time: 04/06/23 9:17 am * Exam Date Time Procedure Performing Provider Status 04/04/23 10:32 PM Chest Portable Elias Waller; Nirali ( Verified) Notes: (Chest Portable) Reason For Exam: Shortness of Breath RESULT: Chest Portable Chest Portable Reason: Shortness of Breath; Clinical Question(s): CHF COMPARISON: Multiple priors most recently 03/30/2023. FINDINGS: LINES AND TUBES: None. LUNGS AND PLEURA: Unchanged mild pulmonary edema and small left pleural effusion. No pneumothorax. HEART, MEDIASTINUM AND BARBARA: Moderate prominence of the cardiac silhouette, unchanged. Normal mediastinal and hilar contour. BONES AND SOFT TISSUES: No acute abnormality. IMPRESSION: Unchanged mild pulmonary edema and small left pleural effusion. I have personally reviewed the images and I agree with this report. WSN: [id number] Ordering Physician: Ashley Conley Dictated By: Aruna Egan DO Dictated Date/Time: 04/04/23 10:55 p Reviewed By: Roel Best MD Signed By: Roel Best MD Signed Date/Time: 04/04/23 11:00 pm Transcribed By: VIOLET Transcribed Date/Time: 04/04/23 10:40 pm * Exam Date Time Procedure Performing Provider Status 04/03/23 6:[address] Angio Neck Ariadna Chambers; Nirali (Ramón ified) Notes: (CT Angio Neck) Reason For Exam: STROKE;Other: RESULT: CT Angio Neck CT Angio Head, CT Angio Neck Reason: Other:; stroke; Clinical Question(s): Other:; Left cerebellar infarct on MRI stroke; Special Instructions: CTA head / Other: TECHNIQUE: CT angiogram of the head and neck was performed after bolus administration of intravenous contrast. 100 mL of Omnipaque 300 was administered intravenously. Coronal and sagittal MIP reformatted images were obtained. Additional 3-D images were created on a separate workstation under concurrent supervision by the attending radiologist. All stenoses are measured using NASCET criteria. Weight-based protocol using automatic tube modulation was used to optimize exposure parameters. RADIATION DOSE PARAMETERS: CTDIvol Head: 36.14 mGy, DLP Head: 1190 mGy*cm. COMPARISON: Noncontrast CT head performed concurrently. FINDINGS: CTA OF THE NECK: Arch: There is a common origin of the brachiocephalic and left common carotid arteries. A small amount of calcified plaque involves the aortic arch but no stenosis is demonstrated.. Right carotid system: A small amount of calcified plaque is present at the bifurcation and in the bulb without stenosis. Left carotid system: A small amount of calcified plaque is present in the carotid bulb without stenosis. There is a left-dominant vertebral artery system. Right vertebral: No significant stenosis. No evidence of dissection or aneurysm. Left vertebral: No significant stenosis. No evidence of dissection or aneurysm. Other: Soft tissues and bones: Again demonstrated is the superior mediastinal mass consistent with adenopathy. An apparent catheter is noted within the thoracic spinal canal. An epidural catheter fragment appears to be present in the upper cervical canal. CTA OF THE HEAD: Anterior circulation: There is calcification of the intracranial internal carotid arteries but no stenosis is produced. The anterior and middle cerebral arteries are normal. Posterior circulation: The vertebral and basilar arteries are normal. The left posterior inferior cerebellar artery is patent. The basilar, superior cerebellar and posterior cerebral arteries are normal. Veins: Major dural venous sinuses are patent. Other: Soft tissues and bones: Low density is seen in the right frontal lobe with adjacent calcifications related to prior ventricular drain placement. Right cerebellar encephalomalacia is present with an adjacent craniectomy defect. Mucosal disease is scattered in the paranasal sinuses without evidence of an air-fluid level. Thereis complete opacification of the small right frontal sinus. IMPRESSION: 1. No evidence of occlusion or significant stenosis involving the arteries of the head or neck. Theleft vertebral and left posterior inferior cerebellar arteries are normal. 2. Superior mediastinal adenopathy. A similar preliminary report was provided by [facility]. WSN: [id number] Ordering Physician: Mojgan Arguello Dictated By: Yannick Alvarez MD Dictated Date/Time: 04/04/23 8:40 am Reviewed By: Yannick Alvarez MD Signed By: Yannick Alvarez MD Signed Date/Time: 04/04/23 8:40 am Transcribed By: VIOLET Transcribed Date/Time: 04/04/23 8:24 am * Exam Date Time Procedure Performing Provider Status 04/03/23 6:[address] Angio Head Ariadna Chambers; Auth (Ramón ified) Notes: (CT Angio Head) Reason For Exam: stroke;Other: RESULT: CT Angio Head CT Angio Head, CT Angio Neck Reason: Other:; stroke; Clinical Question(s): Other:; Left cerebellar infarct on MRI stroke; Special Instructions: CTA head / Other: TECHNIQUE: CT angiogram of the head and neck was performed after bolus administration of intravenous contrast. 100 mL of Omnipaque 300 was administered intravenously. Coronal and sagittal MIP reformatted images were obtained. Additional 3-D images were created on a separate workstation under concurrent supervision by the attending radiologist. All stenoses are measured using NASCET criteria. Weight-based protocol using automatic tube modulation was used to optimize exposure parameters. RADIATION DOSE PARAMETERS: CTDIvol Head: 36.14 mGy, DLP Head: 1190 mGy*cm. COMPARISON: Noncontrast CT head performed concurrently. FINDINGS: CTA OF THE NECK: Arch: There is a common origin of the brachiocephalic and left common carotid arteries. A small amount of calcified plaque involves the aortic arch but no stenosis is demonstrated.. Right carotid system: A small amount of calcified plaque is present at the bifurcation and in the bulb without stenosis. Left carotid system: A small amount of calcified plaque is present in the carotid bulb without stenosis. There is a left-dominant vertebral artery system. Right vertebral: No significant stenosis. No evidence of dissection or aneurysm. Left vertebral: No significant stenosis. No evidence of dissection or aneurysm. Other: Soft tissues and bones: Again demonstrated is the superior mediastinal mass consistent with adenopathy. An apparent catheter is noted within the thoracic spinal canal. An epidural catheter fragment appears to be present in the upper cervical canal. CTA OF THE HEAD: Anterior circulation: There is calcification of the intracranial internal carotid arteries but no stenosis is produced. The anterior and middle cerebral arteries are normal. Posterior circulation: The vertebral and basilar arteries are normal. The left posterior inferior cerebellar artery is patent. The basilar, superior cerebellar and posterior cerebral arteries are normal. Veins: Major dural venous sinuses are patent. Other: Soft tissues and bones: Low density is seen in the right frontal lobe with adjacent calcifications related to prior ventricular drain placement. Right cerebellar encephalomalacia is present with an adjacent craniectomy defect. Mucosal disease is scattered in the paranasal sinuses without evidence of an air-fluid level. Thereis complete opacification of the small right frontal sinus. IMPRESSION: 1. No evidence of occlusion or significant stenosis involving the arteries of the head or neck. Theleft vertebral and left posterior inferior cerebellar arteries are normal. 2. Superior mediastinal adenopathy. A similar preliminary report was provided by [facility]. WSN: [id number] Ordering Physician: Mojgan Arguello Dictated By: Yannick Alvarez MD Dictated Date/Time: 04/04/23 8:40 am Reviewed By: Yannick Alvarez MD Signed By: Yannick Alvarez MD Signed Date/Time: 04/04/23 8:40 am Transcribed By: VIOLET Transcribed Date/Time: 04/04/23 8:24 am * Exam Date Time Procedure Performing Provider Status 04/03/23 12:20 AM MRI Brain W+W/O Contrast Cole Vance id; Auth (Verified) Notes: (MRI Brain W+W/O Contrast) Reason For Exam: Tumor Secondary RESULT: MRI Brain W+W/O Contrast MRI Brain W+W/O Contrast INDICATION / CLINICAL QUESTION: Reason: Tumor Secondary; metastatic adenocarcinoma of the lung Clinical Question(s): Tumor Secondary; Order Comment: Please see Reference Text for complete list of contraindications Tumor Secondary TECHNIQUE: MRI of the brain was performed with and without contrast utilizing sagittal and axial T1, axial T2, axial FLAIR, axial SWAN, and axial DWI sequences, and post-contrast 3D T1 MCGINNIS with multiplanar reformats. 23 mL of Clariscan was administered intravenously. COMPARISON: MRI 08/13/2022 FINDINGS: No abnormal enhancement or mass effect is noted to suggest the presence of metastatic disease. A wedge-shaped 2 cm zone of restricted diffusion is present in the left posterior cerebellum consistent with an acute infarct. There is no associated mass effect or hemorrhage. 2 punctate foci of diffusion hyperintensity noted just below the vertex, one in either hemisphere, could be artifactual asno corresponding signal abnormality is noted on other sequences. A right lateral frontal zone of encephalomalacia measuring approximately 1.3 cm in diameter is noted with a small amount of susceptibility artifact consistent with old hemorrhage. FLAIR hyperintensity extends from this lesion into deeper white matter. There are adjacent christelle holes and 2 right frontal ventricular catheters were demonstrated on the CT of 04/15/2005.. These findings are relatively unchanged from the MRI of 08/13/2022. A microbleed is present in the left temporal lobe. A 4 mm lacuneis present in the left putamen. A 2.5 cm zone of encephalomalacia in the right posterior inferior cerebellum is consistent with an old infarct. No extra-axial collection is present. The ventricular system is normal. The foramen magnum is normal. No vascular abnormality is appreciated. The sella turcica is mildly expanded. The pituitary glandis normal and the optic chiasm is normally positioned. Mild mucosal thickening is present in the maxillary and ethmoid sinuses. Mucosal disease fills the right frontal sinus. No air-fluid level is noted. The orbits are normal. Minor right mastoid mucosaldisease is present. No marrow abnormality is noted to suggest metastatic disease. IMPRESSION: 1. 2 cm acute infarct involving the left posterior cerebellum without mass effect or hemorrhage. 2. No findings to suggest metastatic disease. 3. 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 WSN: [id number] Ordering Physician: Mojgan Arguello Dictated By: Yannick Alvarez MD Dictated Date/Time: 04/03/23 9:32 am Reviewed By: Yannick Alvarez MD Signed By: Yannick Alvarez MD Signed Date/Time: 04/03/23 9:32 am Transcribed By: VIOLET Transcribed Date/Time: 04/03/23 9:19 am * Exam Date Time Procedure Performing Provider Status 03/31/23 12:[address] Chest W/O Contrast Leslie Alvarez; Nirali (Verified) Notes: (CT Chest W/O Contrast) Reason For Exam: Atelectasis RESULT: CT Chest W/O Contrast CT Chest W/O Contrast INDICATION: Reason: Atelectasis; Clinical Question(s): Other:; pulmonary edema vs fibrosis; Order Comment: History of lung cancer and pleural effusions Post radiation treatment therapy TECHNIQUE: Helical CT scan of the chest without IV contrast, formatted in 3 planes. Weight-based protocol was performed using automatic exposure control. CTDIvol Body: 17.88 mGy, DLP Body: 591 mGy*cm. COMPARISON: 03/24/2023 FINDINGS: Direct Marketing Manager view findings, lines and tubes: Portion of tubing or catheter seen at the right chest. Partially seen catheter at the spinal canal. Trachea and airways: Patent trachea. Lungs and pleura: Very low lung volumes and respiratory motion artifact limits exam. A 1.8 cm nodule in the anterior segment of the right lower lobe is unchanged. There is a small right-sided pleural effusion, slightly decreased in the interim. There are multifocal groundglass opacities in the right lung, seen dependently adjacent to the fissure in the right upper lobe is series 601 image 31 and also peripherally at image 42 and minimally in the right lung base and right middle lobe. A rounded opacity is present in the superior segment of the right lower lobe series 601 image 36 which was previously potentially obscured by the pleural effusion. There is also atelectasis in the right middle lobe and right lung base. There is atelectasis in the left lung dependently. There is trace left pleural fluid. There is no pneumothorax. There is moderate pulmonary emphysema. Mediastinum and barbara: No short interval change in marked mediastinal adenopathy including a large conglomerate lymph node adjacent to the right upper paratracheal area, series 602 image 20 measuring up to 3.8 x 4.4 cm. Enlarged pretracheal lymph node at this level is also unchanged as well as prevascular lymph node at series 602 image 28 measuring up to 3.7 x 3.0 cm. There is no hilar adenopathy. Heart: Cardiomegaly. There is a moderate pericardial effusion, unchanged. This is simple in attenuation. There is moderate coronary artery atherosclerosis. Aorta: Mild vascular calcification but no aneurysm. Pulmonary arteries: Main, right, and left pulmonary arteries are enlarged. This is unchanged and can be seen with pulmonary hypertension. Chest wall soft tissues: No axillary adenopathy. Diaphragm: Minimally patulous lower esophagus which can be due to peristalsis. Upper abdomen: There is a partially seen left adrenal nodule which is unchanged from the abdomen and pelvis CT exam of 03/10/2023 which measures 3.0 x 2.3 cm. Bones: No acute abnormality. IMPRESSION: Unchanged right lower lung spiculated pulmonary nodule. Decreased right pleural effusion. Ground glass opacity is present in the right upper lobe and superior segment of the right lower lobe are unchanged from 03/24/2023 but increased from 03/10/2023. Given short interval change this can represent infectious etiology. Given area of involvement, separate from right lower lung spiculated nodule, and relatively short interval change radiation pneumonitis is considered less likely. There is lower lung atelectasis and right middle lobe atelectasis, improved but persisting. Marked persistent mediastinal adenopathy and suspicious for metastasis left adrenal nodule are unchanged. WSN: [id number] Ordering Physician: Mojgan Arguello Dictated By: Claudia Gandhi MD Dictated Date/Time: 03/31/23 2:07 pm Reviewed By: Claudia Gandhi MD Signed By: Claudia Gandhi MD Signed Date/Time: 03/31/23 2:07 pm Transcribed By: VIOLET Transcribed Date/Time: 03/31/23 1:39 pm * Exam Date Time Procedure Performing Provider Status 03/30/23 12:09 PM Chest Portable Wilma Trotter; Auth ( Verified) Notes: (Chest Portable) Reason For Exam: CHF RESULT: Chest Portable Chest Portable Reason: CHF; Clinical Question(s): CHF COMPARISON: 03/28/2023 FINDINGS: Bibasilar groundglass and airspace disease has decreased slightly since the previous exam IMPRESSION: Slight improvement in the degree of bibasilar lung aeration WSN: [id number] Ordering Physician: Mojgan Arguello Dictated By: Juan Diego Matos MD Dictated Date/Time: 03/30/23 12:13 p Reviewed By: Juan Diego Matos MD Signed By: Juan Diego Matos MD Signed Date/Time: 03/30/23 12:13 pm Transcribed By: VIOLET Transcribed Date/Time: 03/30/23 12:12 pm * Exam Date Time Procedure Performing Provider Status 03/28/23 10:33 AM Chest Portable Shaniqua Harding; Auth (Verified) Notes: (Chest Portable) Reason For Exam: Postop RESULT: Chest Portable Chest Portable , AP upright Reason: Postop; Clinical Question(s): Pneumothorax COMPARISON: Multiple priors, most recent dated 03/27/2023. Correlation with CT chest 03/24/2023 FINDINGS: LINES AND TUBES: Right chest wall catheter again noted. LUNGS AND PLEURA: Low lung volumes. Left lower lobe collapse and increasing opacity peripherally at the base. Slightly improved consolidation at the right lung base and improved right pleural effusion. Persistent bilateral pleural effusions with associated bibasilar opacities and mild airspace opacities. Bilateral vascular congestion and mild interstitial thickening. No pneumothorax. HEART, MEDIASTINUM AND BARBARA: The heart is partially obscured by bibasilar opacities. Widened upper mediastinum corresponding to known paratracheal adenopathy as seen on recent CT. BONES AND SOFT TISSUES: No acute abnormality. IMPRESSION: Left lower lobe collapse, and increasing peripheral basal opacity may reflect increasing atelectasis, pleural effusion, and/or infiltrate. Slightly improved right basilar consolidation, likely reflects diminished pleural fluid and atelectasis post ultrasound-guided thoracentesis. Bilateral pulmonary edema. I have personally reviewed the images and I agree with this report. WSN: [id number] Ordering Physician: Jules King Dictated By: Jaspreet Kidd MD Dictated Date/Time: 03/28/23 12:21 p Reviewed By: Baldo Sumner MD Signed By: Baldo Sumner MD Signed Date/Time: 03/28/23 12:26 pm Transcribed By: VIOLET Transcribed Date/Time: 03/28/23 11:52 am * Exam Date Time Procedure Performing Provider Status 03/28/23 8:47 AM IR End of Case Report Tj fied IR End of Case Report * Exam Date Time Procedure Performing Provider Status 03/28/23 8:47 AM US Guide Thoracentesis Imaging Clari Quintanilla; Nirali (Verified) Notes: (US Guide Thoracentesis Imaging) Reason For Exam: Pleural effusion US Guide Thoracentesis Imaging Patient: MAHSA MUHAMMAD Study Date: 03/28/2023 Performing: Jules King PA-C Referring: : 1960 Age: 62 Gender: FEMALE PROCEDURE: US Guided Thoracentesis - Right INDICATION: Dyspnea GREEN BUILDING ENGINEER(S): Jules King PA-C ANESTHESIA: Lidocaine was administered for local anesthesia TECHNIQUE: Informed consent for a right thoracentesis was obtained from the patient prior to the start of the procedure. A timeout was done, confirming the correct patient and the correct side of procedure. The patient was brought into the ultrasound procedure suite. With the patient in an upright position, examination under ultrasound was performed to identify large right pleural effusion. A suitable access site in the right chest wall was identified, marked, prepped and draped in standard sterile fashion. Under continuous ultrasound guidance, a 5 Fr Yueh needle was advanced into the pleural cavity. A post thoracentesis scan was obtained. The catheter was removed and hemostasis obtained using manual compression. FINDINGS: About 400 of clear serous of fluid was removed from that space. right pleural fluid sample was sent for requested labs and cytology. COMPLICATIONS: The patient tolerated the procedure well and in stable condition. There were no immediate complications. PLAN: Routine post procedure monitoring. Post procedure chest x-ray has been ordered and is pending. IMPRESSION: A right thoracentesis was performed under ultrasound guidance as described above. Signed By Jules King PA-C On 03/28/2023 11:49:25 Signed By Jules King PA-C On 03/28/2023 11:49:25 Jules King PA-C SUPPLIES: Vinh HIDALGO 19 X 10 Dictated By: Jules Fernández Dictated Date/Time: 03/28/23 8:47 am Reviewed By: Jules Fernández Signed By: Jules Fernández Signed Date/Time: 03/28/23 8:47 am Transcribed By: DEBORA Transcribed Date/Time: 03/28/23 8:47 am Vital Signs Most recent to oldest [Reference Range]: 1 2 3 Height 158 cm (04/06/23 11:35 AM) 158 cm (04/06/23 5:02 AM) 158 cm (04/05/23 9:45 PM) Weight 114.6 kg (04/02/23 8:07 AM) 112 kg (03/30/23 9:32 AM) 122 kg (03/24/23 8:53 PM) Oxygen Saturation [94-100 %] 98 % (04/06/23 11:35 AM) 96 % (04/06/23 5:02 AM) 95 % (04/05/23 9:45 PM) Pulse Rate [55-90 bpm] 89 bpm (04/06/23 11:35 AM) 89 bpm (04/06/23 11:13 AM) 81 bpm (04/06/23 5:02 AM) Body Mass Index [18.5-24.99 kg/m2] 48.87 kg/m2 *>HHI* (03/24/23 8:53 PM) Blood Pressure [90-138/55-84 mm Hg] 106/62mm Hg (04/06/23 11:35 AM) 106/62mm Hg (04/06/23 11:13 AM) 107/60mm Hg (04/06/23 5:02 AM) Respiratory Rate [16-30 br/min] 17 br/min (04/06/23 11:35 AM) 18 br/min (04/06/23 5:02 AM) 18 br/min (04/05/23 9:45 PM) Temperature [96.8-100.4 DegF] 97.5 DegF (04/06/23 11:35 AM) 97.8 DegF (04/06/23 5:02 AM) 98.0 DegF (04/05/23 9:45 PM) Liters per Minute 4 L/min 1 (04/06/23 11:35 AM) 6 L/min (04/05/23 9:45 PM) 6 L/min (04/05/23 3:26 PM) Mode of Delivery (Oxygen) Nasal cannula (04/06/23 11:35 AM) CPAP (04/06/23 5:02 AM) Nasal cannula (04/05/23 9:45 PM) Blood pressure sites Arm, right (04/06/23 11:35 AM) Arm, right (04/06/23 5:02 AM) Arm, right (04/05/23 9:45 PM) Temperature Route Oral (04/06/23 11:35 AM) Axillary (04/06/23 5:02 AM) Oral (04/05/23 9:45 PM) Dry Weight 122 kg (03/24/23 8:53 PM) 119 kg (03/24/23 2:21 PM) 119 kg (03/24/23 2:11 PM) Weight Obtained Via Bed scale (04/02/23 8:07 AM) Bed scale (03/30/23 9:32 AM) Dry Weight Obtained Via Patient/family stated (03/24/23 2:11 PM) 1Result Comment: Srinath. Social History Social History Type Response Smoking Status Former smoker, quit more than 30 days ago; Other: smoked briefly from March-Apr 2022, had been years of nonsmoking prior; entered on: 07/28/22 Sex Laboratory * Fernando BOUCHER, Jules Meredith: REVIEW Shahab Franco MD: REVIEW Event Display: Cytology Reports General Authored Date: [id number] Patient Name: MAHSA MUHAMMAD Patient : 1960 (Age: 62) Lab Collection Date: 03/28/2023 Accession Date: 03/28/2023 Sign Out Date: 03/31/2023 Tissue Source: 1: PLEURAL FLUID, RIGHT: Final Diagnosis: PLEURAL FLUID, RIGHT: NEGATIVE FOR MALIGNANT CELLS. The cell block confirms the above findings. Clinical History: Date of Last Menstrual Period: not available Menstrual History: not available Contraceptive History: not available Ancillary Testing: not available Clinical History (other): Right pleural effusion, history of lung cancer. Gross Description: Received 60cc of yellow, hazy fluid 1 ThinPrep cellular enhancement technique Cell block -03/28/23 Primary Pathologist: Gaurav Manzano M.D. Phone #: [phone], On-Call Pathologist: [id number] Admission evaluation note * Thomas Dumont DO W: PERFORM, MODIFY, MODIFY Event Display: Admission Note Authored Date: [id number] Patient: ??MAHSA MUHAMMAD ? Age:??62 Years?Sex:??Female?:??1960?? History of Present Illness Per mPage: 62F hx lung CA/maignancy w/ pericardial effusion. On 2 LPM NC at home. here w/ aucte hypoxic resp. failure likely due to pleural effusion 2/2 known malignancy. On 6 LPM alcazar. CTA r.u PE,some other chronic findings. POCUS (-) B lines. Trop 45. ECG nonishcmeic. ?? Ms. Mahsa Bedoya is a 62-year-old lady with a medical history notable for type 2 diabetes, hypertension, hyperlipidemia, asthma, VANDANA/OHS on noninvasive positive pressure ventilation with iVAPS,chronic hypoxic/hypercapnic respiratory failure on 2 L oxygen at baseline, right lower lobe adenocarcinoma of the lung status post EBUS biopsy (August 2022) with metastasis to mediastinal lymph nodes, heart failure with preserved ejection fraction, hypothyroidism, pseudotumor cerebri, GERD, depression, and anxiety who presented to the emergency department with worsening shortness of breath.?? History relayed by the patient as well as her , Makayla who was at bedside on admission. ?? Ms. Bedoya was recently admitted to [facility] from 03/15 - 03/21 after having presented directly from her oncology office due to symptomatic anemia as well as newly diagnosed right-sided pleural effusion as well as pericardial effusion.?? Work-up during that hospitalization notable for EGD with gastric antral vascular ectasias status post a reported 52 ablations.?For??the procedure, was intubated,??since extubation has had a hoarse voice and sore throat. ??Hospital course was complicated by acute superimposed on chronic respiratory failure.?? Does not appear that any major me dication changes were made with regard to either her heart failure or respiratory disease processes.??Since returning home Ms. Bedoya has continued with shortness of breath and lower extremity edema.?Makayla voices concerns that??on discharge??the appropriate??equipment for the patient's iVAPSwas not ready from??the [facility]. ??Previously??she did not require oxygen??through her??noninvasive positive pressure ventilation at night, however??this was a necessity while at the hospital. ??In order to set this up, new equipment??needed to be delivered, unfortunately this could not be done??in a timely manner. ??As such??Ms. Bedoya has been staying up most nights??not sleeping??as when she would wear her??iVAPS??without oxygen, she would desaturate??as low as 70%.??She was meant to follow-up with Dr. Crews of pulmonology on??03/23, however??due to concerns for??her ability to??make it up and down the stairs, she??canceled this appointment.?With everything going on??regarding her??equipment, has been in close contact with??her sleep medicine team??who ultimately urged her to present to the emergency department??for further evaluation??given the??significantly worsening shortness of breath and oxygen requirements at home. Ms. Bedoya does have a slight cough,however it is nonproductive.?? Has not had any fevers.?? As noted further below, did receive breathing treatments in the emergency department??with some??improvement immediately following. ?? In the emergency department, vitals notable for hypoxia down to 89% while on 4 L via nasal cannula.?? This improved with increased to 6 L via nasal cannula.?? Otherwise hemodynamically stable and afebrile.?? CBC with hemoglobin 7.1 (7.5 on discharge 03/21).?? Platelets elevated at 501.?? No leukocytosis.?? Metabolic panel with elevated bicarbonate at 32, slight increase from prior.?? Metabolic panel was otherwise not concerning.?? NT proBNP elevated at 922, initial troponin 45 followed by 49.?? TSH 2.62.?? COVID-19 negative.?? Given risk factors for coagulopathy as well as presentation withshortness of breath, underwent CTA chest to assess for pulmonary embolism.?? Although it was reported as a limited exam, no central through proximal subsegmental emboli were identified.?? Increasing right-sided pleural effusion and bibasilar atelectasis were noted as well as worsening upper mediastinal and subcarinal adenopathy.?? Ms. Bedoya's moderate pericardial effusion remains unchanged.??While in the emergency department, received albuterol and ipratropium nebulizer therapies as well as Solu-Medrol. ?? Review of Systems A full review of systems was completed and is otherwise negative except as mentioned in history of present illness. Objective Vital Signs?? Temperature: 97.3 DegF (03/25/23 04:00:00) Temperature Route: Oral (03/25/23 04:00:00) Pulse Rate:??98 bpm??High (03/24/23 22:22:00) Heart Rate Monitored: 85 bpm (03/25/23 06:00:00) Respiratory Rate: 20 br/min (03/25/23 06:00:00) Vented: No (03/25/23 06:00:00) Systolic Blood Pressure:??149 mm Hg??High (03/25/23 06:00:00) Diastolic Blood Pressure:??119 mm Hg??High (03/25/23 06:00:00) Blood pressure sites: Arm, right (03/25/23 04:00:00) Mean Arterial Pressure: 102 mm Hg (03/24/23 20:53:00) Pulse Pressure: 30 mm Hg (03/25/23 06:00:00) Oxygen Saturation:??87 %??Low (03/25/23 06:00:00) Liters per Minute: 15 L/min (03/25/23 00:00:00) Mode of Delivery (Oxygen): CPAP (03/25/23 04:00:00) FiO2: 70 % (03/25/23 05:07:00) Early Warning Score: 5 (03/25/23 06:15:17) ? Physical Exam General:??Alert, in no acute cardiopulmonary distress. Mental Status:??Normal affect. Responding appropriately to questions. HEENT:??Normocephalic. Hoarse voice, moist mucous membranes, no oropharyngeal??erythema, swelling, or stridor on neck auscultation. Respiratory:??Clear to auscultation with light wheezing bilaterally. Cardiovascular:??Regular rate and rhythm, no murmurs, rubs, or gallops.?? Gastrointestinal:??Abdomen soft, nontender, nondistended, bowel tones present. No hepatosplenomegaly appreciated. Neurologic:??Cranial nerves II-XII grossly intact. Moves all extremities spontaneously. Extremities:??Bilateral, 2+ pitting edema. Musculoskeletal:??No gross deformities. Assessment/Plan Assessment:??Ms. Mahsa Bedoya is a 62-year-old lady with a medical history notable for type 2diabetes, hypertension, hyperlipidemia, asthma, VANDANA/OHS on noninvasive positive pressure ventilation with iVAPS, chronic hypoxic/hypercapnic respiratory failure on 2 L oxygen at baseline, right lower lobe adenocarcinoma of the lung status post EBUS biopsy (August 2022) with metastasis to mediastinal lymph nodes, heart failure with preserved ejection fraction, hypothyroidism, pseudotumor cerebri, GERD, depression, and anxiety who presented to the emergency department with worsening shortness of breath. ?? Acute hypercapnic respiratory failure (J96.02):?? Acute hypoxemic respiratory failure (J96.01):?? Chronic hypoxemic respiratory failure (J96.11):?? Obesity hypoventilation syndrome (E66.2):?? Obstructive sleep apnea (G47.33):?? Carcinoma of lung (C34.90):?? Pleural effusion on right (J90):?? Patient with complex??pulmonary history and recent hospitalization??presenting with??acute superimposed on chronic respiratory failure. Does have a bit of a mixed picture at baseline, appears to??now as well??with increasing oxygen requirement??necessitating??admission to medical [facility]. Given the work-up thus far suspect that this is a multifactorial situation??with??a number of pathologies coming to play. The??inability for??patient to??receive her typical iVAPS at night could certainly worsen her??hypercapnic respiratory failure. Review of??CT scan does show a worsening of her right-sided pleural effusion, appears??larger at this point, certainly may also be contributing. Although does have lower extremity edema,??no pulmonary edema, no crackles on exam think that this is less likely a factor here. Additionally,??with recent??hospitalization, intubation,??and cancer certainly at risk for??pneumonia,??no fever??nor consolidations??on??imaging. With hoarseness,??would also be concerned for a??tracheal pathology, again trachea appears patent??without??stridor on exam. Overall, will provide supportive care, ensure that??overnight iVAPS??ordered, and??provide breathing treatments. --??Would readdress need for??therapeutic thoracentesis??with pulmonary medicine team now that??effusion appears to be larger??on imaging. ?? Plan: ?Supplemental oxygen, wean to baseline as tolerated ?DuoNebs??scheduled and as needed ?Procalcitonin ?ABG??to assess for possible retention ??? iVAPS ordered at night ??? Pulmonary medicine consult during business hours ??? Hold off on further steroid therapy ?? Heart failure with preserved ejection fraction (I50.30):?? Known heart failure with preserved ejection fraction. ??Recently treated inpatient for an exacerbation of this. ??Worsening swelling over the last several days??preceding admission. Suspect this is not playing a role in her current??respiratory distress, however does appear to be volume overloaded with bilateral lower extremity edema on exam. Will treat with IV diuresis, patient has requested Hernandez catheter as she is not able to get up??andutilize the bathroom??while being??actively diuresed. ?? Plan: ?40 mg IV Lasix now, further diuretics based on response ??? Monitor intake/output/daily weight ?Renal function and electrolytes with daily labs ??? Hernandez catheter to be placed while actively diuresing ?? Diabetes mellitus (E11.9):?? Type 2 diabetes mellitus on??insulin pump which she is capable of managing. Discussed with patient and with pharmacy, orders are in. Will still utilize??POC glucose??with meals. ??Hypoglycemia emergency measures also ordered. ?? Plan: ??? Patient to manage own insulin pump ?POC glucose/hypoglycemia urgency measures ?? Troponin level elevated (R77.8):?? Troponin??mildly elevated on admission, suspect that this is in setting of??hypoxia. Does not have any chest pain, or evidence of??acute??cardiac event. ?? Plan: ??? No further need to trend troponin ??? ekg monitor ?? Anemia (D64.9):?? Chronic/stable anemia at this point. ??Hemoglobin 7.1 admission. No need for transfusion as yet. ?? Plan: ?Hemoglobin with daily labs ?? Quality Measures: VTE Prophylaxis:??PCB in case of procedure Code Status:??Full Code Ongoing Medical Necessity:??Respiratory failure Discharge Planning:??Pending further evaluation Family: , Makayla updated at bedside on admission. Patient seen and evaluated 03/25/2023. ? Histories Allergies Allergies ?(Active and Proposed [...] Cholecystectomy Appendectomy Pseudotumor cerebri surgery Tonsillectomy ? Family History Mother: Diabetes mellitus; Heart [...] extended release)?1?tab(s)?20?Milliequivalent?By Mouth?2 times a day?for 3?Days Rosuvastatin (Crestor 40 mg oral tablet)?1?tab(s)?40?Milligram?By Mouth?Daily Sucralfate (Carafate 1 gm oral tablet)?1?gram?By Mouth?3 times a day before meals and bedtime Trazodone (traZODone 50 mg oral tablet)?50?Milligram?1?tablet?By Mouth?Daily at bedtime ? EKG study * Event Display: ECG 12-Lead Authored Date: [id number] Please click on pdf link to open report * Event Display: ECG 12-Lead Authored Date: [id number] Ventricular Rate: 104 BPM Atrial Rate: 104 BPM P-R Interval: 176 ms QRS Duration: 72 ms Q-T Interval: 316 ms QTC Calculation(Bazett): 415 ms P Driver: 47 degrees R Driver: 80 degrees T Driver: 41 degrees Sinus tachycardia with frequent Premature ventricular complexes Low voltage QRS Septal infarct , age undetermined Abnormal ECG When compared with ECG of 24-MAR-2023 15:15, MANUAL COMPARISON REQUIRED, DATA IS UNCONFIRMED Confirmed by YASEMIN OLGUIN MD ([id number]) on 03/30/2023 10:22:08 AM [place]: YASEMIN OLGUIN MD * Event Display: ECG 12-Lead Authored Date: [id number] Please click on pdf link to open report * Event Display: ECG 12-Lead Authored Date: [id number] Ventricular Rate: 85 BPM Atrial Rate: 85 BPM P-R Interval: 200 ms QRS Duration: 86 ms Q-T Interval: 380 ms QTC Calculation(Bazett): 452 ms P Driver: 22 degrees R Driver: 74 degrees T Driver: 42 degrees Normal sinus rhythm Low voltage QRS Septal infarct (cited on or before 13-SEP-2019) Abnormal ECG When compared with ECG of 15-MAR-2023 15:56, No significant change was found Confirmed by YASEMIN OLGUIN MD ([id number]) on 03/30/2023 10:22:14 AM [place]: YASEMIN OLGUIN MD Heart * Event Display: Echocardiogram - Complete Authored Date: [id number] Transthoracic Echocardiography Report (TTE) Patient Demographics Patient Name MAHSA MUHAMMAD Date of Study 04/06/2023 Corporate Gender Female Facility Race Ethnicity Date of 1960 Height: 62 inches Age 62 year(s) Weight: 253.51 pounds Accession Number [id number] BSA: 2.11 m2 Room Number S242 BMI: 46.37 kg/m2 Referring Physician Gautam Luis MD Interpreting Physician Lynda Whitley MD Pigskin Trimmer Amie Escamilla RDCS Indications CVA. Clinical History Morbid obesity. VANDANA. Hypertension. Hyperlipidemia. Congestive heart failure. Study Data Type of Study TTE procedure:Echo Complete-(Doppler, Colorflow) with Contrast. Procedure Information:Definity was administered by Amie Escamilal RDCS. Saline (bubble study) was administered by FERNANDO Salgado . Study Date04/06/2023 Start Time: 09:13 AM Study Location: [facility] Adult Echo Study Status: Echo lab Patient Status: Routine Technical Quality: Technically difficult due to body habitus. Blood Pressure:107/60 mmHg EKG: Within normal limits HR: 88 bpm Contrast Medium: Definity. Amount - 2 ml 2D Measurements LV Diastolic Dimension: 4.6 cm LV Systolic Dimension: 3.5 cm LV Septum Diastolic: 1.2 cm LV PW Diastolic: 1.2 cm AO Root Dimension: 3.7 cm LA ESV (BP):35.4 ml LVOT Stroke Volume: 70.65 ml LA ESV Index: 17 ml/m2 Stroke Volume Index33.48 ml/m2 LVOT: 2 cm Cardiac Index:2.95 l/min/m2 Ascending Aorta:3.5 cm Doppler Measurements AV Peak Velocity: 167 cm/s MV Peak E-Wave: 69.8 cm/s AV Peak Gradient: 11.16 mmHg MV Peak A-Wave: 104 cm/s AV Mean Gradient: 6 mmHg MV E/A Ratio: 0.67 AV VTI:27.1 cm MV P1/2t: 74 msec LVOT Peak Velocity: 143 cm/s LVOT VTI22.5 cm MV Deceleration Time: 254 msec AV Area (Continuity):2.61 cm2 MV Area (PHT): 2.97 cm2 PV Peak Velocity: 130 cm/s PV Peak Gradient: 6.76 mmHg E' Septal Velocity: 10.8 cm/s E' Lateral Velocity: 9.25 cm/s E/Med E':[id number] E/Lat E':7.419481 Cardiac Anatomy Left Ventricle/Interventricular Septum The left ventricular size is normal. The left ventricular wall thickness is upper normal. The LV systolic function is hyperdynamic . The left ventricular ejection fraction is 65-75 %. There are no definite regional wall motion abnormalities. Grade I, mild diastolic dysfunction with impaired LV relaxation, which may be normal for the patient's age. Left Atrium/Interatrial Septum The left atrium is normal in size. Interatrial septum is not well seen. An agitated saline study (bubble study) was performed and was normal at rest. Image quality with Valsalva was poor. Aortic Valve The aortic valve is probably trileaflet . There is mild aortic regurgitation. There is no aortic stenosis. Mitral Valve The mitral valve appears grossly normal. There is no significant mitral regurgitation. There is no significant mitral stenosis. Aorta The aortic root appears normal. Right Ventricle The right ventricle is grossly normal in size and function. Right Atrium The right atrium is normal in size. Pulmonic Valve The pulmonic valve is functionally normal. There is mild to moderate pulmonic regurgitation. Tricuspid Valve Poorly seen. Pumonary Artery An accurate pulmonary artery pressure could not be obtained. Venous Structures The inferior vena cava appears normal. Pericardium/Extracardiac There is a small pericardial effusion posteriorly . There is no evidence of chamber collapse. Summary TDS. The left ventricular size is normal. The left ventricular wall thickness is upper normal. The LV systolic function is hyperdynamic . The left ventricular ejection fraction is 65-75 %. There are no definite regional wall motion abnormalities. Grade I, mild diastolic dysfunction with impaired LV relaxation, which may be normal for the patient's age. The right ventricle is grossly normal in size and function. There is a small pericardial effusion posteriorly . There is no evidence of chamber collapse. There is mild aortic regurgitation. The left atrium is normal in size. Interatrial septum is not well seen. An agitated saline study (bubble study) was performed and was normal at rest. Image quality with Valsalva was poor. Comparison Comparison is made to the study of March 16, 2023. Present study technically difficult without obvious change. Signature * Event Display: Echocardiogram - Complete Authored Date: [id number] Hospital Progress note * Roseanna Maurer RN: PERFORM, SIGN, VERIFY, MODIFY, SIGN Event Display: Progress Note Hospital Authored Date: [id number] Patient: MAHSA MUHAMMAD Age: 62 years Sex: Female : 1960 Associated Diagnoses: None Author: Roseanna Maurer RN Findings Problem Related to Alteration in Respiratory Function (new) : Alteration in Respiratory Function/new 04/06/2023 18:00 EDT Alteration in Resp Status Related to COPD Goals & Outcomes, Respiratory Met Goals/Outcomes Interventions, Respiratory Resolved problem, Interventions no longer in effect Goals/Interventions, Respiratory Yes Respiratory, Problem Start 03/25/2023 6:11 Reviewed Plan with, Respiratory Patient Patient Progression, Respiratory Resolved problem Respiratory, Problem Resolved 04/06/2023 18:00 04/06/2023 9:00 EDT Alteration in Resp Status Related to COPD Goals & Outcomes, Respiratory Pt will maintain/resume baseline physical assessment, Pt will maintain/resume normal fluid/electrolyte balance Interventions, Respiratory Assess/monitor tolerance to IV infusions; verify rate/dose, Assess for and report S&S of respiratory distress, Position for comfort & optimal oxygenation, Initiate pulmonary rehab nurse consult, Monitor sputum color & consistency. Report changes to MD, Teach/encourage use of incentive spirometer, Teach the proper use of inhalers, Teach purse lip breathing asneeded for breathing retraining, Teach tripod positioning to promote air exchange BH Goals/Interventions, Respiratory Yes Respiratory, Problem Start 03/25/2023 6:11 Reviewed Plan with, Respiratory Patient Patient Progression, Respiratory Patient progressing according to plan . Nursing Data Vital Signs : VITAL SIGNS SECTION 04/06/2023 11:35 EDT Temperature 97.5 DegF Temperature Route Oral Pulse Rate 89 bpm Respiratory Rate 17 br/min Systolic Blood Pressure 106 mm Hg Diastolic Blood Pressure 62 mm Hg Blood pressure sites Arm, right Mean Arterial Pressure 77 mm Hg Pulse Pressure 44 mm Hg Oxygen Saturation 98 % Liters per Minute 4 L/min (Modified) Mode of Delivery (Oxygen) Nasal cannula . Narrative/Incidental Patient alert and oriented x4. Tele rhythm NSR. On 4L NC, wears IVAP at night. SOB at rest, tachypneic. Lung bases dim. . Scheduled nebs/inhalers administered. Contnuous O2 monitoring in place, O2 sats above 90% throughout day occasional dip to 70's when pt moving/sleeping raises back to 90% on 4L NC, MD notified. Skin intact. States no pain. Pt has insulin pump located [facility] attacthed to pt, bedside log filled out by pt. Pt refused lasix d/t planned d/c. Pt went for echo with bubble, see [facility]. Pulm rehab eval today. Please see biophysical for further assessment. Hourly rounding in place, pts safety remained.. . Pt discharged home with services. IV and tele discontinued. Discharge paperwork signed and reviewedwith patient and s/o at bedside. Safety remained, patient belongings in hand.... Discharge Information Case Management Discharge Plan : Case Management Discharge Plan Data 04/06/2023 18:05 EDT Discharge Level of Care at Discharge Homehealth/VNA Discharge VNA/Hospice/Home Care [facility] 04/06/2023 15:31 EDT Discharge Level of Care at Discharge Homehealth/VNA Discharge VNA/Hospice/Home Care [facility] Discharge Transportation Arranged [facility] [address] [place] [address] Mode of Transportation Arranged Ambulance Name of Agency #1 [facility] Categories #1 Physical Therapy, Care Home Service Comments #1 You have been set up with homecare services, please allow the agency 24-48 hours to contact you in regards to your first appointment, if you do not hear from them in this timeframe please call the agency. Thank you Pulmonary Rehab Discharge : Pulmonary Rehab Discharge Status 04/06/2023 4:26 EDT CPAP/BiPAP Mask Type Nasal CPAP/BiPAP Mask Size Other: home nasal 04/06/2023 2:18 EDT CPAP/BiPAP Mask Type Nasal CPAP/BiPAP Mask Size Other: home nasal 04/05/2023 23:28 EDT CPAP/BiPAP Mask Type Nasal CPAP/BiPAP Mask Size Other: home nasal mask 04/05/2023 4:05 EDT CPAP/BiPAP Mask Type Nasal CPAP/BiPAP Mask Size Other: pt own mask 04/05/2023 0:15 EDT CPAP/BiPAP Mask Type Nasal CPAP/BiPAP Mask Size Other: pt own mask 04/04/2023 20:57 EDT CPAP/BiPAP Mask Type Nasal CPAP/BiPAP Mask Size Other: pt own mask 04/04/2023 0:16 EDT CPAP/BiPAP Mask Type Other: pt. own mask CPAP/BiPAP Mask Size Small 04/03/2023 21:31 EDT CPAP/BiPAP Mask Type Nasal CPAP/BiPAP Mask Size Other: pt. own mask 04/03/2023 1:01 EDT CPAP/BiPAP Mask Type Full CPAP/BiPAP Mask Size Small 04/02/2023 4:37 EDT CPAP/BiPAP Mask Type Full CPAP/BiPAP Mask Size Small 04/02/2023 0:20 EDT CPAP/BiPAP Mask Type Full CPAP/BiPAP Mask Size Small 04/01/2023 22:33 EDT CPAP/BiPAP Mask Type Full CPAP/BiPAP Mask Size Small 04/01/2023 3:30 EDT CPAP/BiPAP Mask Type Full CPAP/BiPAP Mask Size Small Rehabilitation Discharge : Rehab Discharge Index 04/04/2023 12:42 EDT Comments on treatment indicated 62 y.o. F presented to the emergency departmentwith worsening shortness of breath. WBAT. O2 via nasal canula. PT for balance and gait as well as activity tolerance. Recommending home with services. Distance pt will ambulate >50ft with LRAD Full chart review completed Yes Hospital course - recently admitted to [facility] from 03/15 - 03/21 after having presented directly from her oncology office due to symptomatic anemia as well as newly diagnosed right-sided pleural effusion as well as pericardial effusion Other findings Pt. seated on EOB. Sit to stand with UE assist. Pt. standing without LOB or c/o dizziness. Wide ROSALINO and posterior on heels noted. Pt. ambulates at home without AD and per pt. report isindependent. Rec. home with svcs. Plan of care PT Gait training, Functional Activities, Balance training * Lc Walter MD: PERFORM Event Display: Progress Note Hospital Authored Date: [id number] Patient: ??MAHSA MUHAMMAD ? Age:??62 Years?Sex:??Female?:??1960?? Subjective Patient seen and evaluated at bedside.?? Explained that??the most likely??diagnosis relating to herrecent hospitalization and hypoxia is radiation pneumonitis.?? This is based on a history,??physical exam, and imaging findings. ?? We discussed??the indication for a steroid??course and??she is agreeable.?? Please see assessment and plan below. Review of Systems Ten point ROS was performed and found to be negative except HPI Objective Vital Signs?? Temperature: 97.5 DegF (04/06/23 11:35:00) Temperature Route: Oral (04/06/23 11:35:00) Pulse Rate: 89 bpm (04/06/23 11:35:00) Respiratory Rate: 17 br/min (04/06/23 11:35:00) Systolic Blood Pressure: 106 mm Hg (04/06/23 11:35:00) Diastolic Blood Pressure: 62 mm Hg (04/06/23 11:35:00) Blood pressure sites: Arm, right (04/06/23 11:35:00) Mean Arterial Pressure: 77 mm Hg (04/06/23 11:35:00) Pulse Pressure: 44 mm Hg (04/06/23 11:35:00) Oxygen Saturation: 98 % (04/06/23 11:35:00) Liters per Minute: 4 L/min (04/06/23 11:35:00) Mode of Delivery (Oxygen): Nasal cannula (04/06/23 11:35:00) Early Warning Score: 2 (04/06/23 13:25:13) ? Physical Exam General:??Alert, in no acute cardiopulmonary distress. Mental Status:??Normal affect. Responding appropriately to questions. HEENT:??Normocephalic. Hoarse voice, moist mucous membranes, no oropharyngeal??erythema, swelling, or stridor on neck auscultation. Respiratory:??decreased breath sounds at the bases bilaterally,??more pronounced on the right Cardiovascular:??Regular rate and rhythm, no murmurs, rubs, or gallops.?? Gastrointestinal:??Abdomen soft, nontender, nondistended, bowel tones present. No hepatosplenomegaly appreciated. Neurologic:??Cranial nerves II-XII grossly intact. Moves all extremities spontaneously. Extremities:??Bilateral,??trace pitting edema. Musculoskeletal:??No gross deformities. Assessment/Plan Assessment:??Acute on chronic hypoxic hypercapnic respiratory failure Bibasilar atelectasis ??Obesity hypoventilation syndrome ??Asthma ??VANDANA Certainly there is a multifactorial etiology behind her??persistent respiratory failure, increased oxygen requirements, and inability to wean.??However, based on her history of radiation, the patternof lung injury including??air bronchograms,??progressively worsening consolidation,??there is a strong suspicion for radiation induced pneumonitis. ??She was well diuresed, and she is back on her home??scheduled??p.o. furosemide.??CXR from 04/04 showing??slight worsening bibasilar??and??middle??infiltrates, more pronounced on the right side.??On physical examination,??she has decreased breath sounds at the bases, more pronounced on the right.?Polysomnogram,??sleep notes,??sleep adherence??data??reviewed. Patient has had good control on AVAPS settings??of??19???9 with??Va??8.1 L,??20 bpm ??Plan: ?Sputum Gram stain, culture negative.??ESR, CRP, procalcitonin??from??previous admission in February normal. ?Chest CT showing improvement in??edema component however persistent??groundglass opacity. ?At this point??the most likely diagnosis is radiation pneumonitis.??Recommend a course of steroids with the following regimen: 40 mg/day??for 2 weeks followed by a??taper??of 40 mg daily X 1 week, 20 mg X1 week, 10 mg X1 week,??and 10 mg every other day X 1 week.??Recommend EGD prophylaxis with??TMP???SMX??for the duration of her steroid course. Follow-up as outpatient with??pulmonary medicine. Stressed the importance of maintaining euvolemic status??especially in the setting of steroid use. ? Case discussed with Dr. Savage ? * Roseanna aMurer RN: SIGN, MODIFY, PERFORM, SIGN, VERIFY Event Display: Progress Note Hospital Authored Date: Patient: MAHSA MUHAMMAD Age: 62 years Sex: Female : 1960 Associated Diagnoses: None Author: Roseanna Maurer RN Findings Problem Related to Alteration in Respiratory Function (new) : Alteration in Respiratory Function/new 04/05/2023 9:00 EDT Alteration in Resp Status Related to COPD Goals & Outcomes, Respiratory Pt will maintain/resume baseline physical assessment, Pt will maintain/resume normal fluid/electrolyte balance Interventions, Respiratory Assess/monitor tolerance to IV infusions; verify rate/dose, Assess for and report S&S of respiratory distress, Monitor sputum color & consistency. Report changes toMD, Teach/encourage use of incentive spirometer, Teach the proper use of inhalers, Teach purse lip breathing as needed for breathing retraining, Teach tripod positioning to promote air exchange BH Goals/Interventions, Respiratory Yes Respiratory, Problem Start 03/25/2023 6:11 Reviewed Plan with, Respiratory Patient Patient Progression, Respiratory Patient progressing according to plan . Nursing Data Vital Signs : VITAL SIGNS SECTION 04/05/2023 11:43 EDT Early Warning Score 1.00 04/05/2023 11:36 EDT Temperature 98.7 DegF Temperature Route Oral Pulse Rate 85 bpm Respiratory Rate 18 br/min Systolic Blood Pressure 101 mm Hg Diastolic Blood Pressure 41 mm Hg L Blood pressure sites Arm, right Mean Arterial Pressure 61 mm Hg Pulse Pressure 60 mm Hg Oxygen Saturation 99 % Liters per Minute 4 L/min (Modified) Mode of Delivery (Oxygen) Nasal cannula . Narrative/Incidental Patient alert and oriented x4. Tele rhythm NSR. On 4L NC, wears IVAP at night. SOB at rest, tachypneic. Lung bases dim. . Scheduled nebs/inhalers administered. Wears 2L NC baseline. Contnuous O2 monitoring in place, O2 sats above 90% throughout day occasional dip to 70's when pt moving/sleeping raises back to 90% on 4L NC, MD notified. Hernandez was discontinued at 1206, following post cath removal protocol. Skin intact. States no pain. Pt has insulin pump located [facility] attacthed to pt, bedside log filled out by pt. Scheduled meds administered. Please see biophysical for further assessment. Hourly rounding in place, pts safety remained.. . Discharge Information Pulmonary Rehab Discharge : Pulmonary Rehab Discharge Status 04/05/2023 4:05 EDT CPAP/BiPAP Mask Type Nasal CPAP/BiPAP Mask Size Other: pt own mask 04/05/2023 0:15 EDT CPAP/BiPAP Mask Type Nasal CPAP/BiPAP Mask Size Other: pt own mask 04/04/2023 20:57 EDT CPAP/BiPAP Mask Type Nasal CPAP/BiPAP Mask Size Other: pt own mask 04/04/2023 0:16 EDT CPAP/BiPAP Mask Type Other: pt. own mask CPAP/BiPAP Mask Size Small 04/03/2023 21:31 EDT CPAP/BiPAP Mask Type Nasal CPAP/BiPAP Mask Size Other: pt. own mask 04/03/2023 1:01 EDT CPAP/BiPAP Mask Type Full CPAP/BiPAP Mask Size Small 04/02/2023 4:37 EDT CPAP/BiPAP Mask Type Full CPAP/BiPAP Mask Size Small 04/02/2023 0:20 EDT CPAP/BiPAP Mask Type Full CPAP/BiPAP Mask Size Small 04/01/2023 22:33 EDT CPAP/BiPAP Mask Type Full CPAP/BiPAP Mask Size Small 04/01/2023 3:30 EDT CPAP/BiPAP Mask Type Full CPAP/BiPAP Mask Size Small 03/31/2023 22:41 EDT CPAP/BiPAP Mask Type Full CPAP/BiPAP Mask Size Small 03/31/2023 5:10 EDT CPAP/BiPAP Mask Type Full CPAP/BiPAP Mask Size Small 03/31/2023 0:48 EDT CPAP/BiPAP Mask Type Full CPAP/BiPAP Mask Size Small Rehabilitation Discharge : Rehab Discharge Index 04/04/2023 12:42 EDT Comments on treatment indicated 62 y.o. F presented to the emergency departmentwith worsening shortness of breath. WBAT. O2 via nasal canula. PT for balance and gait as well as activity tolerance. Recommending home with services. Distance pt will ambulate >50ft with LRAD Full chart review completed Yes Hospital course - recently admitted to [facility] from 03/15 - 03/21 after having presented directly from her oncology office due to symptomatic anemia as well as newly diagnosed right-sided pleural effusion as well as pericardial effusion Other findings Pt. seated on EOB. Sit to stand with UE assist. Pt. standing without LOB or c/o dizziness. Wide ROSALINO and posterior on heels noted. Pt. ambulates at home without AD and per pt. report isindependent. Rec. home with svcs. Plan of care PT Gait training, Functional Activities, Balance training * Roseanna Maurer RN: PERFORM Event Display: Progress Note Hospital Authored Date: Pt refused 1800 dose of lasix 80mg IVP, states wants to sleep tonight without having to get up to use bathroom throughout the night. Pt states will start in the morning.. Consult note * Trina Hollingsworth NP: PERFORM Event Display: Consultation Note Authored Date: [id number] Patient: ??MAHSA MUHAMMAD ? Age:??62 Years?Sex:??Female?:??1960?? History of Present Illness Ms.St Rosario, 62 y/o with history of??type 2 diabetes, hypertension, hyperlipidemia, asthma, VANDANA/OHS,??chronic hypoxic/hypercapnic respiratory failure on??oxygen??at baseline, right lower lobe adenocarcinoma??diagnosed in August 2022 with metastasis to the mediastinal lymph nodes??and status post r adiation, heart failure with preserved EF, hypothyroidism, pseudotumor cerebri status post shunting, GERD, depression, and anxiety??admitted for refractory hypoxia and worsening shortness of breath from an outpatient sleep clinic appointment??who is now being seen by neurology after a brain MRI??obtained to evaluate for metastasis showed a left cerebellar infarct. ??She is noted to have an elevated D-dimer of 1.09. ?? Patient is seen sitting up in bed this afternoon, she is awake and alert. ??She denies having any??neurological deficits in the last??1 to 2 weeks and has been at baseline.?? She describes having some chronic gait instability. Review of Systems No complaints currently reports chronic gait instability and chronic??right visual field deficit. Physical Exam Vitals & Measurements T:??97.3?F?? HR:??98??(Peripheral)?? RR:??17?? BP:??108/65?? SpO2:??100%?? HT:??158??cm?? WT:??114.6??kg?? BMI:??48.87? GENERAL APPERANCE: ??appears stated age. HEENT: NC/AT, EOMI, PER LUNGS: ??Normal I:E NEURO: awake and alert oriented to self, place, situation no aphasia Cranial Nerves:?? Pupils: PER Visual: R. VF cut at baseline as per patient, L. VFF. Extra ocular movements: Intact Facial: no facial asymmetry Hearing: intact bilaterally Speech: Clear, Fluent, Appropriate Tongue: Protrudes Midline Motor Exam: Strength: 5/5 throughout Sensory: sensation to light touch intact and equal bilaterally to face, bilateral upper extremities, and bilateral lower extremities, no extinction to DSS Coordination: FTN and finger tapping intact, NATHAN intact, pronator drift negative. Stance and Gait:seen standing at bedside; stable. ? (04/03/2023 00:20 EDT MRI Brain W+W/O Contrast) IMPRESSION: 1. 2 cm acute infarct involving the left posterior cerebellum without mass effect or hemorrhage. 2. No findings to suggest metastatic disease. 3. 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 WSN: [id number] ?? [1] ? (04/03/2023 18:[address] Angio Neck) ??IMPRESSION:?1. No evidence of occlusion or significant stenosis involving the arteries of the head or neck. The left vertebral and left posterior inferior cerebellar arteries are normal. 2. Superior mediastinal adenopathy. ?? A similar preliminary report was provided by [facility]. WSN: [id number] ? 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 ??She is noted to have an elevated D-dimer of1.09. CTA of head and neck; without evidence of occlusion or significant stenosis. ?? dx Acute??left posterior cerebellar infarct in setting of hypercoagulability??with open vessels on CT angiography of the head and neck. ?? plan -Patient has chronically been taking aspirin, suggest change to therapeutic Lovenox -Also advised on checking an echocardiogram with a bubble study.?? Discussed this with patient and she reported having a recent echocardiogram??although it is unlikely it was completed for bubble study, advised on obtaining results and??possibly obtaining??a bubble study if echo on outpatient basiswas recent??versus a complete echo. ?? dw Dr. Rizvi Please call for any questions. Dr. Florez cortexed. ? Problem List/Past Medical History Ongoing Central sleep apnea Depression Diabetic nephropathy GERD - Gastro-esophageal reflux disease Hyperlipidemia Hypertension Hypothyroidism Hypoventilation Obesity, Unspecified Obstructive sleep apnea Severe obesity Sleep-related hypoxia Type 2 diabetes mellitus Procedure/Surgical History Cholecystectomy Appendectomy Pseudotumor cerebri surgery Tonsillectomy Home Medications Acetaminophen/Butalbital/Caffeine: 1 tablet, By Mouth, Every 6 hours, PRN (as needed) Albuterol: 1 puffs, Inhalation, Every 4 hours, PRN (as needed) Aspirin: 81 mg = 1 tablet, By Mouth, Daily Cholecalciferol: 25 mcg = 1 tablet, By Mouth, Daily Desvenlafaxine: 25 mg = 1 tablet, By Mouth, Daily, do not crush or chew Diazepam: 20 mg = 2 tablet, By Mouth, Daily at bedtime Diltiazem: 120 mg = 1 capsule, By Mouth, 2 times a day Durable Medical Equipment (omnipod dash pods): See Instructions, e11.9, use as directed with short acting insulin, change out every 2 days. 30 day supply Durable Medical Equipment (iVAPS): See Instructions, with TVa at 8.6 L/minute with EPAP of 9 and min PS of 6 and max PS of 19 with target patient rate at 20. Fenofibrate: 145 mg = 1 tablet, By Mouth, Daily Fluticasone Nasal: 1 sprays, Daily, Pt uses prn fluticasone-vilanterol: 1 puffs, Inhalation, Daily Furosemide: 60 mg = 1.5 tablet, By Mouth, Every other day Furosemide: 40 mg = 1 tablet, By Mouth, Every other day Insulin Lispro: See Instructions, Subcutaneous Infusion through insulin pump, max 250 units/d, 90 days, E 11.65 Lamotrigine: 100 mg = 1 tablet, By Mouth, 2 times a day levocetirizine: 5 mg = 1 tablet, By Mouth, Daily in PM Levothyroxine: 100 mcg, By Mouth, Daily Ondansetron: 8 mg = 1 tablet, By Mouth, Every 8 hours, PRN (as needed for nausea/vomiting) Pantoprazole: 40 mg, By Mouth, 2 times a day Potassium Chloride: 20 mEq = 1 tablet, By Mouth, 2 times a day Rosuvastatin: 40 mg = 1 tablet, By Mouth, Daily Sucralfate: 1 Gm, By Mouth, 3 times a day before meals and bedtime Trazodone: 50 mg = 1 tablet, By Mouth, Daily at bedtime Allergies Trulicity ibuprofen Social History Alcohol Use: Current. Frequency: 1-2 times per month. Employment/School Status: Retired. Home/Environment Living situation: Home/Independent. Lives with: Spouse. Nutrition/Health Diet: Diabetic. Substance Abuse Use: Never. Tobacco Use: Former smoker, quit more than 30 days ago. Other: smoked briefly from March- Apr 2022, had been years of nonsmoking prior. Family History Mother: Diabetes mellitus; Heart attack; Hypertension Father: Diabetes mellitus; Heart attack; Hypertension [1]??MRI Brain W+W/O Contrast; Yannick Alvarez MD 04/03/2023 00:20 EDT [2]??CT Angio Neck; Yannick Alvarez MD 04/03/2023 18:05 EDT * Suellen Rizvi MD: PERFORM Event Display: Consultation Note Authored Date: [id number] Attending Attestation:??I have seen and evaluated the patient. I have reviewed the patient???s medical history, findings on examination, diagnosis and treatment.?I have discussed the case and its management with the??Advanced Practitioner??and agree with the findings and plan as documented in the AP's note. ?? Suellen Rizvi M.D Attending-Vascular Neurology Department of Neurosciences Nurse Care Manager of [id number] ? Please note - The above note was created using Honk software and dictation errors may have occurred; I apologize for any mistakes in the manager library. ??Thank you for your patience as we continue to work on perfecting the dictation process. ??Please feel free to contact us for any clarification purposes. * Gayle Mccurdy MD: MODIFY Gayle Mccurdy MD: MODIFY, MODIFY Event Display: Consultation Note Authored Date: [id number] Patient: ??MAHSA MUHAMMAD ? Age:??62 Years?Sex:??Female?:??1960?? Reason for Consultation SOB History of Present Illness ? 62-year-old lady with a medical history notable for type 2 diabetes, hypertension, hyperlipidemia, asthma, VANDANA/OHS on iVAPS, chronic hypoxic/hypercapnic respiratory failure on 2 L oxygen at baseline,stage IV adenocarcinoma,heart failure with preserved ejection fraction, who presented to the emergency department with worsening shortness of breath.?? History relayed by the patient as well as herwife, Makayla who was at bedside on admission. ?? She??was recently admitted to [facility] from 03/15 - 03/21 after due to symptomatic anemia, as well as newly diagnosed right-sided pleural effusion as and a pericardial effusion.??Her anemia was found to be due to gastric antral vascular ectasias status post a reported 52 ablations.??She was evaluated by the pulmonary service for thoracentesis but her effusion was too small for drainage.?? She states that??she was??discharged??on oxygen??with her iVAPS however did not receive the right equipment and therefore??was sleeping at home??with oxygen only and not??her iVAPS machine.?? She states that she has noticed increased leg swelling over the past??few days. ??She denied any fever, cough or night sweats.?? A CT??chest was obtained in the ED which showed a slight increase in her pleural effusion as well as atelectasis of the right lower lobe. ? Review of Systems negative except for HPI Physical Exam Vitals & Measurements T:??97.3?F?? TMIN:??97.3?F?? TMAX:??98.8?F?? HR:??74??(Monitored)?? RR:??12??(Spontaneous)?? BP:??118/65?? SpO2:??91%?? WT:??122??kg?? General:??Alert, in no acute cardiopulmonary distress. Mental Status:??Normal affect. Responding appropriately to questions. HEENT:??Normocephalic. Hoarse voice, moist mucous membranes, no oropharyngeal??erythema, swelling, or stridor on neck auscultation. Respiratory:??decreased breath sounds bilaterally Cardiovascular:??Regular rate and rhythm, no murmurs, rubs, or gallops.?? Gastrointestinal:??Abdomen soft, nontender, nondistended, bowel tones present. No hepatosplenomegaly appreciated. Neurologic:??Cranial nerves II-XII grossly intact. Moves all extremities spontaneously. Extremities:??Bilateral,??trace pitting edema. Musculoskeletal:??No gross deformities. Assessment/Plan ?62-year-old lady with a medical history notable for type 2 diabetes, hypertension, hyperlipidemia, asthma, severe VANDANA/OHS on noninvasive positive pressure ventilation with iVAPS, chronic hypoxic/hypercapnic respiratory failure on 2 L oxygen at baseline, stage IV adenocarcinoma of the lung status?? heart failure with preserved ejection fraction,?? who presents with acute on chronic hypoxic hypercapnic??respiratory failure.?? This is likely multifactorial??due to??volume overload,??atelectasis of??the right lower lobe,??OHS??and recent history of noncompliance with??noninvasive ventilationsince discharge??as well as possibly??right-sided pleural effusion.?? Bedside ultrasound??showed a s mall??effusion which would not be amenable to??bedside drainage. ?? Acute on chronic??hypoxic and??hypercapnic respiratory failure (J96.02):?? Obesity hypoventilation syndrome (E66.2):?? Obstructive sleep apnea (G47.33):?? Stage IV adenocarcinoma Pleural effusion on right (J90):? Plan: ?? Supplemental oxygen, wean to baseline as tolerated NIV ventilation at night and with naps, can also consider if increased work of breathing continue home inhalers continue with diuresis out of bed to chair and incentive spirometer could consider IR consult for drainage however unclear to me if this will truly benefit the patient no signs of infectious causes or PE on CTA Pulmonary will sign off. Please call if questions ?? Problem List/Past Medical History Ongoing Central sleep apnea Depression Diabetic nephropathy GERD - Gastro-esophageal reflux disease Hyperlipidemia Hypertension Hypothyroidism Hypoventilation Obesity, Unspecified Obstructive sleep apnea Severe obesity Sleep-related hypoxia Type 2 diabetes mellitus Procedure/Surgical History ???Appendectomy???Cholecystectomy???Pseudotumor cerebri surgery???Tonsillectomy Medications Inpatient Acetaminophen Tablet, 650 mg, By Mouth, Every 4 hours, PRN Carafate 1 gm oral tablet, 1 Gm, By Mouth, 3 times a day before meals and bedtime Crestor 20 mg oral tablet, 40 mg, By Mouth, Daily Dextrose 50% Inj Syringe (25Gm), 12.5 Gm, IV Push Slowly, Every 20 minutes, PRN Dextrose 50% Inj Syringe (25Gm), 25 Gm, IV Push Slowly, Every 15 minutes, PRN Dextrose 50% Inj Syringe (25Gm), 12.5 Gm, IV Push Slowly, Every 20 minutes, PRN Dextrose 50% Inj Syringe (25Gm), 25 Gm, IV Push Slowly, Every 15 minutes, PRN diazepam 10 mg oral tablet, 10 mg, By Mouth, Daily at bedtime, PRN Diltiazem, 120 mg, By Mouth, 2 times a day Docusate/Senna Tablet, 1 tablet, By Mouth, 2 times a day, PRN Duoneb Inhalation Solution, 1 vials, BAND Nebulizer, 4 times a day Duoneb Inhalation Solution, 1 vials, BAND Nebulizer, Every 4 hours, PRN fenofibrate 130 mg oral capsule, 130 mg, By Mouth, Daily Flonase 50 mcg/inh nasal spray, 50 mcg= 1 sprays, Nares, Both, Daily Furosemide Inj, 40 mg= 4 mL, IV Push Slowly, Once Glucagon Inj, 1 mg, Intramuscular, Once, PRN Glucagon Inj, 1 mg, Intramuscular, Once, PRN Glucose Gel, 15 Gm, By Mouth, Every 20 minutes, PRN Glucose Gel, 30 Gm, By Mouth, Every 20 minutes, PRN Glucose Gel, 15 Gm, By Mouth, Every 20 minutes, PRN Glucose Gel, 30 Gm, By Mouth, Every 20 minutes, PRN GuaiFENEsin Liquid, 200 mg= 10 mL, By Mouth, Every 6 hours, PRN Humalog U100 Insulin Pump, per pump settings, Subcutaneous Infusion, 3 times a day before meals andbedtime lamotrigine 100 mg oral tablet, 100 mg, By Mouth, 2 times a day Lasix Inj, 40 mg= 4 mL, IV Push Slowly, Once Melatonin Tablet, 3 mg, By Mouth, Daily at bedtime, PRN MiraLax Powder, 17 Gm= 1 pack/packet, By Mouth, Daily, PRN NaCL 0.9% Flush, 3 mL, IV Push, Every 8 hours NaCL 0.9% Flush, 3 mL, IV Push, Every 8 hours, PRN pantoprazole 40 mg oral delayed release tablet, 40 mg, By Mouth, 2 times a day Robitussin DM Liquid, 10 mL, By Mouth, Every 4 hours, PRN Simethicone Tablet, 80 mg, Chew, 3 times a day, PRN traZODone 50 mg oral tablet, 50 mg, By Mouth, Daily at bedtime Vitamin D3 1000 intl units oral tablet, 1000 International_Units, By Mouth, Daily Home acetaminophen/butalbital/caffeine 325 mg-50 mg-40 mg oral tablet, 1 tablet, By Mouth, Every 6 hours, PRN albuterol 90 mcg/inh inhalation powder, 1 puffs, Inhalation, Every 4 hours, PRN aspirin 81 mg oral tablet, 81 mg= 1 tablet, By Mouth, Daily Breo Ellipta 100 mcg-25 mcg/inh inhalation powder, 1 puffs, Inhalation, Daily Carafate 1 gm oral tablet, 1 Gm, By Mouth, 3 times a day before meals and bedtime Crestor 40 mg oral tablet, 40 mg= [...] oral tablet, 100 mcg, By Mouth, Daily omnipod dash pods, See Instructions, 11 refills ondansetron 8 mg oral tablet, 8 mg= 1 tablet, By Mouth, Every 8 hours, PRN pantoprazole 40 mg oral delayed release tablet, 40 mg, By Mouth, 2 times a day potassium chloride 20 mEq oral tablet, extended release, 20 mEq= 1 tablet, By Mouth, 2 times a day traZODone 50 mg oral tablet, 50 mg= 1 tablet, By Mouth, Daily at bedtime Vitamin [...] Given influenza virus vaccine, inactivated 11/17/2016 Given Diagnostic Results Chest CT personally reviewed and agree with the radiologist's interpretation unless otherwise specified. ? COMPARISONS: Contrast enhanced chest CT 03/10/2023. ?? ANGIOGRAPHIC FINDINGS: Evaluation is moderately limited by motion artifact. Segmental to subsegmental pulmonary emboli are identified. Subsegmental emboli are not excluded although no proximal subsegmental emboli are seen. No aneurysm or acute aortic abnormality seen on this study performed without cardiac gating. ?? NON-ANGIOGRAPHIC FINDINGS: Direct Marketing Manager View Findings, Lines and Tubes: Partially included discontinue superficial soft tissue catheter on the right. ?? Trachea and Airways: Patent.? Lungs and Pleura: Respiratory motion limits evaluation.?? Increasing right-sided pleural effusion and bibasilar atelectasis. No focal infiltrate to suggest pneumonia.?? A spiculated 1.8 cm nodule on the previous exam in the anterior segment of the right lower lobe is not visualized on current exam likely related to atelectasis. There is no pneumothorax. ?? Mediastinum and barbara: Increasing upper mediastinal lymphadenopathy extending to the thoracic inlet,one of the larger nodes posterior to the brachiocephalic artery measures 3.8 cm short axis dimension abutting the trachea, axial image 14 series 401 most recently 2.7 cm in maximal dimension. ??Thereis a 1.9 cm short axis dimension subcarinal lymph node previously 1.6 cm. No hilar adenopathy.? Heart: Moderate cardiomegaly. Moderate sized near water density pericardial effusion largely unchanged.? Chest Wall Soft Tissues: Included portions appear unremarkable.? Diaphragm and upper abdomen: No evidence of an acute process. ?? Bones: No acute abnormalities, no focal osseous lesions. ?? IMPRESSION:? Limited examination, no central through proximal subsegmental emboli identified. Increasing right-sided pleural effusion and bibasilar atelectasis. Worsening upper mediastinal and subcarinal adenopathy. Moderate pericardial effusion appears unchanged. Previous spiculated right lower lobe nodule is not well-seen on today's exam. ?? * Sophia More MD, Gayel E: PERFORM Event Display: Consultation Note Authored Date: [facility] I have reviewed the patient???s medical history, physical exam findings, laboratory and images, and the assessment and plan as documented in above mentioned note. I am in agreement with the plan of care as documented in the note. * Sheri DE LA TORRE, Naeem A: MODIFY, MODIFY, PERFORM Event Display: Consultation Note Authored Date: Patient: ??MAHSA MUHAMMAD ? Age:??62 Years?Sex:??Female?:??1960?? Subjective the pt continues to feel out of breath no hypoglycemia over night Review of Systems reviewed and negative except for abov e Objective Vitals & Measurements T:??97.8?F?? TMIN:??97.3?F?? TMAX:??98.8?F?? HR:??86??(Peripheral)?? RR:??24?? BP:??130/75?? SpO2:??81%?? WT:??122??kg?? Physical Exam Vitals:??Reviewed Eyes: Sclera nonicteric, nonindurated ENT: Dry oral mucous membrane RESP:??Appears to be in moderate respiratory distress Skin: No notable rashes Neuro: Grossely normal motor function Psych: alert and oriented x4 Constitutional: Well appearing?? Lab Results Test Name Test Result Date/Time Glucose Level 241 mg/dL 03/25/2023 00:28 EDT Glucose, POC 150 mg/dL 03/25/2023 08:04 EDT Glucose, POC 189 mg/dL 03/24/2023 21:47 EDT Assessment/Plan 62-year-old woman with history of type 2 diabetes on OmniPod pump, metastatic adenocarcinoma of thelung, chronic hypercapnic/hypoxic respiratory failure on home O2, VANDANA, pseudotumor cerebri recentlyadmitted for symptomatic anemia, found to have vascular ectasia s/p embolization, and right-sided pleural effusion/pericardial effusion(03/15-03/21).?? She presents again to the hospital on 03/24 for evaluation of worsening dyspnea.?? Admitted for acute on chronic hypoxic/hypercapnic respiratory failure. ?? Patient was last seen by our service in the hospital in Bids consulted for assistance in management of diabetes while on insulin pump ?? HbA1c 6% this admission in the setting of anemia. Patient reports she was diagnosed with type 2 diabetes 12 years ago and is managed by [facility]. She was last seen by Dr. Salinas in June 2022. ?? She has an OmniPod pump with angelique CGM. Setting are as follows: Basal 12 AM -4am: 0.95 units/h 4am-4pm:??1.8 u/hr 4pm-12am:??1.8 u/hr ?? Total??39.8 units Insulin carb ratio 1:6 ISF 1: 18 BG target 120mg/dl No changes need to be made at this time. ?? Currently the patient's blood glucose has been ranging from 150-241 with no hypoglycemia.She received 1 dose of Solu-Medrol yesterday.?? No active orders for steroids. For the time being we would recommend continuing??home dose??insulin settings In case of pump failure??40 units of Lantus, lispro??10 units for blood glucose of 100??close??2 units for every 40 mg/dL increase in blood glucose??3 times daily/AC ?? Rest of Management per primary team Thank you for consulting endocrinology/diabetes & metabolism. ??We will follow along. ??Please do not hesitate to contact us on cortex with any questions or concerns. Page #: [id number] Naeem Wade MD PGY-IV ?? *This note was dictated by Honk voice detection software, for any errors or clarifications, please do not hesitate to connect with the scribe. ? Medications Inpatient Acetaminophen Tablet, 650 mg, By Mouth, Every 4 hours, PRN Carafate 1 gm oral tablet, 1 Gm, By Mouth, 3 times a day before meals and bedtime Crestor 20 mg oral tablet, 40 mg, By Mouth, Daily Dextrose 50% Inj Syringe (25Gm), 12.5 Gm, IV Push Slowly, Every 20 minutes, PRN Dextrose 50% Inj Syringe (25Gm), 25 Gm, IV Push Slowly, Every 15 minutes, PRN Dextrose 50% Inj Syringe (25Gm), 12.5 Gm, IV Push Slowly, Every 20 minutes, PRN Dextrose 50% Inj Syringe (25Gm), 25 Gm, IV Push Slowly, Every 15 minutes, PRN diazepam 10 mg oral tablet, 10 mg, By Mouth, Daily at bedtime, PRN Diltiazem, 120 mg, By Mouth, 2 times a day Docusate/Senna Tablet, 1 tablet, By Mouth, 2 times a day, PRN Duoneb Inhalation Solution, 1 vials, BAND Nebulizer, 4 times a day Duoneb Inhalation Solution, 1 vials, BAND Nebulizer, Every 4 hours, PRN fenofibrate 130 mg oral capsule, 130 mg, By Mouth, Daily Flonase 50 mcg/inh nasal spray, 50 mcg= 1 sprays, Nares, Both, Daily Glucagon Inj, 1 mg, Intramuscular, Once, PRN Glucagon Inj, 1 mg, Intramuscular, Once, PRN Glucose Gel, 15 Gm, By Mouth, Every 20 minutes, PRN Glucose Gel, 30 Gm, By Mouth, Every 20 minutes, PRN Glucose Gel, 15 Gm, By Mouth, Every 20 minutes, PRN Glucose Gel, 30 Gm, By Mouth, Every 20 minutes, PRN GuaiFENEsin Liquid, 200 mg= 10 mL, By Mouth, Every 6 hours, PRN Humalog U100 Insulin Pump, per pump settings, Subcutaneous Infusion, 3 times a day before meals andbedtime lamotrigine 100 mg oral tablet, 100 mg, By Mouth, 2 times a day Melatonin Tablet, 3 mg, By Mouth, Daily at bedtime, PRN MiraLax Powder, 17 Gm= 1 pack/packet, By Mouth, Daily, PRN NaCL 0.9% Flush, 3 mL, IV Push, Every 8 hours NaCL 0.9% Flush, 3 mL, IV Push, Every 8 hours, PRN pantoprazole 40 mg oral delayed release tablet, 40 mg, By Mouth, 2 times a day Robitussin DM Liquid, 10 mL, By Mouth, Every 4 hours, PRN Simethicone Tablet, 80 mg, Chew, 3 times a day, PRN traZODone 50 mg oral tablet, 50 mg, By Mouth, Daily at bedtime Vitamin D3 1000 intl units oral tablet, 1000 International_Units, By Mouth, Daily Home acetaminophen/butalbital/caffeine 325 mg-50 mg-40 mg oral tablet, 1 tablet, By Mouth, Every 6 hours, PRN albuterol 90 mcg/inh inhalation powder, 1 puffs, Inhalation, Every 4 hours, PRN aspirin 81 mg oral tablet, 81 mg= 1 tablet, By Mouth, Daily Breo Ellipta 100 mcg-25 mcg/inh inhalation powder, 1 puffs, Inhalation, Daily Carafate 1 gm oral tablet, 1 Gm, By Mouth, 3 times a day before meals and bedtime Crestor 40 mg oral tablet, 40 mg= [...] oral tablet, 100 mcg, By Mouth, Daily omnipod dash pods, See Instructions, 11 refills ondansetron 8 mg oral tablet, 8 mg= 1 tablet, By Mouth, Every 8 hours, PRN pantoprazole 40 mg oral delayed release tablet, 40 mg, By Mouth, 2 times a day potassium chloride 20 mEq oral tablet, extended release, 20 mEq= 1 tablet, By Mouth, 2 times a day traZODone 50 mg oral tablet, 50 mg= 1 tablet, By Mouth, Daily at bedtime Vitamin D3 1000 intl units oral tablet, 25 mcg= 1 tablet, By Mouth, Daily Xyzal 5 mg oral tablet, 5 mg= 1 tablet, By Mouth, Daily in PM * Vic DE LA TORRE, Gus Meredith: PERFORM Event Display: Consultation Note Authored Date: [id number] I have seen and evaluated this patient. ??I have discussed the case and its management with the fellow and agree with the findings and plan as documented in the fellow???s note. Note * Roseanna Maurer RN: PERFORM Event Display: Discharge/Transfer Note Hospital Authored Date: [id number] Nursing Discharge Note Entered On: 04/06/2023 18:05 EDT Performed On: 04/06/2023 18:05 EDT by Roseanna Maurer RN Nursing Discharge Note 2 Discharge Time : 04/06/2023 18:05 EDT Discharge Level of Care at Discharge : Homehealth/VNA Discharge VNA/Hospice/Home Care(v001) : [facility] Patient Left Unit Via : Wheelchair Patient Accompanied Off Unit with : Significant other DC Instructions Provided & Signed by Pt : Yes Patient Understands D/C Instructions : Yes Patient Instructions Discharge Signed : Yes Did Pt have Specialty Bed or Wound Vac : No Rsoeanna Maurer RN - 04/06/2023 18:05 EDT * Kevyn DE LA TORRE, Iram: MODIFY Kevyn DE LA TORRE, Iarm: MODIFY, PERFORM Paty DE LA TORRE, Naomi: PERFORM, MODIFY Paty DE LA TORRE, Naomi: MODIFY, MODIFY Paty DE LA TORRE, Naomi: MODIFY Event Display: Discharge/Transfer Note Hospital Authored Date: [id number] Patient: ??MAHSA MUHAMMAD ? Age:??62 Years?Sex:??Female?:??1960?? Patient Information Discharge Location: Primary Care Physician: Karolyn Zacarias MD Admit Date/Time: 03/24/23 17:57 Discharge Disposition Discharge Disposition: Home with Home Health Discharge Diagnosis Acute hypercapnic respiratory failure (J96.02) Acute hypoxemic respiratory failure (J96.01) Acute ischemic stroke (I63.9) Acute on chronic anemia (D64.9) Carcinoma of lung (C34.90) Chronic hypoxemic respiratory failure (J96.11) Heart failure with preserved ejection fraction (I50.30) Obesity hypoventilation syndrome (E66.2) Obstructive sleep apnea (G47.33) Pleural effusion on right (J90) Radiation pneumonitis (J70.0) Troponin level elevated (R77.8) ?? _ Discharge Medications Acetaminophen/Butalbital/Caffeine (acetaminophen/butalbital/caffeine 325 mg-50 mg-40 mg oral tablet)?1?tab(s)?By Mouth?Every 6 hours?as needed?as needed Albuterol (albuterol 90 mcg/inh inhalation powder)?1?puff(s)?Inhalation?Every 4 hours?as needed?as needed Cholecalciferol (Vitamin D3 1000 intl units oral tablet)?1?tab(s)?25?Microgram?By Mouth?Daily Desvenlafaxine (desvenlafaxine 25 mg oral tablet, extended release)?1?tab(s)?25?Milligram?By Mouth?Daily?do not crush or chew Diazepam (diazepam 10 mg oral tablet)?20?Milligram?2?tablet?By Mouth?Daily at bedtime Diltiazem (DilTIAZem (Eqv-Cardizem CD) 120 mg/24 hours oral capsule, extended release)?1?capsule?120?Milligram?By Mouth?2 times a day Durable Medical Equipment ([employer] dash pods)?See Instructions?e11.9, use as directed with [...] mg oral tablet)?50?Milligram?1?tablet?By Mouth?Daily at bedtime ? Quality Measures Stroke Quality Measures:?Discharged on Antithrombotic Therapy:??Antithrombotic prescription ? Medications Started lovenox Medications Discontinued aspirin Doses Changed furosemide (lasix) dose increased to 60 mg daily from 60 every other day and 40 every other day PCP Follow-Up/Heads-Up 1. Pt seen for acute on chronic hypoxic/hypercarbic respiratory failure- thought most likely secondary to radiation pneumonitis and trialing steroids, please help to ensure pulm follow-up 2. Pt found to have new ischemic stroke incidentally on MRI for cancer surveillance- started on lovenox, please help to ensure follow-up with neurology 3. Please follow-up chronic anemia Hospital Course Mahsa Bedoya is a 62-year-old lady with a medical history notable for type 2 diabetes, hypertension, hyperlipidemia, asthma, VANDANA/OHS on noninvasive positive pressure ventilation with iVAPS, chronic hypoxic/hypercapnic respiratory failure on 2 L oxygen at baseline, right lower lobe adenocarcinoma of the lung status post EBUS biopsy (August 2022) with metastasis to mediastinal lymph nodes, heart failure with preserved ejection fraction, hypothyroidism, IIH, GERD, depression, and anxiety who presented to the emergency department on 03/24 from her sleep medicine outpatient appointment where she was noted to have refractory hypoxia and worsening shortness of breath since hospital discharge approximately 1 week prior to this admission.??She did not have any symptoms of worsening lower extremity edema, worsening cough, sick contacts, fevers, or dyspnea. Of note, she has not been on oxygen at nighttime with iVAPS as it was not able to be set up prior to patient's previous discharge. Throughout this hospital stay, she has required an increased amount of oxygen at 4L NC, with severe oxygen desaturations to 50s while lying flat. She has been here for nearly 14 days total. She was evaluated by both pulmonology who performed several CT scans. She appears to have been optimized with regard to volume status and does not have significant pulmonary edema on CT scan from yesterday (04/05), making volume overload as the cause for her hypoxia unlikely. We will increase her??lasix dose slightly to 60 mg daily from every other day 60 every??other day 40 which she was on previously. CTA chest was performed which ruled out PE. Given right sided pleural effusion, patient has thoracentesis which did also not improve hypoxia and dyspnea. Pleural fluid was negative for malignant cells on cytology.??Per review of sleep data while inpatient, it appears that her iVAPS settings are adequate. It is thought that the most likely etiology given CT findings is radiation pneumonitis and we will treat with steroids to see if there will be improvement with close follow-up by outpatient data entry supervisor, Dr. Crews. Prior to discharge, patient was re- evaluated by pulmonary rehab. Otherwise, hospital course was complicated by evidence of acute stroke on brain MRI, which was performed for surveillance of metastatic lung cancer. Neurology recommended echo with bubble study be performed which showed no evidence of PFO. CTA head and neck was also performed which showed no significant stenosis or occlusion of vessels. They are recommending to continue therapeutic lovenox and stopping aspirin. They will follow-up with the patient as well. She will also need to follow with PCP for chronic anemia,requiring 1 unit pRBC during this admission. Chronic pericardial effusion was also evaluated and found to be stable from prior. ?? Acute on chronic hypoxic hypercapnic respiratory failure: multifactorial -Bibasilar atelectasis -Obesity hypoventilation syndrome -Suspected Radiation Pneumonitis -Asthma -VANDANA ?? Plan: ??-increase home Lasix dose to 60 mg daily?-steroid taper, starting 04/06 4 tablets by mouth dailiy for 14 days, on 04/20 decrease to 3 tablets by mouth daily for 1 week, on 04/27 decrease to 2 tablets by mouth daily for 1 week, on 05/04 decreaseto 1 tablet by mouth daiy for 1 week, then stop?-continue inhaled ICS/LABA, PRN albuterol ??-continue iVAPS at current settings ??-oxygen increase requirement 3L at rest and 6L with activity ??-f/u with outpatient data entry supervisor, Dr. Crews ?? Acute??ischemic stroke??on MRI ?? Plan: -f/u neurology 2 months from now -continue therapeutic lovenox ?? Acute on Chronic HFpEF complicated by right pleural effusion s/p thoracentesis ?? Plan: -increased dose of Lasix to 60 mg daily from 60 every other day and 40 every other day ?? Acute on chronic Normocytic Anemia ?? Plan: -f/u PCP ? Chronic Problems: ?Hypothyroidism - cont levo ?Dyslipidemia - cont statin and fenofibrate ?Anxiety/depression - home lamotrigine, trazodone ? Resolved Problems: ?UTI: Borderline temp 100.5 overnight 03/26. Urine cultures growing proteus. Completed 3 day course of CTX. ??Troponin level elevated (R77.8): Troponin mildly elevated on admission, suspect that this is in setting of hypoxia. ? Code Status: Full ?? Objective Vital Signs?? Temperature: 97.5 DegF (04/06/23 11:35:00) Temperature Route: Oral (04/06/23 11:35:00) Pulse Rate: 89 bpm (04/06/23 11:35:00) Respiratory Rate: 17 br/min (04/06/23 11:35:00) Systolic Blood Pressure: 106 mm Hg (04/06/23 11:35:00) Diastolic Blood Pressure: 62 mm Hg (04/06/23 11:35:00) Blood pressure sites: Arm, right (04/06/23 11:35:00) Mean Arterial Pressure: 77 mm Hg (04/06/23 11:35:00) Pulse Pressure: 44 mm Hg (04/06/23 11:35:00) Oxygen Saturation: 98 % (04/06/23 11:35:00) Liters per Minute: 4 L/min (04/06/23 11:35:00) Mode of Delivery (Oxygen): Nasal cannula (04/06/23 11:35:00) Early Warning Score: 2 (04/06/23 13:25:13) ? . Physical Exam General Appearance: The patient is in NAD. Cardiovascular: RRR S1 and S2 heard with no M/R/G. Respiratory:?? Breath sounds clear to auscultation bilaterally. No wheezing. Good air movement throughout both lungs. GI: Soft. Nontender and nondistended. MS:?? No edema in the lower extremities. Neuro:?? No slurred speech.?? Patient seen moving their upper and lower extremities independently. Consultants Pulmonology- Dr. Hussein MANSFIELD- Dr. Ho Neurology- Dr. Rizvi Follow-Up Appointments Added Follow Up ?Time Frame ?Comments Belkys DE LA TORRE, Suellen?1-2 day: call to discuss follow up visit Rell DE LA TORRE, Karolyn?1-2 day: call to discuss follow up visit Mars DE LA TORRE, Radha Victor?1-2 day: call to discuss follow up visit Patient Instructions You were seen at [facility] for difficulty breathing and low oxygen levels.?? We tested you for several potential causes of difficulty breathing.?? We looked at your lungs for a blood clot which may be causing shortness of breath and this was not seen.?? We also evaluated your sleep data while you were here to see if you needed any adjustment to your iVAP's and this looked normal.?? We tried to give you increased Lasix dosing in case you are having too much fluid on your lungs, though this also did not help.?? Therefore we do not think that you are having too much fluid on your lungs right now.?? We drained your pleural effusion or fluid surrounding the lung and this was also not found to be the cause of your trouble breathing and low oxygen.?? Given previous radiation and evidence on your CT scan of inflammation of the lungs, it is thought that your trouble breathing may be in the setting of something called radiation pneumonitis.?? This is inflammation of the lung caused by radiation.?? Given we are considering this diagnosis we are starting you on steroids which should help somewhat.?? You will need to closely follow-up with your outpatient air carrier inspector Dr. Crews.?? Torres, you had a brain MRI which showed a new stroke.?? For this reason, we have started you on blood thinner injections which you should take twice a day and we will follow-up with the neurologist in 2 months to discuss continuation of this.??Because you are on this??blood thinner, we have stopped??your aspirin for the time being.??Otherwise, we looked at your heart and found that the fluid around your heart is similar to previous.?? Your anemia is also similar to previous and you should discuss this further with your outpatient primary care doctor. ?? Medication Changes: -lasix dose increased to 60 mg daily from 40 every other day and 60 every other day. -steroid taper: starting 04/06 take 4 tablets by mouth dailiy for 14 days, on 04/20 decrease to 3 tablets by mouth daily for 1 week, on 04/27 decrease to 2 tablets by mouth daily for 1 week, on 05/04 decrease to 1 tablet by mouth daiy for 1 week, then stop -started lovenox injection twice per day -stop aspirin Home Health Face to Face *Denotes mandatory bledsoe ?? *I certify that this patient is under my care and that I or an allowed non- physician working with me had a face to face encounter with the patient on this date:??04/06/2023 14:39 ?? *The encounter with the patient was in whole, or in part, for the following medical condition, which is the primary diagnosis(es) for home health care:??Acute hypercapnic respiratory failure (J96.02) Acute hypoxemic respiratory failure (J96.01) Acute ischemic stroke (I63.9) Acute on chronic anemia (D64.9) Carcinoma of lung (C34.90) Chronic hypoxemic respiratory failure (J96.11) Heart failure with preserved ejection fraction (I50.30) Obesity hypoventilation syndrome (E66.2) Obstructive sleep apnea (G47.33) Pleural effusion on right (J90) Radiation pneumonitis (J70.0) Troponin level elevated (R77.8) ? *Select the indications for the discipline/s that are being arranged for this patient. Nursing (select all that apply): [_] None [_] Medication management (reconciliation, teaching)?? [_] Chronic disease management?? [_] Wound care and treatment?? [_] Home safety evaluation [_] Administer SQ/IM/IV medications?? [_] Cath care?? [_] Drain care?? [_] Trach or GT care?? Other _ Occupation Therapy (select all that apply): [_] None [_] ADL Management [_] Fall prevention training [_] Energy conservation [_] Cognitive training Other _ Physical Therapy (select all that apply): [_] None [x_] Functional mobility training [x_] Home exercise program to strengthen [x_] Increase ROM?? [x_] Falls prevention training [x_] Home maintenance program for chronic disease Other _ Speech Therapy (select all that apply): [_] None [_] Swallow evaluation and training [_] Speech and language training [_] Cognitive training to process, organize, and/or recall information Other _ ? *Homebound due to (select all that apply): [_] Inability to leave home without assistance/supervision [x_] Inability to ambulate without assistance [_] Pain [x_] Decreased strength and endurance [x_] Unsteady gait [x_] Severe SOB and fatigue [_] Impaired transfers [_] Inability to negotiate stairs [_] Limited weight bearing [_] Mental status change? *Physician Signature: _Naomi Newman MD ?? *By signing this, I certify that I have personally evaluated the patient and agree with the findings and recommendations as documented above. ? Results Microbiology ?? Blood Culture?? Completed?? Source: Blood Body Site: ?? Collected Dt/Tm: 03/24/2023 15:01 Last Updated Dt/Tm: 03/24/2023 15:02 ?SPECIMEN DESCRIPTION : BLOOD ??NO SITESPECIAL REQUESTS : NONECULTURE : NO GROWTH 5 DAYS.REPORT STATUS : FINAL 03/29/2023 Blood Culture #2?? Completed?? Source: Blood Body Site: ?? Collected Dt/Tm: 03/24/2023 15:01 Last Updated Dt/Tm: 03/24/2023 15:02 ?SPECIMEN DESCRIPTION : BLOOD R HANDSPECIAL REQUESTS : NONECULTURE : NO GROWTH 5 DAYS.REPORT STATUS : FINAL 03/29/2023 Anaerobic Culture?? Completed?? Source: Body Fluid Body Site: Pleural Cavity Collected Dt/Tm: 03/25/2023 11:36 Last Updated Dt/Tm: 03/25/2023 11:38 ?SPECIMEN DESCRIPTION : BODY FLUID PLEURAL CAVITYSPECIAL REQUESTS : NONECULTURE : NO ANAEROBES ISOLATEDREPORT STATUS : FINAL 04/02/2023 Sterile Body Fluid Culture W/ Gram Smear?? Completed?? Source: Pleural Fluid Body Site: ?? Collected Dt/Tm: 03/25/2023 11:36 Last Updated Dt/Tm: 03/25/2023 11:38 ?SPECIMEN DESCRIPTION : PLEURAL FLUIDSPECIAL REQUESTS : NONEGRAM STAIN : 1+ TISSUE CELLS ?NO ORGANISMS SEENCULTURE : NO GROWTH 2 DAYSREPORT STATUS : FINAL 03/30/2023 Blood Culture?? Completed?? Source: Blood Body Site: ?? Collected Dt/Tm: 03/26/2023 21:55 Last Updated Dt/Tm: 03/26/2023 21:56 ?SPECIMEN DESCRIPTION : BLOOD RT ARMSPECIAL REQUESTS : NONECULTURE : NO GROWTH 5 DAYS.REPORT STATUS : FINAL 03/31/2023 Blood Culture #2?? Completed?? Source: Blood Body Site: ?? Collected Dt/Tm: 03/26/2023 21:55 Last Updated Dt/Tm: 03/26/2023 21:56 ?SPECIMEN DESCRIPTION : BLOOD L HNDSPECIAL REQUESTS : NONECULTURE : NO GROWTH 5 DAYS.REPORT STATUS : FINAL 03/31/2023 Urine Culture?? Completed?? Source: Urine Straight Cath Body Site: ?? Collected Dt/Tm: 03/27/2023 05:45 Last Updated Dt/Tm: 03/27/2023 05:45 ?SPECIMEN DESCRIPTION : URINE STRAIGHT CATH.SPECIAL REQUESTS : NONECULTURE : >100,000 COL/ML ??PROTEUS MIRABILIS ??This isolate was identified using ? Maldi-TOF system These AST results were performed on the [employer] ID ? and AST systemREPORT STATUS : FINAL 03/29/2023ORGANISM ? >100,000 COL/ML ??PROTEUS MIRABILIS ??This isolate was ? identified using Maldi-TOF system These AST results were performed on the [employer] ID and AST systemMETHOD ? MIN. INHIB. CONC. (MCG/ML)AMOXICILLIN/CLAVULAN SUSCEPTIBLEAMPICILLIN ? SUSCEPTIBLEAMPICILLIN/SULBACTAM SUSCEPTIBLECEFAZOLIN ?SUSCEPT IBLECEFEPIME ? SUSCEPTIBLECEFTRIAXONE ?SUSCEPTIBLECIPROFLOXACIN ?SUSCEPTIBLEERTAPENEM ?SUSCEPTIBLEGENTAMICIN ? SUSCEPTIBLELEVOFLOXACIN ? SUSCEPTIBLEMEROPENEM ?SUSCEPTIBLENITROFURANTOIN ? RESISTANTPIPERACILLIN/TAZOBAC SUSCEPTIBLETETRACYCLINE ? RESISTANTTRIMETH/SULFAMETHOX ??SUSCEPTIBLE Sputum Culture w/ Gram Smear?? Completed?? Source: Sputum Expectorated Body Site: ?? Collected Dt/Tm: 04/02/2023 05:36 Last Updated Dt/Tm: 04/02/2023 05:36 ?SPECIMEN DESCRIPTION : EXPECTORATED SPUTUMSPECIAL REQUESTS : NONEGRAM STAIN : 1+ WHITE BLOOD CELLS ?1+ SQ.EPITHELIAL CELLS ?2+ GRAM POSITIVE COCCI ?2+ GRAM POSITIVE RODSCULTURE : 4+ NORMAL FLORAREPORT STATUS : FINAL 04/04/2023 ?03/24/2023 -? * Final Report * ?? Reason For Exam PE suspected, Intermediate prob, positive D-dimer,;Other: ?? RESULT: CT Angio Chest EXAMINATION: CT Angio Chest? INDICATION: Shortness of breath. Hx of Present Illness: PT WITH HX OF LUNG CA AND PLEURAL EFFUSION just discharged on Tuesday s p anemia d t GI bleed (2 units given) presents with shortness of breath that has been progressing since discharge, positive D-dimer. Clinical Question(s): Pulmonary Embolism; ?? TECHNIQUE: Spiral CTA of the chest was performed after rapid IV contrast administration without cardiac gating, triggered by an LILIAN on the main pulmonary artery. Images are formatted in multiple planes using 2-D multiplanar and 3-D maximum intensity projection. Type and dose of contrast not readilyavailable at time of interpretation. Weight-based protocol using automatic tube modulation was usedto optimize exposure parameters. CTDIvol Body: 13.57 mGy, ??DLP Body: 786 mGy*cm. ? COMPARISONS: Contrast enhanced chest CT 03/10/2023. ?? ANGIOGRAPHIC FINDINGS: Evaluation is moderately limited by motion artifact. Segmental to subsegmental pulmonary emboli are identified. Subsegmental emboli are not excluded although no proximal subsegmental emboli are seen. No aneurysm or acute aortic abnormality seen on this study performed without cardiac gating. ?? NON-ANGIOGRAPHIC FINDINGS: Direct Marketing Manager View Findings, Lines and Tubes: Partially included discontinue superficial soft tissue catheter on the right. ?? Trachea and Airways: Patent.? Lungs and Pleura: Respiratory motion limits evaluation.?? Increasing right-sided pleural effusion and bibasilar atelectasis. No focal infiltrate to suggest pneumonia.?? A spiculated 1.8 cm nodule on the previous exam in the anterior segment of the right lower lobe is not visualized on current exam likely related to atelectasis. There is no pneumothorax. ?? Mediastinum and barbara: Increasing upper mediastinal lymphadenopathy extending to the thoracic inlet,one of the larger nodes posterior to the brachiocephalic artery measures 3.8 cm short axis dimension abutting the trachea, axial image 14 series 401 most recently 2.7 cm in maximal dimension. ??Thereis a 1.9 cm short axis dimension subcarinal lymph node previously 1.6 cm. No hilar adenopathy.? Heart: Moderate cardiomegaly. Moderate sized near water density pericardial effusion largely unchanged.? Chest Wall Soft Tissues: Included portions appear unremarkable.? Diaphragm and upper abdomen: No evidence of an acute process. ?? Bones: No acute abnormalities, no focal osseous lesions. ?? IMPRESSION:? Limited examination, no central through proximal subsegmental emboli identified. Increasing right-sided pleural effusion and bibasilar atelectasis. Worsening upper mediastinal and subcarinal adenopathy. Moderate pericardial effusion appears unchanged. Previous spiculated right lower lobe nodule is not well-seen on today's exam. ? 03/24/2023 -? * Final Report * ?? Reason For Exam Atelectasis ?? RESULT: CT Chest W/O Contrast CT Chest W/O Contrast? INDICATION: Reason: Atelectasis; Clinical Question(s): Other:; pulmonary edema vs fibrosis; Order Comment: History of lung cancer and pleural effusions ?? Post radiation treatment therapy ?? TECHNIQUE: Helical CT scan of the chest without IV contrast, formatted in 3 planes. Weight-based protocol was performed using automatic exposure control.? CTDIvol Body: 17.88 mGy, ??DLP Body: 591 mGy*cm. ? COMPARISON: 03/24/2023 ?? FINDINGS:? Direct Marketing Manager view findings, lines and tubes: Portion of tubing or catheter seen at the right chest. Partially seen catheter at the spinal canal. ?? Trachea and airways: Patent trachea. ?? Lungs and pleura:? Very low lung volumes and respiratory motion artifact limits exam. ?? A 1.8 cm nodule in the anterior segment of the right lower lobe is unchanged. There is a small right-sided pleural effusion, slightly decreased in the interim. There are multifocal groundglass opacities in the right lung, seen dependently adjacent to the fissure in the right upper lobe is series 601 image 31 and also peripherally at image 42 and minimally in the right lung base and right middle lobe. A rounded opacity is present in the superior segment of the right lower lobe series 601 image 36 which was previously potentially obscured by the pleural effusion. There is also atelectasis in the right middle lobe and right lung base. ?? There is atelectasis in the left lung dependently. There is trace left pleural fluid. ?? There is no pneumothorax. There is moderate pulmonary emphysema. ?? Mediastinum and barbara: No short interval change in marked mediastinal adenopathy including a large conglomerate lymph node adjacent to the right upper paratracheal area, series 602 image 20 measuring up to 3.8 x 4.4 cm. Enlarged pretracheal lymph node at this level is also unchanged as well as prevascular lymph node at series 602 image 28 measuring up to 3.7 x 3.0 cm. There is no hilar adenopathy. ?? Heart: Cardiomegaly. There is a moderate pericardial effusion, unchanged. This is simple in attenuation. There is moderate coronary artery atherosclerosis. ?? Aorta: Mild vascular calcification but no aneurysm. ?? Pulmonary arteries: Main, right, and left pulmonary arteries are enlarged. This is unchanged and can be seen with pulmonary hypertension. ?? Chest wall soft tissues: No axillary adenopathy. ?? Diaphragm: Minimally patulous lower esophagus which can be due to peristalsis. ?? Upper abdomen: There is a partially seen left adrenal nodule which is unchanged from the abdomen and pelvis CT exam of 03/10/2023 which measures 3.0 x 2.3 cm. ?? Bones: No acute abnormality. ?? IMPRESSION: ?? Unchanged right lower lung spiculated pulmonary nodule. Decreased right pleural effusion. ?? Ground glass opacity is present in the right upper lobe and superior segment of the right lower lobe are unchanged from 03/24/2023 but increased from 03/10/2023. Given short interval change this can represent infectious etiology. Given area of involvement, separate from right lower lung spiculated nodule, and relatively short interval change radiation pneumonitis is considered less likely. ?? There is lower lung atelectasis and right middle lobe atelectasis, improved but persisting. ?? Marked persistent mediastinal adenopathy and suspicious for metastasis left adrenal nodule are unchanged. ? 03/24/2023 -? * Final Report * ?? Reason For Exam Tumor Secondary ?? RESULT: MRI Brain W+W/O Contrast MRI Brain W+W/O Contrast ?? INDICATION / CLINICAL QUESTION: Reason: Tumor Secondary; metastatic adenocarcinoma of the lung Clinical Question(s): Tumor Secondary; Order Comment: Please see Reference Text for complete list of contraindications ??Tumor Secondary ?? TECHNIQUE: MRI of the brain was performed with and without contrast utilizing sagittal and axial T1, axial T2, axial FLAIR, axial SWAN, and axial DWI sequences, and post-contrast 3D T1 MCGINNIS with multiplanar reformats. 23 mL of Clariscan was administered intravenously. ?? COMPARISON: MRI 08/13/2022 ?? FINDINGS: ?? No abnormal enhancement or mass effect is noted to suggest the presence of metastatic disease. ?? A wedge-shaped 2 cm zone of restricted diffusion is present in the left posterior cerebellum consistent with an acute infarct. There is no associated mass effect or hemorrhage. 2 punctate foci of diffusion hyperintensity noted just below the vertex, one in either hemisphere, could be artifactual asno corresponding signal abnormality is noted on other sequences. ?? A right lateral frontal zone of encephalomalacia measuring approximately 1.3 cm in diameter is noted with a small amount of susceptibility artifact consistent with old hemorrhage. FLAIR hyperintensity extends from this lesion into deeper white matter. There are adjacent christelle holes and 2 right frontal ventricular catheters were demonstrated on the CT of 04/15/2005.. These findings are relatively unchanged from the MRI of 08/13/2022. A microbleed is present in the left temporal lobe. A 4 mm lacuneis present in the left putamen. A 2.5 cm zone of encephalomalacia in the right posterior inferior cerebellum is consistent with an old infarct. ?? No extra-axial collection is present. The ventricular system is normal. The foramen magnum is normal. No vascular abnormality is appreciated. The sella turcica is mildly expanded. The pituitary glandis normal and the optic chiasm is normally positioned. ?? Mild mucosal thickening is present in the maxillary and ethmoid sinuses. Mucosal disease fills the right frontal sinus. No air-fluid level is noted. The orbits are normal. Minor right mastoid mucosaldisease is present. No marrow abnormality is noted to suggest metastatic disease. ?? IMPRESSION: 1. 2 cm acute infarct involving the left posterior cerebellum without mass effect or hemorrhage. 2. No findings to suggest metastatic disease. 3. 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 ? 03/24/2023 -? * Final Report * ?? Reason For Exam STROKE;Other: ?? RESULT: CT Angio Neck CT Angio Head, CT Angio Neck ?? Reason: Other:; stroke; Clinical Question(s): Other:; Left cerebellar infarct on MRI stroke; Special Instructions: CTA head / Other: ?? TECHNIQUE: CT angiogram of the head and neck was performed after bolus administration of intravenous contrast. 100 mL of Omnipaque 300 was administered intravenously. Coronal and sagittal MIP reformatted images were obtained. Additional 3-D images were created on a separate workstation under concurrent supervision by the attending radiologist. All stenoses are measured using NASCET criteria. Weight-based protocol using automatic tube modulation was used to optimize exposure parameters.? RADIATION DOSE PARAMETERS:? CTDIvol Head: 36.14 mGy, DLP Head: 1190 mGy*cm. ? COMPARISON: Noncontrast CT head performed concurrently. ?? FINDINGS:? CTA OF THE NECK:? Arch: There is a common origin of the brachiocephalic and left common carotid arteries. A small amount of calcified plaque involves the aortic arch but no stenosis is demonstrated.. ?? Right carotid system: A small amount of calcified plaque is present at the bifurcation and in the bulb without stenosis. ?? Left carotid system: A small amount of calcified plaque is present in the carotid bulb without stenosis. ?? There is a left-dominant vertebral artery system.? Right vertebral: No significant stenosis. No evidence of dissection or aneurysm. ?? Left vertebral: No significant stenosis. No evidence of dissection or aneurysm. ?? Other: Soft tissues and bones: Again demonstrated is the superior mediastinal mass consistent with adenopathy. An apparent catheter is noted within the thoracic spinal canal. An epidural catheter fragment appears to be present in the upper cervical canal. ? CTA OF THE HEAD: ?? Anterior circulation: There is calcification of the intracranial internal carotid arteries but no stenosis is produced. The anterior and middle cerebral arteries are normal. ?? Posterior circulation: The vertebral and basilar arteries are normal. The left posterior inferior cerebellar artery is patent. The basilar, superior cerebellar and posterior cerebral arteries are normal. ?? Veins: Major dural venous sinuses are patent. ?? Other:?? Soft tissues and bones: Low density is seen in the right frontal lobe with adjacent calcifications related to prior ventricular drain placement. Right cerebellar encephalomalacia is present with an adjacent craniectomy defect.?? Mucosal disease is scattered in the paranasal sinuses without evidence of an air-fluid level. Thereis complete opacification of the small right frontal sinus. ? IMPRESSION: ? 1. No evidence of occlusion or significant stenosis involving the arteries of the head or neck. Theleft vertebral and left posterior inferior cerebellar arteries are normal. 2. Superior mediastinal adenopathy. ? 03/24/2023 -? * Final Report * ?? Reason For Exam hypoxia on lying flat;Other: ?? RESULT: CT Chest W/O Contrast CT Chest W/O Contrast? INDICATION: Reason: Other:; hypoxia on lying flat; Clinical Question(s): Interstitial Alveolar Infiltration; Order Comment: ?? TECHNIQUE: Helical CT scan of the chest without IV contrast, formatted in 3 planes. Weight-based protocol was performed using automatic exposure control.? CTDIvol Body: 17.56 mGy, ??DLP Body: 611 mGy*cm. ? COMPARISON: Multiple CTs of the chest including 03/31/2023, 03/24/2023, 03/10/2023, 07/13/2022 ?? FINDINGS:? Direct Marketing Manager view findings, lines and tubes: Persistent catheter in the right upper quadrant. Catheter in the spinal canal. ?? Trachea and airways: Patent without evidence of tracheal or endobronchial lesion. ?? Lungs and pleura:?? Mild emphysema. Right lower lobe nodule corresponding to malignancy measuring 2.5 x 2.0 cm (601:59), unchanged. A 0.7 cm somewhat ill-defined nodular density in the medial aspects. Segment right lower lobe (601:37), abutting the fissure similar to prior with slightly decreased surrounding groundglass opacity. Previously described rounded opacity in space and in the right lower lobe (601:36 on 03/31/2023 exam)is mostly resolved, likely inflammatory. Persistent dependent groundglass density within the right middle lobe abutting the minor fissure and in the right upper lobe, abutting the major fissure (601:53, 44) and to lesser extent in the lingula (601:52).? Improved bilateral lower lobe atelectasis.?? Trace right pleural effusion, slightly decreased. No left pleural effusion. No pneumothorax. ?? Mediastinum and barbara: Unchanged bulky upper mediastinal lymphadenopathy including a left prevascular node measuring 3.9 x 3.6 cm (602:25) and a right upper paratracheal node with slightly indistinct borders measuring 4.7 x 3.7 cm (602:18 with mild leftward displacement of the intrathoracic trachea.A node in the anterior mediastinum measures 4.5 x 3.2 cm (3120). No esophageal abnormality. ?? Heart: Mild cardiomegaly. Moderate pericardial effusion, unchanged. Moderate coronary artery calcification. ?? Aorta: No aortic aneurysm. ?? Pulmonary arteries: Dilated measuring 2.9 cm ?? Chest wall soft tissues: Partially imaged catheter within the right chest wall. ?? Diaphragm: Intact. ?? Upper abdomen: 3.3 cm left adrenal mass (602:94 ?? Bones: No acute abnormality. Spine degenerative changes. No aggressive lytic or sclerotic osseous lesion. ?? IMPRESSION: ?? Compared to 03/31/2023: ?? A 2.5 cm nodule in the right lower lobe corresponding to lung malignancy is unchanged. ?? No change in mild dependent groundglass opacities in the right lung, which may be inflammatory in sequela of prior radiation therapy or may be infectious or inflammatory. ?? Improved atelectasis in the lung bases. ?? Trace right pleural effusion is slightly decreased. ?? Unchanged bulky metastatic upper mediastinal lymphadenopathy. ?? Cardiomegaly with unchanged moderate pericardial effusion. ?? Unchanged 3.3 cm left adrenal mass concerning for metastatic disease. 03/24/2023 -?? Contributor system:?SOFTMED ? Echo Complete-Doppler, Colorflow, M-Mode This document has an image ?? Echo Complete-Doppler, Colorflow, M-Mode Transthoracic Echocardiography Report (TTE) ?Patient Demographics ?Patient Name ?MAHSA MUHAMMAD Date of Study ?04/06/2023 ?[facility] ?Gender ? Female ?Facility ?Race ? Ethnicity ?Date of ? 1960 ? Height: ?62 inches ?Age ? 62 year(s) ? Weight: ?253.51 pounds ?Accession Number ?[id number] ? BSA: ? 2.11 m2 ?Room Number ? S242 ? BMI: ? 46.37 kg/m2 ?Referring Physician Gautam Luis MD ?Interpreting Physician Lynda Whitley MD ?[employer] ? Amie Escamilla RDCS ?? Indications CVA. ?? Clinical History Morbid obesity. VANDANA. Hypertension. Hyperlipidemia. Congestive heart failure. ?? Study Data ?? Type of Study ?TTE procedure:Echo Complete-(Doppler, Colorflow) with Contrast. ?? Procedure Information:Definity was administered by Amie Escamilla RDCS. Saline (bubble study) was administered by FERNANDO Salgado . ?? Study Date04/06/2023 Start Time: 09:13 AM Study Location: [facility] Adult Echo Study Status: Echo lab Patient Status: Routine Technical Quality: Technically difficult due to body habitus. Blood Pressure:107/60 mmHg EKG: Within normal limits HR: 88 bpm ?? Contrast Medium: Definity. Amount - 2 ml ?? 2D Measurements ?LV Diastolic Dimension: 4.6 cm LV Systolic Dimension: 3.5 cm ??LV Septum Diastolic: 1.2 cm ??LV PW Diastolic: 1.2 cm ?AO Root Dimension: 3.7 cm ?LA ESV (BP):35.4 ml ??LVOT Stroke Volume: 70.65 ml ?? LA ESV Index: 17 ml/m2 ??Stroke Volume Index33.48 ml/m2 LVOT: 2 cm ??Cardiac Index:2.95 l/min/m2 ?Ascending Aorta:3.5 cm ?? Doppler Measurements ?AV Peak Velocity: 167 cm/s ? MV Peak E-Wave: 69.8 cm/s ??AV Peak Gradient: 11.16 mmHg ?? MV Peak A-Wave: 104 cm/s ??AV Mean Gradient: 6 mmHg ? MV E/A Ratio: 0.67 ??AV VTI:27.1 cm ? MV P1/2t: 74 msec ??LVOT Peak Velocity: 143 cm/s ??LVOT VTI22.5 cm ?MV Deceleration Time: 254 msec ??AV Area (Continuity):2.61 cm2 ??MV Area (PHT): 2.97 cm2 ?PV Peak Velocity: 130 cm/s ?PV Peak Gradient: 6.76 mmHg ??E' Septal Velocity: 10.8 cm/s ??E' Lateral Velocity: 9.25 cm/s ??E/Med E':[id number] ??E/Lat E':[id number] ?Cardiac Anatomy ?Left Ventricle/Interventricular Septum ??The left ventricular size is normal. ??The left ventricular wall thickness is upper normal. ??The LV systolic function is hyperdynamic . ??The left ventricular ejection fraction is 65-75 %. ??There are no definite regional wall motion abnormalities. ??Grade I, mild diastolic dysfunction with impaired LV relaxation, which may ??be normal for the patient's age. ?Left Atrium/Interatrial Septum ??The left atrium is normal in size. ??Interatrial septum is not well seen. ??An agitated saline study (bubble study) was performed and was normal at ??rest. Image quality with Valsalva was poor. ?Aortic Valve ??The aortic valve is probably trileaflet . ??There is mild aortic regurgitation. ??There is no aortic stenosis. ?Mitral Valve ??The mitral valve appears grossly normal. ??There is no significant mitral regurgitation. ??There is no significant mitral stenosis. ?Aorta ??The aortic root appears normal. ?Right Ventricle ??The right ventricle is grossly normal in size and function. ?Right Atrium ??The right atrium is normal in size. ?Pulmonic Valve ??The pulmonic valve is functionally normal. ??There is mild to moderate pulmonic regurgitation. ?Tricuspid Valve ??Poorly seen. ?Pumonary Artery ??An accurate pulmonary artery pressure could not be obtained. ?Venous Structures ??The inferior vena cava appears normal. ?Pericardium/Extracardiac ??There is a small pericardial effusion posteriorly . ??There is no evidence of chamber collapse. ?Summary ??TDS. ??The left ventricular size is normal. ??The left ventricular wall thickness is upper normal. ??The LV systolic function is hyperdynamic . ??The left ventricular ejection fraction is 65-75 %. ??There are no definite regional wall motion abnormalities. ??Grade I, mild diastolic dysfunction with impaired LV relaxation, which may ??be normal for the patient's age. ??The right ventricle is grossly normal in size and function. ??There is a small pericardial effusion posteriorly . ??There is no evidence of chamber collapse. ??There is mild aortic regurgitation. ??The left atrium is normal in size. ??Interatrial septum is not well seen. ??An agitated saline study (bubble study) was performed and was normal at ??rest. Image quality with Valsalva was poor. ?Comparison ??Comparison is made to the study of March 16, 2023. Present study technically ??difficult without obvious change. ? 75??minutes spent on discharge ?? Patient seen and discussed with Dr. Bagley ? Naomi Newman MD PGY-3, Internal Medicine Available on Cortext April 06, 2023 at 2:40 PM * Iram Bagley MD: PERFORM Event Display: Discharge/Transfer Note Hospital Authored Date: [id number] Attending Attestation:??I have seen and evaluated this patient. ??I have discussed the case and itsmanagement with the resident and agree with the findings and plan as documented in the resident???snote. ? * Roseanna Maurer RN: PERFORM Event Display: Patient Education/Instruction Authored Date: [id number] Inpatient Adult Discharge Instructions [address] [address] Name: MAHSA MUHAMMAD : 1960 Visit: 03/24/2023 17:57:00 Current Date: 04/06/2023 16:23 Account: [id number] Inpatient Adult Discharge Instructions We would like [...] and their families. Surveys are administered by [employer] ?? If further treatment with your primary care physician or another doctor is recommended, it is important for you to keep the appointment. Call your primary care physician or return to the Emergency Department immediately if your condition worsens, fails to improve, or new symptoms develop. If you need to find a doctor, you can call [facility] for a referral at [phone] or toll free at [phone] or log in to [email or web address].. ?? You can view and manage your care through the patient portal or by using a health care yuliana of your choosing. [employer] is a website that allows you to securely view your medical information including your hospital discharge summary, office visit summaries, medications and follow-up visits. You can also request appointments, renew medications, and request access to your medical information using a health care yuliana of your choosing, or just ask a question. You can enroll at [email or web address] or register during your next office visit. You have been discharged from [facility], Patient Care Unit: S2. If you have any questions regarding these instructions after you leave, please call us and we will be happy to assist you. [facility] Your Care Team Attending Physician Kevyn DE LA TORRE, Iram Consulting Providers Sophia More MD, Gayle Cole; Vic DE LA TORRE, Gus Meredith; Hussein DE LA TORRE, Juani Winston; Clint DE LA TORRE, Ramo; Stefan DE LA TORRE, Beckie Padilla; Radha DE LA TORRE, Samir; Fernando BOUCHER, Jules Meredith Discharging Providers Naomi Newman MD Reason for Admission Shortness of breath Your Diagnosis Acute hypoxemic respiratory failure Acute hypercapnic respiratory failure Chronic hypoxemic respiratory failure Carcinoma of lung Heart failure with preserved ejection fraction Obstructive sleep apnea Obesity hypoventilation syndrome Pleural effusion on right Diabetes mellitus Anemia Troponin level elevated Acute on chronic anemia Radiation pneumonitis Acute ischemic stroke Tests Performed Below is a partial list of the tests performed during your hospitalization. You may have had other tests and procedures not included in this list. Please discuss all test results with your provider. 97310 ABG ABG POC CARTRIDGE Albumin Fluid Amylase Fluid BASE EXCESS POC CARTRIDGE Basic Metabolic Panel BUN CALCIUM IONIZED POC CART CBC CBC w/ Differential Chylous Effusion Comprehensive Metabolic Panel COVID-19 (Novel Coronavirus), Rapid PCR Creatinine CRP D Dimer Electrolytes ESR Ferritin Glucose Fluid Glucose Level GLUCOSE POC GLUCOSE POC CARTRIDGE H + H HEMATOCRIT POC CARTRIDGE HEMOGLOBIN AND HEMATOCRIT HEMOGLOBIN POC CARTRIDGE HEPATIC FUNCTION PANEL High??Sensitivity??Troponin T HOLD BLUE TUBE INR Iron + Iron Binding Capacity Lactate Level LDH LDH Fluid Lipase Magnesium Level Mg Level O2 PERCENT (POINT OF CARE) pH Fluid Phosphorus Level POTASSIUM POC CARTRIDGE ProBNP PROBNP PROCALCITONIN, SERUM Protein Fluid SODIUM POC CARTRIDGE Troponin T, High Sensitivity TSH with T4 Reflex (Adults Only) Type and Screen Urinalysis Complete Chest CT W/O Contrast CT Angio Chest CT Angio Head CT Angio Neck CXR Portable MRI Brain W+W/O Contrast Portable Chest US Guide Thoracentesis Imaging XR Chest Portable Primary Care Provider Karloyn Zacarias MD Advance Directive Health Care Proxy on File Yes - Health Care Proxy Discharge Vitals Temperature: 97.5 DegF Height: 158 cm Pulse Rate: 89 bpm Weight: 114.6 kg Respiratory Rate: 17 br/min Body Mass Index:??48.87 kg/m2??Critical Systolic Blood Pressure: 106 mm Hg Body surface area: 2.31 Diastolic Blood Pressure: 62 mm Hg ?? Oxygen Saturation: 98 % ?? Studies Pending All tests and labs ordered during this hospital stay have been completed unless listed below. Please discuss all pending results with your provider listed above in these instructions. ?? Add On Lab Order Blood Gas Venous (VBG) Fungal Culture, Respiratory Transfuse RBCs What to do next Instructions From Your Doctor You were seen at [facility] for difficulty breathing and low oxygen levels.?? We tested you for several potential causes of difficulty breathing.?? We looked at your lungs for a blood clot which may be causing shortness of breath and this was not seen.?? We also evaluated your sleep data while you were here to see if you needed any adjustment to your iVAP's and this looked normal.?? We tried to give you increased Lasix dosing in case you are having too much fluid on your lungs, though this also did not help.?? Therefore we do not think that you are having too much fluid on your lungs right now.?? We drained your pleural effusion or fluid surrounding the lung and this was also not found to be the cause of your trouble breathing and low oxygen.?? Given previous radiation and evidence on your CT scan of inflammation of the lungs, it is thought that your trouble breathing may be in the setting of something called radiation pneumonitis.?? This is inflammation of the lung caused by radiation.?? Given we are considering this diagnosis we are starting you on steroids which should help somewhat.?? You will need to closely follow-up with your outpatient air carrier inspector Dr. Crews.?? Torres, you had a brain MRI which showed a new stroke.?? For this reason, we have started you on blood thinner injections which you should take twice a day and we will follow-up with the neurologist in 2 months to discuss continuation of this.??Because you are on this??blood thinner, we have stopped??your aspirin for the time being.??Otherwise, we looked at your heart and found that the fluid around your heart is similar to previous.?? Your anemia is also similar to previous and you should discuss this further with your outpatient primary care doctor. ?? Medication Changes: -lasix dose increased to 60 mg daily from 40 every other day and 60 every other day. -steroid taper: starting 04/06 take 4 tablets by mouth dailiy for 14 days, on 04/20 decrease to 3 tablets by mouth daily for 1 week, on 04/27 decrease to 2 tablets by mouth daily for 1 week, on 05/04 decrease to 1 tablet by mouth daiy for 1 week, then stop -started lovenox injection twice per day -stop aspirin Discharge Orders You Need to Schedule the Following Appointments Follow Up with??Belkys DE LA TORRE, Suellen When:??Within 1-2 day: call to discuss follow up visit Where: [address] [facility] [place] [address]- Follow Up with??Karolyn Zacarias MD When:??Within 1-2 day: call to discuss follow up visit Where: [address] [place] [address]- Follow Up with??Mars DE LA TORRE, Radha Victor When:??Within 1-2 day: call to discuss follow up visit Where: [address] [facility] [address] [place] [address]- Discharge Medications MAHSA MUHAMMAD :1960 Visit Date:03/24/2023 Medications: Please continue your medications until treatment is completed or stopped by your provider. Medications not listed below should be discontinued. Discuss any questions related to medications with your provider. What How Much When Instructions Next Dose New Enoxaparin (enoxaparin 120 mg/ 0.8 mL injectable solution) 0.8 Milliliter Subcutaneous Injection Every 12 hours Duration: 30 Days Refills: 1 Pickup at [facility] 3 04/06 at 10pm New PredniSONE (predniSONE 10 mg oral tablet) See [...] day for 1 week, then stop ?? Pickup at [place] [address] 04/06 at 9pm Changed Furosemide (Lasix 40 mg oral tablet) 60 Milligram Oral Daily Duration: 30 Days Pickup at [facility] 3 04/07 at 9am Unchanged Acetaminophen/ Butalbital/ Caffeine (acetaminophen/ butalbital/ caffeine 325 mg-50 mg-40 mg oral tablet) 1 tab(s) Oral Every 6 hours as needed for as needed As needed Unchanged Albuterol (albuterol 90 mcg/ inh inhalation powder) 1 puff(s) Inhalation Every 4 hours as needed for as needed As needed Unchanged Cholecalciferol (Vitamin D3 1000 intl units oral tablet) 1 tab(s) Oral Daily 04/07 at 9am Unchanged Desvenlafaxine (desvenlafaxine 25 mg oral tablet, extended release) 1 tab(s) Oral Daily do not crush or chew ?? 04/07 at 9am Unchanged Diazepam (diazepam 10 mg oral tablet) 2 tab(s) Oral Daily at Bedtime 04/06 at 9pm Unchanged Diltiazem (DilTIAZem (Eqv-Cardizem CD) 120 mg/ 24 hours oral capsule, extended release) 1 capsule Oral Twice a day 04/06 at 9pm Unchanged Durable Medical Equipment (iVAPS) See instructions with TVa at 8.6 L/ minute with EPAP of 9 and min PS of 6 and max PS of 19 with target patient rate at 20. ?? n/a Unchanged Durable Medical Equipment (omnipod dash pods) See instructions e11.9, use as directed with short acting insulin, change out every 2 days. 30 day supply ?? n/a Unchanged Fenofibrate (fenofibrate 145 mg oral tablet) 1 tab(s) Oral Daily 04/07 at 9am Unchanged Fluticasone Nasal (Flonase 50 mcg/ inh nasal spray) 1 spray(s) Daily Pt uses prn ?? 04/07 at 9am Unchanged fluticasone-vilanterol (Breo Ellipta 100 mcg-25 mcg/ inh inhalation powder) 1 puff(s) Inhalation Daily 04/07 at 9am Unchanged Insulin Lispro (Humalog 100 u/ ml subcutaneous injection) See instructions Subcutaneous Infusion through insulin pump, max 250 units/ d, 90 days, E 11.65 ?? n/a Unchanged Lamotrigine (lamotrigine 100 mg oral tablet) 1 tab(s) Oral Twice a day 04/06 at 9pm Unchanged levocetirizine (Xyzal 5 mg oral tablet) 1 tab(s) Oral Daily in PM 04/06 at 9pm Unchanged Levothyroxine (levothyroxine 0.1 mg oral tablet) 100 Microgram Oral Daily 04/07 at 9am Unchanged Ondansetron (ondansetron 8 mg oral tablet) 1 tab(s) Oral Every 8 hours as needed for as needed for nausea/vomiting As needed Unchanged Pantoprazole (pantoprazole 40 mg oral delayed release tablet) 40 Milligram Oral Twice a day 04/06 at 9pm Unchanged Potassium Chloride (potassium chloride 20 mEq oral tablet, extended release) 1 tab(s) Oral Twice a day Duration: 3 Days 04/06 at 9pm Unchanged Rosuvastatin (Crestor 40 mg oral tablet) 1 tab(s) Oral Daily 04/07 at 9am Unchanged Sucralfate (Carafate 1 gm oral tablet) 1 gram Oral 3 times a day before meals and bedtime 04/06 before dinner Unchanged Trazodone (traZODone 50 mg oral tablet) 1 tab(s) Oral Daily at Bedtime 04/06 at 9pm Pharmacy Information [facility] 3: [address], [place] [id number] [phone] ?? What How Much When Comments Stop Taking Aspirin (aspirin 81 mg oral tablet) 1 tab(s) Oral Daily Stop Taking [place]-3 Polyunsaturated Fatty Acids ([place]-3 Fish Oil 1000 mg oral capsule) 1 capsule Oral Daily Stop Taking Oxycodone (oxyCODONE 5 mg oral capsule) 1 capsule Oral Every 6 hours as needed for as needed for pain Stop Taking Pregabalin (Lyrica 75 mg oral capsule) 1 capsule Oral Twice a day Duration: 30 Days Test Results Below is a partial list of the most recent Laboratory test results done prior to this discharge. You may have had other tests and procedures not included in this list. Please discuss all test resultswith your provider. Est Creatinine Clearance - 47.76 mL/min (04/05/2023) RBC Available - PT (04/04/2023) RBC Unit ID - [id number] (04/04/2023) (03/28/2023) ? ?Cytology Reports General - Patient Name: MAHSA MUHAMMAD
Patient : 1960 (Age: 62)
Lab
Collection Date: 03/28/2023
Accession Date: 03/28/2023
Sign Out Date: 03/31/2023

Tissue Source:
1: PLEURAL FLUID, RIGHT:

Final Diagnosis:

PLEURAL FLUID, RIGHT:
NEGATIVE FOR MALIGNANT CELLS.

The cell block confirms the above findings.

Clinical History:
Date of Last Menstrual Period: not available
Menstrual History: not available
Contraceptive History: not available
Ancillary Testing: not available
Clinical History (other): Right pleural effusion, history of lung cancer.

Gross Descr iption:
Received 60cc of yellow, hazy fluid
1 ThinPrep cellular enhancement technique
Cell block -03/28/23

Primary Pathologist:
Sander Manzano M.D.
Phone #: [phone], On-Call Pathologist: [id number] ABG (03/25/2023) ???pH - 7.31???pCO2 - 61 mm Hg???pO2 - 97 mm Hg???Bicarbonate, Estimated - 30 mmol/L???Specimen Type - Blood Gas - ARTERIAL ABG POC CARTRIDGE (03/26/2023) ???pH (POC) POC Cartridge - 7.46???pCO2 (POC) POC Cartridge - 52.4 mm Hg???pO2 (POC) POC Cartridge - 58 mm Hg???Estimated Bicarbonate (POC) POC Cart - 37.4 mmol/L???% O2 Sat Arterial (POC) POC Cartridge - 91 %???Specimen Type - Blood Gas - ARTERIAL Albumin Fluid (03/28/2023) ???Albumin, Fluid - 2.9 Gm/dL Amylase Fluid (03/28/2023) ???Amylase, Fluid - 39 units/L BASE EXCESS POC CARTRIDGE (03/26/2023) ???Base Excess (POC) POC Cartridge - 14 Basic Metabolic Panel (04/06/2023) ???Sodium - 136 mmol/L???Potassium - 3.5 mmol/L???Chloride - 88 mmol/L???Bicarbonate Level - 37 mmol/L???Anion Gap - 11???Glucose Level - 149 mg/dL???BUN - 17 mg/dL???Creatinine-Blood - 1.0 mg/dL???Estimated GFR Creatinine - 67 ML/MIN/1.73 M2???Calcium - 8.6 mg/dL BUN (03/25/2023) ???BUN - 15 mg/dL CALCIUM IONIZED POC CART (03/26/2023) ???Ionized Calcium (POC) POC Cartridge - 1.12 mmol/L CBC (04/06/2023) ???WBC - 8.8 k/mm3???RBC - 2.92 m/mm3???Hgb - 7.0 Gm/dL???Hct - 24.3 %???MCV - 83.2 femtoliters???MCH - 24.0 pg???MCHC - 28.8 g/dL???Platelet Count - 516 k/mm3???RDW-SD - 52.8 femtoliters???MPV - 9.5femtoliters???Nucleated RBC (Automated) - 0.2 #/100 WBC'S???Abs. NRBC - 0.0 k/mm3 CBC w/ Differential (03/26/2023) ???WBC - 8.7 k/mm3???RBC - 3.11 m/mm3???Hgb - 7.6 Gm/dL???Hct - 26.5 %???MCV - 85.2 femtoliters???MCH - 24.4 pg???MCHC - 28.7 g/dL???Platelet Count - 535 k/mm3???RDW-SD - 53.7 femtoliters???MPV - 9.2femtoliters???Nucleated RBC (Automated) - 0.2 #/100 WBC'S???Abs. NRBC - 0.0 k/mm3???Abs. Neut - 6.7 k/mm3???Abs. Lymph - 1.0 k/mm3???Abs. [place] - 0.8 k/mm3???Abs. Eo - 0.2 k/mm3???Abs. Baso - 0.0 k/mm3???Neut % - 76.0 %???Lymph % - 11.6 %???[place] % - 9.5 %???Eos % - 2.2 %???Baso % - 0.2 %???Imm Gran - 0.5 %???Abs. Imm Gran - 0.0 k/mm3 Chylous Effusion (03/28/2023) ???Cholesterol - 51 mg/dL???Triglycerides - 25 mg/dL???Color, Fluid - YELLOW???Appearance, Fluid - SL HAZY? ?WBC, Fluid - 367 per Cubic Millimeter? ?RBC, Fluid - <3000 per Cubic Millimeter? ?Seg, Fluid - 10 %???Lymph, Fluid - 45 %???[place], Fluid - 1 %???Other, Fluid - 44 %???Crystal Id - NONE SEEN???Chylomicrons, fluid - ABSENT Comprehensive Metabolic Panel (03/27/2023) ???Sodium - 138 mmol/L???Potassium - 3.6 mmol/L???Chloride - 91 mmol/L???Bicarbonate Level - 32 mmol/L???Anion Gap - 15???Glucose Level - 125 mg/dL???BUN - 18 mg/dL???Creatinine-Blood - 1.1 mg/dL???Estimated GFR Creatinine - 58 ML/MIN/1.73 M2???Calcium - 9.1 mg/dL???Protein, Total - 6.8 Gm/dL???[place] min - 4.0 Gm/dL???AG Ratio - 1.4???Alkaline Phosphatase - 81 units/L???AST (SGOT) - 18 units/L???ALT (SGPT) - 7 units/L???Bilirubin, Total - 0.4 mg/dL COVID-19 (Novel Coronavirus), Rapid PCR (03/24/2023) ???COVID-19 by RT-PCR - NEGATIVE Creatinine (03/25/2023) ???Creatinine-Blood - 0.9 mg/dL???Estimated GFR Creatinine - 75 ML/MIN/1.73 M2 CRP (04/05/2023) ???C-Reactive Protein - 2.5 mg/dL D Dimer (04/03/2023) ???D-Dimer - 1.09 mg/L FEU Electrolytes (04/06/2023) ???Sodium - 136 mmol/L???Potassium - 3.8 mmol/L???Chloride - 87 mmol/L???Bicarbonate Level - 37 mmol/L???Anion Gap - 12 ESR (04/05/2023) ???Sed Rate - 57 mm/hr Ferritin (03/26/2023) ???Ferritin Level - 18 ng/mL Glucose Fluid (03/28/2023) ???Glucose, Fluid - 137 mg/dL Glucose Level (03/25/2023) ???Glucose Level - 241 mg/dL GLUCOSE POC (04/06/2023) ???Glucose, POC - 251 mg/dL GLUCOSE POC CARTRIDGE (03/26/2023) ???Glucose (POC) POC Cartridge - 115 H + H (04/06/2023) ???Hgb - 7.4 Gm/dL???Hct - 26.2 % HEMATOCRIT POC CARTRIDGE (03/26/2023) ???Hematocrit (POC) POC Cartridge - 24 % HEMOGLOBIN AND HEMATOCRIT (04/04/2023) ???Hgb - 7.6 Gm/dL???Hct - 26.0 % HEMOGLOBIN POC CARTRIDGE (03/26/2023) ???Hemoglobin (POC) POC Cartridge - 8.2 Gm/dL HEPATIC FUNCTION PANEL (03/28/2023) ???Protein, Total - 6.6 Gm/dL???Albumin - 3.8 Gm/dL???Alkaline Phosphatase - 77 units/L???AST (SGOT) - 15 units/L???ALT (SGPT) - 7 units/L???Bilirubin, Total - 0.5 mg/dL???Bilirubin, Direct - 0.2 mg/dL???Bilirubin, Indirect - 0.3 mg/dL High??Sensitivity??Troponin T (03/24/2023) ???High Sensitivity Troponin (HSTnT) - 45 ng/L HOLD BLUE TUBE (03/24/2023) ???Hold Blue Top - SPECIMEN DISCARDED AFTER 4 HOURS. INR (03/25/2023) ???INR - 1.1???Protime (PT) - 11.5 seconds Iron + Iron Binding Capacity (03/26/2023) ???Iron Level - 20 mcg/dL???Iron Binding Capacity, Unsaturated - 491 mcg/dL???Iron Binding Capacity, Estimated Total - 511 mcg/dL???% Iron Saturation - 4 % Lactate Level (03/26/2023) ???Lactate - 0.9 mmol/L LDH (03/28/2023) ???LDH - 285 units/L LDH Fluid (03/28/2023) ???LDH, Fluid - 198 units/L Lipase (03/24/2023) ???Lipase - 27 units/L Magnesium Level (04/04/2023) ???Magnesium - 2.1 mg/dL Mg Level (03/28/2023) ???Magnesium - 2.1 mg/dL O2 PERCENT (POINT OF CARE) (03/26/2023) ???FIO2 (POC) POC Cartridge - 65 % pH Fluid (03/28/2023) ???Fluid pH - 7.52 Phosphorus Level (04/04/2023) ???Phosphorus - 3.1 mg/dL POTASSIUM POC CARTRIDGE (03/26/2023) ???Potassium (POC) POC Cartridge - 3.3 mmol/L ProBNP (03/24/2023) ???Nt-Probnp - 922 pg/mL PROBNP (04/02/2023) ???Nt-Probnp - 538 pg/mL PROCALCITONIN, SERUM (04/01/2023) ???Procalcitonin - 0.23 ng/mL Protein Fluid (03/28/2023) ???T. Protein, Fluid - 4.5 Gm/dL SODIUM POC CARTRIDGE (03/26/2023) ???Sodium (POC) POC Cartridge - 135 mmol/L Troponin T, High Sensitivity (03/24/2023) ???High Sensitivity Troponin (HSTnT) - 49 ng/L TSH with T4 Reflex (Adults Only) (03/24/2023) ???TSH - 2.62 uIU/mL Type and Screen (04/06/2023) ???Blood Type - O Positive???Antibody Screen - Negative Urinalysis Complete (03/26/2023) ???Appear/Color, Urine - YELLOW???Specific [place], Urine - 1.024???pH, Urine - 8.0???Albumin, Urine - 1+???Glucose, Urine - NEGATIVE???Ketones, Urine - NEGATIVE???Bilirubin, Urine - NEGATIVE???Hemoglobin, Urine - 2+???Nitrite, Urine - NEGATIVE???Leukocyte, Urine - 3+???Urobilinogen - NORMAL???WBC's, Urine - 6 /HPF???RBC's, Urine - 140 /HPF???Bacteria - HEAVY???Mucus - SLIGHT Allergies (NKA means No Known Allergies) Trulicity ibuprofen Problems Active Problems??(15) Central sleep apnea?? Depression?? Diabetic nephropathy?? GERD - Gastro-esophageal reflux disease?? Hyperlipidemia?? Hypertension?? Hypothyroidism?? Hypoventilation?? Obesity, Unspecified?? Obstructive sleep apnea?? Presence of implanted infusion pump?? Reported hx of spinal stenosis?? Severe obesity?? Sleep-related hypoxia?? Type 2 diabetes mellitus?? Education Materials Below is the list of Educational Leaflet Providered with your Discharge Instructions. Prednisone Oral Tablet?? Enoxaparin Prefilled Syringe?? Preventing Common Respiratory Infections?? Discharge Instructions for Stroke?? Preventing Common Respiratory Infections?? Valuables and Belongings I fully understand and agree that [facility] accepts no responsibility for all my personal [...] to send valuables and belongings home. ?? No Valuables/Belongings: No valuables/belongings present Review of Valuable and Belonging List: With witness Date for Pt to Sign Valuables/Belongings: 03/24/23 21:47:00 ?? Other Discharge Information ? Case Management Discharge Plan?? Discharge Plan?? Discharge Agency Information?? Discharge Level of Care at Discharge: Homehealth/VNA Name of Agency #1: [facility] Discharge Transportation Arranged: [facility] [address] [place] [address] ??[phone] Service Categories #1: Physical Therapy, Care Home Mode of Transportation Arranged: Ambulance Service Comments #1: You have been set up with homecare services, please allow the agency 24-48 hours to contact you in regards to your first appointment, if you do not hear from them in this timeframe please call the agency. Thank you Discharge VNA/Hospice/Home Care: [facility] ? Pulmonary Rehab Status?? Pulmonary Rehab Discharge Status?? CPAP/BiPAP Mask Type: Nasal CPAP/BiPAP Mask Size: Other: home nasal Respiratory Rate: 17 br/min ? Common Emergency Awareness Tips IS [...] are strongly encouraged to quit. Please call [facility] [employer] Link at [phone] or [phone] ([phone]) or log in to [email or web address] for referrals to smoking cessation programs. ?? 067 Suicide & Crisis Lifeline is available 18/04 if you or someone you know needs to find a reason to keep living. By calling 018 you'll be connected to a skilled, trained counselor at a crisis center in your area. INPATIENT DISCHARGE INSTRUCTIONS SIGNATURE PAGE MAHSA MUHAMMAD Location:[facility] Registration Date and Time:03/24/2023 17:57 EDT Primary Care Physician: Karolyn Zacarias MD, Attending Physician: Iram Bagley MD, I [facility] MAHSA, have received the above patient education materials/instructions and have verbalized understanding. If ambulance or transport services are being used I further acknowledge beinggiven a choice of service. ?? If you need to contact me, please call me at this number: . 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 [id number] Prednisone Oral Tablet Brands: Deltasone Uses This medicine is used for the following purposes: ??? allergic reaction ??? autoimmune disorder ???blood disorder ??? endocrine disorder ??? inflammatory disease ??? immune suppression ??? cancer ??? COVID-19 (coronavirus) ?? Instructions Take the medicine with food. Store at room temperature away from heat, light, and moisture. Do not keep in the bathroom. It is important that you keep taking [...] about all medicines taken. Include prescription and [id number]-yuj-[id number] medicines, vitamins, and herbal medicines. Speak with your doctor or pharmacist before starting or stopping any medicine. Tell your doctor if symptoms do not get better or if they get worse. This medicine may affect your blood sugar levels. If you have diabetes, talk to your doctor before changing the dose of your diabetes medicine. This medicine may affect the strength of your bones. If you have or are at increased risk for osteoporosis (weakening of the bones), your doctor may recommend foods with calcium and vitamin D. Keep all appointments for medical exams and tests while on this medicine. ?? Cautions Tell your doctor and pharmacist if you ever had an allergic reaction to a medicine. This medicine may cause serious bleeding from the stomach or bowels. Stop this medicine and call your doctor immediately if you see any signs of bleeding. Bleeding can cause pain in the stomach, vomiting up liquid that looks like coffee grounds, and red or dark tarry stools. Do not use the medication any more than instructed. Please check with your doctor before drinking alcohol while on this medicine. Avoid smoking while on this medicine. Smoking may increase your risk for stomach bleeding. This medicine may reduce your body's ability to fight infections. Avoid contact with people with colds, flu or other infections. Contact your doctor if you develop fever, cough, sore throat, or chills. Speak with your health care provider before receiving any vaccinations. This medicine passes into breast milk. Ask your doctor before . During , this medicine should be used only when clearly needed. Talk to your doctor about the risks and benefits. Always carry an ID card or wear a medical alert bracelet indicating your medical condition. Do not share this medicine with anyone who has not been prescribed this medicine. ?? Side Effects The following is a list of some common side effects from this medicine. Please speak with your doctor about what you should do if you experience these or other side effects. ??? acne ??? agitated feeling or trouble sleeping ??? decreased appetite ??? high blood sugar ??? high blood pressure ??? nausea and vomiting ??? stomach upset or abdominal pain Call your doctor or get medical help right away if you notice any of these more serious side effects: ??? bleeding or bruising ??? bone pain ??? coughing up blood or vomit that looks like coffee grounds ??? depression or feeling sad ??? swelling of the legs, feet, and hands ??? fever or chills ??? fast or irregular heart beats ??? menstruation changes (missed or fewer periods) ??? mood changes ??? muscle pain or cramps ??? seizures ??? thinning of the skin ??? severe stomach or bowel pain ??? dark, tarry stool ??? unusual or unexplained tiredness or weakness ??? increased urinary frequency ??? blurring or changes of vision ??? sudden or unexplained weight gain ??? slow wound healing A few people may have an allergic reaction to this medicine. Symptoms can include difficulty breathing, skin rash, itching, swelling, or severe dizziness. If you notice any of these symptoms, seek medical help quickly. ?? Extra Please speak with your doctor, nurse, or pharmacist if you have any questions about this medicine. ?? [email or web address] IMPORTANT NOTE: This document tells you briefly how to take your medicine, but it does not tell youall there is to know about it. Your doctor or pharmacist may give you other documents about your medicine. Please talk to them if you have any questions. Always follow their advice. There is a more complete description of this medicine available in Romanian. Scan this code on your smartphone or tablet or use the web address below. You can also ask your pharmacist for a printout. If you have any questions, please ask your pharmacist. The display and use of this drug information is subject to Terms of Use. Copyright(c) 2022 [employer]. ?? The link bird. All rights reserved. This information is not intended as a substitute for professional medical care. Always follow your healthcare professional's instructions. ?? * Iram Bagley MD: PERFORM Event Display: Patient Education Leaflets Authored Date: [id number] Enoxaparin Prefilled Syringe ?? 5644-1081 Enoxaparin Prefilled Syringe Brands: Lovenox Uses This medicine is used for the following purposes: ??? heart attack ??? prevent blood clots ??? treatment of blood clots ?? Instructions This medicine is injected into the skin. Ask your doctor, nurse, or pharmacist where on your body this medicine can be injected and how to inject it. Do not mix this medicine with other solutions. Always inspect the medicine before using. The liquid should be clear or light yellow. Check the medicine before each use. If the liquid medicine has any particles in it, appears discolored, or if the vial appears damaged, do not use it. Keep medicine at room temperature. Protect from light. Never use any medicine that has . Change the location of the injection each time. Choose a location at least 1 inch from the last injection. Drug interactions can change how medicines work or increase risk for side effects. Tell your healthcare providers about all medicines taken. Include prescription and qegx-avk-vkabldx medicines, vitamins, and herbal medicines. Speak with your doctor or pharmacist before starting or stopping any medicine. Talk to your doctor before taking other medicines, including aspirins and ibuprofen containing products. Speak to your doctor about which medicines are safe to use while you are on this medicine. It is very important that you follow your doctor's instructions for all blood tests. ?? Cautions This medicine may cause serious bleeding from the stomach or bowels. Stop this medicine and call your doctor immediately if you see any signs of bleeding. Bleeding can cause pain in the stomach, vomiting up liquid that looks like coffee grounds, and red or dark tarry stools. There is an increased risk of bleeding while on this medicine, please tell your doctor or nurse if you notice any excessive bleeding or bruising. Do not use the medication any more than instructed. Tell the doctor or pharmacist if you are , planning to be , or . Ask your pharmacist how to properly throw away used needles or syringes. Do not share this medicine with anyone who has not been prescribed this medicine. ?? Side Effects The following is a list of some common side effects from this medicine. Please speak with your doctor about what you should do if you experience these or other side effects. ??? unusual bruising or discoloration on skin ??? swelling of the legs, feet, and hands ??? fever ??? pain, redness, swelling near injection ??? nausea ??? red, burning, or itchy skin Call your doctor or get medical help right away if you notice any of these more serious side effects: ??? confusion ??? nosebleeds ??? bloody or dark, tarry stools A few people may have an allergic reaction to this medicine. Symptoms can include difficulty breathing, skin rash, itching, swelling, or severe dizziness. If you notice any of these symptoms, seek medical help quickly. ?? Extra Please speak with your doctor, nurse, or pharmacist if you have any questions about this medicine. ?? [email or web address] IMPORTANT NOTE: This document tells you briefly how to take your medicine, but it does not tell youall there is to know about it. Your doctor or pharmacist may give you other documents about your medicine. Please talk to them if you have any questions. Always follow their advice. There is a more complete description of this medicine available in Romanian. Scan this code on your smartphone or tablet or use the web address below. You can also ask your pharmacist for a printout. If you have any questions, please ask your pharmacist. The display and use of this drug information is subject to Terms of Use. Copyright(c) 2022 [employer]. ?? The link bird. All rights reserved. This information is not intended as a substitute for professional medical care. Always follow your healthcare professional's instructions. ?? * Iram Bagley MD: PERFORM Event Display: Patient Education Leaflets Authored Date: [id number] Preventing Common Respiratory Infections ?? 47078 Preventing Common Respiratory Infections Respiratory infections such as colds and the flu (influenza) are common. These infections are oftencaused by viruses. They may share some symptoms. But not all respiratory infections are the same. Some make you more sick than others. You can take steps to prevent common respiratory infections. Andif you get sick, you can take care of yourself to keep the infection from getting worse. What is a cold? Symptoms may include runny or stuffy nose, coughing and sneezing, and sore throat. Cold symptoms tend to be milder than flu symptoms. ??? Symptoms tend to come on slowly. They last for a few days to about 1 week. ??? With a cold, you may still feel able to do most of the things you normally do. ??? Colds can spread from person to person. Keep germs from spreading by following the tips below. ?? What is the flu? Symptoms may include fever, chills, headache, extreme tiredness (fatigue), cough, sore throat, runny or stuffy nose, and muscle aches. Children may have upset stomach and vomiting, but adults often don???t. ??? Symptoms tend to come on quickly. Some, such as fatigue and cough, can last a few weeks. ??? With the flu, you may feel worn out and not able to do normal activities. ??? The flu can spread from person to person. Keep germs from spreading by following the tips below.??? It???s most likely not the flu if an adult has vomiting or diarrhea for 1 or 2 days. This so-called ???stomach flu?? is probably a gastrointestinal infection. ?? When the infection gets worse Without proper care, a respiratory infection can get worse. It can lead to serious complications and . If you aren???t getting better or if your symptoms are getting worse, call your healthcare provider. Complications can include: ??? Bronchitis (infection of the airways that leads to shortness of breath, wheezing, and coughing up thick yellow or green mucus) ??? Pneumonia (infection of the lungs in which fluid and mucus settle in the lungs, making breathing difficult) ??? Worsening of chronic conditions such as heart failure, chronic lung disease, asthma, or diabetes ??? Severe dehydration (loss of fluids) ??? Sinus problems ??? Ear infections ?? Get recommended vaccines Ask your healthcare provider what vaccines are right for you and when you should get them. Recommended vaccines may include: ??? Influenza vaccine. This is often called a flu shot. This vaccine protects you from influenza. Get a vaccine each fall, before flu season starts. Flu is most common in the [place] during the fall andwinter. You can get a flu shot at a clinic, healthcare provider???s office, pharmacy, [facility], or through your workplace. ??? Pneumococcal vaccine. There are 2 pneumococcal pneumonia vaccines that protect against bacterial pneumonia. Talk with your healthcare provider about these important vaccines. ??? COVID-19 vaccine. There are several different COVID-19 vaccines. They help protect you from COVID-19, especially from severe illness and . Talk with your healthcare provider to learn more about the COVID-19 vaccine. ?? Keep germs from spreading No one likes getting sick. Viruses that cause colds, flu, and other respiratory infections can spread from person to person. To protect yourself and others from germs: ??? Wear a mask in public places. ??? Cover your nose and mouth when you cough or sneeze. Use a tissue or your elbow. Don't use your hands. Throw the used tissue away. Always wash your hands after coughing, sneezing, or blowing your nose. ??? Wash your hands often with clean, running water and soap. Scrub them for at least 20 seconds. Use alcohol-based hand insurance claim representative when you don???t have access to soap and water. ??? Don???t touch your eyes, nose, and mouth. This may help you keep germs out of your body. ??? Stay away from other people with respiratory infections. Also limit close contact with others if you are sick. Avoidcrowds during flu season. ??? Don't smoke and don't let others smoke in your home or car. ?? How to wash your hands ??? Use clean, running water and plenty of soap. Work up a good lather. ??? Clean your whole hand, under your nails, between your fingers, and up your wrists. Wash for at least20 seconds. Don???t just wipe???rub well. If you need help timing, sing the Happy Birthday song twice. ??? Rinse. Let the water run down your fingertips, not up your wrists. ??? In a public restroom,use a paper towel to turn off the faucet and open the door. ??? If you can't use soap and water, use hand insurance claim representative with at least 60% alcohol. ?? Last Reviewed Date: 2021 ?? 5577-8688 The link bird. All rights reserved. This information is not intended as a substitute for professional medical care. Always follow your healthcare professional's instructions. ?? Patient Care team information Care Team Personnel Name: Naomi Vasquez RN Position: [facility] RN Member Role: Primary Care Nurse Name: Rocio Sandoval Position: [facility] RN Member Role: Primary Care Nurse Name: Karolyn Zacarias MD Position: [facility] Physician - Primary Care Member Role: PCP Address: Address: [address] [place] [address] [address] [place], [place] [address] Name: Katina Tsang RN Position: [facility] RN Member Role: Primary Care Nurse Name: Tricia Titus RN Position: [facility] RN Supv Member Role: Primary Care Nurse Name: Claudette Govea Position: [facility] Outreach Member Role: Lifetime Consulting Physician Name: Dena Cano RN Position: [facility] RN Member Role: Primary Care Nurse Name: Bailey Inman RN Position: [facility] RN Member Role: Primary Care Nurse Name: Emma Jaramillo RN Position: [facility] AMB Nurse Member Role: Primary Care Nurse Name: Olga Wu RN Position: [facility] RN Supv Member Role: Primary Care Nurse Name: Naomi Rahman RN Position: [facility] RN Member Role: Primary Care Nurse Name: Maria De Jesus Moreau RN Position: [facility] RN Member Role: Primary Care Nurse Name: Suzanna Langley RN Position: [facility] OB RN Member Role: Primary Care Nurse Name: Rosio Soriano RN Position: [facility] RN Member Role: Primary Care Nurse Name: Arabella Smart RN Position: [facility] SN RN Member Role: Primary Care Nurse Name: Vesta Carmona LPN Position: [facility] RN Member Role: Primary Care Nurse Name: Alec Kong DO Position: [facility] Renal MD Member Role: Lifetime Consulting Physician Address: Address: [address] [place], [place] [address] [place], [place] [address] Name: Dedra Reese RN Position: [facility] RN Member Role: Primary Care Nurse Name: Makayla Valencia Position: [facility] RN Member Role: Primary Care Nurse Name: Dedra Byrd RN Position: [facility] RN Member Role: Primary Care Nurse Name: Nayely Sykes Position: [facility] RN Member Role: Primary Care Nurse Name: Ernie Bee RN Position: [facility] RN Member Role: Primary Care Nurse Name: Stephanie Way RN Position: [facility] RN Member Role: Primary Care Nurse Name: Ralph Coates RN Position: [facility] SN RN Member Role: Primary Care Nurse Name: Valeri Abebe RN Position: [facility] RN Member Role: Primary Care Nurse Name: Veronica Garcia RN Position: [facility] RN Member Role: Primary Care Nurse Name: Jeannine Chicas RN Position: [facility] Hospital Box Gluer Member Role: Primary Care Nurse Name: Israel Etienne Position: [facility] Outreach Member Role: Lifetime Consulting Physician Name: Juju Rahman RN Position: [facility] SN RN Member Role: Primary Care Nurse Name: Tiffanie Watson RN Position: [facility] JOSE RN W/OE and Tasks Member Role: Primary Care Nurse Name: Tahira Hammond MA Position: [facility] AUGUSTINA [place] Member Role: Primary Care Nurse Name: Lana Montiel RN Position: [facility] RN Member Role: Primary Care Nurse Name: Jayla Murguia RN Position: [facility] RN Member Role: Primary Care Nurse Name: Gurpreet Irby RN Position: [facility] RN Member Role: Primary Care Nurse Name: Rajani Delcid RN Position: [facility] Hospital Box Gluer Member Role: Primary Care Nurse Name: Natasha STEWART Attending Position: [facility] ED Medicine MD Name: Eve Montoya Position: [facility] ED OA Charge Member Role: ED Associate Name: Anuja Diane DO Position: [facility] Resident Member Role: ED Resident Address: Address: [address] [place] [address] Emergency Medicine [address] Name: Dedra Daniels Position: [facility] ED RN W/OE and Tasks Member Role: Patient Care Provider Name: Monroe Del Rio Position: [facility] ED TA [facility] Member Role: Patient Care Provider Care Team Related Persons Name: MAKAYLA GOTTLIEB Address: home [address] [place] [address] Name: KAROLYN MCGOWAN Address: [address] [place] [address] Name: BHARGAV MUHAMMAD Address: home [address] [place] [address] Name: BHARGAV MUHAMMAD Address: home [address] [place] [address]
--- OUTSIDE RECORDS SUMMARY | 2023-05-05 08:58 | XMS_ITS | Continuity of Care Document ---
Author Name Unknown Organization [facility] Address [address] [place] [address]- Care Team Providers Care Target Developer Name Role Phone Rell DE LA TORRE, [place] Primary Care Physician Encounter [facility] Date(s): 02/25/23 - 04/22/23 [facility] [address] [place] [address]- Attending Physician: Radha Crews MD Allergies, Adverse Reactions, Alerts Substance Reaction [...] 03/21/23 12:57:00 EDT, Route to Pharmacy Electronically, [facility]/pharmacy #[id number], Partial fill upon patient request if the [...] 06/05/23 14:47:00 EDT, 04/06/23 14:47:00 EDT, Injection, [facility], Partial fill upon [...] mL, 4 Refills, Maintenance, 06/25/22 13:55:00 EDT, [facility]/pharmacy #[id number], 157, cm, 05/25/22 13:17:00 EDT, Height, [...] Maintenance, 04/06/23 14:46:00 EDT,Route to Pharmacy Electronically, [facility], Partial fill upon [...] Maintenance, 09/16/19 8:51:00 EST, ER Tablet, [facility], 158, cm, 09/16/19 7:39:00 EST, Height, [...] RN Position: [facility] RN Member Role: Primary Care Nurse Name: Karolyn Zacarias MD Position: [facility] Physician - Primary Care Member Role: PCP Address: Address: [address] [place] [address] [place] [address]- Name: Katina Tsang RN Position: [facility] RN Member Role: Primary Care Nurse Name: Tricia Titus RN Position: [facility] RN Supv Member Role: Primary Care Nurse Name: Claudette Govea Position: [facility] Outreach Member Role: Lifetime Consulting Physician Name: Dena Cano RN Position: [facility] RN Member Role: Primary Care Nurse Name: Bailey Inman RN Position: [facility] RN Member Role: Primary Care Nurse Name: Emma Jaramillo RN Position: [facility] AMB Nurse Member Role: Primary Care Nurse Name: Olga Wu RN Position: [facility] RN Supv Member Role: Primary Care Nurse Name: Naomi Rahman RN Position: [facility] RN Member Role: Primary Care Nurse Name: Maria De Jesus Moreau RN Position: [facility] RN Member Role: Primary Care Nurse Name: Suzanna Langley RN Position: [facility] OB RN Member Role: Primary Care Nurse Name: Rosio Soriano RN Position: [facility] RN Member Role: Primary Care Nurse Name: Arabella Smart RN Position: [facility] SN RN Member Role: Primary Care Nurse Name: Vesta Carmona LPN Position: [facility] RN Member Role: Primary Care Nurse Name: Alec Kong DO Position: [facility] Renal MD Member Role: Lifetime Consulting Physician Address: Address: [address] [place], [place] [address] [place], [place] [address] Name: Dedra Reese RN Position: [facility] RN Member Role: Primary Care Nurse Name: Makayla Valencia Position: [facility] RN Member Role: Primary Care Nurse Name: Dedra Byrd RN Position: [facility] RN Member Role: Primary Care Nurse Name: Nayely Sykes Position: [facility] RN Member Role: Primary Care Nurse Name: Ernie Bee RN Position: [facility] RN Member Role: Primary Care Nurse Name: Stephanie Way RN Position: [facility] RN Member Role: Primary Care Nurse Name: Ralph Coates RN Position: [facility] SN RN Member Role: Primary Care Nurse Name: Valeri Abebe RN Position: [facility] RN Member Role: Primary Care Nurse Name: Veronica Garcia RN Position: [facility] RN Member Role: Primary Care Nurse Name: Jeannine Chicas RN Position: [facility] Hospital [employer] Agent Member Role: Primary Care Nurse Name: Israel Etienne Position: [facility] Outreach Member Role: Lifetime Consulting Physician Name: Juju Rahman RN Position: [facility] SN RN Member Role: Primary Care Nurse Name: Tiffanie Watson RN Position: [facility] ED RN W/OE and Tasks Member Role: Primary Care Nurse Name: Tahira Hammond MA Position: [facility] AUGUSTINA MA Member Role: Primary Care Nurse Name: Lana Montiel RN Position: [facility] RN Member Role: Primary Care Nurse Name: Jayla Murguia RN Position: [facility] RN Member Role: Primary Care Nurse Name: Gurpreet Irby RN Position: [facility] RN Member Role: Primary Care Nurse Name: Rajani Delcid RN Position: [facility] [employer] Agent Member Role: Primary Care Nurse Care Team Related Persons Name: MAKAYLA GOTTLIEB Address: [address] [place] [address] Name: KAROLYN MCGOWAN Address: [address] [place] [address] Name: BHARGAV MUHAMMAD Address: [address] [place] [address] Name: BHARGAV MUHAMMAD Address: [address] [place] [address]
--- OUTSIDE RECORDS SUMMARY | 2023-05-05 08:58 | XMS_ITS | Continuity of Care Document ---
Author Name Unknown Organization [facility] Address [address] [place] [address]- Care Team Providers Care Contact Officer Name Role Phone Rell DE LA TORRE, Karolyn Primary Care Physician Encounter [facility] Date(s): 02/11/23 - 03/13/23 [facility] Care [address] [place] [id number]- Allergies, Adverse Reactions, Alerts Substance Reaction Severity [...] 4 Refills, Maintenance, 06/25/22 13:55:00 EDT, [facility]/pharmacy #[id number], 157, cm, 05/25/22 13:17:00 EDT, [...] capsule, 0 Refills, Maintenance, 09/06/22 15:02:00EST, Capsule, [facility]/pharmacy #[id number], Partial fill upon patient request if the prescription is for a schedule II opioid drug., 157.5, cm, 09/01/22 9:19:00... Start Date: 09/06/22 Stop Date: 10/06/22 Status: Ordered [place]-3 Fish Oil 1000 mg oral capsule 1 [...] Refills, Maintenance, 09/16/19 8:51:00 EST, ER Tablet, [facility], 158, cm, 09/16/19 7:39:00 [...] Team Personnel Name: Naomi Vasquez RN Position: [facility] RN Member Role: Primary Care Nurse Name: Karolyn Zacarias MD Position: [facility] Physician - Primary Care Member Role: PCP Address: Address: [address] [place] [address] [place] [address]- Name: Tricia Titus RN Position: [facility] RN Supv Member Role: Primary Care Nurse Name: Claudette Govea Position: [facility] Outreach Member Role: Lifetime Consulting Physician Name: Emma Jaramillo RN Position: [facility] AMB Nurse Member Role: Primary Care Nurse Name: Maria De Jesus Moreau RN Position: [facility] RN Member Role: Primary Care Nurse Name: Suzanna Langley RN Position: [facility] OB RN Member Role: Primary Care Nurse Name: Arabella Smart RN Position: [facility] SN RN Member Role: Primary Care Nurse Name: Alec Kong DO Position: [facility] Renal MD Member Role: Lifetime Consulting Physician Address: Address: [address] [place] [address] [address] [facility] [place] [address]- Name: Dedra Reese RN Position: [facility] RN Member Role: Primary Care Nurse Name: Dedra Byrd RN Position: [facility] RN Member Role: Primary Care Nurse Name: Ernie Bee RN Position: [facility] RN Member Role: Primary Care Nurse Name: Ralph Coates RN Position: [facility] SN RN Member Role: Primary Care Nurse Name: Veronica Garcia RN Position: [facility] RN Member Role: Primary Care Nurse Name: Jeannine Chicas RN Position: [facility] Health Information Management Director Member Role: Primary Care Nurse Name: Israel Etienne Position: [facility] Outreach Member Role: Lifetime Consulting Physician Name: Juju Rahman RN Position: [facility] SN RN Member Role: Primary Care Nurse Name: Tiffanie Watson RN Position: [facility] ED RN W/OE and Tasks Member Role: Primary Care Nurse Name: Tahira Hammond Position: [facility] Onco RN Member Role: Primary Care Nurse Name: Lana Montiel RN Position: [facility] RN Member Role: Primary Care Nurse Name: Gurpreet Irby RN Position: [facility] RN Member Role: Primary Care Nurse Name: Rajani Delcid RN Position: [facility] Health Information Management Director Member Role: Primary Care Nurse Care Team Related Persons Name: ANNIE GOTTLIEB Address: [address] [place] [address] Name: KAROLYN MCGOWAN Address: [address] [place] [address] Name: BHARGAV MUHAMMAD Address: [address] [place] [address] Name: BHARGAV MUHAMMAD Address: [address] [place] [address]
--- OUTSIDE RECORDS SUMMARY | 2023-05-05 08:58 | XMS_ITS | Continuity of Care Document ---
Author Name Unknown Organization [facility] Address [address] [place] [address]- Care Team Providers Care Wire Inspector Name Role Phone Karolyn Zacarias MD Primary Care Physician Encounter [facility] Date(s): 02/03/23 - 03/05/23 [facility] [address] [address]- Attending Physician: Rosalie Palmer Admitting Physician: Rosalie Palmer Referring Physician: AdmtrRosalie Allergies, Adverse Reactions, Alerts [...] Refills, Maintenance, 06/25/22 13:55:00 EDT, [facility]/pharmacy #[id number], 157, cm, 05/25/22 13:17:00 [...] Refills, Maintenance, 09/06/22 15:02:00EST, Capsule, [facility]/pharmacy #[id number], Partial fill upon patient request if the prescription is for a schedule II opioid drug., 157.5, cm, 09/01/22 9:19:00... Start Date: 09/06/22 Stop Date: 10/06/22 Status: Ordered [place]-3 Fish Oil 1000 mg oral capsule 1 [...] 06/25/22 Status: Ordered ondansetron 8 mg oral tablet, disintegrating 1 tablet = 8 mg, By Mouth, Every 8 hours, PRN Nausea & Vomiting, for 10 days, # 30 tablet, 0 Refills, Acute 03/12/23 12:55:00 EDT, 03/02/23 12:55:00 EDT, Tablet, [facility]/pharmacy #[id number], Partial fill upon patient request if the prescription is for a schedu... Start Date: 03/02/23 Stop Date: 03/12/23 Status: Ordered oxyCODONE 5 mg oral capsule [...] Refills, Maintenance, 09/16/19 8:51:00 EST, ER Tablet, [facility], 158, cm, 09/16/19 7:39:00 [...] Care team information Care Team Personnel Name: Noami Vasquez RN Position: [facility] RN Member Role: Primary Care Nurse Name: Karolyn Zacarias MD Position: [facility] Physician - Primary Care Member Role: PCP Address: Address: [address] [place] [address]- Name: Tricia Titus RN Position: [facility] RN Supv Member Role: Primary Care Nurse Name: Claudette Govea Position: [facility] Outreach Member Role: Lifetime Consulting Physician Name: Emma Jaramillo RN Position: [facility] AMB Nurse Member Role: Primary Care Nurse Name: Maria De Jesus Moreau RN Position: [facility] RN Member Role: Primary Care Nurse Name: Suzanna Langley RN Position: [facility] OB RN Member Role: Primary Care Nurse Name: rAabella Smart RN Position: [facility] SN RN Member Role: Primary Care Nurse Name: Alec Kong DO Position: [facility] Renal MD Member Role: Lifetime Consulting Physician Address: Address: [address] [place] [address] [address] [facility] [place] [place] [address] Name: Dedra Reese RN Position: [facility] RN Member Role: Primary Care Nurse Name: Dedra Byrd RN Position: [facility] RN Member Role: Primary Care Nurse Name: Ernie Bee RN Position: [facility] RN Member Role: Primary Care Nurse Name: Ralph Coates RN Position: [facility] SN RN Member Role: Primary Care Nurse Name: Veronica Garcia RN Position: [facility] RN Member Role: Primary Care Nurse Name: Jeannine Chicas RN Position: [facility] Keno Writer Member Role: Primary Care Nurse Name: Israel Etienne Position: [facility] Outreach Member Role: Lifetime Consulting Physician Name: Juju Rahman RN Position: [facility] SN RN Member Role: Primary Care Nurse Name: Tiffanie Watson RN Position: [facility] ED RN W/OE and Tasks Member Role: Primary Care Nurse Name: Tahria Hammond Position: [facility] Onco RN Member Role: Primary Care Nurse Name: Lana Montiel RN Position: [facility] RN Member Role: Primary Care Nurse Name: Gurpreet Irby RN Position: [facility] RN Member Role: Primary Care Nurse Name: Rajani Delcid RN Position: [facility] Keno Writer Member Role: Primary Care Nurse Care Team Related Persons Name: ANNIE GOTTLIEB Address: [address] [place] [address] Name: KAROLYN MCGOWAN Address: [address] [place] [address] Name: BHARGAV MUHAMMAD Address: [address] [place] [address] Name: BHARGAV MUHAMMAD Address: [address] [place] [address]
--- OUTSIDE RECORDS SUMMARY | 2023-05-05 08:58 | XMS_ITS | Continuity of Care Document ---
Author Name Unknown Organization [facility] Address [address] [place] [id number]- Care Team Providers Care Beauty Culture Teacher Name Role Phone Rell DE LA TORRE, Karolyn Primary Care Physician Encounter [facility] Date(s): 03/18/23 - 04/17/[address] [address] Allergies, Adverse Reactions, Alerts Substance Reaction [...] 03/21/23 12:57:00 EDT, Route to Pharmacy Electronically, [facility]/pharmacy #[id number], Partial fill upon patient request if the [...] 06/05/23 14:47:00 EDT, 04/06/23 14:47:00 EDT, Injection, [facility], Partial fill upon patient request if [...] mL, 4 Refills, Maintenance, 06/25/22 13:55:00 EDT, [facility]/pharmacy #[id number], 157, cm, 05/25/22 13:17:00 EDT, [...] Maintenance, 04/06/23 14:46:00 EDT,Route to Pharmacy Electronically, [facility], Partial fill upon patient [...] Refills, Maintenance, 09/16/19 8:51:00 EST, ER Tablet, [facility], 158, cm, 09/16/19 7:39:00 [...] Team Personnel Name: Naomi Vasquez RN Position: [facility] RN Member Role: Primary Care Nurse Name: Rocio Sandoval Position: [facility] RN Member Role: Primary Care Nurse Name: Karolyn Zacarias MD Position: [facility] Physician - Primary Care Member Role: PCP Address: Address: [address] [place] [address] [place] [address]- Name: Katina Tsang RN Position: [facility] RN Member Role: Primary Care Nurse Name: Tricia Titus RN Position: [facility] RN Supv Member Role: Primary Care Nurse Name: Claudette Govea Position: [facility] Outreach Member Role: Lifetime Consulting Physician Name: Dena Cano RN Position: [facility] RN Member Role: Primary Care Nurse Name: aBiley Inman RN Position: [facility] RN Member Role: Primary Care Nurse Name: Emma Jaramillo RN Position: [facility] AMB Nurse Member Role: Primary Care Nurse Name: Olga Wu RN Position: [facility] RN Supv Member Role: Primary Care Nurse Name: Naomi Rahman RN Position: [facility] RN Member Role: Primary Care Nurse Name: Maria De Jesus Moreau RN Position: [facility] RN Member Role: Primary Care Nurse Name: Suzanna Langley RN Position: [facility] OB RN Member Role: Primary Care Nurse Name: Rosio Soriano RN Position: [facility] RN Member Role: Primary Care Nurse Name: Arabella Smart RN Position: [facility] SN RN Member Role: Primary Care Nurse Name: Vesta Carmona LPN Position: [facility] RN Member Role: Primary Care Nurse Name: Alec Kong DO Position: [facility] Renal MD Member Role: Lifetime Consulting Physician Address: Address: [address] [place], [place] [address] [place], [place] [address] Name: Dedra Reese RN Position: [facility] RN Member Role: Primary Care Nurse Name: Makayla Valencia Position: [facility] RN Member Role: Primary Care Nurse Name: Dedra Byrd RN Position: [facility] RN Member Role: Primary Care Nurse Name: Ernie Bee RN Position: [facility] RN Member Role: Primary Care Nurse Name: Stephanie Way RN Position: [facility] RN Member Role: Primary Care Nurse Name: Ralph Coates RN Position: [facility] SN RN Member Role: Primary Care Nurse Name: Valeri Abebe RN Position: [facility] RN Member Role: Primary Care Nurse Name: Veronica Garcia RN Position: [facility] RN Member Role: Primary Care Nurse Name: Jeannine Chicas RN Position: [facility] Hospital Insurance Clerk Member Role: Primary Care Nurse Name: Israel Etienne Position: [facility] Outreach Member Role: Lifetime Consulting Physician Name: Juju Rahman RN Position: [facility] SN RN Member Role: Primary Care Nurse Name: Tiffanie Watson RN Position: [facility] ED RN W/OE and Tasks Member Role: Primary Care Nurse Name: Tahira Hammond [place] Position: [facility] [place] Member Role: Primary Care Nurse Name: Lana Montiel RN Position: [facility] RN Member Role: Primary Care Nurse Name: Jayla Murguia RN Position: [facility] RN Member Role: Primary Care Nurse Name: Gurpreet Irby RN Position: [facility] RN Member Role: Primary Care Nurse Name: Rajani Delcid RN Position: [facility] Hospital Insurance Clerk Member Role: Primary Care Nurse Care Team Related Persons Name: CHERYMAKAYLA HA Address: [address] [place] [address] Name: KAROLYN MCGOWAN Address: [address] [place] [address] Name: BHARGAV MUHAMMAD Address: [address] [place] [address] Name: BHARGAV MUHAMMAD Address: [address] [place] [address]
--- OUTSIDE RECORDS SUMMARY | 2023-05-05 08:59 | XMS_ITS | Patient Health Record ---
Author Name Unknown Organization [facility] Address [address] [place] [address] Care Team Providers Care Special Systems Technician Name Role Phone Michelle Saucedo Unavailable [phone] Lottie Mcarthur Unavailable [phone] Slime Wild Unavailable [phone] Promise Call Unavailable Maya Benitez Unavailable [phone] Emily Gill Unavailable [phone] Fariba Herron Unavailable [phone] Sara Smith Unavailable [phone] Loretta Torres Unavailable [phone] Rickie Rosas Unavailable [phone] Gayle Rose Unavailable [phone] Taylor Costello Unavailable [phone] Surendra Bloom Unavailable [phone] Aleksandar Andre Unavailable [phone] Gus Robert Unavailable [phone] Slime Domínguez Unavailable [phone] Kayleigh Elias Unavailable [phone] PROBLEMS Type Condition ICD9-CM Code [id number] Code Onset Dates Condition Status W/U Status Risk SNOMED Code Notes Problem Other hyperlipidemi a E78.49 confirmed 87628324 Problem Chronic kidney disease, stage 3 (moderate) N18.3 confirmed 524474812 Problem Type 2 diabetes mellitus with diabetic nephropathy E11.21 confirmed 005666162 Problem COPD with Acute Exacerbation J44.1 confirmed 018386376 Problem Vitamin D deficiency, unspecified E55.9 confirmed 04753724 Problem CHF unspecified systolic I50.20 confirmed 338815767 Problem Allergic rhinitis, Other J30.89 confirmed 44333356 Problem Pseudotumor Cerebri G93.2 confirmed 29797337 Problem Sleep related hypoventilati on in conditions classified elsewhere G47.36 confirmed 731826719 Problem DM II E11.9 confirmed 786665322 Problem Asthma NOS J45.998 confirmed 3492747 01 Problem Bipolar disorder, other F31.89 confirmed 26663188 Problem Anxiety disorder generalized F41.1 confirmed 94350848 Problem Bipolar II disorder F31.81 confirmed 26997836 Problem GERD K21.9 confirmed 267667201 Problem Obesity, unspecified E66.9 confirmed 273504208 Problem CHF I50.9 confirmed 98091517 Problem Hyperlipidemi a other E78.4 confirmed 16257250 Problem Constipation, unspecified K59.00 confirmed 61773892 Problem COPD, unspecified J44.9 confirmed 55099448 Problem HTN I10 confirmed 65204873 Problem BMI 50-59.9 , adult Z68.43 confirmed 742270474 Problem Spinal stenosis, sacral and sacrococcygea l region M48.08 confirmed 88739897 Problem Pulmonary nodule R91.1 confirmed 726509441 Problem Cancer Lung, unspecified C34.90 confirmed 929557035 ALLERGIES Allergen (clinical drug ingredient) Drug/Non Drug Allergy documented on EMR Reaction Allergy Type Onset Date Status quetiapine quetiapine(NDC Code:[address]-02 ) Unknown Drug Allergy Active dulaglutide Trulicity Pen(NDC Code:[address]-83 ) stomach upset Drug Allergy Active seasonal allergies Unknown Non Drug Allergy Active cats Unknown Non Drug Allergy Active ENCOUNTERS from 1962 to 2023-03-16 Encounter Location Date Provider Diagnosis [place] [address] [place], [place] [address] Feb, Michelle Suacedo COPD, unspecified J44.9 ; HTN I10 ; DM II E11.9 ; Constipation, unspecified K59.00 ; Pseudotumor Cerebri G93.2 ; Fatigue R53.83 and Shortness of breath R06.[address] [address] Feb, Michelle Saucedo HTN I10 ; Type 2 diabetes mellitus with diabetic nephropathy E11.21 ; COPD, unspecified J44.9 ; Fatigue R53.83 ; Cancer Lung, unspecified C34.90 and Mass leg, unspecified side R22.40 [place] [address] [place] [address] January, Michelle Saucedo [place] [address] [place] [address] January, Promise Call [place] [address] [place] [address] January, Michelle Saucedo [place] [address] [place] [address] January, Michelle Saucedo [address] [address] January, Michelle Saucedo COPD, unspecified J44.9 ; HTN I10 ; DM II E11.9 ; Constipation, unspecified K59.00 ; Pseudotumor Cerebri G93.2 ; Fatigue R53.83 ; Hyperlipidemia other E78.4 and Shortness of breath R06.02 [place] [address] [place] [address] Dec, Karolyn Zacarias Acute sinusitis, unspecified J01.90 [place] [address] [place] [address] Dec, Promise Call [address] [address] Dec, Michelle Saucedo COPD, unspecified J44.9 ; COVID-19 U07.1 ; HTN I10 and DM II E11.[address] [address] Dec, Michelle Saucedo [address] [address] Nov, Michelle Saucedo COVID-19 EXPOSURE Z20.822 ; HTN I10 ; DM II E11.9 and Pseudotumor Cerebri G93.2 [place] [address] [place] [address] 20 Nov, 2022 Michelle Saucedo [facility] [address] [address] 14 Nov, 2022 Michelle Saucedo Lower abd pain, unspecified R10.[address] [facility] [address] [address] 10 Nov, 2022 Michelle Saucedo Lower abd pain, unspecified R10.30 ; HTN I10 ; Type 2 diabetes mellitus with diabetic nephropathy E11.21 and Pseudotumor Cerebri G93.[address] [facility] [address] [address] 08 Nov, 2022 Michelle Saucedo [address] [address] 07 Nov, 2022 Michelle aSucedo [place] [address] [place] [address] 13 Oct, 2022 Michelle Saucedo [address] [address] 13 Oct, 2022 Michelle Saucedo Type 2 diabetes mellitus with diabetic nephropathy E11.21 ; HTN I10 ; CHF unspecified systolic I50.20 ; Cancer Lung, unspecified C34.90 ; GERD K21.9 and Pain leg, right M79.[address] [address] 03 Oct, 2022 Rickie Rosas Spinal stenosis, sacral and sacrococcygeal region M48.[address] [address] Sep, Michelle Saucedo [place] [address] [place] [address] Sep, Karolyn Zacarias [facility] [address] [address] 18 Sep, 2022 Michelle Saucedo Spinal stenosis, sacral and sacrococcygeal region M48.08 [place] [address] [place] [address] Sep, Michelle Saucedo [facility] [address] [place] [address] Sep, Michelle Saucedo [facility] [address] [address] 12 Sep, 2022 Michelle Saucedo Type 2 diabetes mellitus with diabetic nephropathy E11.21 ; HTN I10 ; Other hyperlipidemia E78.49 ; Cancer Lung, unspecified C34.90 ; Pseudotumor Cerebri G93.2 ; CHF I50.9 ; GERD K21.9 and Spinal stenosis, sacral and sacrococcygeal region M48.[address] [facility] [address] [address] 04 Sep, 2022 Michelle Saucedo Spinal stenosis, sacral and sacrococcygeal region M48.[address] [facility] [address] [address] 30 Aug, 2022 Michelle Saucedo Pain knee, unspecified knee M25.569 ; Fatigue R53.83 ; Cancer Lung, unspecified C34.90 ; HTN I10 and Spinal stenosis, sacral and sacrococcygeal region M48.08 [place] [address] [place] [address] Aug, Karolyn Zacarias Pain knee, unspecified knee M25.569 ; Spinal stenosis, lumbar region with neurogenic claudication M48.062 ; Cancer Lung, unspecified C34.90 and COPD with Acute Exacerbation J44.1 [place] [address] [place] [address] Aug, Karolyn Zacarias [place] [address] [place] [address] Aug, Karolyn Zacarias [address] [address] 13 Aug, 2022 Michelle Saucedo [facility] [address] [address] Aug, Michelle Saucedo [address] [address] Aug, Michelle Saucedo [place] [address] [place] [address] Aug, Karolyn Zacarias [place] [address] [place] [address] Aug, Michelle Saucedo [place] [address] [place] [address] Aug, Karolyn Zacarias [place] [address] [place] Aug, Karolyn Zacarias [facility] [address] [place] Aug, Michelle Saucedo Pain leg, unspecified M79.606 and Localized swelling, mass and lump, lower limb, bilateral R22.[address] [facility] [address] [address] Aug, Michelle Saucedo Fatigue R53.83 ; HTN I10 ; CHF unspecified systolic I50.20 ; Cancer Lung, unspecified C34.90 and Pain leg, right M79.[address] [facility] [address] [address] Jul, Michelle Saucedo [place] [address] [place] Jul, Promise Call Bipolar disorder, other F31.89 [facility] [address] [address] Jul, Michelle Saucedo [facility] [address] [address] Jul, Michelle Saucedo [facility] [address] [address] Jul, Michelle Saucedo [address] [address] Jul, Michelle Saucedo [place] [address] [place] Jul, Michelle Saucedo Rash and other nonspecific skin eruption R21 [place] [address] [place] Jun, Karolyn Zacarias [place] [address] [place] Jun, Michelle Saucedo [facility] [address] [address] Jun, Michelle Saucedo Pulmonary nodule R91.1 ; Mass leg, right R22.41 and Fatigue R53.83 [place] [address] [place] [address] Jun, Michelle Saucedo [facility] [address] [address] 28 May, 2022 Michelle Saucedo [facility] [address] [address] 27 May, 2021 Michelle Saucedo [facility] [address] [address] 26 May, 2022 Michelle Saucedo [facility] [address] [address] May, Michelle Saucedo [facility] [address] [address] May, Michelle Saucedo [place] [address] [place] [address] 25 May, 2021 Karolyn Zacarias [facility] [address] [address] 23 May, 2021 Karolyn Zacarias Cough, unspecified R05.9 [place] [address] [place] [address] May, Karolyn Zacarias [place] [address] [place] [address] May, Michelle Saucedo [place] [address] [place] [address] May, Michelle Saucedo [address] [address]May, 2021 Michelle Saucedo COPD with Acute Exacerbation J44.[address] [facility] [address] [address] 19 May, 2021 Michelle Saucedo [place] [address] [place] [address] 13 May, 2022 Michelle Saucedo [place] [address] [place] [address] May, Gayle [place] [facility] [address] [address] 12 May, 2022 Michelle Saucedo Type 2 diabetes mellitus with diabetic nephropathy E11.21 ; HTN I10 ; Pulmonary nodule R91.1 ; Fatigue R53.83 and Hyperlipidemia other E78.4 [place] [address] [place] [address] 15 Apr, 2022 Karolyn Zacarias [facility] [address] [place] [address] 12 Apr, 2022 Michelle Saucedo [place] [address] [place] [address] 09 Apr, 2022 Michelle Saucedo [place] [address] [place] [address] 08 Apr, 2022 Michelle Saucedo Type 2 diabetes mellitus with diabetic nephropathy E11.21 [place] [address] [place] [address] 08 Apr, 2022 Michelle Saucedo [facility] [address] [place] [address] 08 Apr, 2022 Michelle Saucedo Type 2 diabetes mellitus with diabetic nephropathy E11.21 ; HTN I10 and Pulmonary nodule R91.[address] [facility] [address] [place] [address] 12 Mar, 2022 Michelle Saucedo [facility] [address] [place] [address] 08 Mar, 2022 Michelle Saucedo [facility] [address] [place] [address] 08 Mar, 2022 Michelle Saucedo [place] [address] [place] [address] Mar, Karolyn Zacarias [facility] [address] [place] [address] 10 Feb, 2022 Michelle Saucedo HTN I10 ; Type 2 diabetes mellitus with diabetic nephropathy E11.21 ; Obesity, unspecified E66.9 ; Spinal stenosis, sacral and sacrococcygeal region M48.08 and COPD, unspecified J44.9 [place] [address] [place] [address] January, Karolyn Zacarias [facility] [address] [place] [address] Dec, Michelle Saucedo [facility] [address] [place] [address] Dec, Michelle Saucedo [facility] [address] [address] 14 Dec, 2021 Michelle Saucedo [address] [address] 05 Dec, 2021 Michelle Saucedo [place] [address] [place] [address] Nov, Promise Call [place] [address] [place] [address] Nov, Karolyn [place] [address] [place] [address] Nov, Promise Call Anxiety disorder generalized F41.1 [place] [address] [place] [address] 14 Nov, 2021 Kar[facility] [place] [address] [place] [address] 11 Nov, 2021 Michelle Saucedo Headache, unspecified R51.9 and Pulsatile tinnitus, unspecified ear H93.A9 [address] [address] 10 Nov, 2021 Michelle Saucedo Pseudotumor Cerebri G93.2 ; HTN I10 ; Type 2 diabetes mellitus with diabetic nephropathy E11.21 ; Headache, unspecified R51.9 ; Pulsatile tinnitus, bilateral H93.A3 ; Obesity, unspecified E66.9 and Spinal stenosis, sacral and sacrococcygeal region M48.08 [place] [address] [place] [address] Oct, Michelle Saucedo [place] [address] [place] [address] Oct, Michelle Saucedo [address] [address] Oct, Michelle Saucedo [place] [address] [place] [address] Oct, [facility] [place] [address] [place] [address] Sep, Gayle Milton [address] [address] Sep, Michelle Saucedo HTN I10 ; Type 2 diabetes mellitus with diabetic nephropathy E11.21 ; Fatigue R53.83 and Pain knee, left M25.562 [place] [address] [place] [address] Sep, Karolyn [place] [address] [place] [address] Sep, Promise Call [place] [address] [place] [address] Sep, Promise Call [place] [address] [place] [address] Sep, Promise Call Anxiety disorder generalized F41.1 [place] [address] [place] Sep, Promise Call [place] [address] [place] [address] Sep, [facility] [place] [address] [place] [address] Sep, Taylor Costello [facility] [address] [place] [address] Sep, Michelle Saucedo HTN I10 ; Type 2 diabetes mellitus with diabetic nephropathy E11.21 ; Fatigue R53.83 and Pain knee, left M25.562 [place] [address] [place] [address] Aug, Karolyn Zacarias [facility] [address] [place] [address] Aug, Michelle Saucedo Fatigue R53.83 and HTN I10 [place] [address] [place] [address] Jul, Karolyn Zacarias [place] [address] [place] [address] Jul, Promise Call Bipolar II disorder F31.81 and Anxiety disorder generalized F41.1 [place] [address] [place] [address] Jul, Michelle Saucedo [facility] [address] [place] [address] Jul, Michelle Saucedo Periorbital cellulitis L03.213 ; Type 2 diabetes mellitus with diabetic nephropathy E11.21 and Pain knee, left M25.562 [facility] [address] [place] [address] Jul, Michelle Saucedo [facility] [address] [address] Jul, Michelle Saucedo Eye pain, right eye H57.11 [place] [address] [place] [address] Jul, [facility] [place] [address] [place] [address] Jul, Surendra ZZZPrior [place] [address] [place] [address] Jul, Taylor Vaillant Anxiety disorder generalized F41.1 [place] [address] [place] [address] 10 Jul, 2021 Taylor Vaillant Anxiety disorder generalized F41.1 [place] [address] [place] [address] Jul, Taylor Vaillant Anxiety disorder generalized F41.1 and Type 2 diabetes mellitus with diabetic nephropathy E11.21 [facility] [address] [place] [address] Jun, Aleksandar Thai Anxiety disorder generalized F41.1 and Type 2 diabetes mellitus with diabetic nephropathy E11.[address] [facility] [address] [address] 18 Jun, 2021 Michelle Saucedo Pain knee, left M25.562 [facility] [address] [place] [address] 18 Jun, 2021 Michelle Saucedo [facility] [address] [address] 18 Jun, 2021 Michelle Saucedo [facility] [address] [place] [address] 15 Jun, 2021 Surendra ZZZPrior Pain knee, left M25.562 [place] [address] [place] [address] 15 Jun, 2021 Michelle Saucedo [facility] [address] [address] 14 Jun, 2021 Michelle Saucedo Pain knee, left M25.562 [facility] [address] [place] [address] Jun, Michelle Saucedo [address] [address] 14 Jun, 2021 Michelle Saucedo Pain knee, left M25.[address] [address] 12 Jun, 2021 Michelle Saucedo Pain back, unspecified M54.[address] [address] 12 Jun, 2021 Michelle Saucedo [facility] [address] [place] [address] Jun, Promise Call Anxiety disorder generalized F41.[address] [address] 04 Jun, 2021 Michelle Saucedo Type 2 diabetes mellitus with diabetic nephropathy E11.21 ; HTN I10 ; Pain back, unspecified M54.9 ; Encounter for immunization Z23 and Obesity, unspecified E66.[address] [address] Jun, Promise Call [facility] [address] [place] [address] Jun, Karolyn Zacarias [address] [address] Apr, Michelle Saucedo [address] [address] Apr, Michelle Saucedo [facility] [address] [place] [address] Apr, Karolyn Zacarias [address] [address] Apr, Michelle Saucedo [address] [address] Apr, Michelle Saucedo [facility] [address] [place] [address] Apr, Karolyn Zacarias [facility] [address] [place] [address] Apr, Karolyn Zacarias [facility] [address] [address] Apr, Michelle Saucedo Pain back, unspecified M54.9 and BMI 50-59.9 , adult Z68.43 [place] [address] [place] [address] Apr, Promise Call [place] [address] [place] [address] Mar, Taylor Costello Bipolar disorder, other F31.[address] [facility] [address] [address] Mar, Michelle Saucedo [facility] [address] [address] Mar, Michelle Saucedo [facility] [address] [address] Mar, Michelle Saucedo Type 2 diabetes mellitus with diabetic nephropathy E11.21 ; HTN I10 ; Hyperlipidemia other E78.4 ; Chronic kidney disease, stage 3 (moderate) N18.3 ; CHF unspecified systolic I50.20 and Pain back, unspecified M54.9 [place] [address] [place] [address] Mar, Karolyn Zacarias [place] [address] [place] [address] Mar, Karolyn [place] [address] [place] [address] Mar, Michelle Saucedo [place] [address] [place] [address] Mar, Promise Call Bipolar disorder, other F31.89 and CHF unspecified systolic I50.20 [place] [address] [place] [address] Feb, Gayle [place] [facility] [address] [address] January, Michelle Saucedo Type 2 diabetes mellitus with diabetic nephropathy E11.21 ; HTN I10 ; COPD, unspecified J44.9 ; Pain back, unspecified M54.9 and Obesity, unspecified E66.9 [place] [address] [place] [address] January, Michelle Saucedo [facility] [address] [place] [address] January, Michelle Saucedo [facility] [address] [address] January, Michelle Saucedo [facility] [address] [address] January, Michelle Saucedo [facility] [address] [address] January, Michelle Saucedo [place] [address] [place] [address] Dec, Karolyn Zacarias [facility] [address] [address] Dec, Michelle Saucedo Type 2 diabetes mellitus with diabetic nephropathy E11.21 ; HTN I10 ; COPD, unspecified J44.9 ; Pain back, unspecified M54.9 ; Obesity, unspecified E66.9 and Rosacea 695.[address] [place] [address] [place] [address] Dec, Karolyn Zacarias [place] [address] [place] [address] Dec, Karolyn Zacarias [place] [address] [place] [address] Dec, Promise Call Bipolar disorder, other F31.89 and Anxiety disorder generalized F41.1 [place] [address] [place] [address] Nov, Karolyn Zacarias Contact with and (suspected) exposure to COVID-19 Z20.822 and Encounter for immunization Z23 [place] [address] [place] [address] Nov, Taylor Costello Bipolar disorder, other F31.89 [place] [address] [place] [address] Nov, Promise Call [place] [address] [place] [address] Nov, Karolyn Zacarias [address] [address] Nov, Promise Call Anxiety disorder generalized F41.1 [place] [address] [place] [address] Oct, Karolyn Zacarias Contact with and (suspected) exposure to COVID-19 Z20.822 and Encounter for immunization Z23 [address] [address] Oct, Michelle Saucedo Type 2 diabetes mellitus with diabetic nephropathy E11.[address] [address] Oct, Karolyn Perezkinson [place] [address] [place] Oct, Karolyn Zacarias [address] [address] Oct, Michelle Saucedo Type 2 diabetes mellitus with diabetic nephropathy E11.21 ; HTN I10 ; COPD, unspecified J44.9 ; CHF unspecified systolic I50.20 and Pain back, unspecified M54.[address] [place] [address] [place] Oct, Karolyn Zacarias [place] [address] [place] Oct, Akrolyn Zacarias [place] [address] [place] Oct, Karolyn Zacarias [place] [address] [place] Oct, Michelle Saucedo [place] [address] [place] [address] Sep, Gus Spirsamuel Low back pain M54.5 and Weakness of muscles 728.[address] [place] [address] [place] Sep, Gus Spirsamuel Low back pain M54.5 and Weakness of muscles 728.[address] [place] [address] [place] [address] Aug, Karolyn Zacarias [place] [address] [place] Aug, Karolyn Zacarias [facility] [address] [place] Aug, Gus Robert Low back pain M54.5 and Weakness of muscles 728.87 [facility] [address] [place] Aug, Karolyn Zacarias [place] [address] [place] Aug, Karolyn Zacarias [facility] [address] [place] [address] Aug, Michelle Saucedo COPD with Acute Exacerbation J44.1 [place] [address] [place] Aug, Karolyn Zacarias [facility] [address] [place] [address] Aug, Michelle Saucedo [place] [address] [place] Aug, Promise Estrada-Adalid Anxiety disorder generalized F41.[address] [place] [address] [place] Aug, Karolyn Zacarias Low back pain M54.5 and Weakness of muscles 728.[address] [place] [address] [place] Aug, Karolyn Zacarias [facility] [address] [place] Aug, Karolyn Rell Low back pain M54.5 and Weakness of muscles 728.[address] [place] [address] [place] Jul, Karolyn Zacarias [facility] [address] [place] [address] Jul, Michelle Saucedo Low back pain M54.5 ; HTN I10 ; Type 2 diabetes mellitus with diabetic nephropathy E11.21 and Fatigue R53.[address] [place] [address] [place] Jul, Karolyn Zacarias Low back pain M54.5 and Weakness of muscles 728.87 [facility] [address] [place] Jul, Karolyn Zacarias [facility] [address] [place] Jul, Karolyn Zacarias [facility] [address] [place] Jul, Karolyn Zacarias Low back pain M54.5 and Weakness of muscles 728.[address] [place] [address] [place] Jul, Karolynyesica Zacarias Low back pain M54.5 and Weakness of muscles 728.87 [facility] [address] [place] [address] Jul, Michelle Saucedo Low back pain M54.5 ; HTN I10 ; CHF unspecified systolic I50.20 and Fatigue R53.[address] [place] [address] [place] Jul, Karolyn Zacarias [place] [address] [place] Jun, Karolynyesica Zacarias Low back pain M54.5 and Weakness of muscles 728.[address] [facility] [address] [place] [address] Jun, Karolyn Zacarias Encounter for immunization Z23 [place] [address] [place] Jun, Karolyn Zacarias [place] [address] [place] Jun, Karolyn Zacarias [place] [address] [place] Jun, Karolyn Zacarias CHF unspecified systolic I50.20 [facility] [address] [place] [address] Jun, Michelle Saucedo Edema unspecified R60.9 ; Type 2 diabetes mellitus with diabetic nephropathy E11.21 ; HTN I10 ; CHF unspecified systolic I50.20 ; Fatigue R53.83 ; Hyperlipidemia other E78.4 and Weakness of Muscles M62.[address] [place] [address] [place] Jun, Karolyn Zacarias [place] [address] [place] Jun, [place] [address] [place] May, [place] [address] [place] Apr, [place] [address] [place] Apr, [place] [address] [place] Apr, [place] [address] [place] Apr, [place] [address] [place] Apr, [place] [address] [place] Apr, Michelle Saucedo Pain foot, right M79.671 and Edema unspecified R60.9 [facility] [address] [address] Apr, Michelle Saucedo Edema localized R60.0 ; Type 2 diabetes mellitus with diabetic nephropathy E11.21 ; HTN I10 ; CHF unspecified systolic I50.20 ; Fatigue R53.83 ; Hyperlipidemia other E78.4 ; Weakness of Muscles M62.81 and GERD K21.[address] [place] [address] [place] Apr, Karolyn Zacarias [facility] [address] [address] Mar, Michelle Saucedo [facility] [address] [address] Mar, Michelle Saucedo [place] [address] [place] Mar, Karolyn Zacarias [place] [address] [place] Mar, [place] [address] [place] Mar, Promise Call Bipolar II disorder F31.81 [place] [address] [place] Mar, [facility], other F31.89 and Anxiety disorder generalized F41.1 [place] [address] [place] [address] Mar, Karolyn [place] [address] [place] [address] Mar, Karolyn Zacarias [facility] [address] [place] [address] Mar, Michelle Saucedo Edema localized R60.0 ; Type 2 diabetes mellitus with diabetic nephropathy E11.21 and HTN I10 [facility] [address] [place] [address] Mar, Michelle Saucedo Edema localized R60.0 ; Type 2 diabetes mellitus with diabetic nephropathy E11.21 and HTN I10 [place] [address] [place] [address] Feb, Karolyn [place] [address] [place] Feb, [place] [address] [place] [address] Feb, Karolyn [place] [address] [place] [address] Feb, Slime Domínguez CHF unspecified systolic I50.20 and Pain leg, right lower M79.661 [place] [address] [place] [address] Feb, Karolyn Zacarias [place] [address] [place] January, Karolyn [place] [address] [place] January, Karolyn [place] [address] [place] [address] January, Slime Domínguez COPD, unspecified J44.9 [place] [address] [place] [address] January, Karolyn [place] [address] [place] [address] January, Karolyn [place] [address] [place] [address] January, Karolyn Zacarias [place] [address] [place] [address] January, Karolyn Zacarias [place] [address] [place] [address] January, Michelle Saucedo Type 2 diabetes mellitus with diabetic nephropathy E11.21 ; HTN I10 ; CHF unspecified systolic I50.20 ; Fatigue R53.83 and Hyperlipidemia other E78.4 [place] [address] [place] [address] Dec, Karolyn Zacarias [place] [address] [place] [address] Dec, Promise Call Anxiety disorder generalized F41.1 and Bipolar II disorder F31.81 [place] [address] [place] [address] Dec, Karolyn Zacarias [place] [address] [place] [address] Dec, [place] [address] [place] [address] Dec, Michelle Saucedo Kidney failure acute, other N17.8 ; Type 2 diabetes mellitus with diabetic nephropathy E11.21 ; HTN I10 ; CHF unspecified systolic I50.20 ; COPD, unspecified J44.9 ; Fatigue R53.83 and Hyperlipidemia other E78.4 [place] [address] [place] [address] Dec, Karolyn Zacarias [place] [address] [place] Nov, Promise Call [place] [address] [place] [address] Nov, Karolyn Zacarias [place] [address] [place] [address] [facility], [facility] [place] [address] [place] [address] Oct, Karolyn Rell [facility] [address] [place] [address] Sep, Michelle aSucedo Kidney failure acute, other N17.8 ; Type 2 diabetes mellitus with diabetic nephropathy E11.21 ; HTN I10 ; CHF unspecified systolic I50.20 and COPD, unspecified J44.9 [place] [address] [place] [address] Jul, Karolyn Zacarias [facility] [address] [place] [address] Jul, Michelle Saucedo COPD with Acute Exacerbation J44.1 [place] [address] [place] [address] Jul, Karolyn Zacarias [facility] [address] [address] Jul, Michelle Saucedo Kidney failure acute, other N17.8 ; Type 2 diabetes mellitus with diabetic nephropathy E11.21 ; Encounter for immunization Z23 ; HTN I10 ; CHF unspecified systolic I50.20 and COPD, unspecified J44.9 [place] [address] [place] [address] Jun, Karolyn Zacarias [facility] [address] [address] May, Michelle Saucedo Kidney failure acute, other N17.8 ; Type 2 diabetes mellitus with diabetic nephropathy E11.21 ; HTN I10 and CHF unspecified systolic I50.[address] [address] Apr, Michelle Saucedo Kidney failure acute, other N17.8 ; Type 2 diabetes mellitus with diabetic nephropathy E11.21 ; Rash and other nonspecific skin eruption R21 ; HTN I10 ; Fatigue R53.83 and CHF unspecified systolic I50.20 [place] [address] [place] [address] Apr, Kayleigh Elias [place] [address] [place] [address] Mar, Karolyn Zacarias [place] [address] [place] [address] Mar, Michelle Saucedo [facility] [address] [address] Mar, Michelle Saucedo Type 2 diabetes mellitus with diabetic nephropathy E11.21 ; Asthma NOS J45.998 ; Procedure and treatment not carried out because of patient's decision for unspecified reasons Z53.20 ; HTN I10 ; Fatigue R53.83 and CHF unspecified systolic I50.20 [place] [address] [place] [address] Mar, Karolyn Zacarias [place] [address] [place] [address] Mar, Karolyn Zacarias [place] [address] [place] [address] Mar, Michelle Saucedo Hyperlipidemia other E78.4 [place] [address] [place] [address] Mar, Promise Call [place] [address] [place] [address] Feb, Michelle Saucedo [place] [address] [place] [address] January, Karolyn [place] [address] [place] [address] Dec, Michelle Saucedo [place] [address] [place] [address] Dec, Michelle Saucedo Adult physical NORMAL Z00.00 ; Asthma NOS J45.998 ; Type 2 diabetes mellitus with diabetic nephropathy E11.21 ; Vitamin D deficiency, unspecified E55.9 ; Type 2 diabetes mellitus with hyperglycemia E11.65 ; HTN I10 ; Fatigue R53.83 ; CHF unspecified systolic I50.20 ; Sleep related hypoventilation in conditions classified elsewhere G47.36 ; Encounter for antibody response examination Z01.84 and Encounter for immunization Z23 [place] [address] [place] [address] Dec, Promise Call Bipolar disorder, other F31.89 and Anxiety disorder generalized F41.1 [place] [address] [place] [address] Nov, Karolyn Zacarias [place] [address] [place] [address] Nov, Karolyn Zacarias [place] [address] [place] [address] Nov, Promise Call [place] [address] [place] [address] Nov, Michelle Saucedo Asthma NOS J45.998 ; Type 2 diabetes mellitus with diabetic nephropathy E11.21 ; Type 2 diabetes mellitus with hyperglycemia E11.65 ; HTN I10 ; Fatigue R53.83 ; CHF unspecified systolic I50.20 ; Sleep related hypoventilation in conditions classified elsewhere G47.36 ; TOBACCO USE DISORDER 305.1 and Hyperlipidemia other E78.4 [place] [address] [place] [address] Nov, Karolyn Zacarias [place] [address] [place] [address] Sep, Karolyn Zacarias [place] [address] [place] [address] Sep, Promise Call [place] [address] [place] [address] Sep, Promise Call Anxiety disorder generalized F41.1 [place] [address] [place] [address] Sep, Michelle Saucedo [place] [address] [place] [address] Sep, Karolyn Zacarias [place] [address] [place] [address] Aug, Michelle Saucedo [place] [address] [place] [address] Jul, Karolyn Zacarias Type 2 diabetes mellitus with hyperglycemia E11.65 [place] [address] [place] [address] Jul, Promise Call Bipolar disorder, other F31.89 and Anxiety disorder generalized F41.1 [place] [address] [place] [address] Jul, Michelle Saucedo Asthma NOS J45.998 ; Type 2 diabetes mellitus with diabetic nephropathy E11.21 ; Type 2 diabetes mellitus with hyperglycemia E11.65 ; HTN I10 ; Fatigue R53.83 ; CHF unspecified systolic I50.20 ; Sleep related hypoventilation in conditions classified elsewhere G47.36 ; TOBACCO USE DISORDER 305.1 and Encounter for immunization Z23 [place] [address] [place] [address] Jun, Karolyn Zacarias [place] [address] [place] [address] Jun, Promise Call [place] [address] [place] [address] Jun, iMchelle Saucedo [place] [address] [place] [address] Jun, Sara Smith Shingles B02.9 ; Cough R05 and CHF unspecified systolic I50.20 [place] [address] [place] [address] Jun, Karolyn Zacarias [place] [address] [place] [address] Jun, Karolyn Zacarias [place] [address] [place] [address] Apr, Karolyn Zacarias [place] [address] [place] [address] Apr, Karolyn Zacarias [place] [address] [place] [address] Apr, Michelle Saucedo Asthma NOS J45.998 ; Type 2 diabetes mellitus with hyperglycemia E11.65 ; HTN I10 ; Fatigue R53.83 ; CHF unspecified systolic I50.20 ; Sleep related hypoventilation in conditions classified elsewhere G47.36 ; TOBACCO USE DISORDER 305.1 and Pain abd Generalized R10.84 [place] [address] [place] [address] Mar, Michelle Saucedo [place] [address] [place] [address] Mar, Karolyn Zacarias [place] [address] [place] [address] Feb, Karolyn Zacarias [place] [address] [place] [address] Feb, Michelle Saucedo [place] [address] [place] [address] January, Karolyn Zacarias [place] [address] [place] [address] January, Karolyn Zacarias [place] [address] [place] [address] January, Karolyn Zacarias [place] [address] [place] [address] January, Karolyn Zacarias [place] [address] [place] [address] Dec, Karolyn Zacarias [place] [address] [place] [address] Dec, Michelle Saucedo Asthma NOS J45.998 ; Adult physical NORMAL Z00.00 ; DM II E11.9 ; Type 2 diabetes mellitus with diabetic nephropathy E11.21 ; HTN I10 ; Fatigue R53.83 ; CHF unspecified systolic I50.20 ; Sleep related hypoventilation in conditions classified elsewhere G47.36 and Allergic rhinitis, Other J30.89 [place] [address] [place] [address] Dec, Karolyn Zacarias Generalized anxiety disorder F41.1 [place] [address] [place] [address] Dec, Karolyn Zacarias [place] [address] [place] [address] Oct, Karolyn Zacarias [place] [address] [place] [address] Oct, Karolyn Zacarias [place] [address] [place] [address] Oct, [facility] Diabetes mellitus type 2 or unspecified type with renal manifestations, unc 250.42 [place] [address] [place] [address] Oct, Michelle Saucedo [place] [address] [place] [address] Oct, Promise Call Generalized anxiety disorder F41.1 [place] [address] [place] [address] Sep, Karolyn Zacarias [place] [address] [place] [address] Sep, Karolyn Zacarias [place] [address] [place] [address] Sep, Karolyn [place] [address] [place] [address] Sep, Michelle Saucedo DM II E11.9 ; Diabetes mellitus type 2 or unspecified type with renal manifestations, unc 250.42 ; Type 2 diabetes mellitus with diabetic nephropathy E11.21 ; HTN I10 ; Fatigue R53.83 ; CHF unspecified systolic I50.20 and Sleep related hypoventilation in conditions classified elsewhere G47.36 [place] [address] [place] [address] Sep, Karolyn Zacarias [place] [address] [place] [address] Aug, Promise Call Generalized anxiety disorder F41.1 [place] [address] [place] [address] Aug, Karolyn Zacarias [place] [address] [place] [address] Aug, Karolyn Zacarias [place] [address] [place] [address] Jul, Karolyn Zacarias [place] [address] [place] [address] Jul, Karolyn Zacarias [place] [address] [place] [address] Jul, Michelle Saucedo DM II E11.9 ; Diabetes mellitus type 2 or unspecified type with renal manifestations, unc 250.42 ; Procedure and treatment not carried out because of patient's decision for other reasons Z53.29 ; Type 2 diabetes mellitus with diabetic nephropathy E11.21 ; HTN I10 ; Fatigue R53.83 ; CHF unspecified systolic I50.20 and Sleep related hypoventilation in conditions classified elsewhere G47.36 [place] [address] [place] [address] Jun, Karolyn Zacarias [place] [address] [place] [address] May, Michelle Saucedo CHF unspecified systolic I50.20 [place] [address] [place] [address] May, Karolyn Zacarias [place] [address] [place] [address] May, Michelle Saucedo VACCINE REFUSAL, PATIENT Z28.21 ; Diabetes mellitus type 2 or unspecified type with renal manifestations, unc 250.42 ; Type 2 diabetes mellitus with diabetic nephropathy E11.21 ; HTN I10 ; Fatigue R53.83 ; CHF unspecified systolic I50.20 ; Sleep related hypoventilation in conditions classified elsewhere G47.36 and Asthma NOS J45.998 [place] [address] [place] [address] Apr, Karolyn Zacarias [place] [address] [place] [address] Apr, Michelle Saucedo [place] [address] [place] [address] Mar, Karolyn Zacarias [place] [address] [place] [address] Mar, Karolyn Zacarias [place] [address] [place] [address] Mar, Karolyn Zacarias [place] [address] [place] [address] Mar, Karolyn Zacarias [place] [address] [place] [address] Mar, Karolyn Zacarias [place] [address] [place] [address] Mar, Michelle Saucedo Diabetes mellitus type 2 or unspecified type with renal manifestations, unc 250.42 ; COPD, unspecified J44.9 ; Type 2 diabetes mellitus with diabetic nephropathy E11.21 ; HTN I10 ; Fatigue R53.83 ; CHF unspecified systolic I50.20 and Sleep related hypoventilation in conditions classified elsewhere G47.36 [place] [address] [place] [address] Mar, Karolyn Zacarias [place] [address] [place] [address] Mar, Karolyn Zacarias [place] [address] [place] [address] Feb, Karolyn Zacarias [place] [address] [place] [address] Feb, Karolyn Zacarias [place] [address] [place] [address] Feb, Karolyn Zacarias [place] [address] [place] [address] Feb, Karolyn Zacarias [place] [address] [place] [address] Feb, Karolyn Zacarias [place] [address] [place] [address] Feb, Karolyn Zacarias [place] [address] [place] [address] Feb, Karolyn Zacarias [place] [address] [place] [address] Feb, Michelle Saucedo COPD, unspecified J44.9 ; Type 2 diabetes mellitus with diabetic nephropathy E11.21 ; HTN I10 ; Fatigue R53.83 ; CHF unspecified systolic I50.20 ; Sleep related hypoventilation in conditions classified elsewhere G47.36 and Pseudotumor Cerebri G93.2 [place] [address] [place] [address] Feb, Karolyn Zacarias [place] [address] [place] [address] Feb, Karolyn Zacarias [place] [address] [place] [address] Feb, Karolyn Zacarias [place] [address] [place] [address] Feb, Karolyn Zacarias [place] [address] [place] [address] Feb, Michelle Saucedo COPD, unspecified J44.9 ; Type 2 diabetes mellitus with diabetic nephropathy E11.21 ; HTN I10 ; Fatigue R53.83 ; CHF unspecified systolic I50.20 ; Sleep related hypoventilation in conditions classified elsewhere G47.36 and Acute respiratory failure with hypoxia J96.01 [place] [address] [place] [address] Feb, Karolyn Zacarias [place] [address] [place] [address] Feb, Karolyn Zacarias [place] [address] [place] [address] Feb, Karolyn Zacarias [place] [address] [place] [address] January, Michelle Saucedo [place] [address] [place] [address] January, Karolyn Zacarias Hyperkalemia E87.5 [place] [address] [place] [address] January, Karolyn Zacarias [place] [address] [place] [address] January, Karolyn Zacarias [place] [address] [place] [address] January, Michelle Saucedo COPD, unspecified J44.9 ; Type 2 diabetes mellitus with diabetic nephropathy E11.21 ; HTN I10 ; Fatigue R53.83 ; CHF unspecified systolic I50.20 and Hyperkalemia E87.5 [place] [address] [place] [address] January, Karolyn Zacarias [place] [address] [place] [address] January, Karolyn Zacarias [place] [address] [place] [address] Dec, Karolyn Zacarias [place] [address] [place] [address] Dec, Michelle Saucedo Adult physical NORMAL Z00.00 ; Type 2 diabetes mellitus with diabetic nephropathy E11.21 ; Type 2 diabetes mellitus with hyperglycemia E11.65 ; COPD, unspecified J44.9 ; Fatigue R53.83 ; Chronic kidney disease, stage 3 (moderate) N18.3 ; Hyperlipidemia, other E78.4 ; BMI 45.0-49.9, adult Z68.42 ; Hypothyroidism, unspecified E03.9 ; Sleep apnea, unspecified G47.30 ; HTN I10 and Encounter for screening mammogram for malignant neoplasm of breast Z12.31 [place] [address] [place] [address] Dec, Karolyn Zacarias COPD with Acute Exacerbation J44.1 [place] [address] [place] [address] Nov, Karolyn [place] [address] [place] [address] Nov, Michelle Saucedo COPD, unspecified J44.9 ; Type 2 diabetes mellitus with diabetic nephropathy E11.21 ; HTN I10 ; Hyperlipidemia other E78.4 and Fatigue R53.83 [place] [address] [place] [address] Nov, Karolyn Zacarias [place] [address] [place] [address] Nov, Karolyn Zacarias Chronic obstructive pulmonary disease, unspecified J44.9 [place] [address] [place] [address] Nov, Michelle Saucedo COPD, unspecified J44.9 ; Type 2 diabetes mellitus with diabetic nephropathy E11.21 ; Hypoxemia R09.02 and Pain back M54.89 [place] [address] [place] [address] Oct, Karolyn Zacarias [place] [address] [place] [address] Oct, Fariba Gopal COPD with Acute Exacerbation J44.1 ; Type 2 diabetes mellitus with diabetic nephropathy E11.21 ; Pneumonia NOS J18.9 and Hypoxemia R09.02 [place] [address] [place] [address] Oct, Karolyn Zacarias [place] [address] [place] [address] Oct, Karolyn Zacarias [place] [address] [place] [address] Oct, Michelle Saucedo [place] [address] [place] [address] Oct, Michelle Saucedo IBS w/ diarrhea K58.0 [place] [address] [place] [address] Sep, Karolyn Z[place] Major depressive disorder, recurrent severe without psychotic features F33.2 [place] [address] [place] [address] Sep, Karolyn Zacarias [place] [address] [place] [address] Sep, Karolyn Zacarias [place] [address] [place] [address] Sep, Karolyn Zacarias Type 2 diabetes mellitus with diabetic nephropathy E11.21 and Type 2 diabetes mellitus with hyperglycemia E11.65 [place] [address] [place] [address] Sep, Karolyn Zacarias [place] [address] [place] [address] Sep, Karolyn Zacarias [place] [address] [place] [address] Sep, Mihcelle Saucedo [place] [address] [place] [address] Sep, Michelle Saucedo [place] [address] [place] [address] Sep, Karolyn [place] Generalized anxiety disorder F41.1 [place] [address] [place] [address] Sep, Michelle Saucedo [place] [address] [place] [address] Sep, Promise Call Generalized anxiety disorder F41.1 [place] [address] [place] [address] Aug, Karolyn Zacarias [place] [address] [place] [address] Aug, Karolyn Zacarias [place] [address] [place] [address] Aug, Karolyn Zacarias [place] [address] [place] [address] Aug, Karolyn Zacarias [place] [address] [place] [address] Aug, Karolyn Zacarias [place] [address] [place] [address] Aug, Karolyn Zacarias [place] [address] [place] [address] Jul, Karolyn Zacarias [place] [address] [place] [address] Jul, Michelle Saucedo Fatigue R53.83 ; Type 2 diabetes mellitus with diabetic nephropathy E11.21 ; Dizziness R42 ; HTN I10 ; Cough R05 and Rash and other nonspecific skin eruption R21 [place] [address] [place] [address] Jul, Karolyn Zacarias [place] [address] [place] [address] Jul, Karolyn Zacarias [place] [address] [place] [address] Jul, Michelle Saucedo [place] [address] [place] [address] Jul, Karolyn Zacarias [place] [address] [place] [address] Jul, Karolyn Zacarias [place] [address] [place] [address] Jul, Karolyn Zacarias [place] [address] [place] [address] Jul, Promise Call [place] [address] [place] [address] Jun, Promise Call Major depressive disorder, recurrent, moderate F33.1 [place] [address] [place] [address] Jun, Michelle Saucedo [place] [address] [place] [address] May, Michelle Saucedo Type 2 diabetes mellitus with diabetic nephropathy E11.21 ; Type 2 diabetes mellitus with hyperglycemia E11.65 ; HTN I10 ; Hypothyroidism, unspecified E03.9 and Hyperlipidemia, other E78.4 [place] [address] [place] [address] May, Promise Call Major depressive disorder, recurrent, moderate F33.1 [place] [address] [place] [address] May, Michelle Saucedo Fatigue R53.83 ; Type 2 diabetes mellitus with diabetic nephropathy E11.21 ; Dizziness R42 and HTN I10 [place] [address] [place] [address] May, Karolyn Zacarias [place] [address] [place] [address] May, Karolyn Riberaon [place] [address] [place] [address] May, Promise Call [place] [address] [place] [address] May, Michelle Saucedo Type 2 diabetes mellitus with diabetic nephropathy E11.21 and Type 2 diabetes mellitus with hyperglycemia E11.65 [place] [address] [place] [address] May, Promise Call 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 [place] [address] [place] [address] May, Karolyn Zacarias [place] [address] [place] [address] Apr, Karolyn Zacarias [place] [address] [place] [address] Apr, Michelle Saucedo Fatigue R53.83 ; Type 2 diabetes mellitus with diabetic nephropathy E11.21 ; Chronic obstructive pulmonary disease, unspecified J44.9 ; Dizziness R42 ; Hyperlipidemia, other E78.4 ; Hypothyroidism, unspecified E03.9 ; HTN I10 and IBS w/ diarrhea K58.0 [place] [address] [place] [address] Apr, Karolyn Zacarias [place] [address] [place] [address] Feb, Karolyn Zacarias [place] [address] [place] [address] Feb, Karolyn Zacarias [place] [address] [place] Feb, Michelle Saucedo [place] [address] [place] [address] Feb, Michelle Saucedo Fatigue R53.83 ; Chronic obstructive pulmonary disease, unspecified J44.9 ; Type 2 diabetes mellitus with diabetic nephropathy E11.21 ; Dizziness R42 ; Hyperlipidemia, other E78.4 ; Hypothyroidism, unspecified E03.9 ; Spinal stenosis NOS 724.09 and Hypertension, essential I10 [place] [address] [place] [address] Feb, [facility] [address] [place] [address] Feb, Karolyn Zacarias Major depressive disorder, recurrent, moderate F33.1 [place] [address] [place] [address] Feb, Karolyn Zacarias [place] [address] [place] [address] January, Karolyn Zacarias [place] [address] [place] [address] January, Karolyn Zacarias [place] [address] [place] [address] January, Michelle Saucedo Dizziness R42 ; Chronic obstructive pulmonary disease, unspecified J44.9 and Type 2 diabetes mellitus with diabetic nephropathy E11.21 [place] [address] [place] [address] January, Karolyn Zacarias [place] [address] [place] [address] January, Karolyn Zacarias [place] [address] [place] [address] January, Karolyn Zacarias Chronic obstructive pulmonary disease, unspecified J44.9 [place] [address] [place] [address] January, Karolyn Zacarias [place] [address] [place] [address] January, Michelle Saucedo Adult physical NORMAL Z00.00 ; Fatigue R53.83 ; Chronic obstructive pulmonary disease, unspecified J44.9 ; Type 2 diabetes mellitus with diabetic nephropathy E11.21 ; Dizziness R42 ; Hyperlipidemia, other E78.4 ; Hypothyroidism, unspecified E03.9 ; Sleep apnea, unspecified G47.30 ; HTN I10 and BMI 45.0-49.9, adult Z68.42 [place] [address] [place] [address] Dec, Michelle Saucedo Fatigue R53.83 ; Type 2 diabetes mellitus with diabetic nephropathy E11.21 ; Type 2 diabetes mellitus with hyperglycemia E11.65 ; Hyperlipidemia, other E78.4 ; Hypothyroidism, unspecified E03.9 ; Sleep apnea, unspecified G47.30 ; HTN I10 and Disorder of the skin and subcutaneous tissue, unspecified L98.9 [place] [address] [place] [address] Nov, Fariba Herron [place] [address] [place] [address] Nov, Promise Call [place] [address] [place] [address] Oct, Michelle Saucedo [place] [address] [place] [address] Oct, Michelle Saucedo [place] [address] [place] [address] Sep, Fariba Herron Type 2 diabetes mellitus with diabetic nephropathy E11.21 ; Type 2 diabetes mellitus with hyperglycemia E11.65 ; Hyperlipidemia, other E78.4 ; Hypothyroidism, unspecified E03.9 ; Sleep apnea, unspecified G47.30 and HTN I10 [place] [address] [place] [address] Jul, Promise Call [place] [address] [place] [address] Jun, Karolyn Zacarias [place] [address] [place] [address] Jun, Karolyn Zacarias COPD with Acute Exacerbation J44.1 [place] [address] [place] [address] Jun, Karolyn Zacarias [place] [address] [place] [address] Jun, Karolyn Zacarias [place] [address] [place] [address] Jun, Fariba Herron Diabetes mellitus type 2 or unspecified type with renal manifestations, unc 250.42 ; Encounter for immunization Z23 ; Pain abd Generalized R10.84 ; Change in bowel habit R19.4 ; COPD [Chronic obstructive pulmonary disease] 496 ; Hyperlipidemia 272.4 ; other Hypothyroidism (unspecified) 244.9 and Hypertension NOS 401.9 [place] [address] [place] [address] May, Karolyn Zacarias [place] [address] [place] [address] Apr, Michelle Saucedo Anxiety disorder NOS 300.00 [place] [address] [place] [address] Apr, Promise Call Mood disorder NOS 296.90 and Anxiety disorder NOS 300.00 [place] [address] [place] [address] Apr, Karolyn Zacarias [place] [address] [place] [address] Apr, Karolyn Zacarias [place] [address] [place] [address] Apr, Fariba Gopal Abdominal pain, left upper quadrant 789.02 ; other Hyperkalemia 276.7 ; Diabetes mellitus type 2 or unspecified type with renal manifestations, unc 250.42 ; COPD [Chronic obstructive pulmonary disease] 496 ; Hyperlipidemia 272.4 ; other Hypothyroidism (unspecified) 244.9 and Hypertension NOS 401.9 [place] [address] [place] [address] Apr, Karolyn Zacarias [place] [address] [place] [address] Apr, Fariba Herron Anxiety disorder NOS 300.[address] [place] [address] [place] [address] Apr, Karolyn Zacarias [place] [address] [place] [address] Feb, Karolyn Zacarias [place] [address] [place] [address] Feb, Karolyn Zacarias [place] [address] [place] [address] Feb, Michelle Saucedo Diabetes mellitus type 2 or unspecified type with renal manifestations, unc 250.42 ; COPD [Chronic obstructive pulmonary disease] 496 ; Hypertension NOS 401.9 ; Hyperlipidemia 272.4 ; other Hypothyroidism (unspecified) 244.9 ; Pseudotumor cerebri 348.2 ; Body Mass Index BMI 45.0-49.9, adult V85.42 ; Other Fatigue and Malaise 780.79 and TOBACCO USE DISORDER 305.1 [place] [address] [place] [address] Feb, Karolyn Zacarias [place] [address] [place] [address] January, Karolyn Zacarias [place] [address] [place] [address] January, Karolyn Zacarias [place] [address] [place] [address] Dec, Karolyn Zacarias [place] [address] [place] [address] Dec, Karolyn Zacarias [place] [address] [place] [address] Dec, Karolyn Zacarias [place] [address] [place] [address] Nov, Karolyn Zacarias [place] [address] [place] [address] Nov, Karolyn Zacarias [place] [address] [place] [address] Nov, Michelle Saucedo Well Adult exam V70.0 ; Hypertension NOS 401.9 ; Hyperlipidemia 272.4 ; TOBACCO USE DISORDER 305.1 ; other Hypothyroidism (unspecified) 244.9 ; Diabetes mellitus type 2 or unspecified type with renal manifestations, unc 250.42 ; COPD [Chronic obstructive pulmonary disease] 496 ; Hearing Test V72.19 and SCREEN MAMMOGRAM NEC V76.12 [place] [address] [place] [address] Oct, Karolyn Zacarias [place] [address] [place] [address] Oct, Karolyn Zacarias [place] [address] [place] [address] Oct, Promise Call Moderate recurrent major depression 296.32 and ANXIETY STATE NOS 300.00 [place] [address] [place] [address] Oct, Karolyn Zacarias [place] [address] [place] [address] Oct, Karolyn Zacarias [place] [address] [place] [address] Sep, Karolyn Zacarias [place] [address] [place] [address] Sep, Karolyn Zacarias [place] [address] [place] [address] Sep, Promise Call PANIC DIS W/O AGORPHOBIA 300.01 [place] [address] [place] [address] Aug, Michelle Saucedo Other Fatigue and Malaise 780.79 ; COPD with Acute Exacerbation J44.1 ; Diabetes mellitus type 2 or unspecified type with renal manifestations, unc 250.42 ; Constipation NOS 564.00 ; TOBACCO USE DISORDER 305.1 ; PREVNAR V03.82 and FLU>3YRS V04.81 [place] [address] [place] [address] Aug, Karolyn Zacarias [place] [address] [place] [address] Aug, Michelle Saucedo COPD with Acute Exacerbation J44.1 ; Diabetes mellitus type 2 or unspecified type with renal manifestations, unc 250.42 and other Cough 786.2 [place] [address] [place] [address] Jun, Karolyn Zacarias [place] [address] [place] [address] Jun, Promise [facility] DEPR PSYCH-SEVERE 296.33 [place] [address] [place] [address] May, Promise Call [place] [address] [place] [address] May, Michelle Saucedo [place] [address] [place] [address] May, Promise [facility] DE[employer] PSYCH-SEVERE 296.33 [place] [address] [place] [address] Apr, Karolyn Zacarias [place] [address] [place] [address] Apr, Michelle Saucedo Diabetes mellitus type 2 or unspecified type with renal manifestations, unc 250.42 ; other Hypothyroidism (unspecified) 244.9 ; Hypertension NOS 401.9 ; Hyperlipidemia 272.4 ; COPD [Chronic obstructive pulmonary disease] 496 ; Other Fatigue and Malaise 780.79 and TOBACCO USE DISORDER 305.1 [place] [address] [place] [address] Apr, Karolyn Zacarias [place] [address] [place] [address] Apr, Promise Call [place] [address] [place] [address] Mar, Michelle Saucedo COPD with Acute Exacerbation J44.1 and Diabetes mellitus type 2 or unspecified type with renal manifestations, unc 250.42 [place] [address] [place] [address] Mar, Loretta Shadguy COPD with Acute Exacerbation J44.1 ; Diabetes II RENAL MANIFST UNCONTROLLED 250.42 and other Cough 786.[address] [place] [address] [place] [address] Mar, Michelle Saucedo [place] [address] [place] [address] Mar, Michelle Saucedo COPD with Acute Exacerbation J44.1 and other Sleep apnea 786.09 [place] [address] [place] [address] Mar, Karolyn Zacarias [place] [address] [place] [address] Mar, Karolyn Zacarias [place] [address] [place] [address] Mar, Karolyn Zacarias [place] [address] [place] [address] Mar, Promise Call Moderate recurrent major depression 296.32 ; GENERALIZED ANXIETY DIS 300.02 and Depressive reaction 300.[address] [place] [address] [place] [address] Mar, Karolyn Zacarias [place] [address] [place] [address] Mar, Michelle Saucedo COPD with Acute Exacerbation J44.1 ; Pharyngitis 462 and TOBACCO USE DISORDER 305.1 [place] [address] [place] [address] Feb, Karolyn Zacarias [place] [address] [place] [address] January, Michelle Suacedo Diabetes mellitus type 2 or unspecified type with renal manifestations, unc 250.42 ; Hyperlipidemia 272.4 ; Hypertension NOS 401.9 ; other Hypothyroidism (unspecified) 244.9 ; Other Fatigue and Malaise 780.79 ; TOBACCO USE DISORDER 305.1 and other ALLERGIC RHINITIS NEC 477.8 [place] [address] [place] [address] Dec, Karolyn Zacarias other Hyperkalemia 276.7 [place] [address] [place] [address] Dec, Michelle Saucedo [place] [address] [place] [address] Nov, Karolyn Zacarias [place] [address] [place] [address] Nov, Michelle Saucedo [place] [address] [place] [address] Oct, Michelle Saucedo Diabetes mellitus type 2 or unspecified type with renal manifestations, unc 250.42 ; Hyperlipidemia 272.4 ; Hypertension NOS 401.9 ; other Hypothyroidism (unspecified) 244.9 ; Other Fatigue and Malaise 780.79 and TOBACCO USE DISORDER 305.1 [place] [address] [place] [address] Oct, Karolyn Zacarias [place] [address] [place] [address] Oct, Karolyn Zacarias [place] [address] [place] [address] Oct, Michelle Saucedo [place] [address] [place] [address] Oct, Michelle Saucedo [place] [address] [place] [address] Oct, Michelle Saucedo [place] [address] [place] [address] Sep, Karolyn Zacarias [place] [address] [place] [address] Sep, Karolyn Zacarias [place] [address] [place] [address] Aug, Karolyn Zacarias [place] [address] [place] [address] Jul, Michelle Saucedo Diabetes mellitus type 2 or unspecified type with renal manifestations, unc 250.42 ; Hypertension NOS 401.9 ; Hyperlipidemia 272.4 ; other Hypothyroidism (unspecified) 244.9 ; Pseudotumor cerebri 348.2 ; Other Fatigue and Malaise 780.79 and TOBACCO USE DISORDER 305.1
== END 2023-05-05 09:33 | disposition home or self-care (01) ==
LOC: HO.HBS 08:53
PROVIDERS: PCP Family Medicine; Visit Provider Physician Assistant
DX: E66.01 Morbid (severe) obesity due to excess calories (principal); Z68.42 Body mass index [BMI] 45.0-49.9, adult
CPT/HCPCS: 99213

== ENCOUNTER → 2023-05-05 08:53 | Outpatient (BNVA) | payer MEDICARE, SELFPAY | PROVIDERS: PCP Family Medicine; Visit Provider Physician Assistant | DX: E66.01 Morbid (severe) obesity due to excess calories (principal); Z68.42 Body mass index [BMI] 45.0-49.9, adult; I50.9 Heart failure, unspecified; C34.90 Malignant neoplasm of unspecified part of unspecified bronchus or lung | CPT/HCPCS: Q3014 ==